=== PATIENT | female | born 1970 | race Caucasian/White ===

== ENCOUNTER 2022-02-12 13:02 | Inpatient (IN) | payer OTHER, SELFPAY ==
[2022-02-12 13:15] VITALS: BP 146/94; PULSE 102; RESP 26; TEMP 36.6; O2SAT 97; BMI 35.4
--- NOTE | 2022-02-12 13:19 | PC.NURSE ---
pt sobbing in triage then became very hyperverbal and hyperventilating, stating she doesnt need us im fine she also has right upper extremity bruising from a fall unknown. was seen at [facility] on thursday and thursday and d/c home
--- NOTE | 2022-02-12 13:35 | ED.PSYCH ---
HPI - Psych General Chief Complaint: Psychiatric Symptoms Stated Complaint: Depressed Drinking Alcohol Time Seen by Provider: 02/12/22 13:35 Source: patient Mode of arrival: ambulatory Limitations: no limitations History of Present Illness MD complaint: suicidal ideation and feels depressed Onset (ago): day(s) (several) Duration: getting worse History of same: Yes Relieving factors: none Exacerbating factors: alcohol Context: significant life stressor (two significant losses in her life) Associated psychiatric symptoms: depression and suicidal ideation Associated symptoms: denies other symptoms Treatments prior to arrival: none Related Data Allergies Allergy/AdvReac Type Severity Reaction Status Date / Time latex [LATEX] Allergy Unknown rash Unverified 05/10/20 17:24 leuprolide [From LUPRON] Allergy Unknown HIVES Unverified 05/10/20 17:24 Sulfa (Sulfonamide Allergy Unknown RASH Unverified 05/10/20 17:24 Antibiotics) [SULFA (SULFONAMIDE ANTIBIOTICS)] Review of Systems Review of Systems: Constitutional : No Fever, No Chills ENT/Mouth : No Ear Pain, No Nasal Congestion, No sore throat Eyes: No Eye Pain, No Swelling, No Redness Cardiovascular : No Chest Pain, No SOB Respiratory : No Cough, No Sputum, No Dyspnea Gastrointestinal : No Nausea, No Vomiting, No Diarrhea, No Hematochezia, No Melena Genitourinary : No Dysuria, No Urinary Frequency, No Hematuria Musculoskeletal : No Myalgias Skin : No Skin Lesions, No rash Neuro : No Weakness, No Numbness, No Paresthesias, No Dizziness, No Headache Psych : positive Anxiety, positive Depression, positive SI no HI Heme/Lymph: No Lymphadenopathy Endocrine : No Polyuria, No Polydipsia All other systems reviewed and are negative [facility] Past Medical History Attestation statement: The following information was validated with the patient. Medical History Alcohol abuse Depression GERD (gastroesophageal reflux disease) HTN (hypertension) Hypothyroidism Migraines Social History Social History (Updated 02/12/22 @ 13:44 by Radha Whitaker DO) Alcohol intake: current Alcohol intake frequency: 3 or more drinks per day Alcohol type: hard liquor Patient Tobacco Use Status: Never used Tobacco Use of substances other than those prescribed or required for medical reasons: No Advance Directives: No Advance Directives Information Provided: No Physical Exam Vital Signs: Vital Signs: Last Vital Signs Temp 98 F 02/12/22 13:15 Pulse 102 H 02/12/22 13:15 Resp 26 H 02/12/22 13:15 BP 146/94 H 02/12/22 13:15 Pulse Ox 97 02/12/22 13:15 O2 Del Method 02/12/22 13:15 BMI result Body Mass Index 35.4 Appearance: Alert. Oriented X3. Anxious tearful mild acute distress. Eyes: Pupils equal, round and reactive to light. ENT: Pharynx normal. Neck: Normal inspection. Neck supple. CVS: tachyardic heart rate and rhythm. Pulses normal. Respiratory: No respiratory distress. Breath sounds normal. Abdomen: Soft and non-tender. Skin: Skin warm and dry. Normal skin color. Normal skin turgor. Extremities: No lower extremity edema. No calf ttp Neuro: Oriented X 3. No motor deficit. No sensory deficit. CN2-12 intact, no tremors noted Course Course Course Narrative: Physician observation started at 248pm. Patient placed in physician observation because the patient needed more time for clinical sobriety and N evaluation. At the time observation was started the patient's vitals were stable, patient is alert and oriented but slightly anxious, Neuro: nonfocal, CV RRR, Lungs clear MDM - Psych MDM Narrative Medical decision making narrative: 51 yo female with hx of depression and ETOH abuse recently has been drinking heavily due to the loss of her father and service dog she is depressed with some vague SI reports being at [facility] on Thursday and cleared by service [facility] - was given phenobarbital x 2 while in ED. At this time labs, PRN ativan ordered. N consult. Dispo per results and findings. Lab Data Result diagrams: 02/12/22 14:18 02/12/22 14:18 Labs: Lab Results 02/12/22 02/12/22 02/12/22 Range/Units 14:18 14:18 14:18 WBC 4.4 L (4.8-10.8) X10*3/uL RBC 3.59 L (4.20-5.50) X10*6/uL Hgb 11.2 L (12.0-16.0) g/dl Hct 33.6 L (37.0-47.0) % MCV 93.6 (80.0-98.0) fL MCH 31.2 (27.0-33.0) pg MCHC 33.3 (31.0-35.0) g/dl RDW 12.6 (11.0-16.0) % Plt Count 141 L (160-400) X10*3/uL MPV 10.6 (9.4-12.3) fL Immature Gran % (Auto) 0.2 (0.0-0.4) % Neut % (Auto) 54.2 (45-73) % Lymph % (Auto) 40.1 H (20-40) % Wood % (Auto) 5.5 (2-11) % Eos % (Auto) 0.0 (0-4) % Baso % (Auto) 0.0 (0-2) % Lymph # (Auto) 1.8 (1.2-4.9) X10*3/uL Wood # (Auto) 0.2 (0.1-1.2) X10*3/uL Eos # (Auto) 0.0 (0.0-0.4) X10*3/uL Baso # (Auto) 0.0 (0.0-0.2) X10*3/uL Abs Immat Gran (auto) 0.01 (0.00-0.03) X10*3/uL Absolute Neuts (auto) 2.4 (2.0-8.3) x10*3/uL Absolute Nucleated RBC 0.000 (0.0-0.012) X10*3/uL Nucleated RBC % (auto) 0.0 (0.0-0.2) /100WBC Sodium 141 (135-145) mmol/L Potassium 4.4 (3.3-5.1) mmol/L Chloride 103 (96-108) mmol/L Carbon Dioxide 27 (22-29) mmol/L Anion Gap 15 (12-20) BUN 10 (9-16) mg/dL Creatinine 0.58 (0.5-1.4) mg/dL Estim Creat Clear Calc 115.5 Estimated GFR > 60 Random Glucose 102 (60-115) mg/dL Calcium 8.5 (8.4-10.2) mg/dL Magnesium 2.2 (1.6-2.6) mg/dL Total Bilirubin 0.2 (0.0-1.0) mg/dL Direct Bilirubin < 0.2 (0.0-0.5) mg/dL AST 29 (5-31) U/L ALT 24 (0-31) U/L Alkaline Phosphatase 114 (39-117) U/L Total Protein 6.2 L (6.5-8.0) g/dL Albumin 3.9 (3.5-5.0) g/dL Ethyl Alcohol mg/dL COVID-19 ([facility]) Negative (Negative) COVID-19 Clin Com See Note 02/12/22 Range/Units 14:18 WBC (4.8-10.8) X10*3/uL RBC (4.20-5.50) X10*6/uL Hgb (12.0-16.0) g/dl Hct (37.0-47.0) % MCV (80.0-98.0) fL MCH (27.0-33.0) pg MCHC (31.0-35.0) g/dl RDW (11.0-16.0) % Plt Count (160-400) X10*3/uL MPV (9.4-12.3) fL Immature Gran % (Auto) (0.0-0.4) % Neut % (Auto) (45-73) % Lymph % (Auto) (20-40) % Wood % (Auto) (2-11) % Eos % (Auto) (0-4) % Baso % (Auto) (0-2) % Lymph # (Auto) (1.2-4.9) X10*3/uL Wood # (Auto) (0.1-1.2) X10*3/uL Eos # (Auto) (0.0-0.4) X10*3/uL Baso # (Auto) (0.0-0.2) X10*3/uL Abs Immat Gran (auto) (0.00-0.03) X10*3/uL Absolute Neuts (auto) (2.0-8.3) x10*3/uL Absolute Nucleated RBC (0.0-0.012) X10*3/uL Nucleated RBC % (auto) (0.0-0.2) /100WBC Sodium (135-145) mmol/L Potassium (3.3-5.1) mmol/L Chloride (96-108) mmol/L Carbon Dioxide (22-29) mmol/L Anion Gap (12-20) BUN (9-16) mg/dL Creatinine (0.5-1.4) mg/dL Estim Creat Clear Calc Estimated GFR Random Glucose (60-115) mg/dL Calcium (8.4-10.2) mg/dL Magnesium (1.6-2.6) mg/dL Total Bilirubin (0.0-1.0) mg/dL Direct Bilirubin (0.0-0.5) mg/dL AST (5-31) U/L ALT (0-31) U/L Alkaline Phosphatase (39-117) U/L Total Protein (6.5-8.0) g/dL Albumin (3.5-5.0) g/dL Ethyl Alcohol 268 mg/dL COVID-19 ([facility]) (Negative) COVID-19 Clin Com Discharge Plan Discharge Clinical Impression: Alcohol abuse Depression Qualifiers: Depression Type: unspecified Qualified Code(s): F32.A - Depression, unspecified Patient Disposition: Still a Patient
[2022-02-12] MEDS: LORazepam 1 MG TABLET 2 MG PO ×2 (14:06→19:39)
--- NOTE | 2022-02-12 14:23 | PC.NURSE ---
PT AMBULATING TO BATHROOM INDEPENDENTLY WITH NO ISSUE. NO OBSERVABLE SXS OF ETOH ED AT THIS TIME, STATES LAST DRINK TODAY. DOES NOT APPEAR INTOXICATED. PT REMAINS TEARFUL, THOUGH BECOMING MORE EASILY CONSOLED. PER [facility] STAFF, PT IS ON LIST FOR [facility]. [facility] TO BE CONTATED AND FAXED.
[2022-02-12 14:24] LABS: MANUAL DIFF FLAG NO
[2022-02-12 14:26] LABS: Hematocrit 33.6 % (37.0-47.0); Hemoglobin 11.2 g/dl (12.0-16.0); Imm Gran Abs Auto 0.01 X10*3/uL (0.00-0.03); Imm Gran Pct Auto 0.2 % (0.0-0.4); Lymphocytes Absolute Auto 1.8 X10*3/uL (1.2-4.9); Lymphocytes Percent Auto 40.1 % (20-40); Mean Corpuscular HGB Conc 33.3 g/dl (31.0-35.0); Mean Corpuscular Hemoglobin 31.2 pg (27.0-33.0); Mean Corpuscular Volume 93.6 fL (80.0-98.0); Mean Platelet Volume 10.6 fL (9.4-12.3); Monocytes Absolute Auto 0.2 X10*3/uL (0.1-1.2); Monocytes Percent Auto 5.5 % (2-11); Neutrophils Absolute Auto 2.4 x10*3/uL (2.0-8.3); Neutrophils Percent Auto 54.2 % (45-73); Platelet Count 141 X10*3/uL (160-400); Red Blood Count 3.59 X10*6/uL (4.20-5.50); Red Cell Distribution Width 12.6 % (11.0-16.0); White Blood Count 4.4 X10*3/uL (4.8-10.8)
--- NOTE | 2022-02-12 14:36 | PC.NURSE ---
[facility]LL[facility] PAPERWORK SUBMITTED, CALL MADE OUT.
--- NOTE | 2022-02-12 14:39 | PC.NURSE ---
[facility] COUNSELOR SAMM BLUM [phone] PT GAVE VERBAL CONSENT TO DISCUSS UPDATES WITH [facility].
[2022-02-12 14:41] LABS: Ethanol 268 mg/dL
[2022-02-12 14:43] LABS: Alanine Aminotransferase 24 U/L (0-31); Albumin Level 3.9 g/dL (3.5-5.0); Alkaline Phosphatase 114 U/L (39-117); Anion Gap 15 (12-20); Aspartate Amino Transferase 29 U/L (5-31); Bilirubin Direct < 0.2 mg/dL (0.0-0.5); Bilirubin Total 0.2 mg/dL (0.0-1.0); Blood Urea Nitrogen 10 mg/dL (9-16); Calcium 8.5 mg/dL (8.4-10.2); Carbon Dioxide 27 mmol/L (22-29); Chloride 103 mmol/L (96-108); Creatinine Clr Calc Pharmacy 115.5; Estimated Glomerular Filt Rate > 60; Glucose Random 102 mg/dL (60-115); Magnesium 2.2 mg/dL (1.6-2.6); Potassium 4.4 mmol/L (3.3-5.1); Sodium 141 mmol/L (135-145); Total Protein 6.2 g/dL (6.5-8.0)
[2022-02-12 14:46] LABS: COVID-19 Test Negative (Negative); IDNOW Serial# 16C4AD1C
[2022-02-12 15:00] LABS: Amphetamine Screen Urine POSITIVE (Not Detect); Barbiturates, Urine POSITIVE (Not Detect); Benzodiazepines Screen Urine Not Detected (Not Detect); Cannabinoid Screen Urine Not Detected (Not Detect); Cocaine Screen Urine Not Detected (Not Detect); Fentanyl, urine Not Detected (Not Detect); Opiate Screen Urine Not Detected (Not Detect); Phencyclidine Screen Urine Not Detected (Not Detect)
--- NOTE | 2022-02-12 17:35 | PC.NURSE ---
[facility] HERE, EVAL TO BE DELAYED D/T ETOH > 250
[2022-02-12 18:44] VITALS: BP 124/67; PULSE 105; RESP 17; TEMP 36.6; O2SAT 96
[2022-02-12] MEDS: traZODone HCL 50 MG TABLET PO (22:20)
[2022-02-12] MEDS: Gabapentin 300 MG CAPSULE PO (22:20)
[2022-02-12] MEDS: Baclofen 20 MG TABLET PO (22:20)
[2022-02-12 22:33] VITALS: BP 147/90; PULSE 100; RESP 20; TEMP 36.1; O2SAT 99
[2022-02-13 02:16] VITALS: BP 155/93; PULSE 86; RESP 16; TEMP 36.4; O2SAT 100
[2022-02-13] MEDS: LORazepam 1 MG TABLET 2 MG PO ×3 (02:25→19:43)
[2022-02-13] MEDS: Levothyroxine Sodium 25 MCG TABLET PO (05:56)
[2022-02-13] MEDS: Omeprazole 20 MG CAPSULE.DR PO (05:56)
--- NOTE | 2022-02-13 06:44 | PC.NURSE ---
Patient slept through the night, no distress observed/reported, PRN Ativan 2 mg PO administered as ordered for comfort, patient compliant with her medication, well engaged with [facility], behavior non concerning, disposition section 12 inpatient bed search, will continue to monitor.
[2022-02-13 07:40] VITALS: BP 129/85; PULSE 75; RESP 12; TEMP 37.1; O2SAT 98
[2022-02-13] MEDS: lamoTRIgine 100 MG TABLET 200 MG PO (07:46)
[2022-02-13] MEDS: Acamprosate Calcium 333 MG TABLET.DR 666 MG PO ×3 (07:46→19:41)
[2022-02-13] MEDS: Multivitamin TABLET 1 TAB PO (07:46)
[2022-02-13] MEDS: Amphetamine Mixed Salts 20 MG TABLET PO ×2 (07:46→17:10)
[2022-02-13] MEDS: Gabapentin 300 MG CAPSULE PO ×2 (07:47→17:11)
[2022-02-13] MEDS: Loratadine 10 MG TABLET PO (07:47)
[2022-02-13] MEDS: Baclofen 20 MG TABLET PO ×3 (07:47→19:43)
[2022-02-13] MEDS: lisinopriL 10 MG TABLET PO (07:48)
[2022-02-13] MEDS: buPROPion HCl XL 300 MG TAB.ER.24H PO (07:48)
[2022-02-13] MEDS: Calcium + Vitamin D 250 MG TABLET 500 MG PO ×2 (07:48→19:42)
--- NOTE | 2022-02-13 09:54 | ECG_ITS ---
Test Reason : medical clearance Blood Pressure : / mmHG Vent. Rate : 085 BPM Atrial Rate : 085 BPM P-R Int : 148 ms QRS Dur : 102 ms QT Int : 372 ms P-R-T Axes : 047 -16 028 degrees QTc Int : 442 ms Normal sinus rhythm Moderate voltage criteria for LVH, may be normal variant ( R in aVL , Alex product ) Septal infarct , age undetermined Abnormal ECG No previous ECGs available Referred By: Megha Haskins Electronically Signed By:NICOLE PATRICIA MD
--- NOTE | 2022-02-13 11:12 | PC.NURSE ---
alert, nad, pleasant and cooperative, ate breakfast, medicated as ordered, speech clear, steady gait, no signs of withdrawl at this time
[2022-02-13 18:00] VITALS: BP 137/103; PULSE 97; RESP 18; TEMP 36.5
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
[2022-02-13] MEDS: busPIRone HCl 5 MG TABLET 15 MG PO (19:48)
[2022-02-13] MEDS: Gabapentin 400 MG CAPSULE PO (19:49)
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
[2022-02-13] MEDS: traZODone HCL 50 MG TABLET PO ×2 (20:49→22:59)
[2022-02-13] MEDS: LORazepam 1 MG TABLET PO (22:59)
[2022-02-14] MEDS: Amphetamine Mixed Salts 20 MG TABLET PO ×2 (06:30→14:29)
[2022-02-14] MEDS: Levothyroxine Sodium 25 MCG TABLET PO (06:30)
[2022-02-14] MEDS: Omeprazole 20 MG CAPSULE.DR PO ×2 (06:30→17:01)
[2022-02-14] MEDS: buPROPion HCl XL 300 MG TAB.ER.24H PO (09:03)
[2022-02-14] MEDS: Calcium + Vitamin D 250 MG TABLET 500 MG PO ×2 (09:03→19:52)
[2022-02-14] MEDS: Multivitamin TABLET 1 TAB PO (09:04)
[2022-02-14] MEDS: Gabapentin 400 MG CAPSULE PO ×3 (09:04→19:54)
[2022-02-14] MEDS: Thiamine HCL 100 MG TABLET 50 MG PO (09:05)
[2022-02-14] MEDS: busPIRone HCl 5 MG TABLET 15 MG PO ×2 (09:05→19:52)
[2022-02-14] MEDS: Loratadine 10 MG TABLET PO (09:06)
[2022-02-14] MEDS: Baclofen 20 MG TABLET PO ×3 (09:06→19:54)
[2022-02-14] MEDS: Folic Acid 1 MG TABLET PO (09:06)
[2022-02-14] MEDS: Pyridoxine HCl (Vitamin B6) 50 MG TABLET 25 MG PO (09:12)
[2022-02-14 09:34] LABS: Estimated Average Glucose 97 mg/dL
[2022-02-14] MEDS: SUMAtriptan succinate 50 MG TABLET PO ×2 (10:04→18:52)
[2022-02-14] MEDS: Ondansetron ODT 4 MG TAB.RAPDIS TRANSLINGU (10:05)
[2022-02-14 10:16] LABS: Cholesterol 208 mg/dL; HDL Cholesterol 111 mg/dL; LDL Cholesterol Calculated 88 mg/dl; Triglycerides 48 mg/dL
[2022-02-14] MEDS: Acamprosate Calcium 333 MG TABLET.DR 666 MG PO ×3 (11:36→19:53)
[2022-02-14 12:58] VITALS: BP 129/91; PULSE 99; RESP 16; TEMP 36.6; O2SAT 95
[2022-02-14 16:00] VITALS: BP 148/85; PULSE 105; TEMP 36
[2022-02-14] MEDS: Acetaminophen 325 MG TABLET 650 MG PO (17:19)
[2022-02-14] MEDS: LORazepam 1 MG TABLET 2 MG PO (17:20)
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
[2022-02-14] MEDS: Lurasidone HCl 80 MG TABLET 160 MG PO (18:36)
[2022-02-14] MEDS: cloNIDine HCL 0.1 MG TABLET PO (18:40)
[2022-02-14 19:40] VITALS: BP 139/68; PULSE 101
[2022-02-14] MEDS: traZODone HCL 50 MG TABLET PO (19:54)
[2022-02-14] MEDS: lamoTRIgine 100 MG TABLET 200 MG PO (19:54)
[2022-02-15 06:00] VITALS: BP 107/58; PULSE 79; RESP 16; TEMP 36.5; O2SAT 98
[2022-02-15] MEDS: Levothyroxine Sodium 25 MCG TABLET PO (06:35)
[2022-02-15] MEDS: Omeprazole 20 MG CAPSULE.DR PO ×2 (06:35→16:57)
[2022-02-15] MEDS: Amphetamine Mixed Salts 20 MG TABLET PO ×2 (06:38→13:14)
[2022-02-15] MEDS: Pyridoxine HCl (Vitamin B6) 50 MG TABLET 25 MG PO (08:18)
[2022-02-15] MEDS: Miconazole 2 % Extra Thick Cr 56.7 Gm Tube 1 APPL TOPICAL ×2 (08:18→21:25)
[2022-02-15] MEDS: Acamprosate Calcium 333 MG TABLET.DR 666 MG PO ×3 (08:19→21:18)
[2022-02-15] MEDS: Multivitamin TABLET 1 TAB PO (08:19)
[2022-02-15] MEDS: Loratadine 10 MG TABLET PO (08:19)
[2022-02-15] MEDS: buPROPion HCl XL 300 MG TAB.ER.24H PO (08:19)
[2022-02-15] MEDS: Calcium + Vitamin D 250 MG TABLET 500 MG PO ×2 (08:20→21:19)
[2022-02-15] MEDS: busPIRone HCl 5 MG TABLET 15 MG PO ×2 (08:20→21:20)
[2022-02-15] MEDS: Gabapentin 400 MG CAPSULE PO ×3 (08:20→21:21)
[2022-02-15] MEDS: Thiamine HCL 100 MG TABLET 50 MG PO (08:20)
[2022-02-15] MEDS: LORazepam 1 MG TABLET PO ×3 (08:20→21:20)
[2022-02-15] MEDS: Folic Acid 1 MG TABLET PO (08:21)
[2022-02-15] MEDS: Baclofen 20 MG TABLET PO ×3 (08:21→21:21)
[2022-02-15] MEDS: Acetaminophen 325 MG TABLET 975 MG PO ×2 (08:32→15:55)
[2022-02-15] MEDS: Loperamide HCl 2 MG CAPSULE PO ×2 (17:31→21:24)
[2022-02-15] MEDS: Lurasidone HCl 80 MG TABLET 160 MG PO (17:55)
[2022-02-15 18:00] VITALS: BP 117/64; PULSE 97; RESP 16; TEMP 36.6; O2SAT 99
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
[2022-02-15] MEDS: lamoTRIgine 100 MG TABLET 200 MG PO (21:21)
[2022-02-15] MEDS: traZODone HCL 50 MG TABLET PO (21:22)
[2022-02-16 06:00] VITALS: BP 116/64; PULSE 82; RESP 16; TEMP 36.5; O2SAT 98
[2022-02-16] MEDS: Omeprazole 20 MG CAPSULE.DR PO ×2 (06:04→17:45)
[2022-02-16] MEDS: Amphetamine Mixed Salts 20 MG TABLET PO ×2 (06:04→12:44)
[2022-02-16] MEDS: Levothyroxine Sodium 25 MCG TABLET PO (06:05)
[2022-02-16] MEDS: buPROPion HCl XL 300 MG TAB.ER.24H PO (08:35)
[2022-02-16] MEDS: Calcium + Vitamin D 250 MG TABLET 500 MG PO ×2 (08:35→20:28)
[2022-02-16] MEDS: Baclofen 20 MG TABLET PO ×3 (08:35→20:28)
[2022-02-16] MEDS: busPIRone HCl 5 MG TABLET 15 MG PO ×2 (08:35→20:28)
[2022-02-16] MEDS: Loratadine 10 MG TABLET PO (08:35)
[2022-02-16] MEDS: Acamprosate Calcium 333 MG TABLET.DR 666 MG PO ×3 (08:35→20:29)
[2022-02-16] MEDS: Gabapentin 400 MG CAPSULE PO ×3 (08:36→20:29)
[2022-02-16] MEDS: Multivitamin TABLET 1 TAB PO (08:36)
[2022-02-16] MEDS: LORazepam 1 MG TABLET PO (08:36)
[2022-02-16] MEDS: Folic Acid 1 MG TABLET PO (08:36)
[2022-02-16] MEDS: Thiamine HCL 100 MG TABLET 50 MG PO (08:36)
[2022-02-16] MEDS: Pyridoxine HCl (Vitamin B6) 50 MG TABLET 25 MG PO (08:36)
[2022-02-16] MEDS: Acetaminophen 325 MG TABLET 975 MG PO (08:40)
[2022-02-16] MEDS: Loperamide HCl 2 MG CAPSULE PO (08:40)
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
[2022-02-16] MEDS: LORazepam 1 MG TABLET 2 MG PO (16:15)
[2022-02-16] MEDS: Lurasidone HCl 80 MG TABLET 160 MG PO (18:44)
[2022-02-16] MEDS: lamoTRIgine 100 MG TABLET 200 MG PO (20:28)
[2022-02-16] MEDS: traZODone HCL 50 MG TABLET PO (20:29)
[2022-02-16 21:16] VITALS: BP 119/59; PULSE 93; TEMP 36.3; O2SAT 98
[2022-02-17] MEDS: hydrOXYzine HCL 25 MG TABLET PO (02:03)
[2022-02-17] MEDS: LORazepam 1 MG TABLET PO ×3 (02:03→18:57)
[2022-02-17 06:00] VITALS: BP 110/62; PULSE 86; RESP 16; TEMP 36.4; O2SAT 98
[2022-02-17] MEDS: Amphetamine Mixed Salts 20 MG TABLET PO ×2 (06:01→12:39)
[2022-02-17] MEDS: Omeprazole 20 MG CAPSULE.DR PO ×2 (06:01→17:47)
[2022-02-17] MEDS: Levothyroxine Sodium 25 MCG TABLET PO (06:01)
[2022-02-17] MEDS: Loratadine 10 MG TABLET PO (08:36)
[2022-02-17] MEDS: Thiamine HCL 100 MG TABLET 50 MG PO (08:36)
[2022-02-17] MEDS: busPIRone HCl 5 MG TABLET 15 MG PO ×3 (08:36→21:14)
[2022-02-17] MEDS: Pyridoxine HCl (Vitamin B6) 50 MG TABLET 25 MG PO (08:36)
[2022-02-17] MEDS: Baclofen 20 MG TABLET PO ×3 (08:37→21:13)
[2022-02-17] MEDS: Folic Acid 1 MG TABLET PO (08:37)
[2022-02-17] MEDS: Gabapentin 400 MG CAPSULE PO ×3 (08:38→21:13)
[2022-02-17] MEDS: buPROPion HCl XL 300 MG TAB.ER.24H PO (08:38)
[2022-02-17] MEDS: Multivitamin TABLET 1 TAB PO (08:38)
[2022-02-17] MEDS: Calcium + Vitamin D 250 MG TABLET 500 MG PO ×2 (08:38→21:13)
[2022-02-17] MEDS: Miconazole 2 % Extra Thick Cr 56.7 Gm Tube 1 APPL TOPICAL (08:56)
[2022-02-17] MEDS: Acamprosate Calcium 333 MG TABLET.DR 666 MG PO ×3 (09:00→21:13)
[2022-02-17] MEDS: Acetaminophen 325 MG TABLET 975 MG PO ×2 (10:43→18:56)
[2022-02-17] MEDS: Loperamide HCl 2 MG CAPSULE PO (12:39)
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
[2022-02-17] MEDS: SUMAtriptan succinate 25 MG TABLET PO (15:42)
[2022-02-17] MEDS: Lurasidone HCl 20 MG TABLET 180 MG PO (17:47)
[2022-02-17 18:00] VITALS: BP 125/85; PULSE 72; RESP 18; TEMP 36.3; O2SAT 100
[2022-02-17] MEDS: lamoTRIgine 100 MG TABLET 200 MG PO (21:13)
[2022-02-17] MEDS: traZODone HCL 50 MG TABLET PO (21:13)
[2022-02-18] MEDS: traZODone HCL 50 MG TABLET PO (00:42)
[2022-02-18] MEDS: Levothyroxine Sodium 25 MCG TABLET PO (06:15)
[2022-02-18] MEDS: Amphetamine Mixed Salts 20 MG TABLET PO ×2 (06:16→12:29)
[2022-02-18] MEDS: Omeprazole 20 MG CAPSULE.DR PO ×2 (06:16→17:23)
[2022-02-18 06:26] VITALS: BP 100/62; PULSE 92; RESP 16; TEMP 36.3; O2SAT 98
[2022-02-18] MEDS: Thiamine HCL 100 MG TABLET 50 MG PO (08:36)
[2022-02-18] MEDS: Calcium + Vitamin D 250 MG TABLET 500 MG PO ×2 (08:37→21:04)
[2022-02-18] MEDS: Multivitamin TABLET 1 TAB PO (08:37)
[2022-02-18] MEDS: busPIRone HCl 5 MG TABLET 15 MG PO ×3 (08:37→21:05)
[2022-02-18] MEDS: Baclofen 20 MG TABLET PO ×3 (08:37→21:04)
[2022-02-18] MEDS: Loratadine 10 MG TABLET PO (08:37)
[2022-02-18] MEDS: Gabapentin 400 MG CAPSULE PO ×3 (08:37→21:04)
[2022-02-18] MEDS: Acamprosate Calcium 333 MG TABLET.DR 666 MG PO ×3 (08:37→21:04)
[2022-02-18] MEDS: Folic Acid 1 MG TABLET PO (08:38)
[2022-02-18] MEDS: Pyridoxine HCl (Vitamin B6) 50 MG TABLET 25 MG PO (08:38)
[2022-02-18] MEDS: Miconazole 2 % Extra Thick Cr 56.7 Gm Tube 1 APPL TOPICAL (08:38)
[2022-02-18] MEDS: buPROPion HCl XL 300 MG TAB.ER.24H PO (09:14)
[2022-02-18] MEDS: Acetaminophen 325 MG TABLET 975 MG PO ×2 (10:45→18:37)
[2022-02-18 16:58] VITALS: BP 120/75; PULSE 68; RESP 16; TEMP 36.2; O2SAT 100
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
[2022-02-18] MEDS: LORazepam 1 MG TABLET PO (17:24)
[2022-02-18] MEDS: hydrOXYzine HCL 25 MG TABLET PO (18:37)
[2022-02-18] MEDS: Lurasidone HCl 20 MG TABLET 180 MG PO (18:39)
[2022-02-18] MEDS: traZODone HCL 100 MG TABLET PO (21:04)
[2022-02-18] MEDS: lamoTRIgine 100 MG TABLET 200 MG PO (21:05)
[2022-02-19] MEDS: Omeprazole 20 MG CAPSULE.DR PO ×2 (06:10→17:16)
[2022-02-19] MEDS: Levothyroxine Sodium 25 MCG TABLET PO (06:10)
[2022-02-19] MEDS: Amphetamine Mixed Salts 20 MG TABLET PO ×2 (06:10→12:44)
[2022-02-19 06:37] VITALS: BP 124/65; PULSE 72; TEMP 36.3; O2SAT 99
[2022-02-19] MEDS: Calcium + Vitamin D 250 MG TABLET 500 MG PO ×2 (08:56→22:00)
[2022-02-19] MEDS: busPIRone HCl 5 MG TABLET 15 MG PO ×3 (08:56→21:55)
[2022-02-19] MEDS: Baclofen 20 MG TABLET PO ×3 (08:56→21:57)
[2022-02-19] MEDS: Acamprosate Calcium 333 MG TABLET.DR 666 MG PO ×3 (08:56→21:55)
[2022-02-19] MEDS: Thiamine HCL 100 MG TABLET 50 MG PO (08:56)
[2022-02-19] MEDS: buPROPion HCl XL 300 MG TAB.ER.24H PO (08:57)
[2022-02-19] MEDS: Loratadine 10 MG TABLET PO (08:57)
[2022-02-19] MEDS: Pyridoxine HCl (Vitamin B6) 50 MG TABLET 25 MG PO (08:57)
[2022-02-19] MEDS: Gabapentin 400 MG CAPSULE PO ×3 (08:57→21:58)
[2022-02-19] MEDS: Multivitamin TABLET 1 TAB PO (08:57)
[2022-02-19] MEDS: Folic Acid 1 MG TABLET PO (08:57)
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
[2022-02-19] MEDS: Acetaminophen 325 MG TABLET 975 MG PO ×2 (09:38→17:21)
[2022-02-19] MEDS: Miconazole 2 % Extra Thick Cr 56.7 Gm Tube 1 APPL TOPICAL (10:59)
[2022-02-19 18:00] VITALS: BP 120/70; PULSE 65; TEMP 36.2; O2SAT 98
[2022-02-19] MEDS: Lurasidone HCl 20 MG TABLET 180 MG PO (18:31)
[2022-02-19 21:45] VITALS: BP 117/70; PULSE 75
[2022-02-19] MEDS: traZODone HCL 100 MG TABLET PO (21:57)
[2022-02-19] MEDS: cloNIDine HCL 0.1 MG TABLET PO (21:58)
[2022-02-19] MEDS: lamoTRIgine 100 MG TABLET 200 MG PO (22:00)
[2022-02-20] MEDS: Amphetamine Mixed Salts 20 MG TABLET PO ×2 (06:24→13:42)
[2022-02-20] MEDS: Omeprazole 20 MG CAPSULE.DR PO ×2 (06:24→17:03)
[2022-02-20] MEDS: Levothyroxine Sodium 25 MCG TABLET PO (06:24)
[2022-02-20 06:41] VITALS: BP 100/60; PULSE 76; RESP 16; TEMP 36.1; O2SAT 100
[2022-02-20] MEDS: Acetaminophen 325 MG TABLET 975 MG PO ×2 (06:48→13:41)
[2022-02-20] MEDS: Loperamide HCl 2 MG CAPSULE PO (06:49)
[2022-02-20] MEDS: Thiamine HCL 100 MG TABLET 50 MG PO (08:45)
[2022-02-20] MEDS: buPROPion HCl XL 300 MG TAB.ER.24H PO (08:46)
[2022-02-20] MEDS: Baclofen 20 MG TABLET PO ×3 (08:46→19:24)
[2022-02-20] MEDS: Pyridoxine HCl (Vitamin B6) 50 MG TABLET 25 MG PO (08:46)
[2022-02-20] MEDS: Acamprosate Calcium 333 MG TABLET.DR 666 MG PO ×3 (08:46→19:25)
[2022-02-20] MEDS: Folic Acid 1 MG TABLET PO (08:46)
[2022-02-20] MEDS: Gabapentin 400 MG CAPSULE PO ×3 (08:46→19:26)
[2022-02-20] MEDS: Calcium + Vitamin D 250 MG TABLET 500 MG PO ×2 (08:46→19:24)
[2022-02-20] MEDS: Loratadine 10 MG TABLET PO (08:46)
[2022-02-20] MEDS: busPIRone HCl 5 MG TABLET 15 MG PO ×3 (08:46→19:24)
[2022-02-20] MEDS: Multivitamin TABLET 1 TAB PO (08:47)
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
[2022-02-20] MEDS: Miconazole 2 % Extra Thick Cr 56.7 Gm Tube 1 APPL TOPICAL (12:38)
[2022-02-20] MEDS: LORazepam 1 MG TABLET PO (13:42)
[2022-02-20] MEDS: traMADoL HCL 50 MG TABLET 25 MG PO ×3 (14:54→19:52)
[2022-02-20 18:00] VITALS: BP 124/79; PULSE 78; RESP 16; TEMP 36.8; O2SAT 99
[2022-02-20] MEDS: cloNIDine HCL 0.1 MG TABLET PO (19:25)
[2022-02-20] MEDS: traZODone HCL 100 MG TABLET PO (19:25)
[2022-02-20] MEDS: lamoTRIgine 100 MG TABLET 200 MG PO (19:25)
[2022-02-20] MEDS: hydrOXYzine HCL 25 MG TABLET PO (19:53)
[2022-02-21] MEDS: cloNIDine HCL 0.1 MG TABLET PO ×2 (03:08→21:15)
[2022-02-21] MEDS: hydrOXYzine HCL 25 MG TABLET PO ×2 (03:08→21:17)
[2022-02-21] MEDS: traMADoL HCL 50 MG TABLET 25 MG PO ×2 (03:27→10:27)
[2022-02-21] MEDS: Acetaminophen 325 MG TABLET 975 MG PO ×2 (03:28→10:28)
[2022-02-21 06:00] VITALS: BP 98/56; PULSE 62; RESP 18; TEMP 36.9; O2SAT 97
[2022-02-21] MEDS: Omeprazole 20 MG CAPSULE.DR PO ×2 (06:17→15:32)
[2022-02-21] MEDS: Levothyroxine Sodium 25 MCG TABLET PO (06:17)
[2022-02-21] MEDS: Amphetamine Mixed Salts 20 MG TABLET PO ×2 (06:42→12:41)
[2022-02-21] MEDS: Calcium + Vitamin D 250 MG TABLET 500 MG PO ×2 (09:04→21:15)
[2022-02-21] MEDS: Multivitamin TABLET 1 TAB PO (09:05)
[2022-02-21] MEDS: buPROPion HCl XL 300 MG TAB.ER.24H PO (09:05)
[2022-02-21] MEDS: Loratadine 10 MG TABLET PO (09:05)
[2022-02-21] MEDS: Gabapentin 400 MG CAPSULE PO ×3 (09:05→21:14)
[2022-02-21] MEDS: Acamprosate Calcium 333 MG TABLET.DR 666 MG PO ×3 (09:05→21:14)
[2022-02-21] MEDS: Baclofen 20 MG TABLET PO ×3 (09:05→21:14)
[2022-02-21] MEDS: Thiamine HCL 100 MG TABLET 50 MG PO (09:06)
[2022-02-21] MEDS: busPIRone HCl 5 MG TABLET 15 MG PO ×3 (09:07→21:14)
[2022-02-21] MEDS: Pyridoxine HCl (Vitamin B6) 50 MG TABLET 25 MG PO (09:07)
[2022-02-21] MEDS: Folic Acid 1 MG TABLET PO (09:07)
[2022-02-21] MEDS: buPROPion HCl XL 150 MG TAB.ER.24H PO (12:42)
[2022-02-21] MEDS: traMADoL HCL 50 MG TABLET PO ×2 (15:32→18:18)
[2022-02-21] MEDS: Lurasidone HCl 80 MG TABLET 160 MG PO (16:32)
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
[2022-02-21 18:00] VITALS: BP 119/79; PULSE 89; RESP 16; TEMP 36.6; O2SAT 99
[2022-02-21] MEDS: Acetaminophen 325 MG TABLET 650 MG PO (18:17)
[2022-02-21] MEDS: traZODone HCL 100 MG TABLET PO (21:14)
[2022-02-21] MEDS: lamoTRIgine 100 MG TABLET 200 MG PO (21:15)
[2022-02-22] MEDS: Levothyroxine Sodium 25 MCG TABLET PO (05:59)
[2022-02-22] MEDS: Amphetamine Mixed Salts 20 MG TABLET PO ×2 (05:59→13:40)
[2022-02-22] MEDS: Omeprazole 20 MG CAPSULE.DR PO ×2 (05:59→17:13)
[2022-02-22 06:00] VITALS: BP 115/65; PULSE 66; TEMP 36.4; O2SAT 98
[2022-02-22] MEDS: Baclofen 20 MG TABLET PO ×3 (08:27→20:54)
[2022-02-22] MEDS: buPROPion HCl XL 150 MG TAB.ER.24H 450 MG PO (08:27)
[2022-02-22] MEDS: Loratadine 10 MG TABLET PO (08:27)
[2022-02-22] MEDS: Gabapentin 400 MG CAPSULE PO ×3 (08:27→20:55)
[2022-02-22] MEDS: Acamprosate Calcium 333 MG TABLET.DR 666 MG PO ×3 (08:28→21:11)
[2022-02-22] MEDS: Folic Acid 1 MG TABLET PO (08:29)
[2022-02-22] MEDS: busPIRone HCl 5 MG TABLET 15 MG PO (08:29)
[2022-02-22] MEDS: Thiamine HCL 100 MG TABLET 50 MG PO (08:29)
[2022-02-22] MEDS: Multivitamin TABLET 1 TAB PO (08:30)
[2022-02-22] MEDS: Pyridoxine HCl (Vitamin B6) 50 MG TABLET 25 MG PO (08:30)
[2022-02-22] MEDS: LORazepam 1 MG TABLET PO ×2 (08:30→11:16)
[2022-02-22] MEDS: Calcium + Vitamin D 250 MG TABLET 500 MG PO ×2 (08:30→20:53)
[2022-02-22] MEDS: Acetaminophen 325 MG TABLET 975 MG PO (10:54)
[2022-02-22] MEDS: Loperamide HCl 2 MG CAPSULE PO (12:56)
[2022-02-22] MEDS: busPIRone HCl 10 MG TABLET 20 MG PO ×2 (14:46→21:11)
[2022-02-22] MEDS: traMADoL HCL 50 MG TABLET PO ×2 (15:20→18:41)
[2022-02-22] MEDS: Lurasidone HCl 80 MG TABLET 160 MG PO (18:18)
[2022-02-22] MEDS: cloNIDine HCL 0.1 MG TABLET PO ×2 (18:53→20:54)
[2022-02-22 20:50] VITALS: BP 119/60; PULSE 71; RESP 16; TEMP 36.4; O2SAT 96
[2022-02-22] MEDS: traZODone HCL 100 MG TABLET PO (20:53)
[2022-02-22] MEDS: hydrOXYzine HCL 25 MG TABLET PO (20:53)
[2022-02-22] MEDS: lamoTRIgine 100 MG TABLET 200 MG PO (20:54)
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
[2022-02-23] MEDS: cloNIDine HCL 0.1 MG TABLET PO ×2 (03:14→21:20)
[2022-02-23] MEDS: hydrOXYzine HCL 25 MG TABLET PO (03:18)
[2022-02-23] MEDS: Amphetamine Mixed Salts 20 MG TABLET PO ×2 (05:58→12:47)
[2022-02-23] MEDS: Omeprazole 20 MG CAPSULE.DR PO ×2 (05:58→17:06)
[2022-02-23] MEDS: Levothyroxine Sodium 25 MCG TABLET PO (05:58)
[2022-02-23 08:10] VITALS: BP 131/74; PULSE 63; RESP 16; TEMP 36.6; O2SAT 100
[2022-02-23] MEDS: Gabapentin 400 MG CAPSULE PO ×3 (08:10→21:19)
[2022-02-23] MEDS: busPIRone HCl 10 MG TABLET 20 MG PO ×3 (08:10→21:20)
[2022-02-23] MEDS: buPROPion HCl XL 150 MG TAB.ER.24H 450 MG PO (08:10)
[2022-02-23] MEDS: Pyridoxine HCl (Vitamin B6) 50 MG TABLET 25 MG PO (08:11)
[2022-02-23] MEDS: Calcium + Vitamin D 250 MG TABLET 500 MG PO ×2 (08:11→21:20)
[2022-02-23] MEDS: Baclofen 20 MG TABLET PO ×3 (08:11→21:20)
[2022-02-23] MEDS: Acamprosate Calcium 333 MG TABLET.DR 666 MG PO ×3 (08:11→21:19)
[2022-02-23] MEDS: Multivitamin TABLET 1 TAB PO (08:12)
[2022-02-23] MEDS: Thiamine HCL 100 MG TABLET 50 MG PO (08:12)
[2022-02-23] MEDS: Folic Acid 1 MG TABLET PO (08:13)
[2022-02-23] MEDS: Loratadine 10 MG TABLET PO (08:13)
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
[2022-02-23] MEDS: LORazepam 0.5 MG TABLET PO (12:40)
[2022-02-23] MEDS: traMADoL HCL 50 MG TABLET PO (17:17)
[2022-02-23] MEDS: Lurasidone HCl 80 MG TABLET 160 MG PO (18:31)
[2022-02-23] MEDS: oxyCODONE HCl Immed Release 5 MG TABLET PO (18:41)
[2022-02-23 21:12] VITALS: BP 131/61; PULSE 65; RESP 16; TEMP 36.5; O2SAT 97
[2022-02-23] MEDS: lamoTRIgine 100 MG TABLET 200 MG PO (21:19)
[2022-02-23] MEDS: traZODone HCL 100 MG TABLET PO (21:20)
[2022-02-24] MEDS: traZODone HCL 100 MG TABLET PO ×2 (00:21→21:24)
[2022-02-24] MEDS: hydrOXYzine HCL 25 MG TABLET PO (00:21)
[2022-02-24] MEDS: Omeprazole 20 MG CAPSULE.DR PO ×2 (06:04→17:38)
[2022-02-24] MEDS: Amphetamine Mixed Salts 20 MG TABLET PO ×2 (06:04→12:15)
[2022-02-24] MEDS: Levothyroxine Sodium 25 MCG TABLET PO (06:04)
[2022-02-24 08:45] VITALS: BP 151/67; PULSE 60; RESP 18; TEMP 36.4; O2SAT 100
[2022-02-24] MEDS: Thiamine HCL 100 MG TABLET 50 MG PO (08:56)
[2022-02-24] MEDS: Pyridoxine HCl (Vitamin B6) 50 MG TABLET 25 MG PO (08:57)
[2022-02-24] MEDS: busPIRone HCl 10 MG TABLET 20 MG PO ×3 (08:58→21:24)
[2022-02-24] MEDS: buPROPion HCl XL 150 MG TAB.ER.24H 450 MG PO (08:58)
[2022-02-24] MEDS: Acamprosate Calcium 333 MG TABLET.DR 666 MG PO ×3 (08:59→21:24)
[2022-02-24] MEDS: Multivitamin TABLET 1 TAB PO (08:59)
[2022-02-24] MEDS: Gabapentin 400 MG CAPSULE PO ×3 (09:00→21:24)
[2022-02-24] MEDS: Folic Acid 1 MG TABLET PO (09:00)
[2022-02-24] MEDS: Calcium + Vitamin D 250 MG TABLET 500 MG PO ×2 (09:01→21:21)
[2022-02-24] MEDS: Baclofen 20 MG TABLET PO ×3 (09:01→21:24)
[2022-02-24] MEDS: Loratadine 10 MG TABLET PO (09:02)
[2022-02-24] MEDS: Acetaminophen 325 MG TABLET 975 MG PO (10:31)
[2022-02-24] MEDS: traMADoL HCL 50 MG TABLET PO (14:53)
[2022-02-24] MEDS: SUMAtriptan succinate 25 MG TABLET PO (17:38)
[2022-02-24] MEDS: oxyCODONE HCl Immed Release 5 MG TABLET PO (17:38)
[2022-02-24] MEDS: Lurasidone HCl 80 MG TABLET 160 MG PO (18:13)
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
[2022-02-24] MEDS: LORazepam 1 MG TABLET PO (19:48)
[2022-02-24 21:05] VITALS: BP 130/67; PULSE 66; RESP 16; TEMP 36.2; O2SAT 97
[2022-02-24] MEDS: lamoTRIgine 100 MG TABLET 200 MG PO (21:24)
[2022-02-24] MEDS: cloNIDine HCL 0.1 MG TABLET PO (21:25)
[2022-02-25] MEDS: hydrOXYzine HCL 25 MG TABLET PO ×2 (03:07→21:39)
[2022-02-25] MEDS: cloNIDine HCL 0.1 MG TABLET PO ×2 (03:07→21:39)
[2022-02-25] MEDS: traZODone HCL 50 MG TABLET PO (03:07)
[2022-02-25] MEDS: Levothyroxine Sodium 25 MCG TABLET PO (06:39)
[2022-02-25] MEDS: Omeprazole 20 MG CAPSULE.DR PO ×2 (06:40→17:05)
[2022-02-25] MEDS: Amphetamine Mixed Salts 20 MG TABLET PO ×2 (06:40→13:13)
[2022-02-25] MEDS: buPROPion HCl XL 150 MG TAB.ER.24H 450 MG PO (08:52)
[2022-02-25] MEDS: busPIRone HCl 10 MG TABLET 20 MG PO ×3 (08:53→21:39)
[2022-02-25] MEDS: Pyridoxine HCl (Vitamin B6) 50 MG TABLET 25 MG PO (08:53)
[2022-02-25] MEDS: Acamprosate Calcium 333 MG TABLET.DR 666 MG PO ×3 (08:54→21:39)
[2022-02-25] MEDS: Gabapentin 400 MG CAPSULE PO ×3 (08:54→21:40)
[2022-02-25] MEDS: Folic Acid 1 MG TABLET PO (08:55)
[2022-02-25] MEDS: Baclofen 20 MG TABLET PO ×3 (08:55→21:39)
[2022-02-25] MEDS: Multivitamin TABLET 1 TAB PO (08:55)
[2022-02-25] MEDS: Calcium + Vitamin D 250 MG TABLET 500 MG PO ×2 (08:56→21:39)
[2022-02-25] MEDS: Thiamine HCL 100 MG TABLET 50 MG PO (08:56)
[2022-02-25] MEDS: Loratadine 10 MG TABLET PO (08:57)
[2022-02-25 09:35] VITALS: BP 148/70; PULSE 63; RESP 18; TEMP 36.6; O2SAT 100
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
[2022-02-25] MEDS: LORazepam 1 MG TABLET PO (16:07)
[2022-02-25] MEDS: Acetaminophen 325 MG TABLET 975 MG PO (16:42)
[2022-02-25] MEDS: Lurasidone HCl 80 MG TABLET 160 MG PO (18:10)
[2022-02-25] MEDS: traZODone HCL 100 MG TABLET PO ×2 (21:39→23:31)
[2022-02-25] MEDS: lamoTRIgine 100 MG TABLET 200 MG PO (21:40)
[2022-02-25 21:47] VITALS: BP 124/67; PULSE 59; RESP 18; TEMP 36.6; O2SAT 96
[2022-02-26] MEDS: Omeprazole 20 MG CAPSULE.DR PO ×2 (06:05→16:38)
[2022-02-26] MEDS: Levothyroxine Sodium 25 MCG TABLET PO (06:05)
[2022-02-26] MEDS: Amphetamine Mixed Salts 20 MG TABLET PO ×2 (06:05→12:42)
[2022-02-26 08:14] VITALS: BP 127/69; PULSE 72; RESP 18; TEMP 36.6; O2SAT 100
[2022-02-26] MEDS: Acamprosate Calcium 333 MG TABLET.DR 666 MG PO ×3 (08:16→21:40)
[2022-02-26] MEDS: traMADoL HCL 50 MG TABLET PO (08:16)
[2022-02-26] MEDS: Calcium + Vitamin D 250 MG TABLET 500 MG PO ×2 (08:18→21:39)
[2022-02-26] MEDS: Folic Acid 1 MG TABLET PO (08:18)
[2022-02-26] MEDS: buPROPion HCl XL 150 MG TAB.ER.24H 450 MG PO (08:18)
[2022-02-26] MEDS: LORazepam 0.5 MG TABLET PO (08:18)
[2022-02-26] MEDS: Thiamine HCL 100 MG TABLET 50 MG PO (08:18)
[2022-02-26] MEDS: Baclofen 20 MG TABLET PO ×3 (08:18→21:39)
[2022-02-26] MEDS: Gabapentin 400 MG CAPSULE PO ×3 (08:19→21:41)
[2022-02-26] MEDS: Pyridoxine HCl (Vitamin B6) 50 MG TABLET 25 MG PO (08:19)
[2022-02-26] MEDS: busPIRone HCl 10 MG TABLET 20 MG PO ×3 (08:20→21:40)
[2022-02-26] MEDS: Multivitamin TABLET 1 TAB PO (08:20)
[2022-02-26] MEDS: Loratadine 10 MG TABLET PO (08:20)
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
[2022-02-26] MEDS: SUMAtriptan succinate 25 MG TABLET PO (16:37)
[2022-02-26] MEDS: oxyCODONE HCl Immed Release 5 MG TABLET PO (16:38)
[2022-02-26] MEDS: Acetaminophen 325 MG TABLET 975 MG PO (16:38)
[2022-02-26] MEDS: Lurasidone HCl 80 MG TABLET 160 MG PO (18:37)
[2022-02-26] MEDS: cloNIDine HCL 0.1 MG TABLET PO (21:39)
[2022-02-26 21:40] VITALS: BP 143/68; PULSE 56; RESP 18; TEMP 36.6; O2SAT 100
[2022-02-26] MEDS: hydrOXYzine HCL 25 MG TABLET PO (21:40)
[2022-02-26] MEDS: lamoTRIgine 100 MG TABLET 200 MG PO (21:40)
[2022-02-26] MEDS: traZODone HCL 100 MG TABLET PO (21:42)
[2022-02-27] MEDS: Amphetamine Mixed Salts 20 MG TABLET PO ×2 (06:18→13:32)
[2022-02-27] MEDS: Omeprazole 20 MG CAPSULE.DR PO (06:18)
[2022-02-27] MEDS: Levothyroxine Sodium 25 MCG TABLET PO (06:18)
[2022-02-27 08:00] VITALS: BP 122/67; PULSE 75; RESP 16; TEMP 36.7; O2SAT 100
[2022-02-27] MEDS: buPROPion HCl XL 150 MG TAB.ER.24H 450 MG PO (08:02)
[2022-02-27] MEDS: Loratadine 10 MG TABLET PO (08:02)
[2022-02-27] MEDS: Baclofen 20 MG TABLET PO ×2 (08:02→13:31)
[2022-02-27] MEDS: Acamprosate Calcium 333 MG TABLET.DR 666 MG PO ×2 (08:02→13:31)
[2022-02-27] MEDS: Calcium + Vitamin D 250 MG TABLET 500 MG PO (08:02)
[2022-02-27] MEDS: Thiamine HCL 100 MG TABLET 50 MG PO (08:03)
[2022-02-27] MEDS: Loperamide HCl 2 MG CAPSULE PO (08:03)
[2022-02-27] MEDS: Folic Acid 1 MG TABLET PO (08:03)
[2022-02-27] MEDS: busPIRone HCl 10 MG TABLET 20 MG PO ×2 (08:04→13:32)
[2022-02-27] MEDS: Multivitamin TABLET 1 TAB PO (08:04)
[2022-02-27] MEDS: Pyridoxine HCl (Vitamin B6) 50 MG TABLET 25 MG PO (08:04)
[2022-02-27] MEDS: Gabapentin 400 MG CAPSULE PO ×2 (08:05→13:32)
[2022-02-27 08:58] VITALS: BMI 37.6
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
[2022-02-27] MEDS: Acetaminophen 325 MG TABLET 975 MG PO (13:38)
--- NOTE | 2022-02-27 13:45 | PC.NURSE ---
Patient is alert and oriented x 4. Patient is pleasant and cooperative. Patient is in agreement with discharge. Reports that I am healthy anxious about discharge. I am ready to go, but just a little nervous . Patient reports she is looking forward to proving up with out patient providers, as well as getting to attend my AA meetings everyday. They are at 7 am and I go everyday no matter what . Patient denies SI/HI/AH/VH. Denies acute physical complaints.
[2022-02-27] MEDS: LORazepam 1 MG TABLET PO (14:33)
== END 2022-02-27 15:13 | disposition home or self-care (01) | DRG 885 ==
LOC: HO.ED 14:35 → HO.PM5 02-13 13:49 → HO.PADLT16 02-22 10:25
PROVIDERS: Admitting Provider Psychiatry & Neurology Psychiatry; Emergency Provider Emergency Medicine; PCP Family Medicine; Visit Provider Psychiatry & Neurology Psychiatry
DX: F33.1 Major depressive disorder, recurrent, moderate (principal); R45.851 Suicidal ideations; F43.10 Post-traumatic stress disorder, unspecified; K21.9 Gastro-esophageal reflux disease without esophagitis; E03.9 Hypothyroidism, unspecified; F10.20 Alcohol dependence, uncomplicated; G43.909 Migraine, unspecified, not intractable, without status migrainosus; Z20.822 Contact with and (suspected) exposure to COVID-19; Z91.040 Latex allergy status; Z88.2 Allergy status to sulfonamides; Z88.6 Allergy status to analgesic agent; Z88.8 Allergy status to other drugs, medicaments and biological substances; Z79.890 Hormone replacement therapy; Z79.899 Other long term (current) drug therapy
CPT/HCPCS: 36415; 80048; 80061; 80076; 80307; 82077; 83036; 83735; 85025; 87635; 93005; 99285

== ENCOUNTER 2022-03-07 08:30 | Outpatient (RCR) | payer OTHER, SELFPAY ==
--- NOTE | 2022-03-06 08:54 | PC.NURSE ---
Patient called this morning and stated she is unable to attend the program at this time. Stated she is getting a 12 week old puppy from another [place] this weekend and feels she will not be able to be fully present in the treatment as a result. Patient stated she would like to attend after things settle in and will call Anna to make an appointment. Patient denied SI. Stated she is safe. Asked who she could call if she started to feel unsafe. She stated she would reach out to her [facility] worker, crisis, or go to the hospital if needed.
== END 2022-03-07 23:59 | disposition home or self-care (01) ==
LOC: HO.PHPA 08:30
PROVIDERS: Visit Provider Psychiatry & Neurology Psychiatry
DX: F33.1 Major depressive disorder, recurrent, moderate (principal); F43.10 Post-traumatic stress disorder, unspecified

== ENCOUNTER 2022-03-10 16:25 | Emergency (ER) | payer OTHER, SELFPAY ==
--- NOTE | 2022-03-10 16:51 | ED_ITS ---
HPI - Psych General Chief Complaint: Psychiatric Symptoms Stated Complaint: SI Time Seen by Provider: 03/10/22 16:42 Source: patient Mode of arrival: ambulatory Limitations: no limitations History of Present Illness HPI Narrative: 51-year-old female history of PTSD, alcohol use disorder, bipolar disorder presenting to the emergency department for complaints of anxiety, depression and suicidal ideation without plan times a week worsening. Patient tells me that recently she has been very upset because she lost her service dog. Patient is very tearful, crying screaming out telling me she is having panic attacks. She denies visual, auditory and tactile hallucinations. Denies drugs, alcohol and tobacco. Tells me that she is suicidal without a specific plan. Denies medical complaints. MD complaint: suicidal ideation, feels depressed and anxiety Onset (ago): week(s) (1) Duration: constant History of same: Yes Relieving factors: none Exacerbating factors: none Associated psychiatric symptoms: none Associated symptoms: denies other symptoms Treatments prior to arrival: none If self harm: admits thoughts of self harm Related Data Home Medications Medication Instructions Recorded Confirmed acamprosate 333 mg tablet,delayed 2 tab PO TID 02/12/22 03/10/22 release baclofen 20 mg tablet 1 tab PO TID 02/12/22 03/10/22 calcium carbonate 600 mg-vitamin 1 tab PO BID 02/12/22 03/10/22 D3 10 mcg (400 unit) tablet lamotrigine 200 mg tablet 1 tab PO BEDTIME 02/12/22 03/10/22 levothyroxine 25 mcg tablet 1 tab PO DAILY 02/12/22 03/10/22 loratadine 10 mg tablet 1 tab PO DAILY 02/12/22 03/10/22 multivitamin 1 tab PO DAILY 02/12/22 03/10/22 pantoprazole 40 mg tablet,delayed 1 tab PO BID 02/12/22 03/10/22 release ascorbic acid (vitamin C) 500 mg 500 mg PO BID 03/10/22 03/10/22 tablet dextroamphetamine-amphetamine 20 1 tab PO BID@0600,1300 03/10/22 03/10/22 mg tablet sumatriptan 20 mg/actuation nasal 20 mg intranasal Q2H PRN Migraine 03/10/22 03/10/22 spray Headache Previous Rx's Medication Instructions Recorded bupropion HCl 150 mg 24 hr tablet, 450 mg PO DAILY 30 days #90 tabs 02/27/22 extended release buspirone 10 mg tablet 20 mg PO TID 30 days #180 tabs 02/27/22 clonidine HCl 0.1 mg tablet 0.1 mg PO BEDTIME 30 days #30 tabs 02/27/22 gabapentin 400 mg capsule 400 mg PO TID 30 days #90 caps 02/27/22 lorazepam 0.5 mg tablet 0.5 mg PO DAILY PRN mild anixety 02/27/22 30 days #30 tabs lurasidone 80 mg tablet (Latuda) 160 mg PO DAILY@1800 30 days #60 02/27/22 tabs trazodone 100 mg tablet 100 mg PO BEDTIME 30 days #30 tabs 02/27/22 trazodone 50 mg tablet 50 mg PO BEDTIME PRN continued 02/27/22 insomnia 30 days #30 tabs trolamine salicylate 10 % topical 1 appl topical QID PRN back pain 02/27/22 cream (Arthricream) 30 days #100 grams Allergies Allergy/AdvReac Type Severity Reaction Status Date / Time latex [LATEX] Allergy Mild Rash Verified 02/21/22 06:47 leuprolide [From LUPRON] Allergy Unknown HIVES Verified 02/21/22 06:47 Sulfa (Sulfonamide Allergy Unknown RASH Verified 02/21/22 06:48 Antibiotics) [SULFA (SULFONAMIDE ANTIBIOTICS)] ibuprofen AdvReac Intermediate Abdominal Verified 02/21/22 16:53 Pain Review of Systems Review of Systems: Constitutional : No Weight loss, No Fever, No Chills, No Fatigue, No Malaise ENT/Mouth : No sore throat, No Rhinorrhea Eyes: No Eye Pain, No Swelling, No Redness Cardiovascular : No Chest Pain, No SOB, No Dyspnea on Exertion, No Orthopnea, No Edema, No Palpitations Respiratory : No Cough, No Sputum, No Wheezing Gastrointestinal : No Nausea, No Vomiting, No Diarrhea, No Constipation, No abdominal Pain, No Hematochezia, No Melena Genitourinary : No Dysuria, No Urinary Frequency, No Hematuria, Musculoskeletal : No joint pain, No Myalgias, No Joint Swelling Skin : No Skin Lesions, No rash Neuro : No Weakness, No Numbness, No Dizziness, No Headache Psych : + Anxiety/Panic, + Depression, + SI, No HI All other systems reviewed and are negative Yes all other systems are reviewed and are negative [facility] Past Medical History Attestation statement: The following information was validated with the patient. Source: old records reviewed and nursing notes reviewed Medical History Alcohol abuse Alcohol abuse Depression Depression GERD (gastroesophageal reflux disease) HTN (hypertension) Hypothyroidism Migraines Social History Social History Household Members: None Housing: Apartment Do you presently have visiting nurse or other home services: No Alcohol intake: current Alcohol intake frequency: 3 or more drinks per day Alcohol type: hard liquor Patient Tobacco Use Status: Never used Tobacco Advance Directives: No Advance Directives Information Provided: No Guardian: No service: No Sexual orientation: Did not discuss Physical Exam Vital Signs: Vital Signs: Last Vital Signs Temp 97.6 F 03/10/22 21:51 Pulse 103 H 03/10/22 21:51 Resp 16 03/10/22 21:51 BP 167/90 H 03/10/22 21:51 Pulse Ox 97 03/10/22 21:51 O2 Del Method 03/10/22 21:51 BMI result Body Mass Index 37.3 VSS Appearance: Alert.? Oriented X3.? No acute distress.?Patient tearful Head: Normocephalic, atraumatic, no step-offs or deformities Eyes: Pupils equal, round and reactive to light.? ENT: Pharynx normal.? Neck: Normal inspection.? Neck supple.? CVS: Normal heart rate and rhythm.? Pulses normal.? Respiratory: No respiratory distress.? Breath sounds normal.? Abdomen: Soft and nontender.? Skin: Skin warm and dry.? Normal skin color.? Normal skin turgor.? Extremities: No lower extremity edema.? No calf ttp. 5/5 strength to bilateral upper and lower extremities Neuro: Oriented X 3.? No motor deficit.? No sensory deficit. CN 2-12 intact Course Reevaluation(s) Reevaluation #1: Patient with slightly elevated anion gap likely secondary to ethanol. Toxicology negative for salicylates, acetaminophen. Ethanol level 280. Consistent with acute alcohol intoxication. COVID negative. Cbc, UA, preg, tox pending at this time. Time: 18:08 Reevaluation #2: CBC with slighly elevated leukocytosis likely reactive. Urine negative. Urine toxicology and UA pending. Time: 20:11 Reevaluation #3: Urine with leukocyte esterases and white blood cells, will treat for UTI with Macrobid as she does have an elevated white blood cell count. No CVA tenderness, low suspicion for pyelo. No abdominal tenderness to palpation. Urine toxicology positive for fentanyl and amphetamines. At this time patient will be placed in physician observation to allow more time to be evaluated by the behavioral health team. At time observation was started patient common cooperative in no acute distress. Will continue to monitor. Time: 00:04 MDM - Psych MDM Narrative Medical decision making narrative: 1640 51 year old female presents via ambulance w/ anxiety, depression, si w/o plan X1 week. reports service dog recently PE benign No evidence of alcohol withdrawal at this time. Plan- medical clearance and evaluation by the behavioral health team. Upon patient's arrival she was placed on a Section for suicidal ideation, bipolar disorder, PTSD, anxiety and depression. Medical Records Attestation: I reviewed the patient's medical records. Lab Data Attestation: I reviewed the patient's lab results. Result diagrams: 03/10/22 17:39 03/10/22 17:39 Labs: Lab Results 03/10/22 03/10/22 03/10/22 Range/Units 17:39 17:39 17:39 WBC 12.4 H (4.8-10.8) X10*3/uL RBC 4.66 D (4.20-5.50) X10*6/uL Hgb 14.4 D (12.0-16.0) g/dl Hct 41.8 D (37.0-47.0) % MCV 89.7 (80.0-98.0) fL MCH 30.9 (27.0-33.0) pg MCHC 34.4 (31.0-35.0) g/dl RDW 13.3 (11.0-16.0) % Plt Count 324 D (160-400) X10*3/uL MPV 10.1 (9.4-12.3) fL Immature Gran % (Auto) 0.3 (0.0-0.4) % Neut % (Auto) 69.9 (45-73) % Lymph % (Auto) 21.5 (20-40) % Clark % (Auto) 8.1 (2-11) % Eos % (Auto) 0.1 (0-4) % Baso % (Auto) 0.1 (0-2) % Lymph # (Auto) 2.7 (1.2-4.9) X10*3/uL Clark # (Auto) 1.0 (0.1-1.2) X10*3/uL Eos # (Auto) 0.0 (0.0-0.4) X10*3/uL Baso # (Auto) 0.0 (0.0-0.2) X10*3/uL Abs Immat Gran (auto) 0.04 H (0.00-0.03) X10*3/uL Absolute Neuts (auto) 8.6 H (2.0-8.3) x10*3/uL Absolute Nucleated RBC 0.000 (0.0-0.012) X10*3/uL Nucleated RBC % (auto) 0.0 (0.0-0.2) /100WBC Sodium 139 (135-145) mmol/L Potassium 3.8 (3.3-5.1) mmol/L Chloride 103 (96-108) mmol/L Carbon Dioxide 18 L (22-29) mmol/L Anion Gap 22 H (12-20) BUN 8 L (9-16) mg/dL Creatinine 0.78 (0.5-1.4) mg/dL Estim Creat Clear Calc 88.3 Estimated GFR > 60 Random Glucose 119 H (60-115) mg/dL Calcium 8.7 (8.4-10.2) mg/dL Magnesium 1.7 (1.6-2.6) mg/dL Total Bilirubin < 0.2 (0.0-1.0) mg/dL AST 29 (5-31) U/L ALT 17 (0-31) U/L Alkaline Phosphatase 126 H (39-117) U/L Total Protein 7.4 (6.5-8.0) g/dL Albumin 4.5 (3.5-5.0) g/dL Urine Color Urine Appearance Urine pH (5.0-8.0) Ur Specific [place] (1.005-1.025) Urine Protein (NEG-TRACE) MG/DL Urine Glucose (UA) (NEG) MG/DL Urine Ketones (NEG) MG/DL Urine Blood (NEG) Urine Nitrite (NEG) Ur Leukocyte Esterase (NEG) Urine RBC (0) /HPF Urine WBC (0-4) /HPF Urine WBC Clumps Ur Squamous Epith Cells /LPF Amorphous Sediment /LPF Urine Bacteria /LPF Hyaline Casts /LPF Urine Mucus /LPF Urine Test (NEGATIVE) Salicylates (15-30) mg/dL Urine Opiates Screen (Not Detect) Urine Fentanyl Screen (Not Detect) Acetaminophen (<30) mcg/mL Ur Barbiturates Screen (Not Detect) Ur Phencyclidine Scrn (Not Detect) Ur Amphetamines Screen (Not Detect) U Benzodiazepines Scrn (Not Detect) Urine Cocaine Screen (Not Detect) U Marijuana (THC) Screen (Not Detect) Ethyl Alcohol 280 mg/dL COVID-19 ([facility]) Negative (Negative) COVID-19 Clin Com See Note 03/10/22 03/10/22 03/10/22 Range/Units 17:39 19:51 19:51 WBC (4.8-10.8) X10*3/uL RBC (4.20-5.50) X10*6/uL Hgb (12.0-16.0) g/dl Hct (37.0-47.0) % MCV (80.0-98.0) fL MCH (27.0-33.0) pg MCHC (31.0-35.0) g/dl RDW (11.0-16.0) % Plt Count (160-400) X10*3/uL MPV (9.4-12.3) fL Immature Gran % (Auto) (0.0-0.4) % Neut % (Auto) (45-73) % Lymph % (Auto) (20-40) % Clark % (Auto) (2-11) % Eos % (Auto) (0-4) % Baso % (Auto) (0-2) % Lymph # (Auto) (1.2-4.9) X10*3/uL Clark # (Auto) (0.1-1.2) X10*3/uL Eos # (Auto) (0.0-0.4) X10*3/uL Baso # (Auto) (0.0-0.2) X10*3/uL Abs Immat Gran (auto) (0.00-0.03) X10*3/uL Absolute Neuts (auto) (2.0-8.3) x10*3/uL Absolute Nucleated RBC (0.0-0.012) X10*3/uL Nucleated RBC % (auto) (0.0-0.2) /100WBC Sodium (135-145) mmol/L Potassium (3.3-5.1) mmol/L Chloride (96-108) mmol/L Carbon Dioxide (22-29) mmol/L Anion Gap (12-20) BUN (9-16) mg/dL Creatinine (0.5-1.4) mg/dL Estim Creat Clear Calc Estimated GFR Random Glucose (60-115) mg/dL Calcium (8.4-10.2) mg/dL Magnesium (1.6-2.6) mg/dL Total Bilirubin (0.0-1.0) mg/dL AST (5-31) U/L ALT (0-31) U/L Alkaline Phosphatase (39-117) U/L Total Protein (6.5-8.0) g/dL Albumin (3.5-5.0) g/dL Urine Color YELLOW Urine Appearance HAZY Urine pH 6.0 (5.0-8.0) Ur Specific [place] 1.025 (1.005-1.025) Urine Protein 2+ H (NEG-TRACE) MG/DL Urine Glucose (UA) NEG (NEG) MG/DL Urine Ketones 15 (NEG) MG/DL Urine Blood TRACE (NEG) Urine Nitrite NEG (NEG) Ur Leukocyte Esterase 2+ H (NEG) Urine RBC 1-4 (0) /HPF Urine WBC 15-29 H (0-4) /HPF Urine WBC Clumps NOTED Ur Squamous Epith Cells 1+ /LPF Amorphous Sediment 2+ /LPF Urine Bacteria 1+ /LPF Hyaline Casts 1-4 /LPF Urine Mucus 1+ /LPF Urine Test (NEGATIVE) Salicylates < 5.0 L (15-30) mg/dL Urine Opiates Screen Not Detected (Not Detect) Urine Fentanyl Screen POSITIVE H (Not Detect) Acetaminophen < 1 (<30) mcg/mL Ur Barbiturates Screen Not Detected (Not Detect) Ur Phencyclidine Scrn Not Detected (Not Detect) Ur Amphetamines Screen POSITIVE H (Not Detect) U Benzodiazepines Scrn Not Detected (Not Detect) Urine Cocaine Screen Not Detected (Not Detect) U Marijuana (THC) Screen Not Detected (Not Detect) Ethyl Alcohol mg/dL COVID-19 ([facility]) (Negative) COVID-19 Clin Com 03/10/22 Range/Units 19:51 WBC (4.8-10.8) X10*3/uL RBC (4.20-5.50) X10*6/uL Hgb (12.0-16.0) g/dl Hct (37.0-47.0) % MCV (80.0-98.0) fL MCH (27.0-33.0) pg MCHC (31.0-35.0) g/dl RDW (11.0-16.0) % Plt Count (160-400) X10*3/uL MPV (9.4-12.3) fL Immature Gran % (Auto) (0.0-0.4) % Neut % (Auto) (45-73) % Lymph % (Auto) (20-40) % Clark % (Auto) (2-11) % Eos % (Auto) (0-4) % Baso % (Auto) (0-2) % Lymph # (Auto) (1.2-4.9) X10*3/uL Clark # (Auto) (0.1-1.2) X10*3/uL Eos # (Auto) (0.0-0.4) X10*3/uL Baso # (Auto) (0.0-0.2) X10*3/uL Abs Immat Gran (auto) (0.00-0.03) X10*3/uL Absolute Neuts (auto) (2.0-8.3) x10*3/uL Absolute Nucleated RBC (0.0-0.012) X10*3/uL Nucleated RBC % (auto) (0.0-0.2) /100WBC Sodium (135-145) mmol/L Potassium (3.3-5.1) mmol/L Chloride (96-108) mmol/L Carbon Dioxide (22-29) mmol/L Anion Gap (12-20) BUN (9-16) mg/dL Creatinine (0.5-1.4) mg/dL Estim Creat Clear Calc Estimated GFR Random Glucose (60-115) mg/dL Calcium (8.4-10.2) mg/dL Magnesium (1.6-2.6) mg/dL Total Bilirubin (0.0-1.0) mg/dL AST (5-31) U/L ALT (0-31) U/L Alkaline Phosphatase (39-117) U/L Total Protein (6.5-8.0) g/dL Albumin (3.5-5.0) g/dL Urine Color Urine Appearance Urine pH (5.0-8.0) Ur Specific [place] (1.005-1.025) Urine Protein (NEG-TRACE) MG/DL Urine Glucose (UA) (NEG) MG/DL Urine Ketones (NEG) MG/DL Urine Blood (NEG) Urine Nitrite (NEG) Ur Leukocyte Esterase (NEG) Urine RBC (0) /HPF Urine WBC (0-4) /HPF Urine WBC Clumps Ur Squamous Epith Cells /LPF Amorphous Sediment /LPF Urine Bacteria /LPF Hyaline Casts /LPF Urine Mucus /LPF Urine Test NEGATIVE (NEGATIVE) Salicylates (15-30) mg/dL Urine Opiates Screen (Not Detect) Urine Fentanyl Screen (Not Detect) Acetaminophen (<30) mcg/mL Ur Barbiturates Screen (Not Detect) Ur Phencyclidine Scrn (Not Detect) Ur Amphetamines Screen (Not Detect) U Benzodiazepines Scrn (Not Detect) Urine Cocaine Screen (Not Detect) U Marijuana (THC) Screen (Not Detect) Ethyl Alcohol mg/dL COVID-19 ([facility]) (Negative) COVID-19 Clin Com Critical Care Time Critical Care Time Critical Care Time: No Discharge Plan Discharge Clinical Impression: Post traumatic stress disorder (PTSD), Suicidal ideations, Depression, UTI (urinary tract infection) Patient Disposition: Still a Patient Transfer Details: Please discharge patient home with antibiotics Prescriptions: No Action multivitamin Tablet 1 tab PO DAILY lamotrigine 200 mg tablet 1 tab PO BEDTIME levothyroxine 25 mcg tablet 1 tab PO DAILY baclofen 20 mg tablet 1 tab PO TID pantoprazole 40 mg tablet,delayed release (DR/EC) 1 tab PO BID loratadine 10 mg tablet 1 tab PO DAILY acamprosate 333 mg tablet,delayed release (DR/EC) 2 tab PO TID calcium carbonate-vitamin D3 600 mg-10 mcg (400 unit) tablet 1 tab PO BID clonidine HCl 0.1 mg Tablet 0.1 mg PO BEDTIME 30 Days Qty: 30 0RF Protocol: Hold for SBP< HOLD for SBP < : 90 Latuda 80 mg Tablet 160 mg PO DAILY@1800 30 Days Qty: 60 0RF trazodone 50 mg Tablet 50 mg PO BEDTIME PRN (Reason: continued insomnia) 30 Days Qty: 30 0RF gabapentin 400 mg Capsule 400 mg PO TID 30 Days Qty: 90 0RF trazodone 100 mg Tablet 100 mg PO BEDTIME 30 Days Qty: 30 0RF trolamine salicylate [Arthricream] 10 % Cream 1 appl topical QID PRN (Reason: back pain) 30 Days Qty: 100 0RF bupropion HCl 150 mg Tablet Extended Release 24 Hr 450 mg PO DAILY 30 Days Qty: 90 0RF lorazepam 0.5 mg Tablet 0.5 mg PO DAILY PRN (Reason: mild anixety) 30 Days Qty: 30 0RF buspirone 10 mg Tablet 20 mg PO TID 30 Days Qty: 180 0RF dextroamphetamine-amphetamine 20 mg tablet 1 tab PO BID@0600,1300 sumatriptan 20 mg/actuation [place],Non-Aerosol 20 mg INTRANASAL Q2H PRN (Reason: Migraine Headache) Rx Instructions: administer into one nostril as a single dose; if 2nd dose needed,administer into other nostril after at least 2 hrs, NTE 2 doses (40 mg) per episode ascorbic acid (vitamin C) 500 mg Tablet 500 mg PO BID
[2022-03-10 16:54] VITALS: BMI 37.3
--- NOTE | 2022-03-10 17:03 | PC.NURSE ---
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
[2022-03-10] MEDS: LORazepam 1 MG TABLET PO ×2 (17:05→22:24)
--- NOTE | 2022-03-10 17:20 | MHC.CARE ---
CARE Team was asked by [facility] medical social consultant to reach out to pt, as she had called [facility] looking for help. CARE Team calls pt, who vaguely identifies that she is looking for help, and states that [employer] is in her home. CARE Team speaks with PD who reports [employer] crisis is on their way to assess the pt. Per [employer], they were unable to assess pt as she was under the influence of alcohol. Pt should be referred to [facility] crisis once medically cleared and clinically sober.
[2022-03-10 17:45] LABS: MANUAL DIFF FLAG NO
[2022-03-10 17:46] LABS: Basophils Percent Auto 0.1 % (0-2); Eosinophils Percent Auto 0.1 % (0-4); Hematocrit 41.8 % (37.0-47.0); Hemoglobin 14.4 g/dl (12.0-16.0); Imm Gran Abs Auto 0.04 X10*3/uL (0.00-0.03); Imm Gran Pct Auto 0.3 % (0.0-0.4); Lymphocytes Absolute Auto 2.7 X10*3/uL (1.2-4.9); Lymphocytes Percent Auto 21.5 % (20-40); Mean Corpuscular HGB Conc 34.4 g/dl (31.0-35.0); Mean Corpuscular Hemoglobin 30.9 pg (27.0-33.0); Mean Corpuscular Volume 89.7 fL (80.0-98.0); Mean Platelet Volume 10.1 fL (9.4-12.3); Monocytes Percent Auto 8.1 % (2-11); Neutrophils Absolute Auto 8.6 x10*3/uL (2.0-8.3); Neutrophils Percent Auto 69.9 % (45-73); Platelet Count 324 X10*3/uL (160-400); Red Blood Count 4.66 X10*6/uL (4.20-5.50); Red Cell Distribution Width 13.3 % (11.0-16.0); White Blood Count 12.4 X10*3/uL (4.8-10.8)
[2022-03-10] MEDS: SUMAtriptan succinate 25 MG TABLET PO (17:51)
[2022-03-10 18:01] LABS: COVID-19 Test Negative (Negative)
[2022-03-10 18:04] LABS: Acetaminophen LAB < 1 mcg/mL (<30); Alanine Aminotransferase 17 U/L (0-31); Albumin Level 4.5 g/dL (3.5-5.0); Alkaline Phosphatase 126 U/L (39-117); Anion Gap 22 (12-20); Aspartate Amino Transferase 29 U/L (5-31); Bilirubin Total < 0.2 mg/dL (0.0-1.0); Blood Urea Nitrogen 8 mg/dL (9-16); Calcium 8.7 mg/dL (8.4-10.2); Carbon Dioxide 18 mmol/L (22-29); Chloride 103 mmol/L (96-108); Creatinine Clr Calc Pharmacy 88.3; Estimated Glomerular Filt Rate > 60; Ethanol 280 mg/dL; Glucose Random 119 mg/dL (60-115); Magnesium 1.7 mg/dL (1.6-2.6); Potassium 3.8 mmol/L (3.3-5.1); Salicylate < 5.0 mg/dL (15-30); Sodium 139 mmol/L (135-145); Total Protein 7.4 g/dL (6.5-8.0)
--- NOTE | 2022-03-10 18:32 | MHC.CARE ---
[facility] will not have a clinician to see pt until 3rd shift. Pt will not be clinically sober for assessment until approx midnight.
[2022-03-10 20:04] LABS: Appearance Urine HAZY; Color Urine YELLOW; Glucose Urine UA NEG (NEG); Leukocyte Esterase Urine 2+ (NEG); Nitrite Urine NEG (NEG); Specific Gravity - Urine 1.025 (1.005-1.025); UACC Culture Trigger YES; Urine Blood TRACE (NEG); Urine Ketones 15 MG/DL (NEG); Urine Protein 2+ MG/DL (NEG-TRACE)
[2022-03-10 20:06] LABS: UPreg QC Valid YES; Urine Pregnancy NEGATIVE (NEGATIVE)
[2022-03-10 20:16] LABS: Amphetamine Screen Urine POSITIVE (Not Detect); Barbiturates, Urine Not Detected (Not Detect); Benzodiazepines Screen Urine Not Detected (Not Detect); Cannabinoid Screen Urine Not Detected (Not Detect); Cocaine Screen Urine Not Detected (Not Detect); Fentanyl, urine POSITIVE (Not Detect); Opiate Screen Urine Not Detected (Not Detect); Phencyclidine Screen Urine Not Detected (Not Detect)
[2022-03-10 20:19] LABS: Mucus Urine 1+ /LPF; Squamous Epithelial Cell Urine 1+ /LPF
[2022-03-10 20:20] LABS: Amorphous Sediment Urine 2+ /LPF; Bacteria Urine 1+ /LPF; WBC Clumps Urine NOTED
--- NOTE | 2022-03-10 20:39 | PHA.MEDREC ---
MED REC COMPLETE, NO ISSUES Pharmacy Consult ? Medication Reconciliation Pharmacy has completed the medication reconciliation.
[2022-03-10 21:51] VITALS: BP 167/90; PULSE 103; RESP 16; TEMP 36.4; O2SAT 97
[2022-03-11] VITALS: BP 156/70; PULSE 78; RESP 16; TEMP 36.1; O2SAT 98
[2022-03-11 01:47] VITALS: PULSE 82; RESP 16
--- NOTE | 2022-03-11 01:59 | MHC.CARE ---
CARE team evaluated pt. Recommendations were discussed with ED provider. Pt will be seen again in the morning to discuss safety planning and treatment options prior to discharge.
[2022-03-11] MEDS: chlordiazePOXIDE HCl 25 MG CAPSULE 50 MG PO (02:12)
[2022-03-11] MEDS: Nitrofurantoin Monohyd/M-Cryst 100 MG CAPSULE PO ×2 (02:13→07:25)
[2022-03-11 03:54] VITALS: BP 176/93; PULSE 108; RESP 20; TEMP 36.8; O2SAT 98
[2022-03-11] MEDS: LORazepam 0.5 MG TABLET PO (04:42)
--- NOTE | 2022-03-11 05:59 | PC.NURSE ---
pt resting on stretcher with continuous monitoring in place. pt reporting withdrawal symptoms b/c she states she is shaky and diaphoretic, provider notified. Librium and ativan administered per mar orders. will continue to monitor closely.
[2022-03-11 06:00] VITALS: BP 178/89; PULSE 89; RESP 16; TEMP 37.1; O2SAT 98
[2022-03-11] MEDS: busPIRone HCl 10 MG TABLET 20 MG PO (07:25)
[2022-03-11] MEDS: Loratadine 10 MG TABLET PO (07:25)
[2022-03-11] MEDS: Omeprazole 20 MG CAPSULE.DR PO (07:25)
[2022-03-11] MEDS: Amphetamine Mixed Salts 20 MG TABLET PO (07:25)
[2022-03-11] MEDS: Multivitamin TABLET 1 TAB PO (07:25)
[2022-03-11] MEDS: buPROPion HCl XL 150 MG TAB.ER.24H 450 MG PO (07:26)
[2022-03-11] MEDS: Baclofen 20 MG TABLET PO (07:26)
[2022-03-11] MEDS: Calcium + Vitamin D 250 MG TABLET PO (07:26)
[2022-03-11] MEDS: Ascorbic Acid 500 MG TABLET PO (07:26)
[2022-03-11] MEDS: Levothyroxine Sodium 25 MCG TABLET PO (07:26)
[2022-03-11] MEDS: Gabapentin 400 MG CAPSULE PO (07:26)
[2022-03-11] MEDS: Acamprosate Calcium 333 MG TABLET.DR 666 MG PO (07:26)
[2022-03-11 07:29] VITALS: BP 175/91; PULSE 101; RESP 18
[2022-03-11 08:54] VITALS: BP 166/80; PULSE 109; RESP 18; TEMP 36.6; O2SAT 99
[2022-03-11] MEDS: LORazepam 1 MG TABLET PO (09:36)
--- NOTE | 2022-03-11 10:09 | MHC.CARE ---
Patient was evaluated by the CARE Team last evening, disposition was follow up this morning for risk assessment and discharge planning. Patient was sitting up in bed, slightly tremulous, alert and oriented, pleasant but stated she was getting increasingly stressed being here in the hospital as it was loud and chaotic through the night and this morning. Patient denied suicidal ideation, plan or intention and reported feeling disappointed with having relapsed on alcohol. She does have a lot of stress and stated that she is pressing on, does not want to end her life. Patient has a therapist and a strong support system through and has been reaching out to others during this time. She was enrolled in [facility] and plans to call and restart as soon as possible. Does not want information about MAT or to speak with a Cyber Forensics Analyst, feels the withdrawal will not be dangerous or unbearable as this was a short relapse, she has contact information for crisis. Patient to discharge home and follow up with her providers, CARE Team will check in with patient by phone within 24-48 hrs. DANUTA arranged.
--- NOTE | 2022-03-13 13:06 | MHC.CARE ---
Follow up call to patient, went to voicemail. Left message for her to call back if she wants to. Encouraged patient to reach out to PHP as discussed. We will call a second time.
--- NOTE | 2022-03-14 16:01 | MHC.CARE ---
CARE Team contacted pt for a follow up call. Pt states that she is currently an active bedserach at [facility] and awaiting bed placement at this time.
== END 2022-03-11 10:19 | disposition home or self-care (01) ==
PROVIDERS: Physician Assistant; Emergency Provider Emergency Medicine; PCP Family Medicine
DX: F33.1 Major depressive disorder, recurrent, moderate (principal); R45.851 Suicidal ideations; N39.0 Urinary tract infection, site not specified; Z20.822 Contact with and (suspected) exposure to COVID-19; Z79.899 Other long term (current) drug therapy
CPT/HCPCS: 36415; 80053; 80143; 80179; 80307; 81001; 81003; 81025; 82077; 83735; 85025; 87086; 87635; 99285

== ENCOUNTER 2022-05-09 15:28 | Emergency (ER) | payer OTHER, SELFPAY ==
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
[2022-05-09 16:57] LABS: MANUAL DIFF FLAG NO
[2022-05-09 17:01] VITALS: BP 155/101; PULSE 104; RESP 16; TEMP 36.6; O2SAT 97; BMI 47.2
[2022-05-09 17:02] LABS: Hemoglobin 12.9 g/dl (12.0-16.0); Imm Gran Abs Auto 0.01 X10*3/uL (0.00-0.03); Imm Gran Pct Auto 0.2 % (0.0-0.4); Lymphocytes Absolute Auto 2.2 X10*3/uL (1.2-4.9); Lymphocytes Percent Auto 47.1 % (20-40); Mean Corpuscular HGB Conc 33.9 g/dl (31.0-35.0); Mean Corpuscular Hemoglobin 30.9 pg (27.0-33.0); Mean Corpuscular Volume 91.1 fL (80.0-98.0); Mean Platelet Volume 10.1 fL (9.4-12.3); Monocytes Absolute Auto 0.3 X10*3/uL (0.1-1.2); Monocytes Percent Auto 5.6 % (2-11); Neutrophils Absolute Auto 2.2 x10*3/uL (2.0-8.3); Neutrophils Percent Auto 47.1 % (45-73); Platelet Count 258 X10*3/uL (160-400); Red Blood Count 4.17 X10*6/uL (4.20-5.50); Red Cell Distribution Width 12.8 % (11.0-16.0); White Blood Count 4.7 X10*3/uL (4.8-10.8)
--- NOTE | 2022-05-09 17:08 | PHA.MEDREC ---
Pharmacy Consult ? Medication Reconciliation Pharmacy has completed the medication reconciliation. Patient asleep when attempted to speech with patient. Reena reported she was told patient is compliant with medications. Patient has recently fill history with [facility]. Med reccompleted by claim history. Denise Parham, PablitoD
[2022-05-09 17:13] LABS: Alanine Aminotransferase 26 U/L (0-31); Albumin Level 4.5 g/dL (3.5-5.0); Alkaline Phosphatase 121 U/L (39-117); Anion Gap 19 (12-20); Aspartate Amino Transferase 33 U/L (5-31); Bilirubin Total 0.3 mg/dL (0.0-1.0); Blood Urea Nitrogen 8 mg/dL (9-16); Calcium 8.9 mg/dL (8.4-10.2); Carbon Dioxide 24 mmol/L (22-29); Chloride 99 mmol/L (96-108); Creatinine Clr Calc Pharmacy 112.1; Estimated Glomerular Filt Rate > 60; Ethanol 398 mg/dL; Glucose Random 99 mg/dL (60-115); Magnesium 1.7 mg/dL (1.6-2.6); Potassium 3.6 mmol/L (3.3-5.1); Sodium 138 mmol/L (135-145); Total Protein 7.5 g/dL (6.5-8.0)
[2022-05-09 17:21] LABS: COVID-19 Test Negative (Negative); IDNOW Serial# 16C4AD1C
--- NOTE | 2022-05-09 17:21 | PC.NURSE ---
mike social sciences department chair [phone] [facility]
[2022-05-09 20:17] VITALS: BP 108/72; PULSE 120; RESP 20; TEMP 36.2; O2SAT 96
[2022-05-09 21:06] LABS: Amphetamine Screen Urine POSITIVE (Not Detect); Barbiturates, Urine Not Detected (Not Detect); Benzodiazepines Screen Urine Not Detected (Not Detect); Cannabinoid Screen Urine Not Detected (Not Detect); Cocaine Screen Urine Not Detected (Not Detect); Fentanyl, urine Not Detected (Not Detect); Opiate Screen Urine Not Detected (Not Detect); Phencyclidine Screen Urine Not Detected (Not Detect)
[2022-05-09] MEDS: busPIRone HCl 10 MG TABLET 20 MG PO (21:14)
[2022-05-09] MEDS: Ascorbic Acid 500 MG TABLET PO (21:14)
[2022-05-09] MEDS: Baclofen 20 MG TABLET PO (21:14)
[2022-05-09] MEDS: Acamprosate Calcium 333 MG TABLET.DR 666 MG PO (21:14)
[2022-05-09] MEDS: Calcium + Vitamin D 250 MG TABLET 500 MG PO (21:14)
[2022-05-09] MEDS: Gabapentin 400 MG CAPSULE PO (21:18)
[2022-05-09] MEDS: traZODone HCL 100 MG TABLET PO (21:59)
[2022-05-09] MEDS: lamoTRIgine 100 MG TABLET 200 MG PO (21:59)
[2022-05-09 23:36] VITALS: BP 140/80; PULSE 116; RESP 18; TEMP 36.5; O2SAT 93
[2022-05-10 02:47] VITALS: BP 152/88; PULSE 118; RESP 18; TEMP 36.6; O2SAT 96
[2022-05-10] MEDS: LORazepam 1 MG TABLET 2 MG PO ×5 (03:24→20:45)
--- NOTE | 2022-05-10 04:22 | PC.NURSE ---
Patient slept intermittently, CIWA at 0310 was 12, Ativan 2 mg PO administered at 0324/pending effect, behavior appropriate, [facility] referral completed/confirmed/pending ETA, medication compliant, will continue to monitor.
[2022-05-10 05:08] VITALS: BP 151/91; PULSE 118; O2SAT 94
[2022-05-10] MEDS: Omeprazole 20 MG CAPSULE.DR PO ×2 (06:20→16:30)
[2022-05-10] MEDS: Levothyroxine Sodium 25 MCG TABLET PO (06:20)
[2022-05-10 08:20] VITALS: BP 172/83; PULSE 104; RESP 16; TEMP 36.6; O2SAT 98
[2022-05-10] MEDS: Calcium + Vitamin D 250 MG TABLET 500 MG PO ×2 (08:25→20:45)
[2022-05-10] MEDS: Baclofen 20 MG TABLET PO ×3 (08:25→20:45)
[2022-05-10] MEDS: buPROPion HCl XL 300 MG TAB.ER.24H PO (08:26)
[2022-05-10] MEDS: amLODIPine Besylate 5 MG TABLET PO (08:26)
[2022-05-10] MEDS: busPIRone HCl 10 MG TABLET 20 MG PO ×3 (08:26→20:45)
[2022-05-10] MEDS: Acamprosate Calcium 333 MG TABLET.DR 666 MG PO ×3 (08:26→20:45)
[2022-05-10] MEDS: Gabapentin 400 MG CAPSULE PO ×3 (08:26→20:45)
[2022-05-10] MEDS: Multivitamin TABLET 1 TAB PO (08:26)
[2022-05-10] MEDS: Loratadine 10 MG TABLET PO (08:26)
[2022-05-10] MEDS: Ascorbic Acid 500 MG TABLET PO ×2 (08:26→20:45)
--- NOTE | 2022-05-10 11:12 | PC.NURSE ---
patient remains at rest at present, continued monitoring for safe behavior and etoh wd sz. patient appears in no distress
[2022-05-10 13:32] VITALS: BP 160/91; PULSE 101; RESP 16; TEMP 36.8; O2SAT 95
[2022-05-10] MEDS: Amphetamine Mixed Salts 20 MG TABLET PO (13:48)
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
--- NOTE | 2022-05-10 16:41 | MHC.RECOVSUP ---
Recovery Support note: Patient is a 52 year old Macedonian speaking female who presented to [facility] ED under the influence of alcohol due to SI statements. Patient was evaluated by CARE Team and referred to this show card writer for recovery support. Patient reports 8 years of sobriety that ended a couple years ago. Patient reports she found AA helpful and that she utilizes virtual meetings. Patient is supported by therapy, psychiatry and recently a horse riding coach or instructor. Patient reports she has a 3 month old puppy that is keeping her busy. Discussed IOP and education was provided regarding this level of care. This show card writer offered patient ATS referrals and patient declined, stating she wants her mental health to be addressed. Patient is requesting respite in [place]. Discussed with CARE Team. This show card writer available as needed.
--- NOTE | 2022-05-10 17:14 | PC.NURSE ---
Mario contacted for 1800 latudia
[2022-05-10] MEDS: Lurasidone HCl 80 MG TABLET 160 MG PO (17:34)
[2022-05-10] MEDS: lamoTRIgine 100 MG TABLET 200 MG PO (20:45)
[2022-05-10] MEDS: traZODone HCL 100 MG TABLET PO (20:45)
[2022-05-11 03:50] VITALS: BP 135/89; PULSE 87; RESP 16; TEMP 36.4; O2SAT 94
[2022-05-11] MEDS: Amphetamine Mixed Salts 20 MG TABLET PO ×2 (05:45→13:14)
[2022-05-11] MEDS: Omeprazole 20 MG CAPSULE.DR PO (05:45)
[2022-05-11] MEDS: Acetaminophen 325 MG TABLET 650 MG PO (05:45)
[2022-05-11] MEDS: Levothyroxine Sodium 25 MCG TABLET PO (05:45)
--- NOTE | 2022-05-11 05:55 | PC.NURSE ---
Patient slept through the night, no distress observed/reported, behavior appropriate and non concerning, medication compliant, asymptomatic of ETOH withdrawal, disposition per care team is respite bed search, VSS, will continue to monitor.
[2022-05-11] MEDS: Acamprosate Calcium 333 MG TABLET.DR 666 MG PO ×2 (08:35→15:23)
[2022-05-11] MEDS: busPIRone HCl 10 MG TABLET 20 MG PO ×2 (08:35→15:22)
[2022-05-11] MEDS: Multivitamin TABLET 1 TAB PO (08:35)
[2022-05-11] MEDS: buPROPion HCl XL 300 MG TAB.ER.24H PO (08:35)
[2022-05-11] MEDS: Baclofen 20 MG TABLET PO ×2 (08:35→15:22)
[2022-05-11] MEDS: Gabapentin 400 MG CAPSULE PO ×2 (08:35→15:22)
[2022-05-11] MEDS: Ascorbic Acid 500 MG TABLET PO (08:35)
[2022-05-11] MEDS: Calcium + Vitamin D 250 MG TABLET 500 MG PO (08:35)
[2022-05-11] MEDS: amLODIPine Besylate 5 MG TABLET PO (08:36)
[2022-05-11] MEDS: Loratadine 10 MG TABLET PO (08:36)
--- NOTE | 2022-05-11 09:04 | MHC.CARE ---
Contacted [facility] to follow up on the faxed assessment and potential for respite admission at approximately 0800.? [facility] in [place] advised me that they would return the call when their clinicians get in. [facility] work room contacted regarding availability [facility] CARE Team advised that [facility] has some follow ups with clients, beds are available, but it is a first come first serve basis.? Pt?s assessment faxed to [phone] for review.
--- NOTE | 2022-05-13 12:40 | MHC.CARE ---
CARE Team receives a call from [facility] regarding this pt. Pt has since been discharged. Contact information was secured from the caller (Anna [phone]). CARE Team contacts pt at her home and provides the contact information should she wish to pursue it further.
== END 2022-05-11 16:00 | disposition home or self-care (01) ==
PROVIDERS: Physician Assistant; Emergency Provider Internal Medicine
DX: F31.9 Bipolar disorder, unspecified (principal); F41.9 Anxiety disorder, unspecified; R45.851 Suicidal ideations; F10.20 Alcohol dependence, uncomplicated; Y90.8 Blood alcohol level of 240 mg/100 ml or more; F43.10 Post-traumatic stress disorder, unspecified; I10 Essential (primary) hypertension; Z20.822 Contact with and (suspected) exposure to COVID-19; Z79.899 Other long term (current) drug therapy
CPT/HCPCS: 80053; 80307; 82077; 83735; 85025; 87635; 99285

== ENCOUNTER 2022-05-28 15:04 | Inpatient (IN) | payer OTHER, SELFPAY ==
--- NOTE | ~2022-05-28 | XR_ITS ---
EXAMINATION: XR CHEST CLINICAL INFORMATION: Hypoxia COMPARISON: None TECHNIQUE: Frontal view of the chest was obtained. FINDINGS: The lungs are hypoinflated. No focal consolidation is seen. No evidence of pneumothorax, pleural effusion, or pulmonary edema. Cardiac size is within normal limits. Calcification is present at the aortic arch. No acute osseous findings are seen. Fusion hardware noted in the lower cervical spine. XR/XR chest 1V IMPRESSION: Low lung volumes without acute findings.
--- NOTE | ~2022-05-28 | CT_ITS ---
EXAMINATION: CT head/brain wo IV con CLINICAL INFORMATION: Reason for Exam ams COMPARISON: None. TECHNIQUE: Contiguous axial imaging was performed from the skull base to vertex without intravenous contrast. Sagittal and coronal reformatted images were obtained. This CT examination was performed using dose optimization techniques as appropriate, variously including the following: * Automated exposure control * Adjustment of mA and/or kV according to patient size (this includes techniques or standardized protocols for targeted exams where dose is matched to indication/reason for exam; i.e. extremities or head) Use of iterative reconstruction technique DLP: 630 mGy-cm FINDINGS: No acute osseous abnormality. Mild left frontal scalp soft tissue swelling. The mastoids are clear. Scattered paranasal sinus mucosal thickening There is no evidence of acute intracranial hemorrhage or territorial infarction. No abnormal mass effect or midline shift is seen. Ibrahim to white matter differentiation is well preserved. No extra-axial fluid collections are identified. No hydrocephalus. No significant volume loss. Patchy periventricular and deep white matter hypoattenuation is consistent with mild small vessel ischemic changes. CT/CT head/brain wo IV con IMPRESSION: No acute intracranial abnormality including hemorrhage, mass effect, hydrocephalus, or acute territorial edematous infarction.
--- NOTE | 2022-05-28 15:16 | ECG_ITS ---
Test Reason : OVERDOSED Blood Pressure : / mmHG Vent. Rate : 126 BPM Atrial Rate : 126 BPM P-R Int : 142 ms QRS Dur : 098 ms QT Int : 322 ms P-R-T Axes : 057 -35 120 degrees QTc Int : 466 ms Sinus tachycardia Left axis deviation Left ventricular hypertrophy with repolarization abnormality ( R in aVL , [place] product ) Cannot rule out Septal infarct (cited on or before 13-FEB-2022) Abnormal ECG When compared with ECG of 13-FEB-2022 10:09, ST now depressed in Lateral leads T wave inversion now evident in Lateral leads Heart rate has increased Referred By: Generic ED Physician Electronically Signed By:NANCY ZULUAGA
[2022-05-28 15:29] VITALS: BP 115/78; PULSE 145; RESP 10; O2SAT 87; BMI 34.2
--- OUTSIDE RECORDS SUMMARY | 2022-05-28 15:57 | XMS_ITS ---
:1970 Author Organization [facility] [address] [facility] Location Address [address] [place] [id number] Care Team Providers Name Role Phone Nick EMPLOYMENT OFFICE CLERK-DoryLinsey Unavailable Unavailable PROBLEMS Type Condition ICD9-CM Code [id number] Code Onset Condition SNO MED Code Dates Status Problem Arm R20.2 Active 43022627 paresthesia, left ALLERGIES Substance Reaction Event Type Date Status Sulfa Antibiotics Unknown Drug Allergy Oct, Active ENCOUNTERS Encounter Location Date Diagnosis [facility] [address] [facility], Oct, Ce rvicalgia M54.2 ; [place] [address] arm pa in M79.602 and Arm paresthesia, lef t R20.2 IMMUNIZATIONS No Known Immunizations SOCIAL HISTORY Never Assessed REASON FOR REFERRAL FUNCTIONAL STATUS PLAN OF CARE Activity Details Follow Up 4 weeks Reason: VITAL SIGNS Heart Rate 69 /min 2021-11-21 Oximetry 97 % 2021-11-21 Blood pressure systolic 128 mm Hg 2021-11-21 Blood pressure diastolic 78 mm Hg 2021-11-21 MEDICATIONS Medication Instructions Dosage Frequency Start End Duration Statu s Date Date Cyclobenzaprine HCl Acti ve Gabapentin 100 MG Orally Three 1 capsule 8h Active times a day Lisinopril Active Levothyroxine Sodium Act [place] Omeprazole Active methylPREDNISolone Activ e lamoTRIgine Active PROCEDURES No Known procedures RESULTS No Results REASON FOR VISIT Consult Insurance Providers [facility] Health Member Patient Patient Patient Patient Patient Subscriber Subscriber Subscriber Group Insurance Plan Plan Plan Plan ID Relationship Address Phone Name Date of ID Name Date of No Type Insurance Insurance Insurance Coverage to Subscriber Address Phone Name Dates [place] [address] [facility] [phone] [place] self Sweetie 1 [id number] th Care [facility] [address] th Care [facility] [address] Medicare [address] self Sweetie [id number] of [id number] [facility] [place] [phone] [place] [address] [place] [id number] [address]
[2022-05-28 16:00] VITALS: BP 132/88; PULSE 125; RESP 22; TEMP 36.8; O2SAT 96
--- NOTE | 2022-05-28 16:17 | ED_ITS ---
HPI - General Adult General Chief complaint: Overdose Stated complaint: SI Time Seen by Provider: 05/28/22 15:22 Source: EMS and RN notes reviewed Mode of arrival: ambulatory Limitations: no limitations History of Present Illness HPI narrative: 52-year-old the history of alcohol abuse brought by outsole caser drinking alcohol and snorting Adderall. Patient presently intoxicated and cannot give much history. 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 Patient been here before similar presentation.. No signs of obvious trauma Related Data Home Medications Medication Instructions Recorded Confirmed acamprosate 333 mg tablet,delayed 2 tab PO TID 02/12/22 05/09/22 release baclofen 20 mg tablet 1 tab PO TID 02/12/22 05/09/22 calcium carbonate 600 mg-vitamin 1 tab PO BID 02/12/22 05/09/22 D3 10 mcg (400 unit) tablet lamotrigine 200 mg tablet 1 tab PO BEDTIME 02/12/22 05/09/22 levothyroxine 25 mcg tablet 1 tab PO DAILY 02/12/22 05/09/22 loratadine 10 mg tablet 1 tab PO DAILY 02/12/22 05/09/22 multivitamin 1 tab PO DAILY 02/12/22 05/09/22 pantoprazole 40 mg tablet,delayed 1 tab PO BID 02/12/22 05/09/22 release ascorbic acid (vitamin C) 500 mg 500 mg PO BID 03/10/22 05/09/22 tablet dextroamphetamine-amphetamine 20 1 tab PO BID@0600,1300 03/10/22 05/09/22 mg tablet sumatriptan 20 mg/actuation nasal 20 mg intranasal Q2H PRN Migraine 03/10/22 05/09/22 spray Headache amlodipine 5 mg tablet 1 tab PO DAILY 05/09/22 05/09/22 bupropion HCl 300 mg 24 hr tablet, 1 tab PO QAM 05/09/22 05/09/22 extended release (Wellbutrin XL) ketoconazole 2 % topical cream 1 applic topical BID PRN Rash 05/09/22 05/09/22 oxycodone 5 mg tablet 1 tab PO BID PRN Pain 05/09/22 05/09/22 Previous Rx's Medication Instructions Recorded buspirone 10 mg tablet 20 mg PO TID 30 days #180 tabs 02/27/22 gabapentin 400 mg capsule 400 mg PO TID 30 days #90 caps 02/27/22 lorazepam 0.5 mg tablet 0.5 mg PO DAILY PRN mild anixety 02/27/22 30 days #30 tabs lurasidone 80 mg tablet (Latuda) 160 mg PO DAILY@1800 30 days #60 02/27/22 tabs trazodone 100 mg tablet 100 mg PO BEDTIME 30 days #30 tabs 02/27/22 trolamine salicylate 10 % topical 1 appl topical QID PRN back pain 02/27/22 cream (Arthricream) 30 days #100 grams Allergies Allergy/AdvReac Type Severity Reaction Status Date / Time latex [LATEX] Allergy Mild Rash Verified 02/21/22 06:47 leuprolide [From LUPRON] Allergy Unknown HIVES Verified 02/21/22 06:47 Sulfa (Sulfonamide Allergy Unknown RASH Verified 02/21/22 06:48 Antibiotics) [SULFA (SULFONAMIDE ANTIBIOTICS)] ibuprofen AdvReac Intermediate Abdominal Verified 02/21/22 16:53 Pain Review of Systems Review of Systems: alcohol intoixacation [facility] Past Medical History Medical History Alcohol abuse Alcohol abuse Depression Depression GERD (gastroesophageal reflux disease) HTN (hypertension) Hypothyroidism Migraines Social History Social History Household Members: None Housing: Apartment Do you presently have visiting nurse or other home services: No Alcohol intake: current Alcohol intake frequency: 3 or more drinks per day Alcohol type: hard liquor Patient Tobacco Use Status: Never used Tobacco Advance Directives: No Advance Directives Information Provided: Yes service: No Sexual orientation: Did not discuss Physical Exam ED Vital Signs: Vital Signs - 24 hr 05/28/22 15:29 05/28/22 16:00 Temperature 98.3 F Pulse Rate 145 H 125 H Respiratory Rate 10 L 22 H Blood Pressure 115/78 132/88 Pulse Oximetry 87 L 96 Oxygen Delivery Method Room Air Nasal Cannula Oxygen Flow Rate 2 BMI result Body Mass Index 34.2 Const General: intoxicated appearing HENMT Head: Yes normal to inspection, Yes No palpable skull fracture present, Yes normocephalic, Yes atraumatic and No abrasion Eyes General: appearance normal, both eyes and all related structures Neck Neck: Yes normal visual inspection, Yes full ROM, Yes no lymphadenopathy, Yes no meningeal signs, Yes trachea midline, Yes supple, No anterior neck swelling and No tender Chest Chest palpation & inspection: normal inspection of the chest and normal palpation of entire chest wall Resp Effort & Inspection: normal respiratory effort and able to speak in complete sentences Cardio Jugular venous distension: no JVD Heart sounds: S1 normal heart sound present and S2 normal heart sound present GI Inspection: Yes normal to inspection and No abdominal wall ecchymosis Palpation (GI): Soft to palpation, not firm, nontender, no guarding and not rig id General: No CVA tenderness and Yes no CVA tenderness Back/Spine/Pelvis Back: no CVA tenderness, No CVA tenderness and No back tenderness Skin General skin exam: no rashes or lesions noted and elasticity normal Neuro Other: intoxicated General: no meningeal signs Extrem General: Yes normal to inspection and Yes full ROM Psych Other: alcohol intoxicated. Appearance: grossly normal, well kempt and not disheveled Course Course Course Narrative: Labs, EKG, and fluids ordered. patietn placed on oxygen Reevaluation(s) Reevaluation #1: Ethanol level 468. Tylenol and Salicylates negative. TOBAR and UA and EKG pendiing Time: 16:14 Reevaluation #2: Patient is now more alert and stating her name and sitting up and engaging with staff but still very intoxticated. Crsis pending. Signed out DELORES Napoles Time: 18:00 Medical Decision Making MDM Narrative Medical decision making narrative: Alcohol intox Lab Data Result diagrams: 05/28/22 16:14 05/28/22 16:14 Labs: Lab Results 05/28/22 05/28/22 05/28/22 Range/Units 16:12 16:14 16:14 WBC 8.1 (4.8-10.8) X10*3/uL RBC 5.44 D (4.20-5.50) X10*6/uL Hgb 16.7 H D (12.0-16.0) g/dl Hct 48.8 H D (37.0-47.0) % MCV 89.7 (80.0-98.0) fL MCH 30.7 (27.0-33.0) pg MCHC 34.2 (31.0-35.0) g/dl RDW 13.1 (11.0-16.0) % Plt Count 433 H D (160-400) X10*3/uL MPV 9.7 (9.4-12.3) fL Immature Gran % (Auto) 0.2 (0.0-0.4) % Neut % (Auto) 54.4 (45-73) % Lymph % (Auto) 40.1 H (20-40) % [place] % (Auto) 5.2 (2-11) % Eos % (Auto) 0.0 (0-4) % Baso % (Auto) 0.1 (0-2) % Lymph # (Auto) 3.2 (1.2-4.9) X10*3/uL [place] # (Auto) 0.4 (0.1-1.2) X10*3/uL Eos # (Auto) 0.0 (0.0-0.4) X10*3/uL Baso # (Auto) 0.0 (0.0-0.2) X10*3/uL Abs Immat Gran (auto) 0.02 (0.00-0.03) X10*3/uL Absolute Neuts (auto) 4.4 (2.0-8.3) x10*3/uL Absolute Nucleated RBC 0.000 (0.0-0.012) X10*3/uL Nucleated RBC % (auto) 0.0 (0.0-0.2) /100WBC Sodium 140 (135-145) mmol/L Potassium 4.3 (3.3-5.1) mmol/L Chloride 101 (96-108) mmol/L Carbon Dioxide 17 L (22-29) mmol/L Anion Gap 26 H (12-20) BUN 14 D (9-16) mg/dL Creatinine 0.74 (0.5-1.4) mg/dL Estim Creat Clear Calc 108.5 Estimated GFR > 60 POC Glucose 127 H (60-115) mg/dL Random Glucose 120 H (60-115) mg/dL Calcium 9.2 (8.4-10.2) mg/dL Total Bilirubin 0.2 (0.0-1.0) mg/dL AST 40 H (5-31) U/L ALT 21 (0-31) U/L Alkaline Phosphatase 123 H (39-117) U/L Total Protein 7.7 (6.5-8.0) g/dL Albumin 4.6 (3.5-5.0) g/dL Salicylates < 5.0 L (15-30) mg/dL Acetaminophen < 1 (<30) mcg/mL Ethyl Alcohol 468 H* mg/dL Discharge Plan Discharge Clinical Impression: Alcohol intoxication Patient Disposition: Still a Patient Prescriptions: No Action multivitamin Tablet 1 tab PO DAILY lamotrigine 200 mg tablet 1 tab PO BEDTIME levothyroxine 25 mcg tablet 1 tab PO DAILY baclofen 20 mg tablet 1 tab PO TID pantoprazole 40 mg tablet,delayed release (DR/EC) 1 tab PO BID loratadine 10 mg tablet 1 tab PO DAILY acamprosate 333 mg tablet,delayed release (DR/EC) 2 tab PO TID calcium carbonate-vitamin D3 600 mg-10 mcg (400 unit) tablet 1 tab PO BID Latuda 80 mg Tablet 160 mg PO DAILY@1800 30 Days Qty: 60 0RF gabapentin 400 mg Capsule 400 mg PO TID 30 Days Qty: 90 0RF trazodone 100 mg Tablet 100 mg PO BEDTIME 30 Days Qty: 30 0RF trolamine salicylate [Arthricream] 10 % Cream 1 appl topical QID PRN (Reason: back pain) 30 Days Qty: 100 0RF lorazepam 0.5 mg Tablet 0.5 mg PO DAILY PRN (Reason: mild anixety) 30 Days Qty: 30 0RF buspirone 10 mg Tablet 20 mg PO TID 30 Days Qty: 180 0RF dextroamphetamine-amphetamine 20 mg tablet 1 tab PO BID@0600,1300 sumatriptan 20 mg/actuation [place],Non-Aerosol 20 mg INTRANASAL Q2H PRN (Reason: Migraine Headache) Rx Instructions: administer into one nostril as a single dose; if 2nd dose needed,administer into other nostril after at least 2 hrs, NTE 2 doses (40 mg) per episode ascorbic acid (vitamin C) 500 mg Tablet 500 mg PO BID amlodipine 5 mg tablet 1 tab PO DAILY ketoconazole 2 % cream 1 applic topical BID PRN (Reason: Rash) oxycodone 5 mg tablet 1 tab PO BID PRN (Reason: Pain) bupropion HCl [Wellbutrin XL] 300 mg tablet extended release 24 hr 1 tab PO QAM
[2022-05-28 16:20] LABS: Glucose, Whole Blood 127 mg/dL (60-115)
[2022-05-28 16:37] LABS: MANUAL DIFF FLAG NO
[2022-05-28 16:42] LABS: Basophils Percent Auto 0.1 % (0-2); Hematocrit 48.8 % (37.0-47.0); Hemoglobin 16.7 g/dl (12.0-16.0); Imm Gran Abs Auto 0.02 X10*3/uL (0.00-0.03); Imm Gran Pct Auto 0.2 % (0.0-0.4); Lymphocytes Absolute Auto 3.2 X10*3/uL (1.2-4.9); Lymphocytes Percent Auto 40.1 % (20-40); Mean Corpuscular HGB Conc 34.2 g/dl (31.0-35.0); Mean Corpuscular Hemoglobin 30.7 pg (27.0-33.0); Mean Corpuscular Volume 89.7 fL (80.0-98.0); Mean Platelet Volume 9.7 fL (9.4-12.3); Monocytes Absolute Auto 0.4 X10*3/uL (0.1-1.2); Monocytes Percent Auto 5.2 % (2-11); Neutrophils Absolute Auto 4.4 x10*3/uL (2.0-8.3); Neutrophils Percent Auto 54.4 % (45-73); Platelet Count 433 X10*3/uL (160-400); Red Blood Count 5.44 X10*6/uL (4.20-5.50); Red Cell Distribution Width 13.1 % (11.0-16.0); White Blood Count 8.1 X10*3/uL (4.8-10.8)
[2022-05-28 17:00] LABS: Acetaminophen LAB < 1 mcg/mL (<30); Alanine Aminotransferase 21 U/L (0-31); Albumin Level 4.6 g/dL (3.5-5.0); Alkaline Phosphatase 123 U/L (39-117); Aspartate Amino Transferase 40 U/L (5-31); Bilirubin Total 0.2 mg/dL (0.0-1.0); Blood Urea Nitrogen 14 mg/dL (9-16); Calcium 9.2 mg/dL (8.4-10.2); Creatinine Clr Calc Pharmacy 108.5; Estimated Glomerular Filt Rate > 60; Ethanol 468 mg/dL; Glucose Random 120 mg/dL (60-115); Salicylate < 5.0 mg/dL (15-30); Total Protein 7.7 g/dL (6.5-8.0)
[2022-05-28 17:17] LABS: Anion Gap 26 (12-20); Carbon Dioxide 17 mmol/L (22-29); Chloride 101 mmol/L (96-108); Potassium 4.3 mmol/L (3.3-5.1); Sodium 140 mmol/L (135-145)
[2022-05-28] MEDS: 0.9 % Sodium Chloride 1,000 ML 999 ML IV ×3 (17:49→19:51)
[2022-05-28 18:44] VITALS: BP 141/83; PULSE 110; RESP 18; TEMP 37; O2SAT 100
[2022-05-28 19:34] VITALS: BP 133/88; PULSE 126; RESP 15; TEMP 36.1; O2SAT 95
[2022-05-28] MEDS: LORazepam 1 MG TABLET 2 MG PO (19:51)
--- NOTE | 2022-05-28 21:32 | ECG_ITS ---
Test Reason : overdosed Blood Pressure : / mmHG Vent. Rate : 105 BPM Atrial Rate : 105 BPM P-R Int : 140 ms QRS Dur : 098 ms QT Int : 340 ms P-R-T Axes : 052 -36 152 degrees QTc Int : 449 ms Sinus tachycardia Left axis deviation Left ventricular hypertrophy with repolarization abnormality ( R in aVL , [employer] product ) Cannot rule out Septal infarct (cited on or before 13-FEB-2022) Abnormal ECG When compared with ECG of 28-MAY-2022 15:15, No significant change was found Referred By: Araseli Barron Electronically Signed By:NANCY ZULUAGA
[2022-05-28 21:53] VITALS: BP 123/79; PULSE 106; RESP 15; TEMP 36.1; O2SAT 96
[2022-05-28 23:10] LABS: Appearance Urine Clear; Color Urine Yellow; Glucose Urine UA Negative (Negative); Leukocyte Esterase Urine Negative (Negative); Nitrite Urine Negative (Negative); PH 5.5 (5.0-9.0); Specific Gravity - Urine 1.015 (1.005-1.025); UMIC TRIGGER UACC YES; Urine Blood Negative (Negative); Urine Ketones 15 mg/dL (Negative); Urine Protein 100 (2+) mg/dL (Neg-Trace)
[2022-05-28 23:13] LABS: UPreg QC Valid YES; Urine Pregnancy NEGATIVE (NEGATIVE)
[2022-05-28 23:15] LABS: Bacteria Urine None Seen (None Seen); RBC Urine 0-2 /HPF (0-2); Squamous Epithelial Cell Urine 0-2 /HPF (0-2); WBC Urine 0-5 /HPF (0-5)
[2022-05-28 23:23] LABS: Amphetamine Screen Urine Not Detected (Not Detect); Barbiturates, Urine Not Detected (Not Detect); Benzodiazepines Screen Urine Not Detected (Not Detect); Cannabinoid Screen Urine Not Detected (Not Detect); Cocaine Screen Urine Not Detected (Not Detect); Fentanyl, urine Not Detected (Not Detect); Opiate Screen Urine Not Detected (Not Detect); Phencyclidine Screen Urine Not Detected (Not Detect)
[2022-05-29] VITALS (10 sets, daily range): BP systolic 124–179; BP diastolic 71–93; PULSE 73–116; RESP 13–20; TEMP 36.3–37.4; O2SAT 93–99
[2022-05-29 00:22] LABS: Troponin-I High Sensitivity 22.4 ng/L (<3.5-17.0)
--- NOTE | 2022-05-29 00:27 | PC.NURSE ---
At this time, pt sitting up in bed, asking to go home. Pt is very anxious about her dog and keeps asking to call someone to figure out where her dog is. Pt has some sensitivity to light and sound as well as some tremors.
--- NOTE | 2022-05-29 01:24 | PC.NURSE ---
Pt is under a Section 12 at this time, she has been changed over to BH clothes and belongings are secured with security. Pt is in bed with a camera to monitor.
--- NOTE | 2022-05-29 01:41 | PC.NURSE ---
Crisis referral submitted.
[2022-05-29 02:59] LABS: Troponin-I High Sensitivity 28.7 ng/L (<3.5-17.0)
[2022-05-29] MEDS: Acetaminophen 325 MG TABLET 650 MG PO (03:19)
--- NOTE | 2022-05-29 03:29 | PC.NURSE ---
BH will see pt after second ETHO levels
--- NOTE | 2022-05-29 03:41 | PC.NURSE ---
Dr Mathews cleared pt medically so she can be moved to the pod. Med rec is completed and Covid swab has been sent.
[2022-05-29 03:45] LABS: Ethanol 148 mg/dL
[2022-05-29] MEDS: LORazepam 1 MG TABLET 2 MG PO ×2 (03:50→06:22)
[2022-05-29 03:56] LABS: COVID-19 Test Negative (Negative); IDNOW Serial# 16C4AD1C
--- NOTE | 2022-05-29 04:05 | PC.NURSE ---
Patient was just transferred from main ED, medically cleared per provider and charge nurse despite rising troponin level, patient ambulated independently, Ativan 2 mg po administered for comfort, [facility] called/confirmed receipt of referral/patient will be evaluated in the morning, med rec completed/pending provider's approval, coherent, behavior non concerning, VSS, will continue to monitor.
--- NOTE | 2022-05-29 06:26 | PC.NURSE ---
Addendum entered by Titi Sevilla RN 05/29/22 06:29: Provider made aware of CIWA score Original Note: CIWA @ 0620 was 14, BP 179/92, HR 116, PRN Ativan 2 mg PO administered at 06/pending effect, will continue to monitor.
--- NOTE | 2022-05-29 08:21 | PHA.MEDREC ---
Pharmacy Consult ? Medication Reconciliation Pharmacy has completed the medication reconciliation. Reviewed med rec done by nursing
--- NOTE | 2022-05-29 09:27 | PC.NURSE ---
ON ASSESSMENT THIS MORNING NOTED A CWIA OF 16, AFTER MEDICATION. PROVIDER AWARE CWIA CURRENTLY 29, PROBABLE MEDICAL ADMISSION FOR WITHDRAWAL.
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
--- NOTE | 2022-05-29 09:45 | MHC.RECOVSUP ---
Recovery Support note: Patient is a 52 year old Slovak speaking female who presented to [facility] ED due to alcohol and substance use. Patient was referred to this writer producer by the CARE Team. Patient is known to this writer producer from previous consultations. Patient is very well supported and is familiar with recovery resources. Patient reports interest in going to detox however states she had a horrible experience at [facility] and that she does not want to go back. Patient also reports she does not like [facility]. Patient is requesting referrals to [facility]. [facility] reports no availability and no planned discharges. Patient willing to complete intake and discharge home. Discussed with ED physician, plan for patient to be medically admitted due to severity of withdrawal symptoms.
--- NOTE | 2022-05-29 11:38 | PM.IMHP ---
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 Presented with AMS, etoh level 468. Reports consuming 1/2 gallon wine daily, last consumed yesterday afternoon. Reports having felt very depressed over the last few months and struggling with a new puppy at home. Initially making claims of SI, not reporting more passive SI. Was evaluated by crisis and was initially treated in the pod. Plan to discharge patient to [facility] after treatment for etoh withdrawal. Electrolytes normal except for mildly deficient bicarb 17. AST 30/ALT 21. UTox negative except for ETOH. EKG showing sinus tachcyardia rate 105 withLVH and repolarization abnormality, unchanged from prior EKG. Mildly elevated troponin 22.4, repeat 28.7. UA with 2+ protein, no significant ketones. AG 26. She is currently tremulous, nauseas, and feeling unwell. CIWA scale score 29. Phenobarb protocol initiated. To be admitted for alcohol withdrawal Review of Systems Review of Systems: General: No fevers, malaise, unintentional weight loss HEENT: No blurred vision, diplopia Cardiovascular: No chest pain, palpitations, or leg edema Respiratory: No shortness of breath, wheezing, cough GI: +nausea. No abdominal pain, vomiting, diarrhea, constipation, melena, hematochezia Neuro: +tremors. No headaches, weakness, paresthesias Psych: +depression, +si Skin: No rashes or lesions [facility] Medical History (Updated 05/29/22 @ 11:49 by DELORES Allen) Alcohol abuse Alcohol abuse Bipolar I disorder with depression Depression Depression GERD (gastroesophageal reflux disease) HTN (hypertension) Hypothyroidism Migraines Family History (Updated 05/29/22 @ 11:50 by DELORES Allen) Mother Narcissism Father Lung cancer COPD (chronic obstructive pulmonary disease) Alcoholism Brother Alcoholism Social History Household Members: None Housing: Apartment Do you presently have visiting nurse or other home services: No Alcohol intake: current Alcohol intake frequency: 3 or more drinks per day Alcohol type: hard liquor Patient Tobacco Use Status: Never used Tobacco Advance Directives: No Advance Directives Information Provided: Yes service: No Sexual orientation: Did not discuss Meds Allergies Allergy/AdvReac Type Severity Reaction Status Date / Time latex [LATEX] Allergy Mild Rash Verified 02/21/22 06:47 leuprolide [From LUPRON] Allergy Unknown HIVES Verified 02/21/22 06:47 Sulfa (Sulfonamide Allergy Unknown RASH Verified 02/21/22 06:48 Antibiotics) [SULFA (SULFONAMIDE ANTIBIOTICS)] ibuprofen AdvReac Intermediate Abdominal Verified 02/21/22 16:53 Pain Active Medications: Current Medications Acamprosate (Acamprosate Calcium 333 Mg Tablet.Dr) 666 mg PO TID BETTY Acetaminophen (Acetaminophen 325 Mg Tablet) 650 mg PO Q6H PRN PRN Reason: Pain, Mild (Pain Scale 1-3) Amlodipine Besylate (Amlodipine Besylate 5 Mg Tablet) 5 mg PO DAILY BETTY; Protocol Ascorbic Acid (Ascorbic Acid 500 Mg Tablet) 500 mg PO BID BETTY Baclofen (Baclofen 20 Mg Tablet) 20 mg PO TID [facility] Docusate Sodium (Docusate Sodium 100 Mg Capsule) 100 mg PO BID PRN PRN Reason: Constipation Enoxaparin Sodium (Enoxaparin Sodium 40 Mg/0.4 Ml Syringe) 40 mg SUBCUT Q24H [facility] Thiamine HCl 100 mg/ Sodium (Chloride) 101 mls @ 202 mls/hr IV DAILY [facility] Folic Acid 1 mg/ Sodium (Chloride) 50.2 mls @ 100.4 mls/hr IV DAILY [facility] Lactated Ringer's (Lr) 1,000 mls @ 100 mls/hr IVCONT .Q10H [facility] Ondansetron HCl (Ondansetron Hcl 4 Mg/2 Ml Vial) 4 mg IVPUSH Q8H PRN PRN Reason: Nausea and Vomiting Pharmacy Consult (Consult Rx Etoh Phenob Po Only) 1 each MISCELLANE ONCE PRN; Protocol PRN Reason: Consult order Pharmacy Consult (Consult Rx Perform Med Rec) 1 each MISCELLANE ONCE PRN PRN Reason: Consult order Phenobarbital 200 mg/ (Phenobarbital 90 mg) 290 mg PO Q3H [facility]; Protocol Stop: 05/29/22 15:01 Phenobarbital (Phenobarbital 15 Mg Tablet) 45 mg PO BID [facility]TY; Protocol Stop: 05/31/22 09:01 Phenobarbital (Phenobarbital 30 Mg Tablet) 30 mg PO BID [facility]; Protocol Stop: 06/02/22 09:01 Phenobarbital (Phenobarbital 15 Mg Tablet) 15 mg PO DAILY [facility]; Protocol Stop: 06/04/22 09:01 Sodium Chloride (0.9 % Sodium Chloride Flush 3 Ml Syringe) 3 ml IVFLUSH QSHIFT [facility] Home Medications Medication Instructions Recorded Confirmed Last Taken Type acamprosate 333 mg tablet,delayed 2 tab PO TID 02/12/22 05/29/22 05/28/22 History release baclofen 20 mg tablet 1 tab PO TID 02/12/22 05/29/22 05/28/22 History calcium carbonate 600 mg-vitamin 1 tab PO BID 02/12/22 05/29/22 05/28/22 History D3 10 mcg (400 unit) tablet lamotrigine 200 mg tablet 1 tab PO BEDTIME 02/12/22 05/29/22 05/28/22 History levothyroxine 25 mcg tablet 1 tab PO DAILY 02/12/22 05/29/22 05/28/22 History loratadine 10 mg tablet 1 tab PO DAILY 02/12/22 05/29/22 05/28/22 History multivitamin 1 tab PO DAILY 02/12/22 05/29/22 05/28/22 History pantoprazole 40 mg tablet,delayed 1 tab PO BID 02/12/22 05/29/22 05/28/22 History release ascorbic acid (vitamin C) 500 mg 500 mg PO BID 03/10/22 05/29/22 05/28/22 History tablet dextroamphetamine-amphetamine 20 1 tab PO BID@0600,1300 03/10/22 05/29/22 05/28/22 History mg tablet sumatriptan 20 mg/actuation nasal 20 mg intranasal Q2H PRN Migraine 03/10/22 05/29/22 05/28/22 History spray Headache amlodipine 5 mg tablet 1 tab PO DAILY 05/09/22 05/29/22 05/28/22 History bupropion HCl 300 mg 24 hr tablet, 1 tab PO QAM 05/09/22 05/29/22 05/28/22 History extended release (Wellbutrin XL) ketoconazole 2 % topical cream 1 applic topical BID PRN Rash 05/09/22 05/29/22 05/28/22 History oxycodone 5 mg tablet 1 tab PO BID PRN Pain 05/09/22 05/29/22 05/28/22 History Physical Exam Vital Signs and Narrative: Vital Signs: Last Vital Signs Temp 97.3 F 05/29/22 08:02 Pulse 114 H 05/29/22 08:02 Resp 16 05/29/22 08:02 BP 161/93 H 05/29/22 08:02 Pulse Ox 95 05/29/22 08:02 O2 Del Method 05/29/22 08:02 O2 Flow Rate 2 05/28/22 19:34 BMI result Body Mass Index 34.2 Constitutional - Awake and Alert, Mild distress. Diaphoretic Eyes - PERRLA, EOMI Cardiovascular - S1S2, regular rhythm, mild tachycardia, No edema Respiratory - Normal lung expansion, Normal respiratory effort, No respiratory distress, CTA bilaterally Gastrointestinal - NT / ND; +BS; No rebound or guarding Extremities - no calf tenderness bilaterally, no swelling Skin - Warm/diaphoretic Neurological - Alert & oriented x3, CN II-XII in tact. Whole body tremulous. Strength and sensation in tact Psychological - depressed mood, passive si Results Labs CBC and Chem 7: 05/28/22 16:14 05/28/22 16:14 Labs: Laboratory Results - last 24 hr 05/28/22 05/28/22 05/28/22 16:12 16:14 16:14 MCV 89.7 MCH 30.7 MCHC 34.2 RDW 13.1 Plt Count 433 H D MPV 9.7 Immature Gran % (Auto) 0.2 Neut % (Auto) 54.4 Lymph % (Auto) 40.1 H [place] % (Auto) 5.2 Eos % (Auto) 0.0 Baso % (Auto) 0.1 Lymph # (Auto) 3.2 [place] # (Auto) 0.4 Eos # (Auto) 0.0 Baso # (Auto) 0.0 Abs Immat Gran (auto) 0.02 Absolute Neuts (auto) 4.4 Absolute Nucleated RBC 0.000 Nucleated RBC % (auto) 0.0 Anion Gap 26 H Estim Creat Clear Calc 108.5 Estimated GFR > 60 POC Glucose 127 H Random Glucose 120 H Calcium 9.2 Total Bilirubin 0.2 AST 40 H ALT 21 Alkaline Phosphatase 123 H Troponin I High Sens Total Protein 7.7 Albumin 4.6 Urine Color Urine Appearance Urine pH Ur Specific [place] Urine Protein Urine Glucose (UA) Urine Ketones Urine Blood Urine Nitrite Ur Leukocyte Esterase Urine RBC Urine WBC Ur Squamous Epith Cells Urine Bacteria Hyaline Casts Urine Test Salicylates < 5.0 L Urine Opiates Screen Urine Fentanyl Screen Acetaminophen < 1 Ur Barbiturates Screen Ur Phencyclidine Scrn Ur Amphetamines Screen U Benzodiazepines Scrn Urine Cocaine Screen U Marijuana (THC) Screen Ethyl Alcohol 468 H* COVID-19 ([facility]) COVID-19 [place] 05/28/22 05/28/22 05/28/22 22:59 22:59 22:59 MCV MCH MCHC RDW Plt Count MPV Immature Gran % (Auto) Neut % (Auto) Lymph % (Auto) [place] % (Auto) Eos % (Auto) Baso % (Auto) Lymph # (Auto) [place] # (Auto) Eos # (Auto) Baso # (Auto) Abs Immat Gran (auto) Absolute Neuts (auto) Absolute Nucleated RBC Nucleated RBC % (auto) Anion Gap Estim Creat Clear Calc Estimated GFR POC Glucose Random Glucose Calcium Total Bilirubin AST ALT Alkaline Phosphatase Troponin I High Sens Total Protein Albumin Urine Color Yellow Urine Appearance Clear Urine pH 5.5 Ur Specific [place] 1.015 Urine Protein 100 (2+) H Urine Glucose (UA) Negative Urine Ketones 15 Urine Blood Negative Urine Nitrite Negative Ur Leukocyte Esterase Negative Urine RBC 0-2 Urine WBC 0-5 Ur Squamous Epith Cells 0-2 Urine Bacteria None Seen Hyaline Casts 3-5 Urine Test NEGATIVE Salicylates Urine Opiates Screen Not Detected Urine Fentanyl Screen Not Detected Acetaminophen Ur Barbiturates Screen Not Detected Ur Phencyclidine Scrn Not Detected Ur Amphetamines Screen Not Detected U Benzodiazepines Scrn Not Detected Urine Cocaine Screen Not Detected U Marijuana (THC) Screen Not Detected Ethyl Alcohol COVID-19 ([facility]) COVID-19 [place] 05/28/22 05/29/22 05/29/22 23:58 02:28 02:28 MCV MCH MCHC RDW Plt Count MPV Immature Gran % (Auto) Neut % (Auto) Lymph % (Auto) [place] % (Auto) Eos % (Auto) Baso % (Auto) Lymph # (Auto) [place] # (Auto) Eos # (Auto) Baso # (Auto) Abs Immat Gran (auto) Absolute Neuts (auto) Absolute Nucleated RBC Nucleated RBC % (auto) Anion Gap Estim Creat Clear Calc Estimated GFR POC Glucose Random Glucose Calcium Total Bilirubin AST ALT Alkaline Phosphatase Troponin I High Sens 22.4 H 28.7 H Total Protein Albumin Urine Color Urine Appearance Urine pH Ur Specific [place] Urine Protein Urine Glucose (UA) Urine Ketones Urine Blood Urine Nitrite Ur Leukocyte Esterase Urine RBC Urine WBC Ur Squamous Epith Cells Urine Bacteria Hyaline Casts Urine Test Salicylates Urine Opiates Screen Urine Fentanyl Screen Acetaminophen Ur Barbiturates Screen Ur Phencyclidine Scrn Ur Amphetamines Screen U Benzodiazepines Scrn Urine Cocaine Screen U Marijuana (THC) Screen Ethyl Alcohol 148 COVID-19 ([facility]) COVID-19 Clin Com 05/29/22 03:39 MCV MCH MCHC RDW Plt Count MPV Immature Gran % (Auto) Neut % (Auto) Lymph % (Auto) [place] % (Auto) Eos % (Auto) Baso % (Auto) Lymph # (Auto) [place] # (Auto) Eos # (Auto) Baso # (Auto) Abs Immat Gran (auto) Absolute Neuts (auto) Absolute Nucleated RBC Nucleated RBC % (auto) Anion Gap Estim Creat Clear Calc Estimated GFR POC Glucose Random Glucose Calcium Total Bilirubin AST ALT Alkaline Phosphatase Troponin I High Sens Total Protein Albumin Urine Color Urine Appearance Urine pH Ur Specific [place] Urine Protein Urine Glucose (UA) Urine Ketones Urine Blood Urine Nitrite Ur Leukocyte Esterase Urine RBC Urine WBC Ur Squamous Epith Cells Urine Bacteria Hyaline Casts Urine Test Salicylates Urine Opiates Screen Urine Fentanyl Screen Acetaminophen Ur Barbiturates Screen Ur Phencyclidine Scrn Ur Amphetamines Screen U Benzodiazepines Scrn Urine Cocaine Screen U Marijuana (THC) Screen Ethyl Alcohol COVID-19 ([facility]) Negative COVID-19 Clin Com See Note Imaging Radiologist's Impressions: Impressions Head CT 05/29/22 01:49 IMPRESSION: No acute intracranial abnormality including hemorrhage, mass effect, hydrocephalus, or acute territorial edematous infarction. Assessment and Plan (1) Alcohol withdrawal: Qualifiers: Complication of substance-induced condition: with unspecified complication Qualified Code(s): F10.939 - Alcohol use, unspecified with withdrawal, unspecified Status: Acute (2) Alcohol use disorder, severe, dependence: Status: Acute (3) Bipolar I disorder with depression: Status: Acute Plan 52 year old female with history of hypothyroidism, hypertension, bipolar disorder, anxiety, migraine headaches, and alcohol dependence admitted for acute alcohol withdrawal and SI. 1-Acute alcohol withdrawal -ETOH level on arrival 468. Repeat 148 -No hx alcohol w/d seizure. -CIWA scal score 29. Continue CIWA -Continue phenobarb per protocol -Seizure precautions -Admit to telemetry -Plan to discharge to [facility] per pod 2-Dehydration -LR @ 100ml/hr -Recheck bmp am. bicarb 17 3-Bipolar disorder currently depressed -Reporting passive SI. No plan -Continue sitter -Continue home meds, but hold latuda d/t interaction with phenobarb 4-Hypothyroidism -Continue levothyroxine 5-GERD -Continue ppi 6-Migraines -sumatriptan prn 7-HTN -Continue amlodipine DVT prophylaxis- lovenox Full code Pt requires inpt stay at least 2 midnights for management of acute alcohol withdrawal on phenobarb as she is at risk for seizures with CIWA score 29. Quality Stroke Does the patient have a stroke diagnosis?: No VTE Prior VTE?: No VTE Risk Level:: Medical - moderate - high VTE Device Contraindication: Treatment Not Indicated VTE Drug Contraindication: N/A - Med Ordered
--- OUTSIDE RECORDS SUMMARY | 2022-05-29 11:41 | XMS_ITS ---
:1970 Author Organization [facility] [address] [facility] Location Address [address] [place] [id number] Care Team Providers Name Role Phone Nick PLANT BREEDER-DoryLinsey Unavailable Unavailable PROBLEMS Type Condition ICD9-CM Code HVH40-ST Code Onset Condition SNO MED Code Dates Status Problem Arm R20.2 Active [id number] paresthesia, left ALLERGIES Substance Reaction Event Type Date Status Sulfa Antibiotics Unknown Drug Allergy Oct, Active ENCOUNTERS Encounter Location Date Diagnosis [facility] [address] [facility], Oct, Ce rvicalgia M54.2 ; [place] [id number] arm pa in M79.602 and Arm paresthesia, [...] Results REASON FOR VISIT Consult Insurance Providers [facility] Health Member Patient Patient Patient Patient Patient Subscriber Subscriber Subscriber Group Insurance Plan Plan Plan Plan ID Relationship Address Phone Name Date of ID Name Date of No Type Insurance Insurance Insurance Coverage to Subscriber Address Phone Name Dates [place] [address] [facility] [phone] [place] self Sweetie 1 [id number] th Care [facility] [address] Care [facility] [address] [place] [address] [place] self Sweetie [id number] [address] [address] Medicare [address] Medicare self Sweetie [id number] of [id number] [facility] [place] [phone]
[2022-05-29] MEDS: Enoxaparin Sodium 40 MG/0.4 ML SYRINGE SUBCUT (12:08)
[2022-05-29] MEDS: Thiamine HCL 100 MG in 0.9 % Sodium Chloride 100 ML 202 MG IV (12:09)
[2022-05-29] MEDS: Ascorbic Acid 500 MG TABLET PO ×2 (12:34→21:37)
[2022-05-29] MEDS: Multivitamin TABLET 1 TAB PO (12:34)
[2022-05-29] MEDS: amLODIPine Besylate 5 MG TABLET PO (12:35)
[2022-05-29] MEDS: Levothyroxine Sodium 25 MCG TABLET PO (12:35)
[2022-05-29] MEDS: Loratadine 10 MG TABLET PO (12:35)
[2022-05-29] MEDS: buPROPion HCl XL 300 MG TAB.ER.24H PO (12:35)
[2022-05-29] MEDS: Amphetamine Mixed Salts 20 MG TABLET PO (12:35)
[2022-05-29] MEDS: Lactated Ringers 1,000 ML 100 ML IVCONT (12:37)
[2022-05-29] MEDS: Folic Acid 1 MG in 0.9 % Sodium Chloride 50 ML 100.4 MG IV (13:35)
[2022-05-29] MEDS: busPIRone HCl 10 MG TABLET 20 MG PO ×2 (16:17→21:36)
[2022-05-29] MEDS: Gabapentin 400 MG CAPSULE PO ×2 (16:17→21:36)
[2022-05-29] MEDS: Baclofen 20 MG TABLET PO ×2 (16:17→21:38)
[2022-05-29] MEDS: Omeprazole 20 MG CAPSULE.DR PO (16:17)
[2022-05-29] MEDS: Acamprosate Calcium 333 MG TABLET.DR 666 MG PO ×2 (17:09→21:35)
[2022-05-29] MEDS: PHENobarbitaL 15 MG TABLET 45 MG PO (21:35)
[2022-05-29] MEDS: Calcium + Vitamin D 250 MG TABLET 500 MG PO (21:36)
[2022-05-29] MEDS: traZODone HCL 100 MG TABLET PO (21:38)
[2022-05-29] MEDS: lamoTRIgine 100 MG TABLET 200 MG PO (21:44)
--- NOTE | 2022-05-29 21:51 | PC.NURSE ---
patient resting on stretcher, just finished taking evening meds, patient reported feeling dizzy. states she felt like this in the past when her BP was low. vitals assessed and WNL. patient now states the dizziness is better states she just feels very tired.
[2022-05-29] MEDS: 0.9 % Sodium Chloride Flush 3 ML SYRINGE IVFLUSH (23:57)
--- NOTE | 2022-05-29 23:58 | PC.NURSE ---
patient continues to be sleeping. awakens to verbal stimuli. reports no pain and states that she is exhausted. patient quickly falls back to sleep.
[2022-05-30] MEDS: Lactated Ringers 1,000 ML 100 ML IVCONT ×3 (03:05→20:56)
[2022-05-30] MEDS: Amphetamine Mixed Salts 20 MG TABLET PO ×2 (05:31→15:30)
[2022-05-30] MEDS: Omeprazole 20 MG CAPSULE.DR PO ×2 (05:31→14:06)
[2022-05-30] MEDS: Levothyroxine Sodium 25 MCG TABLET PO (05:31)
[2022-05-30 07:58] LABS: MANUAL DIFF FLAG NO
[2022-05-30 07:59] LABS: Hematocrit 33.4 % (37.0-47.0); Hemoglobin 11.3 g/dl (12.0-16.0); Imm Gran Abs Auto 0.01 X10*3/uL (0.00-0.03); Imm Gran Pct Auto 0.2 % (0.0-0.4); Lymphocytes Absolute Auto 1.9 X10*3/uL (1.2-4.9); Lymphocytes Percent Auto 37.5 % (20-40); Mean Corpuscular HGB Conc 33.8 g/dl (31.0-35.0); Mean Corpuscular Volume 91.5 fL (80.0-98.0); Mean Platelet Volume 10.2 fL (9.4-12.3); Monocytes Absolute Auto 0.6 X10*3/uL (0.1-1.2); Monocytes Percent Auto 12.7 % (2-11); Neutrophils Absolute Auto 2.5 x10*3/uL (2.0-8.3); Neutrophils Percent Auto 49.6 % (45-73); Platelet Count 225 X10*3/uL (160-400); Red Blood Count 3.65 X10*6/uL (4.20-5.50)
[2022-05-30 08:04] VITALS: BP 153/77; PULSE 89; RESP 14; TEMP 36.4; O2SAT 95
[2022-05-30 08:10] VITALS: BP 139/81; PULSE 90; RESP 13; O2SAT 95
[2022-05-30] MEDS: Gabapentin 400 MG CAPSULE PO ×3 (08:11→20:45)
[2022-05-30] MEDS: busPIRone HCl 10 MG TABLET 20 MG PO ×3 (08:11→20:44)
[2022-05-30] MEDS: Ascorbic Acid 500 MG TABLET PO ×2 (08:11→20:43)
[2022-05-30] MEDS: Acamprosate Calcium 333 MG TABLET.DR 666 MG PO ×3 (08:11→20:43)
[2022-05-30] MEDS: Calcium + Vitamin D 250 MG TABLET 500 MG PO ×2 (08:11→20:43)
[2022-05-30] MEDS: Multivitamin TABLET 1 TAB PO (08:11)
[2022-05-30] MEDS: Loratadine 10 MG TABLET PO (08:12)
[2022-05-30] MEDS: 0.9 % Sodium Chloride Flush 3 ML SYRINGE IVFLUSH ×3 (08:12→20:46)
[2022-05-30] MEDS: PHENobarbitaL 15 MG TABLET 45 MG PO ×2 (08:12→20:45)
[2022-05-30] MEDS: amLODIPine Besylate 5 MG TABLET PO (08:17)
[2022-05-30 08:20] LABS: Anion Gap 15 (12-20); Blood Urea Nitrogen 9 mg/dL (9-16); Calcium 8.9 mg/dL (8.4-10.2); Carbon Dioxide 23 mmol/L (22-29); Chloride 99 mmol/L (96-108); Creatinine Clr Calc Pharmacy 136.2; Estimated Glomerular Filt Rate > 60; Glucose Random 140 mg/dL (60-115); Potassium 3.9 mmol/L (3.3-5.1); Sodium 133 mmol/L (135-145)
[2022-05-30] MEDS: Thiamine HCL 100 MG in 0.9 % Sodium Chloride 100 ML 202 MG IV (09:14)
[2022-05-30] MEDS: Folic Acid 1 MG in 0.9 % Sodium Chloride 50 ML 100 MG IV (09:15)
[2022-05-30] MEDS: buPROPion HCl XL 300 MG TAB.ER.24H PO (09:16)
--- NOTE | 2022-05-30 10:08 | P.PNIM_ITS ---
Subjective Subjective Date of Service: 05/30/22 Interval History: Pt seen in follow up for alcohol withdrawal and depression. Pt reports she is feeling much better than yesterday. Still quite fatigued with mild tremors in the hands only. Has some light sensitivity and mild frontal headache, not migraine. Feels depressed. Initially denies SI and sitter was canceled. However, not endorses SI stating If I go home, I'm going to . Tolerating food and water. No n/v, sweats. Review of Systems General: No fevers, malaise, unintentional weight loss HEENT: +light sensitivity. No blurred vision, diplopia Cardiovascular: No chest pain, palpitations, or leg edema Respiratory: No shortness of breath, wheezing, cough GI: No abdominal pain, nausea, vomiting, diarrhea, constipation, melena, hematochezia Neuro: +tremors. + headaches. No weakness, paresthesias Psych: +depression, +SI. Skin: No rashes or lesions Physical Exam Vital Signs: Vital Signs: Last Vital Signs Temp 97.5 F 05/30/22 08:04 Pulse 90 05/30/22 08:10 Resp 13 05/30/22 08:10 BP 139/81 05/30/22 08:10 Pulse Ox 95 05/30/22 08:10 O2 Del Method 05/30/22 08:10 O2 Flow Rate 2 05/28/22 19:34 BMI result Body Mass Index 34.2 Constitutional - Awake and Alert, No apparent distress Eyes - PERRLA, EOMI Cardiovascular - S1S2, RRR, No edema Respiratory - Normal lung expansion, Normal respiratory effort, No respiratory distress, CTA bilaterally Gastrointestinal - Mild diffuse ttp without guarding or rebound. ND; +BS Extremities - no calf tenderness bilaterally, no swelling Musculoskeletal - Normal inspection, normal ROM Skin - Warm/Dry Neurological - Alert & oriented x3, CN II-XII in tact, mild tremor b/l hands Psychological - Depressed mood, appropriate affect Objective Data Active Medications Acamprosate (Acamprosate Calcium 333 Mg Tablet.) 666 mg PO TID [facility] Last Admin: 05/30/22 08:11 Dose: 666 mg Documented By: JHOAN Acetaminophen (Acetaminophen 325 Mg Tablet) 650 mg PO Q6H PRN PRN Reason: Pain, Mild (Pain Scale 1-3) Amlodipine Besylate (Amlodipine Besylate 5 Mg Tablet) 5 mg PO DAILY [facility]; Protocol Last Admin: 05/30/22 08:17 Dose: 5 mg Documented By: JOHAN Comments: BP-139/81 Amphetamine/Dextroamphetamine (Amphetamine Mixed Salts 20 Mg Tablet) 20 mg PO BID@0600,1300 [facility] Last Admin: 05/30/22 05:31 Dose: 20 mg Documented By: ESTEFANIA Ascorbic Acid (Ascorbic Acid 500 Mg Tablet) 500 mg PO BID [facility] Last Admin: 05/30/22 08:11 Dose: 500 mg Documented By: JOHAN Baclofen (Baclofen 20 Mg Tablet) 20 mg PO TID [facility] Last Admin: 05/29/22 21:38 Dose: 20 mg Documented By: GIORGI Bupropion HCl (Bupropion Hcl Xl 300 Mg Tab.Er.24h) 300 mg PO DAILY [facility] Last Admin: 05/30/22 09:16 Dose: 300 mg Documented By: JOHAN Buspirone HCl (Buspirone Hcl 10 Mg Tablet) 20 mg PO TID [facility] Last Admin: 05/30/22 08:11 Dose: 20 mg Documented By: JOHAN Calcium Carbonate/Cholecalciferol (Calcium + Vitamin D 250 Mg Tablet) 500 mg PO BID [facility] Last Admin: 05/30/22 08:11 Dose: 500 mg Documented By: JOHAN Docusate Sodium (Docusate Sodium 100 Mg Capsule) 100 mg PO BID PRN PRN Reason: Constipation Enoxaparin Sodium (Enoxaparin Sodium 40 Mg/0.4 Ml Syringe) 40 mg SUBCUT Q24H [facility] Last Admin: 05/29/22 12:08 Dose: 40 mg Documented By: JEOVANNY Gabapentin (Gabapentin 400 Mg Capsule) 400 mg PO TID [facility] Last Admin: 05/30/22 08:11 Dose: 400 mg Documented By: JOHAN Thiamine HCl 100 mg/ Sodium (Chloride) 101 mls @ 202 mls/hr IV DAILY [facility] Last Infusion: 05/30/22 10:02 Dose: 0 mls/hr Documented By: JOHAN Folic Acid 1 mg/ Sodium (Chloride) 50.2 mls @ 100.4 mls/hr IV DAILY [facility] Last Infusion: 05/30/22 10:02 Dose: 0 mls/hr Documented By: JOHAN Lactated Ringer's (Lr) 1,000 mls @ 100 mls/hr IVCONT .Q10H [facility] Last Admin: 05/30/22 03:05 Dose: 100 mls/hr Documented By: ESTEFANIA Lamotrigine (Lamotrigine 100 Mg Tablet) 200 mg PO BEDTIME [facility] Last Admin: 05/29/22 21:44 Dose: 200 mg Documented By: GIORGI Levothyroxine Sodium (Levothyroxine Sodium 25 Mcg Tablet) 25 mcg PO DAILY@0600 [facility] Last Admin: 05/30/22 05:31 Dose: 25 mcg Documented By: ESTEFANIA Loratadine (Loratadine 10 Mg Tablet) 10 mg PO DAILY [facility] Last Admin: 05/30/22 08:12 Dose: 10 mg Documented By: JOHAN Lorazepam (Lorazepam 0.5 Mg Tablet) 0.5 mg PO DAILY PRN PRN Reason: mild anixety Multivitamins/Vitamin C (Multivitamin Tablet) 1 tab PO DAILY [facility] Last Admin: 05/30/22 08:11 Dose: 1 tab Documented By: JOHAN Omeprazole (Omeprazole 20 Mg Capsule.Dr) 20 mg PO DAILY@0630,1630 [facility] Last Admin: 05/30/22 05:31 Dose: 20 mg Documented By: ESTEFANIA Ondansetron HCl (Ondansetron Hcl 4 Mg/2 Ml Vial) 4 mg IVPUSH Q8H PRN PRN Reason: Nausea and Vomiting Pharmacy Consult (Consult Rx Etoh Phenob Po Only) 1 each MISCELLANE ONCE PRN; Protocol PRN Reason: Consult order Pharmacy Consult (Consult Rx Perform Med Rec) 1 each MISCELLANE ONCE PRN PRN Reason: Consult order Phenobarbital (Phenobarbital 15 Mg Tablet) 45 mg PO BID [facility]; Protocol Stop: 05/31/22 09:01 Last Admin: 05/30/22 08:12 Dose: 45 mg Documented By: JOHAN Phenobarbital (Phenobarbital 30 Mg Tablet) 30 mg PO BID [facility]; Protocol Stop: 06/02/22 09:01 Phenobarbital (Phenobarbital 15 Mg Tablet) 15 mg PO DAILY [facility]; Protocol Stop: 06/04/22 09:01 Sodium Chloride (0.9 % Sodium Chloride Flush 3 Ml Syringe) 3 ml IVFLUSH QSHIFT [facility] Last Admin: 05/30/22 08:12 Dose: 3 ml Documented By: JOHAN Trazodone HCl (Trazodone Hcl 100 Mg Tablet) 100 mg PO BEDTIME [facility] Last Admin: 05/29/22 21:38 Dose: 100 mg Documented By: GIORGI Labs CBC & Chem 7: 05/30/22 07:48 05/30/22 07:48 Labs: Laboratory Results - last 24 hr 05/30/22 05/30/22 07:48 07:48 MCV 91.5 MCH 31.0 MCHC 33.8 RDW 13.0 Plt Count 225 D MPV 10.2 Immature Gran % (Auto) 0.2 Neut % (Auto) 49.6 Lymph % (Auto) 37.5 [place] % (Auto) 12.7 H Eos % (Auto) 0.0 Baso % (Auto) 0.0 Lymph # (Auto) 1.9 [place] # (Auto) 0.6 Eos # (Auto) 0.0 Baso # (Auto) 0.0 Abs Immat Gran (auto) 0.01 Absolute Neuts (auto) 2.5 Absolute Nucleated RBC 0.000 Nucleated RBC % (auto) 0.0 Anion Gap 15 Estim Creat Clear Calc 136.2 Estimated GFR > 60 Random Glucose 140 H Calcium 8.9 Assessment and Plan (1) Alcohol withdrawal: Status: Acute (2) Suicidal ideation: Status: Acute (3) Bipolar I disorder with depression: Status: Acute Plan 52 year old female with history of hypothyroidism, hypertension, bipolar disorder, anxiety, migraine headaches, and alcohol dependence admitted for acute alcohol withdrawal and SI. 1-Acute alcohol withdrawal -ETOH level on arrival 468. Repeat 148 -No hx alcohol w/d seizure. -CIWA scale score this am 12- still tremulous, light sensitivity, fatigue, anxiety. Addl 120mg phenobarb added -Continue phenobarb per protocol -Seizure precautions -Admit to telemetry -Met with recovery team. Continue campral 2-Dehydration- resolved -Bicarb now normal. Na 133 from overhydration -D/c IVF -Encourage PO intake 3-Bipolar disorder currently depressed -Had denied SI and sitter was canceled. Now endorsing SI stating -Did endorse SI on admission, continue sitter -Has been seen by Care Management and Recovery team. Will need crisis eval once medically cleared probably tomorrow -Continue home meds, but hold latuda d/t interaction with phenobarb 4-Hypothyroidism -Continue levothyroxine 5-GERD -Continue ppi 6-Migraines -sumatriptan prn 7-HTN -Continue amlodipine DVT prophylaxis- lovenox Full code Pt requires ongoing inpt stay due to acute etoh withdrawal on phenobarb protocol with CIWA score now 16 but remains at risk for seizure. Quality Stroke Does the patient have a stroke diagnosis?: No VTE Prior VTE?: No VTE Risk Level:: Medical - moderate - high VTE Device Contraindication: Treatment Not Indicated VTE Drug Contraindication: N/A - Med Ordered
--- NOTE | 2022-05-30 10:10 | MHC.CM.PN ---
met with pt who lives alone pt seen by care team who is coordinating her dc pt want to go to [facility] pt is [facility] x[facility] pcp is cindy madera will need a ride home
--- NOTE | 2022-05-30 10:24 | PC.NURSE ---
At this time patient states she lied about something she told the provider. She states, I told her I wasn't suicidal, but I am , and if I go home, Im going to & I will kill myself . Patient expressed interest in inpatient behavioral health. Message relayed to DELORES Allen at this time.
--- NOTE | 2022-05-30 10:30 | PC.NURSE ---
Sitter at bedside 1:[address], [address] for safety, all personal belongings locked away with security at this time.
[2022-05-30 11:58] VITALS: BP 132/76; PULSE 97; RESP 18; O2SAT 97
[2022-05-30] MEDS: Acetaminophen 325 MG TABLET 650 MG PO (11:58)
[2022-05-30] MEDS: PHENobarbitaL sodium 130 MG/ML VIAL 120 MG IM ×2 (11:59→20:42)
[2022-05-30] MEDS: Enoxaparin Sodium 40 MG/0.4 ML SYRINGE SUBCUT (11:59)
--- NOTE | 2022-05-30 13:23 | MHC.CARE ---
CARE Team is available to meet with/assess pt when medically cleared
[2022-05-30] MEDS: Baclofen 20 MG TABLET PO ×2 (14:06→20:43)
[2022-05-30 15:56] VITALS: BP 119/56; PULSE 92; RESP 18; TEMP 36.1
--- NOTE | 2022-05-30 16:42 | PC.NURSE ---
Called report to MIA Crane at this time.
[2022-05-30 17:26] VITALS: BMI 35.4
[2022-05-30 20:00] VITALS: BP 141/73; PULSE 85; RESP 21; TEMP 36.9; O2SAT 98
[2022-05-30] MEDS: lamoTRIgine 100 MG TABLET 200 MG PO (20:44)
[2022-05-30] MEDS: traZODone HCL 100 MG TABLET PO (20:45)
[2022-05-30 23:08] VITALS: BP 109/61; PULSE 77; RESP 16; TEMP 36.6; O2SAT 94
[2022-05-31 03:43] VITALS: BP 123/68; PULSE 75; RESP 14; TEMP 36.7; O2SAT 93
[2022-05-31] MEDS: Omeprazole 20 MG CAPSULE.DR PO ×2 (05:10→16:37)
[2022-05-31] MEDS: Amphetamine Mixed Salts 20 MG TABLET PO ×2 (05:10→12:14)
[2022-05-31] MEDS: Levothyroxine Sodium 25 MCG TABLET PO (05:10)
[2022-05-31] MEDS: Lactated Ringers 1,000 ML 100 ML IVCONT (06:25)
[2022-05-31 08:00] VITALS: BP 137/74; PULSE 75; RESP 20; TEMP 36.6; O2SAT 99
[2022-05-31] MEDS: PHENobarbitaL 15 MG TABLET 45 MG PO (08:36)
[2022-05-31] MEDS: Baclofen 20 MG TABLET PO ×3 (08:36→22:02)
[2022-05-31] MEDS: Calcium + Vitamin D 250 MG TABLET 500 MG PO ×2 (08:36→22:02)
[2022-05-31] MEDS: amLODIPine Besylate 5 MG TABLET PO (08:36)
[2022-05-31] MEDS: Gabapentin 400 MG CAPSULE PO ×3 (08:36→22:01)
[2022-05-31] MEDS: buPROPion HCl XL 300 MG TAB.ER.24H PO (08:36)
[2022-05-31] MEDS: LORazepam 0.5 MG TABLET PO (08:37)
[2022-05-31] MEDS: Multivitamin TABLET 1 TAB PO (08:37)
[2022-05-31] MEDS: busPIRone HCl 10 MG TABLET 20 MG PO ×3 (08:37→22:01)
[2022-05-31] MEDS: Acamprosate Calcium 333 MG TABLET.DR 666 MG PO ×3 (08:37→22:02)
[2022-05-31] MEDS: Loratadine 10 MG TABLET PO (08:37)
[2022-05-31] MEDS: Ascorbic Acid 500 MG TABLET PO ×2 (08:37→22:01)
[2022-05-31] MEDS: 0.9 % Sodium Chloride Flush 3 ML SYRINGE IVFLUSH ×2 (08:39→22:02)
[2022-05-31 08:43] LABS: MANUAL DIFF FLAG NO
[2022-05-31 08:45] LABS: Hematocrit 34.3 % (37.0-47.0); Hemoglobin 11.3 g/dl (12.0-16.0); Imm Gran Abs Auto 0.01 X10*3/uL (0.00-0.03); Imm Gran Pct Auto 0.3 % (0.0-0.4); Lymphocytes Absolute Auto 1.7 X10*3/uL (1.2-4.9); Lymphocytes Percent Auto 47.3 % (20-40); Mean Corpuscular HGB Conc 32.9 g/dl (31.0-35.0); Mean Corpuscular Hemoglobin 30.7 pg (27.0-33.0); Mean Corpuscular Volume 93.2 fL (80.0-98.0); Mean Platelet Volume 10.4 fL (9.4-12.3); Monocytes Absolute Auto 0.4 X10*3/uL (0.1-1.2); Neutrophils Absolute Auto 1.5 x10*3/uL (2.0-8.3); Neutrophils Percent Auto 42.4 % (45-73); Platelet Count 207 X10*3/uL (160-400); Red Blood Count 3.68 X10*6/uL (4.20-5.50); Red Cell Distribution Width 12.7 % (11.0-16.0); White Blood Count 3.5 X10*3/uL (4.8-10.8)
[2022-05-31] MEDS: Thiamine HCL 100 MG in 0.9 % Sodium Chloride 100 ML 202 MG IV (08:50)
[2022-05-31] MEDS: Folic Acid 1 MG in 0.9 % Sodium Chloride 50 ML 100.4 MG IV (08:58)
[2022-05-31 09:23] LABS: Anion Gap 15 (12-20); Blood Urea Nitrogen 6 mg/dL (9-16); Calcium 8.8 mg/dL (8.4-10.2); Carbon Dioxide 26 mmol/L (22-29); Chloride 101 mmol/L (96-108); Creatinine Clr Calc Pharmacy 116.5; Estimated Glomerular Filt Rate > 60; Glucose Random 102 mg/dL (60-115); Potassium 3.8 mmol/L (3.3-5.1); Sodium 138 mmol/L (135-145)
--- NOTE | 2022-05-31 11:21 | HO.PM.IMPN ---
Subjective Subjective Date of Service: 05/31/22 Interval History: Pt seen in follow up for alcohol withdrawal and depression. Pt reports she is feeling much better than yesterday in regard to withdrawal symptoms. Still report phonophobia, photophobia, tremulous, mild h/a, anxiety. CIWA this am 10. Still endorsing depression/SI. On 1:1 Review of Systems General: No fevers, malaise, unintentional weight loss HEENT: +light sensitivity, +sound sensitivity. No blurred vision, diplopia Cardiovascular: No chest pain, palpitations, or leg edema Respiratory: No shortness of breath, wheezing, cough GI: No abdominal pain, nausea, vomiting, diarrhea, constipation, melena, hematochezia Neuro: +tremors. + headaches. No weakness, paresthesias Psych: +depression, +SI. Skin: No rashes or lesions Physical Exam Vital Signs: Vital Signs: Last Vital Signs Temp 97.8 F 05/31/22 08:00 Pulse 75 05/31/22 08:00 Resp 20 05/31/22 08:00 BP 137/74 05/31/22 08:00 Pulse Ox 99 05/31/22 08:00 O2 Del Method 05/31/22 08:00 O2 Flow Rate 96 05/30/22 15:56 BMI result Body Mass Index 35.4 Constitutional - Awake and Alert, No apparent distress Eyes - PERRLA, EOMI Cardiovascular - S1S2, RRR, No edema Respiratory - Normal lung expansion, Normal respiratory effort, No respiratory distress, CTA bilaterally Gastrointestinal - NT/ND; +BS Extremities - no calf tenderness bilaterally, no swelling Musculoskeletal - Normal inspection, normal ROM Skin - Warm/Dry Neurological - Alert & oriented x3, mild tremor b/l hands Psychological - Depressed mood, appropriate affect Objective Data Active Medications Acamprosate (Acamprosate Calcium 333 Mg Tablet.) 666 mg PO TID [facility] Last Admin: 05/31/22 08:37 Dose: 666 mg Documented By: MICHAEL Acetaminophen (Acetaminophen 325 Mg Tablet) 650 mg PO Q6H PRN PRN Reason: Pain, Mild or headache Amlodipine Besylate (Amlodipine Besylate 5 Mg Tablet) 5 mg PO DAILY [facility]; Protocol Last Admin: 05/31/22 08:36 Dose: 5 mg Documented By: MICHAEL Amphetamine/Dextroamphetamine (Amphetamine Mixed Salts 20 Mg Tablet) 20 mg PO BID@0600,1300 [facility] Last Admin: 05/31/22 05:10 Dose: 20 mg Documented By: JERALD Ascorbic Acid (Ascorbic Acid 500 Mg Tablet) 500 mg PO BID [facility] Last Admin: 05/31/22 08:37 Dose: 500 mg Documented By: MICHAEL Baclofen (Baclofen 20 Mg Tablet) 20 mg PO TID [facility] Last Admin: 05/31/22 08:36 Dose: 20 mg Documented By: MICHAEL Bupropion HCl (Bupropion Hcl Xl 300 Mg Tab.Er.24h) 300 mg PO DAILY [facility] Last Admin: 05/31/22 08:36 Dose: 300 mg Documented By: MICHAEL Buspirone HCl (Buspirone Hcl 10 Mg Tablet) 20 mg PO TID [facility] Last Admin: 05/31/22 08:37 Dose: 20 mg Documented By: MICHAEL Calcium Carbonate/Cholecalciferol (Calcium + Vitamin D 250 Mg Tablet) 500 mg PO BID [facility] Last Admin: 05/31/22 08:36 Dose: 500 mg Documented By: MICHAEL Docusate Sodium (Docusate Sodium 100 Mg Capsule) 100 mg PO BID PRN PRN Reason: Constipation Enoxaparin Sodium (Enoxaparin Sodium 40 Mg/0.4 Ml Syringe) 40 mg SUBCUT Q24H [facility] Last Admin: 05/30/22 11:59 Dose: 40 mg Documented By: YOSHI Gabapentin (Gabapentin 400 Mg Capsule) 400 mg PO TID [facility] Last Admin: 05/31/22 08:36 Dose: 400 mg Documented By: MICHAEL Thiamine HCl 100 mg/ Sodium (Chloride) 101 mls @ 202 mls/hr IV DAILY [facility] Last Infusion: 05/31/22 09:26 Dose: 0 mls/hr Documented By: MICHAEL Folic Acid 1 mg/ Sodium (Chloride) 50.2 mls @ 100.4 mls/hr IV DAILY [facility] Last Infusion: 05/31/22 09:40 Dose: 0 mls/hr Documented By: MICHAEL Lactated Ringer's (Lr) 1,000 mls @ 100 mls/hr IVCONT .Q10H [facility] Last Admin: 05/31/22 06:25 Dose: 100 mls/hr Documented By: JERALD Lamotrigine (Lamotrigine 100 Mg Tablet) 200 mg PO BEDTIME [facility] Last Admin: 05/30/22 20:44 Dose: 200 mg Documented By: JERALD Levothyroxine Sodium (Levothyroxine Sodium 25 Mcg Tablet) 25 mcg PO DAILY@0600 [facility] Last Admin: 05/31/22 05:10 Dose: 25 mcg Documented By: JERALD Loratadine (Loratadine 10 Mg Tablet) 10 mg PO DAILY [facility] Last Admin: 05/31/22 08:37 Dose: 10 mg Documented By: MICHAEL Lorazepam (Lorazepam 0.5 Mg Tablet) 0.5 mg PO DAILY PRN PRN Reason: mild anixety Last Admin: 05/31/22 08:37 Dose: 0.5 mg Documented By: MICHAEL Multivitamins/Vitamin C (Multivitamin Tablet) 1 tab PO DAILY [facility] Last Admin: 05/31/22 08:37 Dose: 1 tab Documented By: MICHAEL Omeprazole (Omeprazole 20 Mg Capsule.Dr) 20 mg PO DAILY@0630,1630 [facility] Last Admin: 05/31/22 05:10 Dose: 20 mg Documented By: JERALD Ondansetron HCl (Ondansetron Hcl 4 Mg/2 Ml Vial) 4 mg IVPUSH Q8H PRN PRN Reason: Nausea and Vomiting Pharmacy Consult (Consult Rx Etoh Phenob Po Only) 1 each MISCELLANE ONCE PRN; Protocol PRN Reason: Consult order Pharmacy Consult (Consult Rx Perform Med Rec) 1 each MISCELLANE ONCE PRN PRN Reason: Consult order Phenobarbital (Phenobarbital 30 Mg Tablet) 30 mg PO BID [facility]; Protocol Stop: 06/02/22 09:01 Phenobarbital (Phenobarbital 15 Mg Tablet) 15 mg PO DAILY [facility]; Protocol Stop: 06/04/22 09:01 Sodium Chloride (0.9 % Sodium Chloride Flush 3 Ml Syringe) 3 ml IVFLUSH QSHIFT [facility] Last Admin: 05/31/22 08:39 Dose: 3 ml Documented By: MICHAEL Sumatriptan Succinate (Sumatriptan Succinate 50 Mg Tablet) 50 mg PO DAILY MRX1 PRN PRN Reason: Migraine Headache Trazodone HCl (Trazodone Hcl 100 Mg Tablet) 100 mg PO BEDTIME [facility] Last Admin: 05/30/22 20:45 Dose: 100 mg Documented By: JERALD Labs CBC & Chem 7: 05/31/22 08:29 05/31/22 08:29 Labs: Laboratory Results - last 24 hr 05/31/22 05/31/22 08:29 08:29 MCV 93.2 MCH 30.7 MCHC 32.9 RDW 12.7 Plt Count 207 MPV 10.4 Immature Gran % (Auto) 0.3 Neut % (Auto) 42.4 L Lymph % (Auto) 47.3 H [place] % (Auto) 10.0 Eos % (Auto) 0.0 Baso % (Auto) 0.0 Lymph # (Auto) 1.7 [place] # (Auto) 0.4 Eos # (Auto) 0.0 Baso # (Auto) 0.0 Abs Immat Gran (auto) 0.01 Absolute Neuts (auto) 1.5 L Absolute Nucleated RBC 0.000 Nucleated RBC % (auto) 0.0 Anion Gap 15 Estim Creat Clear Calc 116.5 Estimated GFR > 60 Random Glucose 102 Calcium 8.8 Assessment and Plan (1) Alcohol withdrawal: Status: Acute (2) Suicidal ideation: Status: Acute (3) Alcohol use disorder, severe, dependence: Status: Acute (4) Bipolar I disorder with depression: Status: Acute Plan 52 year old female with history of hypothyroidism, hypertension, bipolar disorder, anxiety, migraine headaches, and alcohol dependence admitted for acute alcohol withdrawal and SI. 1-Acute alcohol withdrawal- improving, moderate withdrawal symptoms at this time -ETOH level on arrival 468. Repeat 148 -No hx alcohol w/d seizure. -CIWA scale score this am 21- still tremulous, light sensitivity, fatigue, anxiety. Addl 120mg phenobarb added -Continue phenobarb per protocol -Seizure precautions -Continue telemetry. Tells me several years ago developed episode of Afib from etoh but never followed up on this and has had no recurrence. Needs oupt follow up -Met with recovery team. Continue campral 2-Dehydration- resolved -Bicarb now normal. Hyponatremia resolved -D/c IVF -Encourage PO intake 3-Bipolar disorder currently depressed -Had denied SI and sitter was canceled. Now endorsing SI stating I will if I go home . Continue sitter -Has been seen by Care Management and Recovery team. Will need crisis eval once medically cleared probably tomorrow -Continue home meds, but hold latuda d/t interaction with phenobarb 4-Hypothyroidism -Continue levothyroxine 5-GERD -Continue ppi 6-Migraines -sumatriptan prn 7-HTN -Continue amlodipine 8- Hx Afib per patient -No arrhythmia on tele or ekg -Never followed up on this. Needs to follow up with pcp/cards for monitor DVT prophylaxis- lovenox Full code Pt requires ongoing inpt stay due to acute etoh withdrawal on phenobarb protocol with CIWA score now 16 but remains at risk for seizure. Quality Stroke Does the patient have a stroke diagnosis?: No VTE Prior VTE?: No VTE Risk Level:: Medical - moderate - high VTE Device Contraindication: Treatment Not Indicated VTE Drug Contraindication: N/A - Med Ordered
[2022-05-31 11:59] VITALS: BP 128/72; PULSE 80; RESP 18; TEMP 36.6; O2SAT 95
[2022-05-31] MEDS: Enoxaparin Sodium 40 MG/0.4 ML SYRINGE SUBCUT (12:14)
[2022-05-31] MEDS: PHENobarbitaL sodium 130 MG/ML VIAL 120 MG IM (12:14)
[2022-05-31 15:22] VITALS: BP 131/75; PULSE 87; RESP 18; TEMP 36.6; O2SAT 96
[2022-05-31 20:00] VITALS: BP 134/78; PULSE 69; RESP 18; TEMP 36.7; O2SAT 97
[2022-05-31] MEDS: SUMAtriptan succinate 50 MG TABLET PO (22:00)
[2022-05-31] MEDS: traZODone HCL 100 MG TABLET PO (22:00)
[2022-05-31] MEDS: PHENobarbitaL 30 MG TABLET PO (22:01)
[2022-05-31] MEDS: lamoTRIgine 100 MG TABLET 200 MG PO (22:01)
[2022-05-31 23:11] VITALS: BP 141/73; PULSE 76; RESP 16; TEMP 36.6; O2SAT 97
[2022-06-01 02:41] LABS: CDiff Gene PCR POSITIVE (Negative)
[2022-06-01 03:16] LABS: CDIFF Internal ctrl Dots and bkg OK (V); CDiff Toxin Negative (Negative)
--- NOTE | 2022-06-01 03:19 | PM.EVENT ---
Event Note Date of Service: 06/09/22 Event Note: Patient experiencing diarrhea since this afternoon. C diff was obtained showed negative toxin. Patient wants imodium will give 1 dose.
[2022-06-01] MEDS: Loperamide HCl 2 MG CAPSULE 4 MG PO (04:17)
[2022-06-01] MEDS: Amphetamine Mixed Salts 20 MG TABLET PO ×2 (05:22→12:16)
[2022-06-01] MEDS: Levothyroxine Sodium 25 MCG TABLET PO (05:22)
[2022-06-01] MEDS: Omeprazole 20 MG CAPSULE.DR PO ×2 (05:22→15:38)
[2022-06-01 07:17] VITALS: BP 144/67; PULSE 97; RESP 20; TEMP 36.2; O2SAT 100
[2022-06-01] MEDS: 0.9 % Sodium Chloride Flush 3 ML SYRINGE IVFLUSH ×3 (07:35→19:55)
[2022-06-01] MEDS: Thiamine HCL 100 MG in 0.9 % Sodium Chloride 100 ML 202 MG IV (07:41)
[2022-06-01] MEDS: Multivitamin TABLET 1 TAB PO (07:43)
[2022-06-01] MEDS: buPROPion HCl XL 300 MG TAB.ER.24H PO (07:43)
[2022-06-01] MEDS: Ascorbic Acid 500 MG TABLET PO ×2 (07:43→19:55)
[2022-06-01] MEDS: Acamprosate Calcium 333 MG TABLET.DR 666 MG PO ×3 (07:43→19:54)
[2022-06-01] MEDS: Baclofen 20 MG TABLET PO ×3 (07:43→19:58)
[2022-06-01] MEDS: Calcium + Vitamin D 250 MG TABLET 500 MG PO ×2 (07:44→19:54)
[2022-06-01] MEDS: amLODIPine Besylate 5 MG TABLET PO (07:44)
[2022-06-01] MEDS: busPIRone HCl 10 MG TABLET 20 MG PO ×3 (07:44→19:58)
[2022-06-01] MEDS: Loratadine 10 MG TABLET PO (07:44)
[2022-06-01] MEDS: PHENobarbitaL 30 MG TABLET PO ×2 (07:44→19:58)
[2022-06-01] MEDS: Gabapentin 400 MG CAPSULE PO ×3 (07:44→20:00)
[2022-06-01] MEDS: vancomycin HCL 125 MG CAPSULE PO ×3 (08:32→19:58)
[2022-06-01] MEDS: Folic Acid 1 MG in 0.9 % Sodium Chloride 50 ML 100.4 MG IV (10:29)
[2022-06-01] MEDS: SUMAtriptan succinate 50 MG TABLET PO (10:34)
[2022-06-01] MEDS: Acetaminophen 325 MG TABLET 650 MG PO ×2 (10:35→19:57)
--- NOTE | 2022-06-01 11:04 | HO.PM.IMPN ---
Subjective Subjective Date of Service: 06/01/22 Review of Systems Follow-up alcohol withdrawal, depression Feeling very depressed today still suicidal Reports some mild tremors and unsteadiness with ambulation Denies chest pain, shortness breath, nausea, vomiting, diarrhea Physical Exam Vital Signs: Vital Signs: Last Vital Signs Temp 97.1 F 06/01/22 07:17 Pulse 97 06/01/22 07:17 Resp 20 06/01/22 07:17 BP 144/67 H 06/01/22 07:17 Pulse Ox 100 06/01/22 07:17 O2 Del Method 06/01/22 07:17 O2 Flow Rate 96 05/30/22 15:56 BMI result Body Mass Index 35.4 Appearing in no acute distress lung sounds are clear to auscultation heart regular rate rhythm, clear S1, S2 positive bowel sounds, abdomen is soft, nontender neuro patient is alert x3, no focal deficits Objective Data Active Medications Acamprosate (Acamprosate Calcium 333 Mg Tablet.) 666 mg PO TID [facility] Last Admin: 06/01/22 07:43 Dose: 666 mg Documented By: HECTOR Acetaminophen (Acetaminophen 325 Mg Tablet) 650 mg PO Q6H PRN PRN Reason: Pain, Mild or headache Last Admin: 06/01/22 10:35 Dose: 650 mg Documented By: HECTOR Amlodipine Besylate (Amlodipine Besylate 5 Mg Tablet) 5 mg PO DAILY [facility]; Protocol Last Admin: 06/01/22 07:44 Dose: 5 mg Documented By: HECTOR Amphetamine/Dextroamphetamine (Amphetamine Mixed Salts 20 Mg Tablet) 20 mg PO BID@0600,1300 [facility] Last Admin: 06/01/22 05:22 Dose: 20 mg Documented By: JERALD Ascorbic Acid (Ascorbic Acid 500 Mg Tablet) 500 mg PO BID [facility] Last Admin: 06/01/22 07:43 Dose: 500 mg Documented By: HECTOR Baclofen (Baclofen 20 Mg Tablet) 20 mg PO TID [facility] Last Admin: 06/01/22 07:43 Dose: 20 mg Documented By: HECTOR Bupropion HCl (Bupropion Hcl Xl 300 Mg Tab.Er.24h) 300 mg PO DAILY [facility] Last Admin: 06/01/22 07:43 Dose: 300 mg Documented By: HECTOR Buspirone HCl (Buspirone Hcl 10 Mg Tablet) 20 mg PO TID [facility] Last Admin: 06/01/22 07:44 Dose: 20 mg Documented By: HECTOR Calcium Carbonate/Cholecalciferol (Calcium + Vitamin D 250 Mg Tablet) 500 mg PO BID [facility] Last Admin: 06/01/22 07:44 Dose: 500 mg Documented By: HECTOR Docusate Sodium (Docusate Sodium 100 Mg Capsule) 100 mg PO BID PRN PRN Reason: Constipation Enoxaparin Sodium (Enoxaparin Sodium 40 Mg/0.4 Ml Syringe) 40 mg SUBCUT Q24H [facility] Last Admin: 05/31/22 12:14 Dose: 40 mg Documented By: HECTOR Gabapentin (Gabapentin 400 Mg Capsule) 400 mg PO TID [facility] Last Admin: 06/01/22 07:44 Dose: 400 mg Documented By: HECTOR Thiamine HCl 100 mg/ Sodium (Chloride) 101 mls @ 202 mls/hr IV DAILY [facility] Last Infusion: 06/01/22 08:36 Dose: 202 mls/hr Documented By: HECTOR Folic Acid 1 mg/ Sodium (Chloride) 50.2 mls @ 100.4 mls/hr IV DAILY [facility] Last Admin: 06/01/22 10:29 Dose: 100.4 mls/hr Documented By: HECTOR Lamotrigine (Lamotrigine 100 Mg Tablet) 200 mg PO BEDTIME [facility] Last Admin: 05/31/22 22:01 Dose: 200 mg Documented By: JERALD Levothyroxine Sodium (Levothyroxine Sodium 25 Mcg Tablet) 25 mcg PO DAILY@0600 [facility] Last Admin: 06/01/22 05:22 Dose: 25 mcg Documented By: JERALD Loratadine (Loratadine 10 Mg Tablet) 10 mg PO DAILY [facility] Last Admin: 06/01/22 07:44 Dose: 10 mg Documented By: HECTOR Lorazepam (Lorazepam 0.5 Mg Tablet) 0.5 mg PO DAILY PRN PRN Reason: mild anixety Last Admin: 05/31/22 08:37 Dose: 0.5 mg Documented By: MICHAEL Multivitamins/Vitamin C (Multivitamin Tablet) 1 tab PO DAILY [facility] Last Admin: 06/01/22 07:43 Dose: 1 tab Documented By: HECTOR Omeprazole (Omeprazole 20 Mg Capsule.) 20 mg PO DAILY@0630,1630 [facility] Last Admin: 06/01/22 05:22 Dose: 20 mg Documented By: JERALD Ondansetron HCl (Ondansetron Hcl 4 Mg/2 Ml Vial) 4 mg IVPUSH Q8H PRN PRN Reason: Nausea and Vomiting Pharmacy Consult (Consult Rx Etoh Phenob Po Only) 1 each MISCELLANE ONCE PRN; Protocol PRN Reason: Consult order Pharmacy Consult (Consult Rx Perform Med Rec) 1 each MISCELLANE ONCE PRN PRN Reason: Consult order Phenobarbital (Phenobarbital 30 Mg Tablet) 30 mg PO BID [facility]; Protocol Stop: 06/02/22 09:01 Last Admin: 06/01/22 07:44 Dose: 30 mg Documented By: HECTOR Phenobarbital (Phenobarbital 15 Mg Tablet) 15 mg PO DAILY [facility]; Protocol Stop: 06/04/22 09:01 Sodium Chloride (0.9 % Sodium Chloride Flush 3 Ml Syringe) 3 ml IVFLUSH QSHIFT [facility] Last Admin: 06/01/22 07:35 Dose: 3 ml Documented By: HECTOR Sumatriptan Succinate (Sumatriptan Succinate 50 Mg Tablet) 50 mg PO DAILY MRX1 PRN PRN Reason: Migraine Headache Last Admin: 06/01/22 10:34 Dose: 50 mg Documented By: HECTOR Trazodone HCl (Trazodone Hcl 100 Mg Tablet) 100 mg PO BEDTIME [facility] Last Admin: 05/31/22 22:00 Dose: 100 mg Documented By: JERALD Vancomycin HCl (Vancomycin Hcl 125 Mg Capsule) 125 mg PO Q6H [facility] Last Admin: 06/01/22 08:32 Dose: 125 mg Documented By: HECTOR Labs CBC & Chem 7: 05/31/22 08:29 05/31/22 08:29 Labs: Laboratory Results - last 24 hr 06/01/22 01:43 C. difficile Tox B Gene POSITIVE A* C. difficile Toxin A&B Negative C. difficile Interpret SEE NOTE Assessment and Plan (1) Alcohol withdrawal: Status: Acute (2) Suicidal ideation: Status: Acute (3) Alcohol use disorder, severe, dependence: Status: Acute (4) Bipolar I disorder with depression: Status: Acute Plan 52 year old female with history of hypothyroidism, hypertension, bipolar disorder, anxiety, migraine headaches, and alcohol dependence admitted for acute alcohol withdrawal and SI. Diarrhea C diff gene positive, toxin negative Had several episodes of diarrhea overnight Started on vancomycin oral, if no further diarrhea noted will stop Acute alcohol withdrawal. Improving No history of alcohol withdrawal seizures Treated with phenobarbital as per protocol Seizure precautions Monitor on telemetry to monitor for any arrhythmias Seen and evaluated by recovery team Dehydration. Resolved Treated with IV fluids Bipolar disorder History of suicidal ideation, reports that she is still feeling suicidal and if she went home she would likely harm herself Continue 1 on 1 sitter This psychiatric evaluation once medically cleared Hypothyroidism Continue levothyroxine GERD Continue PPI History of migraine headaches Continue sumatriptan as needed History of atrial fibrillation Normal sinus rhythm Not on rate lowering or anticoagulant medications [id number] Obesity. BMI 35.4 Discussed importance of weight management as this may be contributing to worsening of other comorbidities DVT prophylaxis- lovenox Attending Dr. Chong Full code Pt requires ongoing inpt stay due to acute etoh withdrawal on phenobarb protocol with CIWA score now 16 but remains at risk for seizure. Quality Stroke Does the patient have a stroke diagnosis?: No VTE Prior VTE?: No VTE Risk Level:: Medical - moderate - high VTE Device Contraindication: Treatment Not Indicated VTE Drug Contraindication: N/A - Med Ordered
[2022-06-01 11:55] VITALS: BP 176/84; PULSE 105; RESP 20; TEMP 37.6; O2SAT 96
[2022-06-01] MEDS: Enoxaparin Sodium 40 MG/0.4 ML SYRINGE SUBCUT (12:17)
[2022-06-01] MEDS: LORazepam 0.5 MG TABLET PO (15:50)
[2022-06-01] MEDS: lamoTRIgine 100 MG TABLET 200 MG PO (19:59)
[2022-06-01 20:08] VITALS: BP 159/92; PULSE 75; RESP 20; O2SAT 98
[2022-06-01] MEDS: traZODone HCL 100 MG TABLET PO (21:46)
[2022-06-01 23:20] VITALS: BP 120/74; PULSE 66; RESP 17; TEMP 36.7; O2SAT 95
[2022-06-02 03:15] VITALS: BP 125/62; PULSE 73; RESP 17; TEMP 36.6; O2SAT 99
[2022-06-02] MEDS: vancomycin HCL 125 MG CAPSULE PO ×4 (03:47→22:14)
[2022-06-02] MEDS: Amphetamine Mixed Salts 20 MG TABLET PO ×2 (05:20→14:25)
[2022-06-02] MEDS: Levothyroxine Sodium 25 MCG TABLET PO (05:20)
[2022-06-02] MEDS: Omeprazole 20 MG CAPSULE.DR PO ×2 (05:20→16:36)
[2022-06-02 07:41] VITALS: BP 142/75; PULSE 74; RESP 17; TEMP 36.8; O2SAT 94
[2022-06-02] MEDS: 0.9 % Sodium Chloride Flush 3 ML SYRINGE IVFLUSH ×3 (08:11→22:15)
[2022-06-02] MEDS: Acamprosate Calcium 333 MG TABLET.DR 666 MG PO ×3 (08:12→22:14)
[2022-06-02] MEDS: Calcium + Vitamin D 250 MG TABLET 500 MG PO ×2 (08:12→22:14)
[2022-06-02] MEDS: Multivitamin TABLET 1 TAB PO (08:12)
[2022-06-02] MEDS: busPIRone HCl 10 MG TABLET 20 MG PO ×3 (08:12→22:15)
[2022-06-02] MEDS: buPROPion HCl XL 300 MG TAB.ER.24H PO (08:12)
[2022-06-02] MEDS: Gabapentin 400 MG CAPSULE PO ×3 (08:13→22:15)
[2022-06-02] MEDS: amLODIPine Besylate 5 MG TABLET PO (08:13)
[2022-06-02] MEDS: Baclofen 20 MG TABLET PO ×3 (08:13→22:14)
[2022-06-02] MEDS: PHENobarbitaL 30 MG TABLET PO (08:13)
[2022-06-02] MEDS: Ascorbic Acid 500 MG TABLET PO ×2 (08:13→22:15)
[2022-06-02] MEDS: Loratadine 10 MG TABLET PO (08:13)
[2022-06-02 08:27] LABS: MANUAL DIFF FLAG NO
[2022-06-02 08:31] LABS: Hematocrit 34.5 % (37.0-47.0); Hemoglobin 11.5 g/dl (12.0-16.0); Imm Gran Abs Auto 0.01 X10*3/uL (0.00-0.03); Imm Gran Pct Auto 0.2 % (0.0-0.4); Lymphocytes Absolute Auto 2.3 X10*3/uL (1.2-4.9); Mean Corpuscular HGB Conc 33.3 g/dl (31.0-35.0); Mean Corpuscular Hemoglobin 31.3 pg (27.0-33.0); Mean Corpuscular Volume 93.8 fL (80.0-98.0); Mean Platelet Volume 10.3 fL (9.4-12.3); Monocytes Absolute Auto 0.5 X10*3/uL (0.1-1.2); Monocytes Percent Auto 8.2 % (2-11); Neutrophils Absolute Auto 2.9 x10*3/uL (2.0-8.3); Neutrophils Percent Auto 51.6 % (45-73); Platelet Count 215 X10*3/uL (160-400); Red Blood Count 3.68 X10*6/uL (4.20-5.50); Red Cell Distribution Width 12.3 % (11.0-16.0); White Blood Count 5.6 X10*3/uL (4.8-10.8)
[2022-06-02 08:54] LABS: Anion Gap 14 (12-20); Blood Urea Nitrogen 9 mg/dL (9-16); Calcium 8.8 mg/dL (8.4-10.2); Carbon Dioxide 25 mmol/L (22-29); Chloride 101 mmol/L (96-108); Creatinine Clr Calc Pharmacy 105.7; Estimated Glomerular Filt Rate > 60; Glucose Random 100 mg/dL (60-115); Potassium 4.2 mmol/L (3.3-5.1); Sodium 136 mmol/L (135-145)
[2022-06-02] MEDS: Enoxaparin Sodium 40 MG/0.4 ML SYRINGE SUBCUT (10:58)
[2022-06-02] MEDS: Folic Acid 1 MG in 0.9 % Sodium Chloride 50 ML 100.4 MG IV (10:58)
[2022-06-02] MEDS: Thiamine HCL 100 MG in 0.9 % Sodium Chloride 100 ML 202 MG IV (11:00)
--- NOTE | 2022-06-02 11:17 | MHC.CARE ---
CARE Team completed crisis assessment, Pt meets criteria for inpatient admission. Pt will remain on a section 12.
--- NOTE | 2022-06-02 11:55 | HO.PM.IMPN ---
Subjective Subjective Date of Service: 06/02/22 Review of Systems Follow-up alcohol withdrawal, depression Feeling very depressed today still suicidal Reports some mild tremors and unsteadiness with ambulation Denies chest pain, shortness breath, nausea, vomiting, diarrhea Physical Exam Vital Signs: Vital Signs: Last Vital Signs Temp 98.2 F 06/02/22 07:41 Pulse 74 06/02/22 07:41 Resp 17 06/02/22 07:41 BP 142/75 H 06/02/22 07:41 Pulse Ox 94 06/02/22 07:41 O2 Del Method 06/02/22 07:41 O2 Flow Rate 96 05/30/22 15:56 BMI result Body Mass Index 35.4 Appearing in no acute distress lung sounds are clear to auscultation heart regular rate rhythm, clear S1, S2 positive bowel sounds, abdomen is soft, nontender neuro patient is alert x3, no focal deficits Objective Data Active Medications Acamprosate (Acamprosate Calcium 333 Mg Tablet.) 666 mg PO TID [facility] Last Admin: 06/02/22 08:12 Dose: 666 mg Documented By: STEPHEN Acetaminophen (Acetaminophen 325 Mg Tablet) 650 mg PO Q6H PRN PRN Reason: Pain, Mild or headache Last Admin: 06/01/22 19:57 Dose: 650 mg Documented By: JERALD Amlodipine Besylate (Amlodipine Besylate 5 Mg Tablet) 5 mg PO DAILY [facility]; Protocol Last Admin: 06/02/22 08:13 Dose: 5 mg Documented By: STEPHEN Amphetamine/Dextroamphetamine (Amphetamine Mixed Salts 20 Mg Tablet) 20 mg PO BID@0600,1300 [facility] Last Admin: 06/02/22 05:20 Dose: 20 mg Documented By: JERALD Ascorbic Acid (Ascorbic Acid 500 Mg Tablet) 500 mg PO BID [facility] Last Admin: 06/02/22 08:13 Dose: 500 mg Documented By: STEPHEN Baclofen (Baclofen 20 Mg Tablet) 20 mg PO TID [facility] Last Admin: 06/02/22 08:13 Dose: 20 mg Documented By: STEPHEN Bupropion HCl (Bupropion Hcl Xl 300 Mg Tab.Er.24h) 300 mg PO DAILY [facility] Last Admin: 06/02/22 08:12 Dose: 300 mg Documented By: STEPHEN Buspirone HCl (Buspirone Hcl 10 Mg Tablet) 20 mg PO TID [facility] Last Admin: 06/02/22 08:12 Dose: 20 mg Documented By: STEPHEN Calcium Carbonate/Cholecalciferol (Calcium + Vitamin D 250 Mg Tablet) 500 mg PO BID [facility] Last Admin: 06/02/22 08:12 Dose: 500 mg Documented By: STEPHEN Docusate Sodium (Docusate Sodium 100 Mg Capsule) 100 mg PO BID PRN PRN Reason: Constipation Enoxaparin Sodium (Enoxaparin Sodium 40 Mg/0.4 Ml Syringe) 40 mg SUBCUT Q24H [facility] Last Admin: 06/02/22 10:58 Dose: 40 mg Documented By: STEPHEN Gabapentin (Gabapentin 400 Mg Capsule) 400 mg PO TID [facility] Last Admin: 06/02/22 08:13 Dose: 400 mg Documented By: STEPHEN Thiamine HCl 100 mg/ Sodium (Chloride) 101 mls @ 202 mls/hr IV DAILY [facility] Last Admin: 06/02/22 11:00 Dose: 202 mls/hr Documented By: STEPHEN Folic Acid 1 mg/ Sodium (Chloride) 50.2 mls @ 100.4 mls/hr IV DAILY [facility] Last Admin: 06/02/22 10:58 Dose: 100.4 mls/hr Documented By: STEPHEN Lamotrigine (Lamotrigine 100 Mg Tablet) 200 mg PO BEDTIME [facility] Last Admin: 06/01/22 19:59 Dose: 200 mg Documented By: JERALD Levothyroxine Sodium (Levothyroxine Sodium 25 Mcg Tablet) 25 mcg PO DAILY@0600 [facility] Last Admin: 06/02/22 05:20 Dose: 25 mcg Documented By: JERALD Loratadine (Loratadine 10 Mg Tablet) 10 mg PO DAILY [facility] Last Admin: 06/02/22 08:13 Dose: 10 mg Documented By: STEPHEN Lorazepam (Lorazepam 0.5 Mg Tablet) 0.5 mg PO DAILY PRN PRN Reason: mild anixety Last Admin: 06/01/22 15:50 Dose: 0.5 mg Documented By: HECTOR Multivitamins/Vitamin C (Multivitamin Tablet) 1 tab PO DAILY [facility] Last Admin: 06/02/22 08:12 Dose: 1 tab Documented By: STEPHEN Omeprazole (Omeprazole 20 Mg Capsule.Dr) 20 mg PO DAILY@0630,1630 [facility] Last Admin: 06/02/22 05:20 Dose: 20 mg Documented By: JERALD Ondansetron HCl (Ondansetron Hcl 4 Mg/2 Ml Vial) 4 mg IVPUSH Q8H PRN PRN Reason: Nausea and Vomiting Pharmacy Consult (Consult Rx Etoh Phenob Po Only) 1 each MISCELLANE ONCE PRN; Protocol PRN Reason: Consult order Pharmacy Consult (Consult Rx Perform Med Rec) 1 each MISCELLANE ONCE PRN PRN Reason: Consult order Phenobarbital (Phenobarbital 15 Mg Tablet) 15 mg PO DAILY [facility]; Protocol Stop: 06/04/22 09:01 Sodium Chloride (0.9 % Sodium Chloride Flush 3 Ml Syringe) 3 ml IVFLUSH QSHIFT [facility] Last Admin: 06/02/22 08:11 Dose: 3 ml Documented By: STEPHEN Sumatriptan Succinate (Sumatriptan Succinate 50 Mg Tablet) 50 mg PO DAILY MRX1 PRN PRN Reason: Migraine Headache Last Admin: 06/01/22 10:34 Dose: 50 mg Documented By: HECTOR Trazodone HCl (Trazodone Hcl 100 Mg Tablet) 100 mg PO BEDTIME [facility] Last Admin: 06/01/22 21:46 Dose: 100 mg Documented By: JERALD Vancomycin HCl (Vancomycin Hcl 125 Mg Capsule) 125 mg PO Q6H [facility] Last Admin: 06/02/22 08:13 Dose: 125 mg Documented By: STEPHEN Labs CBC & Chem 7: 06/02/22 08:23 06/02/22 08:23 Labs: Laboratory Results - last 24 hr 06/02/22 06/02/22 08:23 08:23 MCV 93.8 MCH 31.3 MCHC 33.3 RDW 12.3 Plt Count 215 MPV 10.3 Immature Gran % (Auto) 0.2 Neut % (Auto) 51.6 Lymph % (Auto) 40.0 Elliott % (Auto) 8.2 Eos % (Auto) 0.0 Baso % (Auto) 0.0 Lymph # (Auto) 2.3 Elliott # (Auto) 0.5 Eos # (Auto) 0.0 Baso # (Auto) 0.0 Abs Immat Gran (auto) 0.01 Absolute Neuts (auto) 2.9 Absolute Nucleated RBC 0.000 Nucleated RBC % (auto) 0.0 Anion Gap 14 Estim Creat Clear Calc 105.7 Estimated GFR > 60 Random Glucose 100 Calcium 8.8 Assessment and Plan (1) Alcohol withdrawal: Status: Acute (2) Suicidal ideation: Status: Acute (3) Alcohol use disorder, severe, dependence: Status: Acute (4) Bipolar I disorder with depression: Status: Acute Plan 52 year old female with history of hypothyroidism, hypertension, bipolar disorder, anxiety, migraine headaches, and alcohol dependence admitted for acute alcohol withdrawal and SI. Diarrhea C diff gene positive, toxin negative Had several episodes of diarrhea overnight Started on vancomycin oral total 10 days Acute alcohol withdrawal. Improving No history of alcohol withdrawal seizures Treated with phenobarbital as per protocol Seizure precautions Monitor on telemetry to monitor for any arrhythmias Seen and evaluated by recovery team Dehydration. Resolved Treated with IV fluids Bipolar disorder History of suicidal ideation, reports that she is still feeling suicidal and if she went home she would likely harm herself Continue 1 on 1 sitter care team re-evaluation today, Plan to return to psych tomorrow Hypothyroidism Continue levothyroxine GERD Continue PPI History of migraine headaches Continue sumatriptan as needed History of atrial fibrillation Normal sinus rhythm Not on rate lowering or anticoagulant medications [id number] 2 Obesity. BMI 35.4 Discussed importance of weight management as this may be contributing to worsening of other comorbidities DVT prophylaxis- lovenox Attending Dr. Chong Full code Pt requires ongoing inpt stay due to acute etoh withdrawal on phenobarb protocol with CIWA score now 16 but remains at risk for seizure. Quality Stroke Does the patient have a stroke diagnosis?: No VTE Prior VTE?: No VTE Risk Level:: Medical - moderate - high VTE Device Contraindication: Treatment Not Indicated VTE Drug Contraindication: N/A - Med Ordered
[2022-06-02 12:00] VITALS: BP 133/81; PULSE 73; RESP 18; TEMP 36.7; O2SAT 96
[2022-06-02 15:16] VITALS: BP 132/60; PULSE 82; RESP 17; TEMP 36.7; O2SAT 100
[2022-06-02] MEDS: LORazepam 0.5 MG TABLET PO (18:15)
[2022-06-02 19:04] VITALS: BP 141/74; PULSE 71; RESP 18; TEMP 36.4; O2SAT 98
[2022-06-02] MEDS: LORazepam 1 MG TABLET PO (20:44)
[2022-06-02] MEDS: lamoTRIgine 100 MG TABLET 200 MG PO (22:14)
[2022-06-02] MEDS: traZODone HCL 100 MG TABLET PO (22:15)
[2022-06-02 23:29] VITALS: BP 120/72; PULSE 66; RESP 14; TEMP 36.1; O2SAT 97
[2022-06-03 03:27] VITALS: BP 136/80; PULSE 65; RESP 14; TEMP 36.1; O2SAT 96
[2022-06-03] MEDS: vancomycin HCL 125 MG CAPSULE PO ×4 (03:41→20:20)
[2022-06-03] MEDS: Levothyroxine Sodium 25 MCG TABLET PO (05:59)
[2022-06-03] MEDS: Omeprazole 20 MG CAPSULE.DR PO ×2 (05:59→15:29)
[2022-06-03] MEDS: Amphetamine Mixed Salts 20 MG TABLET PO ×2 (05:59→14:13)
[2022-06-03 08:00] VITALS: BP 127/68; PULSE 81; RESP 20; TEMP 36.5; O2SAT 96
[2022-06-03] MEDS: amLODIPine Besylate 5 MG TABLET PO (08:45)
[2022-06-03] MEDS: buPROPion HCl XL 300 MG TAB.ER.24H PO (08:46)
[2022-06-03] MEDS: Acamprosate Calcium 333 MG TABLET.DR 666 MG PO ×3 (08:46→20:20)
[2022-06-03] MEDS: Calcium + Vitamin D 250 MG TABLET 500 MG PO ×2 (08:46→20:20)
[2022-06-03] MEDS: Ascorbic Acid 500 MG TABLET PO ×2 (08:46→20:20)
[2022-06-03] MEDS: Gabapentin 400 MG CAPSULE PO ×3 (08:46→20:20)
[2022-06-03] MEDS: Loratadine 10 MG TABLET PO (08:46)
[2022-06-03] MEDS: busPIRone HCl 10 MG TABLET 20 MG PO ×3 (08:46→20:21)
[2022-06-03] MEDS: Baclofen 20 MG TABLET PO ×3 (08:47→20:21)
[2022-06-03] MEDS: PHENobarbitaL 15 MG TABLET PO (08:47)
[2022-06-03] MEDS: Multivitamin TABLET 1 TAB PO (08:47)
[2022-06-03] MEDS: Thiamine HCL 100 MG in 0.9 % Sodium Chloride 100 ML 202 MG IV (08:56)
[2022-06-03] MEDS: 0.9 % Sodium Chloride Flush 3 ML SYRINGE IVFLUSH ×2 (09:02→15:32)
[2022-06-03] MEDS: Folic Acid 1 MG in 0.9 % Sodium Chloride 50 ML 100.4 MG IV (10:35)
[2022-06-03 10:59] VITALS: BP 101/59; PULSE 78; RESP 20; TEMP 36.5; O2SAT 96
--- NOTE | 2022-06-03 11:31 | PM.DS ---
DS: Providers Provider Date of Service: 06/03/22 Date of admission: 05/29/22 11:27 Primary care physician: Unknown Physician Consults: 05/28/22 18:01 Consult to Crisis Stat Reason for consultation: Alcohol intox and snort adderal. manager air wants evaluation Has provider been notified: Yes 05/29/22 11:47 Consult for Sitter Routine Reason for consultation: SI 05/30/22 10:25 Consult for Sitter Routine Reason for consultation: SI 06/02/22 10:23 Consult to Care Team Routine Comment: Reason for consultation: medically clear Attending physician on discharge: Tez Thomas Discharging clinician: Keisha Rhoades DS: Diagnosis Discharge Diagnosis (1) Alcohol withdrawal: Status: Acute (2) Suicidal ideation: Status: Acute (3) Alcohol use disorder, severe, dependence: Status: Acute (4) Bipolar I disorder with depression: Status: Acute DS: Summary Hospital Course Hospital Course: History and physical as per admitting provider 52 year old female with history of hypothyroidism, hypertension, bipolar disorder, anxiety, migraine headaches, and alcohol dependence presented to the ED by her clinical case manager for alcohol intoxication and snorting 20mg of her own adderall. Presented with AMS, etoh level 468. Reports consuming 1/2 gallon wine daily, last consumed yesterday afternoon. Reports having felt very depressed over the last few months and struggling with a new puppy at home. Initially making claims of SI, not reporting more passive SI. Was evaluated by crisis and was initially treated in the pod. Plan to discharge patient to [facility] after treatment for etoh withdrawal. Electrolytes normal except for mildly deficient bicarb 17. AST 30/ALT 21. UTox negative except for ETOH. EKG showing sinus tachcyardia rate 105 withLVH and repolarization abnormality, unchanged from prior EKG. Mildly elevated troponin 22.4, repeat 28.7. UA with 2+ protein, no significant ketones. AG 26. She is currently tremulous, nauseas, and feeling unwell. CIWA scale score 29. Phenobarb protocol initiated. To be admitted for alcohol withdrawal . Diarrhea C diff gene positive, toxin negative Had several episodes of diarrhea overnight Started on vancomycin oral total 10 days, started 06/01/22 Acute alcohol withdrawal. Resolved No history of alcohol withdrawal seizures Treated with phenobarbital as per protocol Seizure precautions, no seizures dueing admission Seen and evaluated by recovery team Dehydration.? Resolved Treated with IV fluids Bipolar disorder History of suicidal ideation, reports that she is still feeling suicidal and if she went home she would likely harm herself Continue 1 on 1 sitter care team re-evaluation today, Plan to return to psych tomorrow Hypothyroidism Continue levothyroxine GERD Continue PPI History of migraine headaches Continue sumatriptan as needed History of atrial fibrillation Normal sinus rhythm Not on rate lowering or anticoagulant medications [id number] 2 Obesity.? BMI 35.4 Discussed importance of weight management as this may be contributing to worsening of other comorbidities Time Spent with Patient Time attestation: Total time spent providing and/or coordinating discharge services: Discharge coordination time: Greater than 30 minutes Quality: Safe Use of Opioids Does Pt have an Active Cancer Diagnosis on the Problem List?: No Quality: Stroke Does the patient have a stroke diagnosis?: No Physical Exam Vital Signs: Vital Signs: Last Vital Signs Temp 97.7 F 06/03/22 10:59 Pulse 78 06/03/22 10:59 Resp 20 06/03/22 10:59 BP 101/59 L 06/03/22 10:59 Pulse Ox 96 06/03/22 10:59 O2 Del Method 06/03/22 10:59 O2 Flow Rate 2 06/02/22 15:16 BMI result Body Mass Index 35.4 Appearing in no acute distress head is normocephalic atraumatic eyes pupils are PERRLA sclera is anicteric mouth throat mucous membranes are intact and moist neck is supple no lymphadenopathy, no JVD noted lung sounds are clear to auscultation heart regular rate rhythm, clear S1, S2 positive bowel sounds, abdomen is soft, nontender neuro patient is alert x3, no focal deficits Discharge Plan Discharge Anticipated Discharge Date/Time: 06/03/22 11:07 Disposition: Xfer Psychiatric Hosp Referrals: m5 [Other] - 1 Week Discharge Medications: New vancomycin 125 mg Capsule 125 mg PO Q6H Qty: 31 0RF Continued multivitamin Tablet 1 tab PO DAILY lamotrigine 200 mg tablet 1 tab PO BEDTIME levothyroxine 25 mcg tablet 1 tab PO DAILY baclofen 20 mg tablet 1 tab PO TID pantoprazole 40 mg tablet,delayed release (DR/EC) 1 tab PO BID loratadine 10 mg tablet 1 tab PO DAILY acamprosate 333 mg tablet,delayed release (DR/EC) 2 tab PO TID calcium carbonate-vitamin D3 600 mg-10 mcg (400 unit) tablet 1 tab PO BID Latuda 80 mg Tablet 160 mg PO DAILY@1800 30 Days Qty: 60 0RF gabapentin 400 mg Capsule 400 mg PO TID 30 Days Qty: 90 0RF trazodone 100 mg Tablet 100 mg PO BEDTIME 30 Days Qty: 30 0RF trolamine salicylate [Arthricream] 10 % Cream 1 appl topical QID PRN (Reason: back pain) 30 Days Qty: 100 0RF lorazepam 0.5 mg Tablet 0.5 mg PO DAILY PRN (Reason: mild anixety) 30 Days Qty: 30 0RF buspirone 10 mg Tablet 20 mg PO TID 30 Days Qty: 180 0RF dextroamphetamine-amphetamine 20 mg tablet 1 tab PO BID@0600,1300 sumatriptan 20 mg/actuation [place],Non-Aerosol 20 mg INTRANASAL Q2H PRN (Reason: Migraine Headache) Rx Instructions: administer into one nostril as a single dose; if 2nd dose needed,administer into other nostril after at least 2 hrs, NTE 2 doses (40 mg) per episode ascorbic acid (vitamin C) 500 mg Tablet 500 mg PO BID amlodipine 5 mg tablet 1 tab PO DAILY ketoconazole 2 % cream 1 applic topical BID PRN (Reason: Rash) oxycodone 5 mg tablet 1 tab PO BID PRN (Reason: Pain) bupropion HCl [Wellbutrin XL] 300 mg tablet extended release 24 hr 1 tab PO QAM Discharge Orders: Discharge Order (Routine); Ordered 06/03/22 Ordered By: Keisha Rhoades Forms: Patient Portal Discharge page Care Plan Goals: Complete treatment for depression Health Concerns: Diarrhea C diff Bipolar disorder depression Dehydration Plan of Treatment: Continue current regimen Assessment: See discharge summary
--- NOTE | 2022-06-03 11:33 | MHC.CM.PN ---
pt to m5
[2022-06-03] MEDS: Enoxaparin Sodium 40 MG/0.4 ML SYRINGE SUBCUT (14:13)
[2022-06-03 15:58] VITALS: BP 147/85; PULSE 74; RESP 20; TEMP 36.6; O2SAT 98
[2022-06-03 20:00] VITALS: BP 122/59; PULSE 68; RESP 16; TEMP 36.8; O2SAT 97
[2022-06-03] MEDS: lamoTRIgine 100 MG TABLET 200 MG PO (20:20)
[2022-06-03] MEDS: LORazepam 1 MG TABLET PO (20:20)
[2022-06-03] MEDS: traZODone HCL 100 MG TABLET PO (22:05)
[2022-06-03 23:28] VITALS: BP 105/57; PULSE 76; RESP 15; TEMP 36.7; O2SAT 96
[2022-06-04 02:53] VITALS: BP 115/60; PULSE 69; RESP 14; TEMP 36.4; O2SAT 94
[2022-06-04] MEDS: vancomycin HCL 125 MG CAPSULE PO ×2 (02:56→08:41)
[2022-06-04] MEDS: 0.9 % Sodium Chloride Flush 3 ML SYRINGE IVFLUSH ×2 (02:57→08:40)
[2022-06-04] MEDS: Amphetamine Mixed Salts 20 MG TABLET PO (06:00)
[2022-06-04] MEDS: Omeprazole 20 MG CAPSULE.DR PO (06:00)
[2022-06-04] MEDS: Levothyroxine Sodium 25 MCG TABLET PO (06:00)
[2022-06-04 08:00] VITALS: BP 118/65; PULSE 74; RESP 20; TEMP 36.3; O2SAT 98
[2022-06-04] MEDS: Calcium + Vitamin D 250 MG TABLET 500 MG PO (08:41)
[2022-06-04] MEDS: Baclofen 20 MG TABLET PO (08:41)
[2022-06-04] MEDS: buPROPion HCl XL 300 MG TAB.ER.24H PO (08:41)
[2022-06-04] MEDS: Multivitamin TABLET 1 TAB PO (08:42)
[2022-06-04] MEDS: Gabapentin 400 MG CAPSULE PO (08:42)
[2022-06-04] MEDS: Ascorbic Acid 500 MG TABLET PO (08:42)
[2022-06-04] MEDS: Acamprosate Calcium 333 MG TABLET.DR 666 MG PO (08:42)
[2022-06-04] MEDS: Loratadine 10 MG TABLET PO (08:42)
[2022-06-04] MEDS: PHENobarbitaL 15 MG TABLET PO (08:43)
[2022-06-04] MEDS: busPIRone HCl 10 MG TABLET 20 MG PO (08:43)
[2022-06-04] MEDS: Thiamine HCL 100 MG in 0.9 % Sodium Chloride 100 ML 202 MG IV (08:50)
[2022-06-04] MEDS: Acetaminophen 325 MG TABLET 650 MG PO (10:59)
[2022-06-04] MEDS: Enoxaparin Sodium 40 MG/0.4 ML SYRINGE SUBCUT (10:59)
[2022-06-04 11:38] VITALS: BP 114/57; PULSE 79; RESP 20; TEMP 36.1; O2SAT 94
== END 2022-06-04 12:16 | DRG 641 ==
LOC: HO.ED 05-29 09:55 → HO.EDOVER 05-29 11:40 → HO.IMC 05-30 15:31
PROVIDERS: Internal Medicine; Nurse Practitioner Acute Care; Physician Assistant; Student in an Organized Health Care Education/Training Program; Admitting Provider Psychiatry & Neurology Psychiatry; Emergency Provider Emergency Medicine Emergency Medical Services; PCP Family Medicine; Visit Provider Internal Medicine
DX: E86.0 Dehydration (principal); F10.239 Alcohol dependence with withdrawal, unspecified; R45.851 Suicidal ideations; F31.31 Bipolar disorder, current episode depressed, mild; A04.72 Enterocolitis due to Clostridium difficile, not specified as recurrent; K21.9 Gastro-esophageal reflux disease without esophagitis; E03.9 Hypothyroidism, unspecified; G43.909 Migraine, unspecified, not intractable, without status migrainosus; F10.229 Alcohol dependence with intoxication, unspecified; I10 Essential (primary) hypertension; E66.9 Obesity, unspecified; Z68.35 Body mass index [BMI] 35.0-35.9, adult; Y90.8 Blood alcohol level of 240 mg/100 ml or more; Z20.822 Contact with and (suspected) exposure to COVID-19; Z91.040 Latex allergy status; Z88.2 Allergy status to sulfonamides; Z88.6 Allergy status to analgesic agent; Z88.8 Allergy status to other drugs, medicaments and biological substances; Z79.890 Hormone replacement therapy; Z79.899 Other long term (current) drug therapy
CPT/HCPCS: 36415; 70450; 71045; 80048; 80053; 80143; 80179; 80307; 81001; 81025; 82077; 82947; 84484; 85025; 87324; 87493; 87635; 93005; 96360; 96361; 99285; J1650; J2560; J3411

== ENCOUNTER 2022-06-04 12:49 | Inpatient (IN) | payer OTHER, SELFPAY ==
--- OUTSIDE RECORDS SUMMARY | 2022-06-04 13:00 | XMS_ITS ---
:1970 Author Organization [facility] [address] [facility] Location Address [address] [place] [id number] Care Team Providers Name Role Phone Nick FORESTRY TECHNICAL OFFICER-DoryLinsey Unavailable Unavailable PROBLEMS Type Condition ICD9-CM Code [id number] Code Onset Condition SNO MED Code Dates Status Problem Arm R20.2 Active 89629262 paresthesia, left ALLERGIES Substance Reaction Event Type Date Status Sulfa Antibiotics Unknown Drug Allergy Oct, Active ENCOUNTERS Encounter Location Date Diagnosis [facility] [address] [facility], Oct, Ce rvicalgia M54.2 ; [place] [address] arm pa in M79.602 and Arm paresthesia, [...] Results REASON FOR VISIT Consult Insurance Providers [facility] Health Member Patient Patient Patient Patient Patient Subscriber Subscriber Subscriber Group Insurance Plan Plan Plan Plan ID Relationship Address Phone Name Date of ID Name Date of No Type Insurance Insurance Insurance Coverage to Subscriber Address Phone Name Dates [place] [address] [facility] [phone] Commonweal self Sweetie 1 [id number] th Care [facility] [address] th Care [facility] [address] [address] self Sweetie [id number] of [id number] [facility] [place] [phone] [place] [address] [place] self Sweetie [id number] [address] [address]
[2022-06-04] MEDS: Amphetamine Mixed Salts 20 MG TABLET PO (13:46)
[2022-06-04] MEDS: busPIRone HCl 10 MG TABLET 20 MG PO ×2 (14:42→22:45)
[2022-06-04] MEDS: Acamprosate Calcium 333 MG TABLET.DR 666 MG PO ×2 (14:42→22:45)
[2022-06-04] MEDS: Gabapentin 400 MG CAPSULE PO ×2 (14:42→22:45)
[2022-06-04 15:12] VITALS: BP 176/98; PULSE 94; TEMP 36.9; O2SAT 97
[2022-06-04] MEDS: Baclofen 20 MG TABLET PO ×2 (16:27→22:45)
[2022-06-04] MEDS: LORazepam 0.5 MG TABLET PO (16:28)
[2022-06-04] MEDS: vancomycin HCL 125 MG CAPSULE PO ×2 (16:28→22:45)
[2022-06-04] MEDS: LORazepam 1 MG TABLET PO (18:26)
[2022-06-04] MEDS: Omeprazole 20 MG CAPSULE.DR PO (18:33)
--- NOTE | 2022-06-04 18:54 | PC.ADMIT ---
pt is 52 year old female who represent to [facility] with suicide attempt and alcohol withdrawal. pt was [place] [facility] [place] reasons including dehydration and C diff. pt reports feeling depressed and starting drinking 6 months ago due to her father's . during pts PMH includes chronic back pain, stomach ulcers, gastric bypass surgery and inpatient psych admissions. during admission, pt was tearful, but answered all questions. pt had an outburst because she was kept on contact precautions until infection control could evaluate her for C diff. start treatment and promote safety.
[2022-06-04] MEDS: traZODone HCL 100 MG TABLET PO (22:45)
[2022-06-04] MEDS: Ascorbic Acid 500 MG TABLET PO (22:46)
[2022-06-04] MEDS: Calcium + Vitamin D 250 MG TABLET 500 MG PO (22:46)
[2022-06-04] MEDS: lamoTRIgine 100 MG TABLET 200 MG PO (22:46)
--- NOTE | 2022-06-04 23:43 | PC.NURSE ---
pt wants to got to [facility]. pt is getting a call at 11am to set up bed for afternoon.
[2022-06-05] MEDS: Calcium + Vitamin D 250 MG TABLET 500 MG PO (08:21)
[2022-06-05] MEDS: Acamprosate Calcium 333 MG TABLET.DR 666 MG PO ×2 (08:21→14:09)
[2022-06-05] MEDS: busPIRone HCl 10 MG TABLET 20 MG PO ×2 (08:21→14:09)
[2022-06-05] MEDS: Amphetamine Mixed Salts 20 MG TABLET PO ×2 (08:22→14:09)
[2022-06-05] MEDS: LORazepam 1 MG TABLET PO ×2 (08:22→13:01)
[2022-06-05] MEDS: Baclofen 20 MG TABLET PO ×2 (08:22→14:10)
[2022-06-05] MEDS: Ascorbic Acid 500 MG TABLET PO (08:22)
[2022-06-05] MEDS: Gabapentin 400 MG CAPSULE PO ×2 (08:23→14:10)
[2022-06-05] MEDS: vancomycin HCL 125 MG CAPSULE PO ×2 (08:23→14:09)
[2022-06-05] MEDS: buPROPion HCl XL 300 MG TAB.ER.24H PO (08:23)
[2022-06-05] MEDS: Loratadine 10 MG TABLET PO (08:23)
[2022-06-05] MEDS: Multivitamin TABLET 1 TAB PO (08:27)
[2022-06-05] MEDS: Omeprazole 20 MG CAPSULE.DR PO (08:27)
[2022-06-05] MEDS: Levothyroxine Sodium 25 MCG TABLET PO (08:28)
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
--- NOTE | 2022-06-14 14:32 | P.DS_ITS ---
DS: Providers Provider Date of Service: 06/05/22 Date of admission: 06/04/22 12:49 Date of discharge: 06/05/22 Primary care physician: Unknown Physician Admitting clinician: Ann Mazariegos Attending physician on admission: Jonatan Sim Attending physician on discharge: Jonatan Sim Discharging clinician: Ann Mazariegos DS: Diagnosis Discharge Diagnosis (1) Bipolar I disorder with depression: Status: Inactive (2) Alcohol use disorder, severe, dependence: Status: Inactive (3) Post traumatic stress disorder (PTSD): Status: Acute DS: Medications Discharge Medications Home Medications: Home Medications Medication Instructions Recorded Confirmed acamprosate 333 mg tablet,delayed 2 tab PO TID 02/12/22 06/07/22 release baclofen 20 mg tablet 1 tab PO TID 02/12/22 06/07/22 calcium carbonate 600 mg-vitamin 1 tab PO BID 02/12/22 06/07/22 D3 10 mcg (400 unit) tablet lamotrigine 200 mg tablet 1 tab PO BEDTIME 02/12/22 06/07/22 levothyroxine 25 mcg tablet 1 tab PO DAILY 02/12/22 06/07/22 loratadine 10 mg tablet 1 tab PO DAILY 02/12/22 06/07/22 multivitamin 1 tab PO DAILY 02/12/22 06/07/22 pantoprazole 40 mg tablet,delayed 1 tab PO BID 02/12/22 06/07/22 release ascorbic acid (vitamin C) 500 mg 500 mg PO BID 03/10/22 06/07/22 tablet dextroamphetamine-amphetamine 20 1 tab PO BID@0600,1300 03/10/22 06/07/22 mg tablet amlodipine 5 mg tablet 1 tab PO DAILY 05/09/22 06/07/22 bupropion HCl 300 mg 24 hr tablet, 1 tab PO QAM 05/09/22 06/07/22 extended release (Wellbutrin XL) ketoconazole 2 % topical cream 1 applic topical BID PRN Rash 05/09/22 06/07/22 oxycodone 5 mg tablet 1 tab PO BID PRN Pain 05/09/22 06/07/22 Previous Rx's Medication Instructions Recorded buspirone 10 mg tablet 20 mg PO TID 30 days #180 tabs 02/27/22 gabapentin 400 mg capsule 400 mg PO TID 30 days #90 caps 02/27/22 lorazepam 0.5 mg tablet 0.5 mg PO DAILY PRN mild anixety 02/27/22 30 days #30 tabs lurasidone 80 mg tablet (Latuda) 160 mg PO DAILY@1800 30 days #60 02/27/22 tabs trazodone 100 mg tablet 100 mg PO BEDTIME 30 days #30 tabs 02/27/22 thiamine HCl (vitamin B1) 100 mg 100 mg PO DAILY #30 tabs 06/05/22 tablet vancomycin 125 mg capsule 125 mg PO Q6H #26 caps 06/05/22 Mental Status Exam Mental Status Exam Patient Appearance: Fatigued Patient Orientation: Person, Place, Time and Situation Level of Consciousness: Alert Patient Behavior: Appropriate, Talkative, Cooperative and Good Eye Contact Mood Description: Depressed Affect Description: Flat Patient Cognition Impaired: No Ability to Follow Directions: Good Speech Pattern: Spontaneous Speech Memory Description: Intact Hallucinations: None Delusions: Not Present Perceptual Disturbances: Depersonalization and Derealization Thought Process: Goal Oriented Thought Content: positive for Circumstantial Depressive Symptoms: Increased Anxiety, Insomnia, Difficulty Sleeping, Changes in Appetite, Loss of Int. in Activity, Feelings of Worthlessness, Hopelessness, Isolating-Friends/Family, Feelings of Guilt, Unhappiness, Increased Fatigue, Loss of Energy and Difficulty Concentrating Abnormal Motor Activity Signs and Symptoms: Restlessness Judgement: Good DS: Summary Hospital Course Hospital Course: Admission to adult psychiatry for exacerbation of symptoms of PTSD, Bipolar Disorder, and Alcohol Use Disorder, which pt reported was out of control- recently with ER visits with very high BAL levels. Pt was medically admitted for detox. She was found to be positive for C-Difficile and when she was transferred to psychiatry the isolation precautions per policy exacerbated her PTSD sx and she asked to leave as she would not be allowed to fully participate in the milieu. Vancomycin and Thiamine were continued. No other medication changes were made. She was invited to call and or return if needed, which she will consider when her precautionary time in isolation ends as she was wanting to participate in milieu treatment and felt this was needed given her current situation. Time spent discussing smoking cessation with patient: 3 to 10 minutes Status at Discharge Functional status at discharge: independent ambulation Overall status at discharge: patient is progressing back to baseline Time Spent with Patient Time attestation: Total time spent providing and/or coordinating discharge services: 35 Time spent: Greater than 30 minutes Discharge Plan Discharge Anticipated Discharge Date/Time: 06/05/22 15:39 Patient Disposition: Home, Self-Care Discharge Diagnosis: Bipolar Disorder Alcohol Use Disorder PTSD Referrals: Physician,Unknown J [Primary Care Provider] - 1 Week Discharge Medications: New vancomycin 125 mg Capsule 125 mg PO Q6H Qty: 26 0RF thiamine HCl (vitamin B1) 100 mg tablet 100 mg PO DAILY Qty: 30 0RF Continued multivitamin Tablet 1 tab PO DAILY lamotrigine 200 mg tablet 1 tab PO BEDTIME levothyroxine 25 mcg tablet 1 tab PO DAILY baclofen 20 mg tablet 1 tab PO TID pantoprazole 40 mg tablet,delayed release (DR/EC) 1 tab PO BID loratadine 10 mg tablet 1 tab PO DAILY acamprosate 333 mg tablet,delayed release (DR/EC) 2 tab PO TID calcium carbonate-vitamin D3 600 mg-10 mcg (400 unit) tablet 1 tab PO BID Latuda 80 mg Tablet 160 mg PO DAILY@1800 30 Days Qty: 60 0RF gabapentin 400 mg Capsule 400 mg PO TID 30 Days Qty: 90 0RF trazodone 100 mg Tablet 100 mg PO BEDTIME 30 Days Qty: 30 0RF lorazepam 0.5 mg Tablet 0.5 mg PO DAILY PRN (Reason: mild anixety) 30 Days Qty: 30 0RF buspirone 10 mg Tablet 20 mg PO TID 30 Days Qty: 180 0RF dextroamphetamine-amphetamine 20 mg tablet 1 tab PO BID@0600,1300 ascorbic acid (vitamin C) 500 mg Tablet 500 mg PO BID amlodipine 5 mg tablet 1 tab PO DAILY ketoconazole 2 % cream 1 applic topical BID PRN (Reason: Rash) oxycodone 5 mg tablet 1 tab PO BID PRN (Reason: Pain) bupropion HCl [Wellbutrin XL] 300 mg tablet extended release 24 hr 1 tab PO QAM Discontinued vancomycin 125 mg Capsule 125 mg PO Q6H Qty: 31 0RF Discharge Orders: Discharge Order (Routine); Ordered 06/04/22 Ordered By: Yung Neal Diet: Advance to usual diet Activity on Discharge: As tolerated Stand Alone Forms: Patient Portal Discharge page, Community Support Care Plan Goals: Mood and behavioral stabilization Take medications as directed Abstain from alcohol Health Concerns: Stable mood and behaviors Plan of Treatment: Follow up with out patient providers Take medications as directed Reach out to providers, crisis team as needed. Assessment: Alert, oriented. Denies SI, HI. No evidence of psychosis, jada Expresses appropriate anger and frustration with medical processes Discharge Date/Time: 06/05/22 14:29
== END 2022-06-05 14:29 | disposition home or self-care (01) | DRG 885 ==
PROVIDERS: Admitting Provider Psychiatry & Neurology Psychiatry; Visit Provider Clinical Nurse Specialist Psychiatric/Mental Health, Adult
DX: F31.9 Bipolar disorder, unspecified (principal); R45.851 Suicidal ideations; K21.9 Gastro-esophageal reflux disease without esophagitis; I10 Essential (primary) hypertension; E03.9 Hypothyroidism, unspecified; F43.10 Post-traumatic stress disorder, unspecified; Y90.8 Blood alcohol level of 240 mg/100 ml or more; F10.20 Alcohol dependence, uncomplicated; Z87.891 Personal history of nicotine dependence; Z79.890 Hormone replacement therapy; Z79.899 Other long term (current) drug therapy
CPT/HCPCS: 90792

== ENCOUNTER 2022-06-07 18:44 | Inpatient (IN) | payer OTHER, SELFPAY ==
--- NOTE | 2022-06-07 18:50 | ECG_ITS ---
Test Reason : RECENT ETOH USE Blood Pressure : / mmHG Vent. Rate : 079 BPM Atrial Rate : 079 BPM P-R Int : 150 ms QRS Dur : 098 ms QT Int : 394 ms P-R-T Axes : 050 -27 016 degrees QTc Int : 451 ms Normal sinus rhythm Moderate voltage criteria for LVH, may be normal variant ( R in aVL , Alex product ) Septal infarct (cited on or before 13-FEB-2022) Abnormal ECG When compared with ECG of 28-MAY-2022 21:46, T wave inversion no longer evident in Lateral leads Referred By: Generic ED Physician Electronically Signed By:YAAKOV CULLEN MD
[2022-06-07 18:52] VITALS: BP 152/86; PULSE 86; RESP 18; TEMP 36.2; O2SAT 97; BMI 53.0
--- NOTE | 2022-06-07 18:59 | PC.NURSE ---
supervisor propellant charge loading notified of pt, Per charge-okay to call back for BHPod Placement.
[2022-06-07 19:08] LABS: MANUAL DIFF FLAG NO
[2022-06-07 19:11] LABS: Basophils Percent Auto 0.2 % (0-2); Hematocrit 36.9 % (37.0-47.0); Hemoglobin 12.5 g/dl (12.0-16.0); Imm Gran Abs Auto 0.01 X10*3/uL (0.00-0.03); Imm Gran Pct Auto 0.2 % (0.0-0.4); Lymphocytes Absolute Auto 2.5 X10*3/uL (1.2-4.9); Lymphocytes Percent Auto 50.8 % (20-40); Mean Corpuscular HGB Conc 33.9 g/dl (31.0-35.0); Mean Corpuscular Hemoglobin 31.3 pg (27.0-33.0); Mean Corpuscular Volume 92.3 fL (80.0-98.0); Mean Platelet Volume 10.2 fL (9.4-12.3); Monocytes Absolute Auto 0.2 X10*3/uL (0.1-1.2); Monocytes Percent Auto 4.9 % (2-11); Neutrophils Absolute Auto 2.1 x10*3/uL (2.0-8.3); Neutrophils Percent Auto 43.9 % (45-73); Platelet Count 300 X10*3/uL (160-400); Red Cell Distribution Width 12.5 % (11.0-16.0); White Blood Count 4.9 X10*3/uL (4.8-10.8)
[2022-06-07 19:23] LABS: Ethanol 320 mg/dL
--- NOTE | 2022-06-07 19:24 | PC.NURSE ---
[facility] referral completed/Sent/Receipt confirmed
--- OUTSIDE RECORDS SUMMARY | 2022-06-07 19:27 | XMS_ITS ---
:1970 Author Organization [facility] [address] [facility] Location Address [address] [place] [id number] Care Team Providers Name Role Phone Nick [employer]ODUCTION LINE SOLDERER-DoryLinsey Unavailable Unavailable PROBLEMS Type Condition ICD9-CM Code UCT14-OV Code Onset Condition SNO MED Code Dates Status Problem Arm R20.2 Active [id number] paresthesia, left ALLERGIES Substance Reaction Event Type Date Status Sulfa Antibiotics Unknown Drug Allergy Oct, Active ENCOUNTERS Encounter Location Date Diagnosis [facility] [address] [facility], Oct, Ce rvicalgia M54.2 ; [place] [id number] arm pa in M79.602 and Arm paresthesia, [...] Results REASON FOR VISIT Consult Insurance Providers [facility] Member Patient Patient Patient Patient Patient Subscriber Subscriber Subscriber Group Insurance Plan Plan Plan Plan ID Relationship Address Phone Name Date of ID Name Date of No Type Insurance Insurance Insurance Coverage to Subscriber Address Phone Name Dates [employer] [address] [facility] [phone] [employer] self Sweetie 1 [id number] th Care [facility] 73 th Care [facility] [id number] Medicare [address] Medicare self Sweetie [id number] [facility] [place] [phone] [place] [address] [place] self Sweet[place] [id number] [phone] [address] [address]
[2022-06-07 19:28] LABS: COVID-19 Test Negative (Negative)
--- NOTE | 2022-06-07 19:28 | ED.PSYCH ---
HPI - Psych General Chief Complaint: Psychiatric Symptoms <DELORES Black - Last Filed: 06/07/22 21:10> Stated Complaint: crisis eval..states wants to kill herself <DELORES Black - Last Filed: 06/07/22 21:10> Time Seen by Provider: 06/07/22 19:04 <DELORES Black - Last Filed: 06/07/22 21:10> Source: patient <DELORES Black Last Filed: 06/07/22 21:10> Mode of arrival: ambulatory <DELORES Black Last Filed: 06/07/22 21:10> Limitations: no limitations <DELORES Black Last Filed: 06/07/22 21:10> History of Present Illness HPI Narrative: 52-year-old female with history of bipolar 1, PTSD, alcohol use disorder presents to the emergency department with suicidal ideations x few days worsening. Patient states she does have a plan however would not share it. Patient states that there was no precipitating event that caused her to have these ideations. Patient states she sees both a therapist and a psychiatrist in which she last saw 1 month ago. Patient denies auditory, visual, tactile hallucinations. Patient denies tobacco, alcohol, or other drug use. Patient denies HI. Patient denies any medical complaints. Patient expresses that she would like to remain in hospital. <DELORES Black Last Filed: 06/07/22 21:10> Related Data Home Medications: Home Medications Medication Instructions Recorded Confirmed acamprosate 333 mg tablet,delayed 2 tab PO TID 02/12/22 06/07/22 release baclofen 20 mg tablet 1 tab PO TID 02/12/22 06/07/22 calcium carbonate 600 mg-vitamin 1 tab PO BID 02/12/22 06/07/22 D3 10 mcg (400 unit) tablet lamotrigine 200 mg tablet 1 tab PO BEDTIME 02/12/22 06/07/22 levothyroxine 25 mcg tablet 1 tab PO DAILY 02/12/22 06/07/22 loratadine 10 mg tablet 1 tab PO DAILY 02/12/22 06/07/22 multivitamin 1 tab PO DAILY 02/12/22 06/07/22 pantoprazole 40 mg tablet,delayed 1 tab PO BID 02/12/22 06/07/22 release ascorbic acid (vitamin C) 500 mg 500 mg PO BID 03/10/22 06/07/22 tablet dextroamphetamine-amphetamine 20 1 tab PO BID@0600,1300 03/10/22 06/07/22 mg tablet amlodipine 5 mg tablet 1 tab PO DAILY 05/09/22 06/07/22 bupropion HCl 300 mg 24 hr tablet, 1 tab PO QAM 05/09/22 06/07/22 extended release (Wellbutrin XL) ketoconazole 2 % topical cream 1 applic topical BID PRN Rash 05/09/22 06/07/22 oxycodone 5 mg tablet 1 tab PO BID PRN Pain 05/09/22 06/07/22 Previous Rx's Medication Instructions Recorded buspirone 10 mg tablet 20 mg PO TID 30 days #180 tabs 02/27/22 gabapentin 400 mg capsule 400 mg PO TID 30 days #90 caps 02/27/22 lorazepam 0.5 mg tablet 0.5 mg PO DAILY PRN mild anixety 02/27/22 30 days #30 tabs lurasidone 80 mg tablet (Latuda) 160 mg PO DAILY@1800 30 days #60 02/27/22 tabs trazodone 100 mg tablet 100 mg PO BEDTIME 30 days #30 tabs 02/27/22 thiamine HCl (vitamin B1) 100 mg 100 mg PO DAILY #30 tabs 06/05/22 tablet vancomycin 125 mg capsule 125 mg PO Q6H #26 caps 06/05/22 <DELORES Black - Last Filed: 06/07/22 21:10> Allergies/Adverse Reactions: Allergies Allergy/AdvReac Type Severity Reaction Status Date / Time latex [LATEX] Allergy Mild Rash Verified 02/21/22 06:47 leuprolide [From LUPRON] Allergy Unknown HIVES Verified 02/21/22 06:47 Sulfa (Sulfonamide Allergy Unknown RASH Verified 02/21/22 06:48 Antibiotics) [SULFA (SULFONAMIDE ANTIBIOTICS)] ibuprofen AdvReac Intermediate Abdominal Verified 02/21/22 16:53 Pain <DELORES Black - Last Filed: 06/07/22 21:10> Review of Systems Review of Systems: Constitutional : No Fever, No Chills ENT/Mouth : No Ear Pain, No Nasal Congestion, No sore throat Eyes: No Eye Pain, No Swelling, No Redness Cardiovascular : No Chest Pain, No SOB Respiratory : No Cough, No Sputum, No Dyspnea Gastrointestinal : No Nausea, No Vomiting, No Diarrhea, No Hematochezia, No Melena Genitourinary : No Dysuria, No Urinary Frequency, No Hematuria Musculoskeletal : No Myalgias Skin : No Skin Lesions, No rash Neuro : No Weakness, No Numbness, No Paresthesias, No Dizziness, No Headache Psych : positive Anxiety, positive Depression, positive SI, No HI All other systems reviewed and are negative <DELORES Black - Last Filed: 06/07/22 21:10> Yes all other systems are reviewed and are negative <DELORES Black - Last Filed: 06/07/22 21:10> [facility] Past Medical History Attestation statement: The following information was validated with the patient. <DELORES Black - Last Filed: 06/07/22 21:10> Source: old records reviewed and nursing notes reviewed <DELORES Black - Last Filed: 06/07/22 21:10> Medical History: Medical History Alcohol abuse Alcohol abuse Bipolar I disorder with depression Depression Depression GERD (gastroesophageal reflux disease) HTN (hypertension) Hypothyroidism Migraines <DELORES Black - Last Filed: 06/07/22 21:10> Family History Family History: Family History (Updated 05/29/22 @ 11:50 by DELORES Allen) Mother Narcissism Father Lung cancer COPD (chronic obstructive pulmonary disease) Alcoholism Brother Alcoholism <DELORES Black - Last Filed: 06/07/22 21:10> Social History Social History: Social History Household Members: None Housing: Apartment Do you presently have visiting nurse or other home services: No Alcohol intake: current Alcohol intake frequency: 3 or more drinks per day Alcohol type: hard liquor Patient Tobacco Use Status: Former Tobacco user Advance Directives: No Patient : No service: No Sexual orientation: Straight/Heterosexual <DELORES Black - Last Filed: 06/07/22 21:10> Physical Exam Vital Signs: Vital Signs: Last Vital Signs Temp 97.1 F 06/08/22 07:05 Pulse 84 06/08/22 07:05 Resp 17 06/08/22 07:05 BP 148/83 H 06/08/22 07:05 Pulse Ox 97 06/08/22 07:05 O2 Del Method 06/08/22 07:05 BMI result Body Mass Index 53.0 vss <DELORES Black - Last Filed: 06/07/22 21:10> Vital Signs: Last Vital Signs Temp 97.1 F 06/08/22 07:05 Pulse 84 06/08/22 07:05 Resp 17 06/08/22 07:05 BP 148/83 H 06/08/22 07:05 Pulse Ox 97 06/08/22 07:05 O2 Del Method 06/08/22 07:05 BMI result Body Mass Index 53.0 <Zaki Jones MD - Last Filed: 06/08/22 10:53> Appearance: Alert.? Oriented X3.? No acute distress.? Head: Normocephalic, atraumatic, no step-offs or deformities Eyes: Pupils equal, round and reactive to light.? Neck: Normal inspection.? Neck supple.? CVS: Normal heart rate and rhythm.? Pulses normal.? Respiratory: No respiratory distress.? Breath sounds normal.? Abdomen: Soft and nontender.? Skin: Skin warm and dry.? Normal skin color.? Normal skin turgor.? Extremities: No lower extremity edema.? No calf ttp. 5/5 strength to bilateral upper and lower extremities Back: No midline tenderness, no C-spine tenderness, full range of motion, no CVA tenderness bilaterally Neuro: Oriented X 3.? No motor deficit.? No sensory deficit. CN 2-12 intact <DELORES Black - Last Filed: 06/07/22 21:10> Course Reevaluation(s) Reevaluation #1: CBC appears to be within normal limits. Chemistry with slightly elevated sodium however asymptomatic, no acute electrolyte abnormalities requiring intervention. COVID negative. Ethanol elevated. Urine and urine toxicology pending. At this time patient will be placed into physician observation to allow more time to be evaluated by the behavioral health team. At time observation was started patient common cooperative no acute distress will continue to monitor. <DELORES Black - Last Filed: 06/07/22 21:10> Time: 21:10 <DELORES Black - Last Filed: 06/07/22 21:10> Reevaluation #2: Stable vital signs, no event reported by the nurse, labs were reviewed and was not revealing, awaiting for N evaluation, continue with physician observation status. <Zaki Jones MD - Last Filed: 06/08/22 10:53> Time: 06:58 <Zaki Jones MD - Last Filed: 06/08/22 10:53> Reevaluation #3: Patient has been evaluated by [facility], inpatient psych bed is underway. <Zaki Jones MD - Last Filed: 06/08/22 10:53> Time: 10:53 <Zaki Jones MD - Last Filed: 06/08/22 10:53> MDM - Psych MDM Narrative Medical decision making narrative: 52-year-old female presents to the emergency department for suicidal ideation x few days worsening. Physical exam benign. Plan is medical clearance and to be evaluated by behavioral health team. <DELORES Black - Last Filed: 06/07/22 21:10> Medical Records Attestation: I reviewed the patient's medical records. <DELORES Black - Last Filed: 06/07/22 21:10> Lab Data Attestation: I reviewed the patient's lab results. <DELORES Black - Last Filed: 06/07/22 21:10> Result diagrams: : 06/07/22 19:03 06/07/22 19:03 <DELORES Black - Last Filed: 06/07/22 21:10> Labs: Lab Results 06/07/22 06/07/22 06/07/22 Range/Units 19:03 19:03 19:03 WBC 4.9 (4.8-10.8) X10*3/uL RBC 4.00 L (4.20-5.50) X10*6/uL Hgb 12.5 (12.0-16.0) g/dl Hct 36.9 L (37.0-47.0) % MCV 92.3 (80.0-98.0) fL MCH 31.3 (27.0-33.0) pg MCHC 33.9 (31.0-35.0) g/dl RDW 12.5 (11.0-16.0) % Plt Count 300 D (160-400) X10*3/uL MPV 10.2 (9.4-12.3) fL Immature Gran % (Auto) 0.2 (0.0-0.4) % Neut % (Auto) 43.9 L (45-73) % Lymph % (Auto) 50.8 H (20-40) % [place] % (Auto) 4.9 (2-11) % Eos % (Auto) 0.0 (0-4) % Baso % (Auto) 0.2 (0-2) % Lymph # (Auto) 2.5 (1.2-4.9) X10*3/uL [place] # (Auto) 0.2 (0.1-1.2) X10*3/uL Eos # (Auto) 0.0 (0.0-0.4) X10*3/uL Baso # (Auto) 0.0 (0.0-0.2) X10*3/uL Abs Immat Gran (auto) 0.01 (0.00-0.03) X10*3/uL Absolute Neuts (auto) 2.1 (2.0-8.3) x10*3/uL Absolute Nucleated RBC 0.000 (0.0-0.012) X10*3/uL Nucleated RBC % (auto) 0.0 (0.0-0.2) /100WBC Sodium 146 H (135-145) mmol/L Potassium 4.0 (3.3-5.1) mmol/L Chloride 109 H (96-108) mmol/L Carbon Dioxide 25 (22-29) mmol/L Anion Gap 16 (12-20) BUN 9 (9-16) mg/dL Creatinine 0.66 (0.5-1.4) mg/dL Estim Creat Clear Calc 127.2 Estimated GFR > 60 Random Glucose 81 (60-115) mg/dL Calcium 8.8 (8.4-10.2) mg/dL Total Bilirubin < 0.2 (0.0-1.0) mg/dL Direct Bilirubin < 0.2 (0.0-0.5) mg/dL AST 23 D (5-31) U/L ALT 21 (0-31) U/L Alkaline Phosphatase 98 D (39-117) U/L Total Protein 7.0 (6.5-8.0) g/dL Albumin 4.4 (3.5-5.0) g/dL Lipase 27 (8-78) U/L Urine Color Urine Appearance Urine pH (5.0-9.0) Ur Specific [place] (1.005-1.025) Urine Protein (Neg-Trace) mg/dL Urine Glucose (UA) (Negative) mg/dL Urine Ketones (Negative) mg/dL Urine Blood (Negative) Urine Nitrite (Negative) Ur Leukocyte Esterase (Negative) Urine RBC (0-2) /HPF Urine WBC (0-5) /HPF Ur Squamous Epith Cells (0-2) /HPF Urine Bacteria (None Seen) Hyaline Casts (0-2) /LPF Urine Opiates Screen (Not Detect) Urine Fentanyl Screen (Not Detect) Ur Barbiturates Screen (Not Detect) Ur Phencyclidine Scrn (Not Detect) Ur Amphetamines Screen (Not Detect) U Benzodiazepines Scrn (Not Detect) Urine Cocaine Screen (Not Detect) U Marijuana (THC) Screen (Not Detect) Ethyl Alcohol mg/dL COVID-19 (CHAD) Negative (Negative) COVID-19 Clin Com See Note 06/07/22 06/07/22 06/07/22 Range/Units 19:03 23:39 23:39 WBC (4.8-10.8) X10*3/uL RBC (4.20-5.50) X10*6/uL Hgb (12.0-16.0) g/dl Hct (37.0-47.0) % MCV (80.0-98.0) fL MCH (27.0-33.0) pg MCHC (31.0-35.0) g/dl RDW (11.0-16.0) % Plt Count (160-400) X10*3/uL MPV (9.4-12.3) fL Immature Gran % (Auto) (0.0-0.4) % Neut % (Auto) (45-73) % Lymph % (Auto) (20-40) % [place] % (Auto) (2-11) % Eos % (Auto) (0-4) % Baso % (Auto) (0-2) % Lymph # (Auto) (1.2-4.9) X10*3/uL [place] # (Auto) (0.1-1.2) X10*3/uL Eos # (Auto) (0.0-0.4) X10*3/uL Baso # (Auto) (0.0-0.2) X10*3/uL Abs Immat Gran (auto) (0.00-0.03) X10*3/uL Absolute Neuts (auto) (2.0-8.3) x10*3/uL Absolute Nucleated RBC (0.0-0.012) X10*3/uL Nucleated RBC % (auto) (0.0-0.2) /100WBC Sodium (135-145) mmol/L Potassium (3.3-5.1) mmol/L Chloride (96-108) mmol/L Carbon Dioxide (22-29) mmol/L Anion Gap (12-20) BUN (9-16) mg/dL Creatinine (0.5-1.4) mg/dL Estim Creat Clear Calc Estimated GFR Random Glucose (60-115) mg/dL Calcium (8.4-10.2) mg/dL Total Bilirubin (0.0-1.0) mg/dL Direct Bilirubin (0.0-0.5) mg/dL AST (5-31) U/L ALT (0-31) U/L Alkaline Phosphatase (39-117) U/L Total Protein (6.5-8.0) g/dL Albumin (3.5-5.0) g/dL Lipase (8-78) U/L Urine Color Yellow Urine Appearance Clear Urine pH 5.5 (5.0-9.0) Ur Specific [place] 1.015 (1.005-1.025) Urine Protein Negative (Neg-Trace) mg/dL Urine Glucose (UA) Negative (Negative) mg/dL Urine Ketones Negative (Negative) mg/dL Urine Blood Negative (Negative) Urine Nitrite Negative (Negative) Ur Leukocyte Esterase Trace H (Negative) Urine RBC 0-2 (0-2) /HPF Urine WBC 0-5 (0-5) /HPF Ur Squamous Epith Cells 0-2 (0-2) /HPF Urine Bacteria None Seen (None Seen) Hyaline Casts 0-2 (0-2) /LPF Urine Opiates Screen Not Detected (Not Detect) Urine Fentanyl Screen Not Detected (Not Detect) Ur Barbiturates Screen POSITIVE H (Not Detect) Ur Phencyclidine Scrn Not Detected (Not Detect) Ur Amphetamines Screen POSITIVE H (Not Detect) U Benzodiazepines Scrn Not Detected (Not Detect) Urine Cocaine Screen Not Detected (Not Detect) U Marijuana (THC) Screen Not Detected (Not Detect) Ethyl Alcohol 320 H* mg/dL COVID-19 (CHAD) (Negative) COVID-19 Clin Com <DELORES Black - Last Filed: 06/07/22 21:10> Lab Results 06/07/22 06/07/22 06/07/22 Range/Units 19:03 19:03 19:03 WBC 4.9 (4.8-10.8) X10*3/uL RBC 4.00 L (4.20-5.50) X10*6/uL Hgb 12.5 (12.0-16.0) g/dl Hct 36.9 L (37.0-47.0) % MCV 92.3 (80.0-98.0) fL MCH 31.3 (27.0-33.0) pg MCHC 33.9 (31.0-35.0) g/dl RDW 12.5 (11.0-16.0) % Plt Count 300 D (160-400) X10*3/uL MPV 10.2 (9.4-12.3) fL Immature Gran % (Auto) 0.2 (0.0-0.4) % Neut % (Auto) 43.9 L (45-73) % Lymph % (Auto) 50.8 H (20-40) % [place] % (Auto) 4.9 (2-11) % Eos % (Auto) 0.0 (0-4) % Baso % (Auto) 0.2 (0-2) % Lymph # (Auto) 2.5 (1.2-4.9) X10*3/uL [place] # (Auto) 0.2 (0.1-1.2) X10*3/uL Eos # (Auto) 0.0 (0.0-0.4) X10*3/uL Baso # (Auto) 0.0 (0.0-0.2) X10*3/uL Abs Immat Gran (auto) 0.01 (0.00-0.03) X10*3/uL Absolute Neuts (auto) 2.1 (2.0-8.3) x10*3/uL Absolute Nucleated RBC 0.000 (0.0-0.012) X10*3/uL Nucleated RBC % (auto) 0.0 (0.0-0.2) /100WBC Sodium 146 H (135-145) mmol/L Potassium 4.0 (3.3-5.1) mmol/L Chloride 109 H (96-108) mmol/L Carbon Dioxide 25 (22-29) mmol/L Anion Gap 16 (12-20) BUN 9 (9-16) mg/dL Creatinine 0.66 (0.5-1.4) mg/dL Estim Creat Clear Calc 127.2 Estimated GFR > 60 Random Glucose 81 (60-115) mg/dL Calcium 8.8 (8.4-10.2) mg/dL Total Bilirubin < 0.2 (0.0-1.0) mg/dL Direct Bilirubin < 0.2 (0.0-0.5) mg/dL AST 23 D (5-31) U/L ALT 21 (0-31) U/L Alkaline Phosphatase 98 D (39-117) U/L Total Protein 7.0 (6.5-8.0) g/dL Albumin 4.4 (3.5-5.0) g/dL Lipase 27 (8-78) U/L Urine Color Urine Appearance Urine pH (5.0-9.0) Ur Specific [place] (1.005-1.025) Urine Protein (Neg-Trace) mg/dL Urine Glucose (UA) (Negative) mg/dL Urine Ketones (Negative) mg/dL Urine Blood (Negative) Urine Nitrite (Negative) Ur Leukocyte Esterase (Negative) Urine RBC (0-2) /HPF Urine WBC (0-5) /HPF Ur Squamous Epith Cells (0-2) /HPF Urine Bacteria (None Seen) Hyaline Casts (0-2) /LPF Urine Opiates Screen (Not Detect) Urine Fentanyl Screen (Not Detect) Ur Barbiturates Screen (Not Detect) Ur Phencyclidine Scrn (Not Detect) Ur Amphetamines Screen (Not Detect) U Benzodiazepines Scrn (Not Detect) Urine Cocaine Screen (Not Detect) U Marijuana (THC) Screen (Not Detect) Ethyl Alcohol mg/dL COVID-19 ([facility]) Negative (Negative) COVID-19 Clin Com See Note 06/07/22 06/07/22 06/07/22 Range/Units 19:03 23:39 23:39 WBC (4.8-10.8) X10*3/uL RBC (4.20-5.50) X10*6/uL Hgb (12.0-16.0) g/dl Hct (37.0-47.0) % MCV (80.0-98.0) fL MCH (27.0-33.0) pg MCHC (31.0-35.0) g/dl RDW (11.0-16.0) % Plt Count (160-400) X10*3/uL MPV (9.4-12.3) fL Immature Gran % (Auto) (0.0-0.4) % Neut % (Auto) (45-73) % Lymph % (Auto) (20-40) % [place] % (Auto) (2-11) % Eos % (Auto) (0-4) % Baso % (Auto) (0-2) % Lymph # (Auto) (1.2-4.9) X10*3/uL [place] # (Auto) (0.1-1.2) X10*3/uL Eos # (Auto) (0.0-0.4) X10*3/uL Baso # (Auto) (0.0-0.2) X10*3/uL Abs Immat Gran (auto) (0.00-0.03) X10*3/uL Absolute Neuts (auto) (2.0-8.3) x10*3/uL Absolute Nucleated RBC (0.0-0.012) X10*3/uL Nucleated RBC % (auto) (0.0-0.2) /100WBC Sodium (135-145) mmol/L Potassium (3.3-5.1) mmol/L Chloride (96-108) mmol/L Carbon Dioxide (22-29) mmol/L Anion Gap (12-20) BUN (9-16) mg/dL Creatinine (0.5-1.4) mg/dL Estim Creat Clear Calc Estimated GFR Random Glucose (60-115) mg/dL Calcium (8.4-10.2) mg/dL Total Bilirubin (0.0-1.0) mg/dL Direct Bilirubin (0.0-0.5) mg/dL AST (5-31) U/L ALT (0-31) U/L Alkaline Phosphatase (39-117) U/L Total Protein (6.5-8.0) g/dL Albumin (3.5-5.0) g/dL Lipase (8-78) U/L Urine Color Yellow Urine Appearance Clear Urine pH 5.5 (5.0-9.0) Ur Specific [place] 1.015 (1.005-1.025) Urine Protein Negative (Neg-Trace) mg/dL Urine Glucose (UA) Negative (Negative) mg/dL Urine Ketones Negative (Negative) mg/dL Urine Blood Negative (Negative) Urine Nitrite Negative (Negative) Ur Leukocyte Esterase Trace H (Negative) Urine RBC 0-2 (0-2) /HPF Urine WBC 0-5 (0-5) /HPF Ur Squamous Epith Cells 0-2 (0-2) /HPF Urine Bacteria None Seen (None Seen) Hyaline Casts 0-2 (0-2) /LPF Urine Opiates Screen Not Detected (Not Detect) Urine Fentanyl Screen Not Detected (Not Detect) Ur Barbiturates Screen POSITIVE H (Not Detect) Ur Phencyclidine Scrn Not Detected (Not Detect) Ur Amphetamines Screen POSITIVE H (Not Detect) U Benzodiazepines Scrn Not Detected (Not Detect) Urine Cocaine Screen Not Detected (Not Detect) U Marijuana (THC) Screen Not Detected (Not Detect) Ethyl Alcohol 320 H* mg/dL COVID-19 ([facility]) (Negative) COVID-19 Clin Com <Zaki Jones MD - Last Filed: 06/08/22 10:53> Critical Care Time Critical Care Time Critical Care Time: No <DELORES Black Last Filed: 06/07/22 21:10> Discharge Plan Discharge Clinical Impression: Alcohol intoxication, Suicidal ideation, Depression <DELORES Black Last Filed: 06/07/22 21:10> Patient Disposition: Still a Patient <DELORES Black Last Filed: 06/07/22 21:10> Prescriptions: No Action multivitamin Tablet 1 tab PO DAILY lamotrigine 200 mg tablet 1 tab PO BEDTIME levothyroxine 25 mcg tablet 1 tab PO DAILY baclofen 20 mg tablet 1 tab PO TID pantoprazole 40 mg tablet,delayed release (DR/EC) 1 tab PO BID loratadine 10 mg tablet 1 tab PO DAILY acamprosate 333 mg tablet,delayed release (DR/EC) 2 tab PO TID calcium carbonate-vitamin D3 600 mg-10 mcg (400 unit) tablet 1 tab PO BID Latuda 80 mg Tablet 160 mg PO DAILY@1800 30 Days Qty: 60 0RF gabapentin 400 mg Capsule 400 mg PO TID 30 Days Qty: 90 0RF trazodone 100 mg Tablet 100 mg PO BEDTIME 30 Days Qty: 30 0RF lorazepam 0.5 mg Tablet 0.5 mg PO DAILY PRN (Reason: mild anixety) 30 Days Qty: 30 0RF buspirone 10 mg Tablet 20 mg PO TID 30 Days Qty: 180 0RF dextroamphetamine-amphetamine 20 mg tablet 1 tab PO BID@0600,1300 ascorbic acid (vitamin C) 500 mg Tablet 500 mg PO BID amlodipine 5 mg tablet 1 tab PO DAILY ketoconazole 2 % cream 1 applic topical BID PRN (Reason: Rash) oxycodone 5 mg tablet 1 tab PO BID PRN (Reason: Pain) bupropion HCl [Wellbutrin XL] 300 mg tablet extended release 24 hr 1 tab PO QAM vancomycin 125 mg Capsule 125 mg PO Q6H Qty: 26 0RF thiamine HCl (vitamin B1) 100 mg tablet 100 mg PO DAILY Qty: 30 0RF <DELORES Black Last Filed: 06/07/22 21:10>
[2022-06-07 19:31] LABS: Alanine Aminotransferase 21 U/L (0-31); Albumin Level 4.4 g/dL (3.5-5.0); Alkaline Phosphatase 98 U/L (39-117); Anion Gap 16 (12-20); Aspartate Amino Transferase 23 U/L (5-31); Bilirubin Direct < 0.2 mg/dL (0.0-0.5); Bilirubin Total < 0.2 mg/dL (0.0-1.0); Blood Urea Nitrogen 9 mg/dL (9-16); Calcium 8.8 mg/dL (8.4-10.2); Carbon Dioxide 25 mmol/L (22-29); Chloride 109 mmol/L (96-108); Creatinine Clr Calc Pharmacy 127.2; Estimated Glomerular Filt Rate > 60; Glucose Random 81 mg/dL (60-115); Lipase 27 U/L (8-78); Sodium 146 mmol/L (135-145)
[2022-06-07] MEDS: vancomycin HCL 125 MG CAPSULE PO (23:04)
[2022-06-07 23:09] VITALS: BP 126/71; PULSE 72; RESP 16; TEMP 36.3; O2SAT 96
[2022-06-07 23:46] LABS: Appearance Urine Clear; Color Urine Yellow; Glucose Urine UA Negative (Negative); Leukocyte Esterase Urine Trace (Negative); Nitrite Urine Negative (Negative); PH 5.5 (5.0-9.0); Specific Gravity - Urine 1.015 (1.005-1.025); UMIC TRIGGER UACC YES; Urine Blood Negative (Negative); Urine Ketones Negative (Negative); Urine Protein Negative (Neg-Trace)
[2022-06-07 23:55] LABS: Bacteria Urine None Seen (None Seen); Hyaline Casts Urine 0-2 /LPF (0-2); RBC Urine 0-2 /HPF (0-2); Squamous Epithelial Cell Urine 0-2 /HPF (0-2); WBC Urine 0-5 /HPF (0-5)
[2022-06-08] LABS: Amphetamine Screen Urine POSITIVE (Not Detect); Barbiturates, Urine POSITIVE (Not Detect); Benzodiazepines Screen Urine Not Detected (Not Detect); Cannabinoid Screen Urine Not Detected (Not Detect); Cocaine Screen Urine Not Detected (Not Detect); Fentanyl, urine Not Detected (Not Detect); Opiate Screen Urine Not Detected (Not Detect); Phencyclidine Screen Urine Not Detected (Not Detect)
[2022-06-08] MEDS: vancomycin HCL 125 MG CAPSULE PO ×3 (05:27→19:18)
[2022-06-08] MEDS: Levothyroxine Sodium 25 MCG TABLET PO (05:27)
[2022-06-08] MEDS: LORazepam 1 MG TABLET 2 MG PO (05:31)
--- NOTE | 2022-06-08 05:37 | PC.NURSE ---
Patient slept through the night, no major distress observed/reported, medication compliant, Ativan 2 mg po administered at 0530 comfort because patient is high risk of alcohol withdrawal, patient currently asymptomatic of withdrawal, patient being treated for C Diff with Vancomycin 125 mg Q 6 hrs, [facility] referral completed/confirmed/pending ETA, behavior non concerning, VSS, will continue to monitor.
[2022-06-08 07:05] VITALS: BP 148/83; PULSE 84; RESP 17; TEMP 36.2; O2SAT 97
[2022-06-08] MEDS: Gabapentin 400 MG CAPSULE PO ×3 (08:34→20:48)
[2022-06-08] MEDS: Multivitamin TABLET 1 TAB PO (08:34)
[2022-06-08] MEDS: Omeprazole 20 MG CAPSULE.DR PO ×2 (08:34→20:48)
[2022-06-08] MEDS: Thiamine HCL 100 MG TABLET PO (08:35)
[2022-06-08] MEDS: amLODIPine Besylate 5 MG TABLET PO (08:35)
[2022-06-08] MEDS: buPROPion HCl XL 300 MG TAB.ER.24H PO (08:35)
[2022-06-08] MEDS: Loratadine 10 MG TABLET PO (08:35)
[2022-06-08] MEDS: Acamprosate Calcium 333 MG TABLET.DR 666 MG PO ×3 (08:35→20:48)
[2022-06-08] MEDS: busPIRone HCl 10 MG TABLET 20 MG PO ×3 (08:46→21:05)
[2022-06-08] MEDS: Calcium + Vitamin D 250 MG TABLET 500 MG PO ×2 (08:46→21:08)
[2022-06-08] MEDS: Baclofen 20 MG TABLET PO ×3 (08:46→21:05)
[2022-06-08] MEDS: Ascorbic Acid 500 MG TABLET PO ×2 (08:46→21:07)
[2022-06-08] MEDS: Amphetamine Mixed Salts 20 MG TABLET PO (12:02)
--- NOTE | 2022-06-08 12:31 | PC.NURSE ---
Patient took meds without difficulty awaiting bed placement. No c/o pain or discomfort at this time.
[2022-06-08 17:02] VITALS: BP 158/77; PULSE 77; RESP 16; TEMP 36.2; O2SAT 99
[2022-06-08] MEDS: Acetaminophen 325 MG TABLET 975 MG PO (19:18)
[2022-06-08] MEDS: LORazepam 0.5 MG TABLET PO (19:18)
[2022-06-08] MEDS: Lurasidone HCl 80 MG TABLET 160 MG PO (19:32)
[2022-06-08] MEDS: lamoTRIgine 100 MG TABLET 200 MG PO (20:48)
[2022-06-08] MEDS: traZODone HCL 100 MG TABLET PO (20:48)
[2022-06-09 01:54] VITALS: BP 132/63; PULSE 69; RESP 16; TEMP 36.4; O2SAT 96
--- NOTE | 2022-06-09 05:12 | PC.NURSE ---
Patient sleep well and comfortably, she was up few time to used the bathroom.Will continue to monitor.
[2022-06-09] MEDS: Amphetamine Mixed Salts 20 MG TABLET PO ×2 (05:55→13:43)
[2022-06-09] MEDS: Levothyroxine Sodium 25 MCG TABLET PO (05:55)
[2022-06-09] MEDS: vancomycin HCL 125 MG CAPSULE PO ×3 (05:55→16:35)
--- NOTE | 2022-06-09 06:00 | PC.NURSE ---
Patient was awake for her medication, denies any pain or discomfort.Will continue to monitor.
[2022-06-09] MEDS: amLODIPine Besylate 5 MG TABLET PO (08:45)
[2022-06-09] MEDS: Thiamine HCL 100 MG TABLET PO (08:45)
[2022-06-09] MEDS: busPIRone HCl 10 MG TABLET 20 MG PO ×3 (08:45→21:45)
[2022-06-09] MEDS: Multivitamin TABLET 1 TAB PO (08:45)
[2022-06-09] MEDS: Omeprazole 20 MG CAPSULE.DR PO ×2 (08:46→20:45)
[2022-06-09] MEDS: buPROPion HCl XL 300 MG TAB.ER.24H PO (08:46)
[2022-06-09] MEDS: Acamprosate Calcium 333 MG TABLET.DR 666 MG PO ×3 (08:46→20:50)
[2022-06-09] MEDS: Gabapentin 400 MG CAPSULE PO ×3 (08:47→20:49)
[2022-06-09] MEDS: Baclofen 20 MG TABLET PO ×3 (08:47→20:49)
[2022-06-09] MEDS: Loratadine 10 MG TABLET PO (08:47)
[2022-06-09] MEDS: Calcium + Vitamin D 250 MG TABLET 500 MG PO ×2 (08:47→20:49)
[2022-06-09] MEDS: Ascorbic Acid 500 MG TABLET PO ×2 (08:47→20:49)
[2022-06-09 10:58] LABS: CDiff Gene PCR POSITIVE (Negative)
--- NOTE | 2022-06-09 11:30 | PC.NURSE ---
anxious but pleasant, medicated as ordered, ate breakfast, states she has not had diarrhea or foul smelling stool at all, sample sent
[2022-06-09 11:35] LABS: CDiff Toxin Negative (Negative)
[2022-06-09 11:36] LABS: CDIFF Internal ctrl Dots and bkg OK (V)
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
--- NOTE | 2022-06-09 17:29 | PC.NURSE ---
watching tv, nad, pleasant and cooperative, pt has some concerns that she would need to isolate in her room if on m5 due to the c diff being +, she talked w the care team and with the licensed psychologist manager about these concerns and the RN PAIN MANAGEMENT was going to check w an ID dr about this
[2022-06-09] MEDS: Lurasidone HCl 80 MG TABLET 160 MG PO (19:45)
[2022-06-09] MEDS: traZODone HCL 100 MG TABLET PO (20:49)
[2022-06-09] MEDS: lamoTRIgine 100 MG TABLET 200 MG PO (20:49)
[2022-06-09] MEDS: LORazepam 1 MG TABLET 2 MG PO (21:01)
--- NOTE | 2022-06-09 23:08 | PC.NURSE ---
Patient still concert about taking her vanco for C-diff, Dr. Barron was made aware of it. Patient pm medication was given ae order, she requested Ativan because she was feeling very anxious, Ativan po given. Will continue to monitor.
[2022-06-10 03:10] VITALS: BP 99/63; PULSE 75; RESP 16; TEMP 36.8; O2SAT 97
[2022-06-10] MEDS: Amphetamine Mixed Salts 20 MG TABLET PO ×2 (05:50→13:23)
[2022-06-10] MEDS: Levothyroxine Sodium 25 MCG TABLET PO (05:50)
--- NOTE | 2022-06-10 06:08 | PC.NURSE ---
Patient was awake, watching TV, pleasant, took am meds without any problems. Will continue to monitor.
--- NOTE | 2022-06-10 07:21 | PC.NURSE ---
pt sleeping at time of shift change, self repositioning in bed.
[2022-06-10 08:31] VITALS: BP 136/77; PULSE 86; RESP 16; O2SAT 99
[2022-06-10] MEDS: Gabapentin 400 MG CAPSULE PO ×3 (08:32→20:28)
[2022-06-10] MEDS: Acamprosate Calcium 333 MG TABLET.DR 666 MG PO ×3 (08:32→20:24)
[2022-06-10] MEDS: amLODIPine Besylate 5 MG TABLET PO (08:32)
[2022-06-10] MEDS: LORazepam 0.5 MG TABLET PO (08:33)
[2022-06-10] MEDS: Loratadine 10 MG TABLET PO (08:33)
[2022-06-10] MEDS: Omeprazole 20 MG CAPSULE.DR PO ×2 (08:33→20:24)
[2022-06-10] MEDS: Multivitamin TABLET 1 TAB PO (08:33)
[2022-06-10] MEDS: Thiamine HCL 100 MG TABLET PO (08:33)
[2022-06-10] MEDS: buPROPion HCl XL 300 MG TAB.ER.24H PO (08:33)
[2022-06-10] MEDS: busPIRone HCl 10 MG TABLET 20 MG PO ×3 (08:57→20:28)
[2022-06-10] MEDS: Ascorbic Acid 500 MG TABLET PO ×2 (08:57→20:24)
[2022-06-10] MEDS: Calcium + Vitamin D 250 MG TABLET 500 MG PO ×2 (08:57→20:24)
[2022-06-10] MEDS: Baclofen 20 MG TABLET PO ×3 (08:58→20:24)
[2022-06-10 15:59] VITALS: BP 155/82; PULSE 84; RESP 16; TEMP 36.8; O2SAT 96; BMI 36.6
[2022-06-10] MEDS: LORazepam 1 MG TABLET PO ×2 (16:43→22:37)
[2022-06-10] MEDS: Lurasidone HCl 80 MG TABLET 160 MG PO (16:44)
[2022-06-10 18:00] VITALS: BP 132/82; PULSE 79; RESP 16; TEMP 36.8; O2SAT 99
[2022-06-10] MEDS: traZODone HCL 100 MG TABLET PO (20:24)
[2022-06-10] MEDS: lamoTRIgine 100 MG TABLET 200 MG PO (20:24)
--- NOTE | 2022-06-10 21:57 | PC.ADMIT ---
Pt is a 52years old female admitted on CV for ETOH abuse and SI with a plan to OD on prescribed medications. Pt is alert and oriented X4, Tox negative, Covid negative. VSS. Pt is known to this unit for her previous visit a couple of days ago. Medical history includes; C-Diff and A-Fib. Pt reports increased depression and resorted to drinking alcohol since her last visit. Sweetie was dropped off by her H after care worker Valentian, who found pt in her apartment unconscious for drinking two gallons of Vodka. Pt endorses SI, denies HI. Pt reports increased depression and anxiety. However, pt reports being safe on the unit. Speech is not pressured, regular with normal rhythm tone and viki. Pt endorses hopelessness, depression and adds that she lacks desire to live. Admission orders obtained.
[2022-06-11] MEDS: Levothyroxine Sodium 25 MCG TABLET PO (05:55)
[2022-06-11] MEDS: Amphetamine Mixed Salts 20 MG TABLET PO ×2 (05:55→13:11)
[2022-06-11 08:33] VITALS: BP 135/97; PULSE 79; RESP 17; TEMP 36.6; O2SAT 100
[2022-06-11] MEDS: Calcium + Vitamin D 250 MG TABLET 500 MG PO ×2 (08:39→22:01)
[2022-06-11] MEDS: Acamprosate Calcium 333 MG TABLET.DR 666 MG PO ×3 (08:39→22:03)
[2022-06-11] MEDS: Gabapentin 400 MG CAPSULE PO ×3 (08:40→22:04)
[2022-06-11] MEDS: Ascorbic Acid 500 MG TABLET PO ×2 (08:40→22:03)
[2022-06-11] MEDS: busPIRone HCl 10 MG TABLET 20 MG PO ×3 (08:40→22:04)
[2022-06-11] MEDS: Baclofen 20 MG TABLET PO ×3 (08:40→22:04)
[2022-06-11] MEDS: Multivitamin TABLET 1 TAB PO ×2 (08:41→22:05)
[2022-06-11] MEDS: amLODIPine Besylate 5 MG TABLET PO (08:41)
[2022-06-11] MEDS: Loratadine 10 MG TABLET PO (08:42)
[2022-06-11] MEDS: buPROPion HCl XL 300 MG TAB.ER.24H PO (08:42)
[2022-06-11] MEDS: Thiamine HCL 100 MG TABLET PO (08:43)
[2022-06-11] MEDS: Omeprazole 20 MG CAPSULE.DR PO ×2 (08:43→22:02)
[2022-06-11 10:14] LABS: Cholesterol 178 mg/dL; Estimated Average Glucose 97 mg/dL; HDL Cholesterol 78 mg/dL; Hemoglobin A1C 90.7056 umol/L; LDL Cholesterol Calculated 89 mg/dl; Magnesium 1.9 mg/dL (1.6-2.6); Triglycerides 55 mg/dL
[2022-06-11 10:37] LABS: Free T4 (Free Thyroxine) 1.29 ng/dL (0.71-1.85); Thyroid Stimulating Hormone 1.15 uIU/mL (0.32-4.0)
[2022-06-11 10:56] LABS: Folate > 20.0 ng/mL (> or = 4.0); Vitamin B12 462 pg/mL (200-900)
[2022-06-11] MEDS: LORazepam 0.5 MG TABLET PO ×2 (14:04→18:31)
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
[2022-06-11] MEDS: Acetaminophen 325 MG TABLET 650 MG PO (17:23)
[2022-06-11] MEDS: OLANZapine 2.5 MG TABLET PO (17:23)
[2022-06-11] MEDS: Lurasidone HCl 80 MG TABLET 160 MG PO (18:31)
[2022-06-11 18:40] VITALS: BP 145/75; PULSE 69; TEMP 36.5
[2022-06-11] MEDS: lamoTRIgine 100 MG TABLET 200 MG PO (22:02)
[2022-06-11] MEDS: traZODone HCL 100 MG TABLET PO (22:02)
[2022-06-12 06:00] VITALS: BP 144/72; PULSE 79; RESP 16; TEMP 36.8; O2SAT 98
[2022-06-12] MEDS: Levothyroxine Sodium 25 MCG TABLET PO (06:15)
[2022-06-12] MEDS: Amphetamine Mixed Salts 20 MG TABLET PO ×2 (06:15→12:20)
[2022-06-12] MEDS: Calcium + Vitamin D 250 MG TABLET 500 MG PO ×2 (08:36→20:54)
[2022-06-12] MEDS: Acamprosate Calcium 333 MG TABLET.DR 666 MG PO ×3 (08:36→20:54)
[2022-06-12] MEDS: Ascorbic Acid 500 MG TABLET PO ×2 (08:36→20:54)
[2022-06-12] MEDS: Gabapentin 400 MG CAPSULE PO ×3 (08:36→20:55)
[2022-06-12] MEDS: Thiamine HCL 100 MG TABLET PO (08:37)
[2022-06-12] MEDS: buPROPion HCl XL 300 MG TAB.ER.24H PO (08:37)
[2022-06-12] MEDS: busPIRone HCl 10 MG TABLET 20 MG PO ×3 (08:37→20:55)
[2022-06-12] MEDS: Omeprazole 20 MG CAPSULE.DR PO ×2 (08:37→20:54)
[2022-06-12] MEDS: amLODIPine Besylate 5 MG TABLET PO (08:37)
[2022-06-12] MEDS: Folic Acid 1 MG TABLET PO (08:37)
[2022-06-12] MEDS: Loratadine 10 MG TABLET PO (08:37)
[2022-06-12] MEDS: Multivitamin TABLET 1 TAB PO ×2 (08:38→20:54)
[2022-06-12] MEDS: Baclofen 20 MG TABLET PO ×3 (08:38→20:54)
[2022-06-12] MEDS: LORazepam 0.5 MG TABLET PO ×3 (08:44→18:46)
[2022-06-12] MEDS: OLANZapine 2.5 MG TABLET PO (11:20)
[2022-06-12] MEDS: Lurasidone HCl 80 MG TABLET 160 MG PO (18:46)
[2022-06-12 19:56] VITALS: BP 141/69; PULSE 78; TEMP 36.4
[2022-06-12] MEDS: lamoTRIgine 100 MG TABLET 200 MG PO (20:54)
[2022-06-12] MEDS: traZODone HCL 100 MG TABLET PO (20:54)
[2022-06-12 23:00] LABS: COVID-19 Test Negative (Negative); IDNOW Serial# 16C4AD1C
[2022-06-13] MEDS: Amphetamine Mixed Salts 20 MG TABLET PO ×2 (05:54→12:43)
[2022-06-13] MEDS: Levothyroxine Sodium 25 MCG TABLET PO (05:54)
[2022-06-13 06:00] VITALS: BP 139/74; PULSE 69; RESP 18; TEMP 36.6; O2SAT 98
[2022-06-13] MEDS: Calcium + Vitamin D 250 MG TABLET 500 MG PO ×2 (09:03→20:32)
[2022-06-13] MEDS: Acamprosate Calcium 333 MG TABLET.DR 666 MG PO ×3 (09:05→20:31)
[2022-06-13] MEDS: amLODIPine Besylate 5 MG TABLET PO (09:06)
[2022-06-13] MEDS: Folic Acid 1 MG TABLET PO (09:07)
[2022-06-13] MEDS: Multivitamin TABLET 1 TAB PO ×2 (09:07→20:32)
[2022-06-13] MEDS: Loratadine 10 MG TABLET PO (09:07)
[2022-06-13] MEDS: buPROPion HCl XL 300 MG TAB.ER.24H PO (09:07)
[2022-06-13] MEDS: Omeprazole 20 MG CAPSULE.DR PO ×2 (09:07→20:32)
[2022-06-13] MEDS: Gabapentin 400 MG CAPSULE PO ×4 (09:08→20:32)
[2022-06-13] MEDS: Baclofen 20 MG TABLET PO ×3 (09:08→20:32)
[2022-06-13] MEDS: busPIRone HCl 10 MG TABLET 20 MG PO ×3 (09:08→20:32)
[2022-06-13] MEDS: Thiamine HCL 100 MG TABLET PO (09:08)
[2022-06-13] MEDS: Ascorbic Acid 500 MG TABLET PO ×2 (09:08→20:32)
[2022-06-13] MEDS: LORazepam 0.5 MG TABLET PO ×4 (09:45→18:24)
[2022-06-13] MEDS: Acetaminophen 325 MG TABLET 650 MG PO (14:11)
[2022-06-13] MEDS: SUMAtriptan succinate 50 MG TABLET PO (14:27)
--- NOTE | 2022-06-13 15:04 | HO.PSYCHPN ---
Subjective Subjective Date of Service: 06/12/22 Reason For Visit: Bipolar disorder, PTSD, alcohol use disorder Subjective Notes: Conditional Voluntary Healthcare Proxy: No Guardianship: No Medical Problems Affecting Mental Status: No Interim History: Olanzapine 2.5 mg not helpful. Will increase to 3.75 mg Timing change of buspirone, campral, baclofen, gabapentin to 1400 per pt request Participating and visable in milieu. Male pt who is currently in distress is triggering to her as he is laughing, yelling, pounding. She is implementing grounding interventions to manage sx. Medication Compliance: Yes Side effects from medications: No Attending Groups: Yes Review of Systems Acute medical concerns: No Medical Review of Systems: unchanged Mental Status Exam Mental Status Exam Patient Appearance: Fatigued Patient Orientation: Person, Place, Time and Situation Level of Consciousness: Alert Patient Behavior: Appropriate, Talkative, Cooperative and Good Eye Contact Mood Description: Depressed Affect Description: Flat Patient Cognition Impaired: No Ability to Follow Directions: Good Speech Pattern: Spontaneous Speech Memory Description: Intact Hallucinations: None Delusions: Not Present Perceptual Disturbances: Depersonalization and Derealization Thought Process: Goal Oriented Thought Content: positive for Circumstantial Depressive Symptoms: Increased Anxiety, Insomnia, Difficulty Sleeping, Changes in Appetite, Loss of Int. in Activity, Feelings of Worthlessness, Hopelessness, Isolating-Friends/Family, Feelings of Guilt, Unhappiness, Increased Fatigue, Thoughts of /Suicide, Loss of Energy and Difficulty Concentrating Judgement: Fair Diagnostics Vital Signs (24Hr): Vital Signs - 24 hr 06/12/22 19:56 06/13/22 06:00 Temperature 97.5 F 97.9 F Pulse Rate 78 69 Respiratory Rate 18 Blood Pressure 141/69 H 139/74 Pulse Oximetry 98 Oxygen Delivery Method Room Air BMI result Body Mass Index 36.6 Labs Results: 06/07/22 19:03 06/07/22 19:03 Labs: Laboratory Results - last 48 hr 06/12/22 22:25 COVID-19 ([facility]) Negative COVID-19 Clin Com See Note Medications Medications Current Medications Acamprosate (Acamprosate Calcium 333 Mg Tablet.) 666 mg PO BID [facility] Last Admin: 06/13/22 09:05 Dose: 666 mg Acamprosate (Acamprosate Calcium 333 Mg Tablet.) 666 mg PO 1400 [facility] Acetaminophen (Acetaminophen 325 Mg Tablet) 650 mg PO Q6H PRN PRN Reason: Headache/Pain Mild Scale (1-3) Last Admin: 06/13/22 14:11 Dose: 650 mg Al Hydroxide/Mg Hydroxide (Magnesium Hydrox/Alum Hydrox 30 Ml Oral.Susp) 30 ml PO Q6H PRN PRN Reason: Heartburn/Nausea Amlodipine Besylate (Amlodipine Besylate 5 Mg Tablet) 5 mg PO DAILY [facility]; Protocol Last Admin: 06/13/22 09:06 Dose: 5 mg Amphetamine/Dextroamphetamine (Amphetamine Mixed Salts 20 Mg Tablet) 20 mg PO BID@0600,1300 [facility] Last Admin: 06/13/22 12:43 Dose: 20 mg Ascorbic Acid (Ascorbic Acid 500 Mg Tablet) 500 mg PO BID [facility] Last Admin: 06/13/22 09:08 Dose: 500 mg Baclofen (Baclofen 20 Mg Tablet) 20 mg PO BID [facility] Last Admin: 06/13/22 09:08 Dose: 20 mg Baclofen (Baclofen 20 Mg Tablet) 20 mg PO 1400 [facility] Bupropion HCl (Bupropion Hcl Xl 300 Mg Tab.Er.24h) 300 mg PO DAILY [facility] Last Admin: 06/13/22 09:07 Dose: 300 mg Buspirone HCl (Buspirone Hcl 10 Mg Tablet) 20 mg PO BID [facility] Last Admin: 06/13/22 09:08 Dose: 20 mg Buspirone HCl (Buspirone Hcl 10 Mg Tablet) 20 mg PO 1400 [facility] Calcium Carbonate/Cholecalciferol (Calcium + Vitamin D 250 Mg Tablet) 500 mg PO BID [facility] Last Admin: 06/13/22 09:03 Dose: 500 mg Clotrimazole (Clotrimazole 1 % Cream 15 Gm Tube) 1 appl TOPICAL BID PRN PRN Reason: Rash Folic Acid (Folic Acid 1 Mg Tablet) 1 mg PO DAILY [facility] Last Admin: 06/13/22 09:07 Dose: 1 mg Gabapentin (Gabapentin 400 Mg Capsule) 400 mg PO 1400 [facility] Last Admin: 06/13/22 09:08 Dose: 400 mg Gabapentin (Gabapentin 400 Mg Capsule) 400 mg PO BID [facility] Last Admin: 06/13/22 11:26 Dose: 400 mg Hydroxyzine HCl (Hydroxyzine Hcl 25 Mg Tablet) 25 mg PO Q6H PRN PRN Reason: Anxiety Lamotrigine (Lamotrigine 25 Mg Tablet) 250 mg PO BEDTIME [facility] Levothyroxine Sodium (Levothyroxine Sodium 25 Mcg Tablet) 25 mcg PO DAILY@0630 [facility] Last Admin: 06/13/22 05:54 Dose: 25 mcg Loratadine (Loratadine 10 Mg Tablet) 10 mg PO DAILY [facility] Last Admin: 06/13/22 09:07 Dose: 10 mg Lorazepam (Lorazepam 1 Mg Tablet) 2 mg PO Q4H PRN PRN Reason: ciwa 13-17 Last Admin: 06/09/22 21:01 Dose: 2 mg Lorazepam (Lorazepam 1 Mg Tablet) 1 mg PO Q4H PRN PRN Reason: ciwa 7-12 Last Admin: 06/10/22 22:37 Dose: 1 mg Lorazepam (Lorazepam 0.5 Mg Tablet) 0.5 mg PO 0900,1400,1830 [facility] Lurasidone HCl (Lurasidone Hcl 80 Mg Tablet) 160 mg PO DAILY@1800 [facility] Last Admin: 06/12/22 18:46 Dose: 160 mg Magnesium Hydroxide (Milk Of Magnesia 30 Ml Oral.Susp) 30 ml PO DAILY PRN PRN Reason: Constipation Multivitamins/Vitamin C (Multivitamin Tablet) 1 tab PO BID [facility] Last Admin: 06/13/22 09:07 Dose: 1 tab Olanzapine (Olanzapine 2.5 Mg Tablet) 3.75 mg PO BID PRN PRN Reason: anxiety Omeprazole (Omeprazole 20 Mg Capsule.Dr) 20 mg PO BID [facility] Last Admin: 06/13/22 09:07 Dose: 20 mg Sumatriptan Succinate (Sumatriptan Succinate 50 Mg Tablet) 50 mg PO DAILY MRX1 PRN PRN Reason: Migraine Headache Thiamine HCl (Thiamine Hcl 100 Mg Tablet) 100 mg PO DAILY [facility] Last Admin: 06/13/22 09:08 Dose: 100 mg Trazodone HCl (Trazodone Hcl 100 Mg Tablet) 100 mg PO BEDTIME [facility] Last Admin: 06/12/22 20:54 Dose: 100 mg Allergies Allergies Allergy/AdvReac Type Severity Reaction Status Date / Time latex [LATEX] Allergy Mild Rash Verified 02/21/22 06:47 leuprolide [From LUPRON] Allergy Unknown HIVES Verified 02/21/22 06:47 Sulfa (Sulfonamide Allergy Unknown RASH Verified 02/21/22 06:48 Antibiotics) [SULFA (SULFONAMIDE ANTIBIOTICS)] ibuprofen AdvReac Intermediate Abdominal Verified 02/21/22 16:53 Pain Assessment & Plan Assessment & Plan (1) Post traumatic stress disorder (PTSD): Status: Acute Code(s): F43.10 - Post-traumatic stress disorder, unspecified (2) Alcohol use disorder: Status: Acute (3) Depression: Status: Acute Code(s): F32.A - Depression, unspecified Plan 52 yo female, hx of PTSD, Depression, Alcohol Use Disorder, recent section 35. Pt returns for admission after a recent discharge where she was restricted in milieu participation due to positive C-Difficile testing. She returns for treatment of PTSD and depression and asks for assistance in admission to a longer term program for addiction, specifically, [facility], recommended by her [facility] acute care registered nurse Valentina. Pt reports an 8 year hx of sobriety that she wants to re-establish and move forward with Medication review completed with Sweetie, discussed with team. -Reviewed buspar tapering-will replace and begin -Olanzapine 2. 5mg bid prn anxiety -Lorazepam 0.5 mg tid -MVI 1 tab daily -Folic acid 1 mg daily -Referrals to TSS programs with pt 06/12/22 -Increase Olanzapine to 3.75 mg bid prn -Med timing of buspirone, campral, baclofen and gabapentin changed to 1400. I spent minutes with the patient and/or on the patient floor today, greater than?50% of which was spent counseling/coordinating care. Patient educated on: medication risk/benefits Informed Consent: understands Reason for contiued inpatient stay Substantial Risk for: rapid decompensation
--- NOTE | 2022-06-13 15:04 | HO.PSYCHPN ---
Subjective Subjective Date of Service: 06/13/22 Reason For Visit: Bipolar disorder, PTSD, alcohol use disorder Subjective Notes: Conditional Voluntary Healthcare Proxy: No Guardianship: No Medical Problems Affecting Mental Status: No Interim History: Sweetie reports scheduled ativan not showing up on Pyxis, discussed with pharmacy who will re-enter. Sleep somewhat improved. Increase on Olanzapine improved effect. Discussion of titration of Lamictal. Pt requesting prn Imitrex Medication Compliance: Yes Side effects from medications: No Attending Groups: Yes Review of Systems Acute medical concerns: No Medical Review of Systems: unchanged Mental Status Exam Mental Status Exam Patient Appearance: Fatigued Patient Orientation: Person, Place, Time and Situation Level of Consciousness: Alert Patient Behavior: Appropriate, Talkative, Cooperative and Good Eye Contact Mood Description: Depressed Affect Description: Flat Patient Cognition Impaired: No Ability to Follow Directions: Good Speech Pattern: Spontaneous Speech Memory Description: Intact Hallucinations: None Delusions: Not Present Perceptual Disturbances: Depersonalization and Derealization Thought Process: Goal Oriented Thought Content: positive for Circumstantial Depressive Symptoms: Increased Anxiety, Insomnia, Difficulty Sleeping, Changes in Appetite, Loss of Int. in Activity, Feelings of Worthlessness, Hopelessness, Isolating-Friends/Family, Feelings of Guilt, Unhappiness, Increased Fatigue, Thoughts of /Suicide, Loss of Energy and Difficulty Concentrating Judgement: Fair Diagnostics Vital Signs (24Hr): Vital Signs - 24 hr 06/12/22 19:56 06/13/22 06:00 Temperature 97.5 F 97.9 F Pulse Rate 78 69 Respiratory Rate 18 Blood Pressure 141/69 H 139/74 Pulse Oximetry 98 Oxygen Delivery Method Room Air BMI result Body Mass Index 36.6 Labs Results: 06/07/22 19:03 06/07/22 19:03 Labs: Laboratory Results - last 48 hr 06/12/22 22:25 COVID-19 ([facility]) Negative COVID-19 Clin Com See Note Medications Medications Current Medications Acamprosate (Acamprosate Calcium 333 Mg Tablet.) 666 mg PO BID [facility] Last Admin: 06/13/22 09:05 Dose: 666 mg Acamprosate (Acamprosate Calcium 333 Mg Tablet.) 666 mg PO 1400 [facility] Acetaminophen (Acetaminophen 325 Mg Tablet) 650 mg PO Q6H PRN PRN Reason: Headache/Pain Mild Scale (1-3) Last Admin: 06/13/22 14:11 Dose: 650 mg Al Hydroxide/Mg Hydroxide (Magnesium Hydrox/Alum Hydrox 30 Ml Oral.Susp) 30 ml PO Q6H PRN PRN Reason: Heartburn/Nausea Amlodipine Besylate (Amlodipine Besylate 5 Mg Tablet) 5 mg PO DAILY [facility]; Protocol Last Admin: 06/13/22 09:06 Dose: 5 mg Amphetamine/Dextroamphetamine (Amphetamine Mixed Salts 20 Mg Tablet) 20 mg PO BID@0600,1300 [facility] Last Admin: 06/13/22 12:43 Dose: 20 mg Ascorbic Acid (Ascorbic Acid 500 Mg Tablet) 500 mg PO BID [facility] Last Admin: 06/13/22 09:08 Dose: 500 mg Baclofen (Baclofen 20 Mg Tablet) 20 mg PO BID [facility] Last Admin: 06/13/22 09:08 Dose: 20 mg Baclofen (Baclofen 20 Mg Tablet) 20 mg PO 1400 [facility] Bupropion HCl (Bupropion Hcl Xl 300 Mg Tab.Er.24h) 300 mg PO DAILY [facility] Last Admin: 06/13/22 09:07 Dose: 300 mg Buspirone HCl (Buspirone Hcl 10 Mg Tablet) 20 mg PO BID [facility] Last Admin: 06/13/22 09:08 Dose: 20 mg Buspirone HCl (Buspirone Hcl 10 Mg Tablet) 20 mg PO 1400 [facility] Calcium Carbonate/Cholecalciferol (Calcium + Vitamin D 250 Mg Tablet) 500 mg PO BID [facility] Last Admin: 06/13/22 09:03 Dose: 500 mg Clotrimazole (Clotrimazole 1 % Cream 15 Gm Tube) 1 appl TOPICAL BID PRN PRN Reason: Rash Folic Acid (Folic Acid 1 Mg Tablet) 1 mg PO DAILY [facility] Last Admin: 06/13/22 09:07 Dose: 1 mg Gabapentin (Gabapentin 400 Mg Capsule) 400 mg PO 1400 [facility] Last Admin: 06/13/22 09:08 Dose: 400 mg Gabapentin (Gabapentin 400 Mg Capsule) 400 mg PO BID [facility] Last Admin: 06/13/22 11:26 Dose: 400 mg Hydroxyzine HCl (Hydroxyzine Hcl 25 Mg Tablet) 25 mg PO Q6H PRN PRN Reason: Anxiety Lamotrigine (Lamotrigine 25 Mg Tablet) 250 mg PO BEDTIME [facility] Levothyroxine Sodium (Levothyroxine Sodium 25 Mcg Tablet) 25 mcg PO DAILY@0630 [facility] Last Admin: 06/13/22 05:54 Dose: 25 mcg Loratadine (Loratadine 10 Mg Tablet) 10 mg PO DAILY [facility] Last Admin: 06/13/22 09:07 Dose: 10 mg Lorazepam (Lorazepam 1 Mg Tablet) 2 mg PO Q4H PRN PRN Reason: ciwa 13-17 Last Admin: 06/09/22 21:01 Dose: 2 mg Lorazepam (Lorazepam 1 Mg Tablet) 1 mg PO Q4H PRN PRN Reason: ciwa 7-12 Last Admin: 06/10/22 22:37 Dose: 1 mg Lorazepam (Lorazepam 0.5 Mg Tablet) 0.5 mg PO 0900,1400,1830 [facility] Lurasidone HCl (Lurasidone Hcl 80 Mg Tablet) 160 mg PO DAILY@1800 [facility] Last Admin: 06/12/22 18:46 Dose: 160 mg Magnesium Hydroxide (Milk Of Magnesia 30 Ml Oral.Susp) 30 ml PO DAILY PRN PRN Reason: Constipation Multivitamins/Vitamin C (Multivitamin Tablet) 1 tab PO BID [facility] Last Admin: 06/13/22 09:07 Dose: 1 tab Olanzapine (Olanzapine 2.5 Mg Tablet) 3.75 mg PO BID PRN PRN Reason: anxiety Omeprazole (Omeprazole 20 Mg Capsule.Dr) 20 mg PO BID [facility] Last Admin: 06/13/22 09:07 Dose: 20 mg Sumatriptan Succinate (Sumatriptan Succinate 50 Mg Tablet) 50 mg PO DAILY MRX1 PRN PRN Reason: Migraine Headache Thiamine HCl (Thiamine Hcl 100 Mg Tablet) 100 mg PO DAILY [facility] Last Admin: 06/13/22 09:08 Dose: 100 mg Trazodone HCl (Trazodone Hcl 100 Mg Tablet) 100 mg PO BEDTIME [facility] Last Admin: 06/12/22 20:54 Dose: 100 mg Allergies Allergies Allergy/AdvReac Type Severity Reaction Status Date / Time latex [LATEX] Allergy Mild Rash Verified 02/21/22 06:47 leuprolide [From LUPRON] Allergy Unknown HIVES Verified 02/21/22 06:47 Sulfa (Sulfonamide Allergy Unknown RASH Verified 02/21/22 06:48 Antibiotics) [SULFA (SULFONAMIDE ANTIBIOTICS)] ibuprofen AdvReac Intermediate Abdominal Verified 02/21/22 16:53 Pain Assessment & Plan Assessment & Plan (1) Post traumatic stress disorder (PTSD): Status: Acute Code(s): F43.10 - Post-traumatic stress disorder, unspecified (2) Alcohol use disorder: Status: Acute (3) Depression: Status: Acute Code(s): F32.A - Depression, unspecified Plan 52 yo female, hx of PTSD, Depression, Alcohol Use Disorder, recent section 35. Pt returns for admission after a recent discharge where she was restricted in milieu participation due to positive C-Difficile testing. She returns for treatment of PTSD and depression and asks for assistance in admission to a longer term program for addiction, specifically, [facility], recommended by her [facility] personal caregiver Valentina. Pt reports an 8 year hx of sobriety that she wants to re-establish and move forward with Medication review completed with Sweetie, discussed with team. -Reviewed buspar tapering-will replace and begin -Olanzapine 2. 5mg bid prn anxiety -Lorazepam 0.5 mg tid -MVI 1 tab daily -Folic acid 1 mg daily -Referrals to TSS programs with pt 06/13/22- Increase Lamictal by 50 mg Imitrex prn I spent minutes with the patient and/or on the patient floor today, greater than?50% of which was spent counseling/coordinating care. Patient educated on: medication risk/benefits and therapeutic strategies Informed Consent: understands Reason for contiued inpatient stay Substantial Risk for: harm to self and rapid decompensation
[2022-06-13] MEDS: OLANZapine 2.5 MG TABLET 3.75 MG PO (16:14)
[2022-06-13] MEDS: Lurasidone HCl 80 MG TABLET 160 MG PO (18:24)
[2022-06-13 18:55] VITALS: BP 118/56; PULSE 83; TEMP 36.4
[2022-06-13] MEDS: lamoTRIgine 100 MG TABLET 250 MG PO (20:30)
[2022-06-13] MEDS: traZODone HCL 100 MG TABLET PO (20:33)
[2022-06-14] MEDS: Levothyroxine Sodium 25 MCG TABLET PO (05:52)
[2022-06-14] MEDS: Amphetamine Mixed Salts 20 MG TABLET PO ×2 (05:52→12:35)
[2022-06-14 06:00] VITALS: BP 124/82; PULSE 84; RESP 20; TEMP 36.6; O2SAT 98
[2022-06-14] MEDS: Multivitamin TABLET 1 TAB PO ×2 (08:30→21:08)
[2022-06-14] MEDS: buPROPion HCl XL 300 MG TAB.ER.24H PO (08:30)
[2022-06-14] MEDS: LORazepam 0.5 MG TABLET PO ×3 (08:30→18:16)
[2022-06-14] MEDS: Thiamine HCL 100 MG TABLET PO (08:30)
[2022-06-14] MEDS: Calcium + Vitamin D 250 MG TABLET 500 MG PO ×2 (08:31→21:08)
[2022-06-14] MEDS: busPIRone HCl 10 MG TABLET 20 MG PO ×3 (08:31→21:08)
[2022-06-14] MEDS: Ascorbic Acid 500 MG TABLET PO ×2 (08:31→21:08)
[2022-06-14] MEDS: amLODIPine Besylate 5 MG TABLET PO (08:31)
[2022-06-14] MEDS: Acamprosate Calcium 333 MG TABLET.DR 666 MG PO ×3 (08:31→21:08)
[2022-06-14] MEDS: Loratadine 10 MG TABLET PO (08:32)
[2022-06-14] MEDS: Baclofen 20 MG TABLET PO ×3 (08:32→21:08)
[2022-06-14] MEDS: Omeprazole 20 MG CAPSULE.DR PO ×2 (08:32→21:08)
[2022-06-14] MEDS: Folic Acid 1 MG TABLET PO (08:32)
[2022-06-14] MEDS: Gabapentin 400 MG CAPSULE PO ×3 (08:32→21:08)
[2022-06-14] MEDS: OLANZapine 2.5 MG TABLET 3.75 MG PO ×2 (16:38→21:09)
[2022-06-14] MEDS: Lurasidone HCl 80 MG TABLET 160 MG PO (18:15)
[2022-06-14 19:06] VITALS: BP 141/76; PULSE 80; RESP 18; TEMP 36.6; O2SAT 99
[2022-06-14] MEDS: lamoTRIgine 100 MG TABLET 250 MG PO (21:08)
[2022-06-14] MEDS: traZODone HCL 100 MG TABLET PO (21:08)
--- NOTE | 2022-06-14 22:25 | P.PNPSI_ITS ---
Subjective Subjective Date of Service: 06/14/22 Reason For Visit: Bipolar disorder, PTSD, alcohol use disorder Subjective Notes: Maria Warning and Conditional Voluntary Healthcare Proxy: No Guardianship: No Medical Problems Affecting Mental Status: No Interim History: Met with pt's team. Spoke with pt. Per pt, as the day progresses my depression goes into the toilet and my anxiety goes up, feels she does better in the morning. Pt says she still feels depressed but not devastated. Discussed recent stressors/ precipitating factors, says her depression is deeper and has hit a brand new low in the last couple months. Discloses she was chronically relapsing on alcohol. Feels so isolated. Interested in [facility]. Still getting used to the PRN zyprexa, it makes me sleepy but feels it took some of the knots inside down a lot and she no longer feels like she is going to sob at the drop of a hat. Ativan is helping. Plans to d/c buspar. Medication Compliance: Yes Side effects from medications: No Attending Groups: Yes Review of Systems Acute medical concerns: No Medical Review of Systems: unchanged Mental Status Exam Mental Status Exam Narrative: Patient Appearance: Fatigued Patient Orientation: Person, Place, Time and Situation Level of Consciousness: Alert Patient Behavior: Appropriate, Talkative, Cooperative and Good Eye Contact Mood Description: Depressed Affect Description: Flat Patient Cognition Impaired: No Ability to Follow Directions: Good Speech Pattern: Spontaneous Speech Memory Description: Intact Hallucinations: None Delusions: Not Present Perceptual Disturbances: Depersonalization and Derealization Thought Process: Goal Oriented Thought Content: positive for Circumstantial Depressive Symptoms: Increased Anxiety, Insomnia, Difficulty Sleeping, Changes in Appetite, Loss of Int. in Activity, Feelings of Worthlessness, Hopelessness, Isolating-Friends/Family, Feelings of Guilt, Unhappiness, Increased Fatigue, Thoughts of /Suicide, Loss of Energy and Difficulty Concentrating Judgement: Fair Diagnostics Vital Signs (24Hr): Vital Signs - 24 hr 06/14/22 06:00 06/14/22 19:06 Temperature 97.8 F 97.9 F Pulse Rate 84 80 Respiratory Rate 20 18 Blood Pressure 124/82 141/76 H Pulse Oximetry 98 99 Oxygen Delivery Method Room Air Room Air BMI result Body Mass Index 36.6 Labs Results: 06/07/22 19:03 06/07/22 19:03 Labs: Laboratory Results - last 48 hr 06/12/22 22:25 COVID-19 ([facility]) Negative COVID-19 Clin Com See Note Medications Medications Current Medications Acamprosate (Acamprosate Calcium 333 Mg Tablet.) 666 mg PO BID [facility] Last Admin: 06/14/22 21:08 Dose: 666 mg Acamprosate (Acamprosate Calcium 333 Mg Tablet.) 666 mg PO 1400 [facility] Last Admin: 06/14/22 14:37 Dose: 666 mg Acetaminophen (Acetaminophen 325 Mg Tablet) 650 mg PO Q6H PRN PRN Reason: Headache/Pain Mild Scale (1-3) Last Admin: 06/13/22 14:11 Dose: 650 mg Al Hydroxide/Mg Hydroxide (Magnesium Hydrox/Alum Hydrox 30 Ml Oral.Susp) 30 ml PO Q6H PRN PRN Reason: Heartburn/Nausea Amlodipine Besylate (Amlodipine Besylate 5 Mg Tablet) 5 mg PO DAILY [facility]; Protocol Last Admin: 06/14/22 08:31 Dose: 5 mg Amphetamine/Dextroamphetamine (Amphetamine Mixed Salts 20 Mg Tablet) 20 mg PO BID@0600,1300 [facility] Last Admin: 06/14/22 12:35 Dose: 20 mg Ascorbic Acid (Ascorbic Acid 500 Mg Tablet) 500 mg PO BID [facility] Last Admin: 06/14/22 21:08 Dose: 500 mg Baclofen (Baclofen 20 Mg Tablet) 20 mg PO BID [facility] Last Admin: 06/14/22 21:08 Dose: 20 mg Baclofen (Baclofen 20 Mg Tablet) 20 mg PO 1400 [facility] Last Admin: 06/14/22 14:37 Dose: 20 mg Bupropion HCl (Bupropion Hcl Xl 300 Mg Tab.Er.24h) 300 mg PO DAILY [facility] Last Admin: 06/14/22 08:30 Dose: 300 mg Buspirone HCl (Buspirone Hcl 10 Mg Tablet) 20 mg PO BID [facility] Last Admin: 06/14/22 21:08 Dose: 20 mg Buspirone HCl (Buspirone Hcl 10 Mg Tablet) 20 mg PO 1400 [facility] Last Admin: 06/14/22 14:37 Dose: 20 mg Calcium Carbonate/Cholecalciferol (Calcium + Vitamin D 250 Mg Tablet) 500 mg PO BID [facility] Last Admin: 06/14/22 21:08 Dose: 500 mg Clotrimazole (Clotrimazole 1 % Cream 15 Gm Tube) 1 appl TOPICAL BID PRN PRN Reason: Rash Folic Acid (Folic Acid 1 Mg Tablet) 1 mg PO DAILY [facility] Last Admin: 06/14/22 08:32 Dose: 1 mg Gabapentin (Gabapentin 400 Mg Capsule) 400 mg PO 1400 [facility] Last Admin: 06/14/22 14:37 Dose: 400 mg Gabapentin (Gabapentin 400 Mg Capsule) 400 mg PO BID [facility] Last Admin: 06/14/22 21:08 Dose: 400 mg Hydroxyzine HCl (Hydroxyzine Hcl 25 Mg Tablet) 25 mg PO Q6H PRN PRN Reason: Anxiety Lamotrigine (Lamotrigine 100 Mg Tablet) 250 mg PO BEDTIME [facility] Last Admin: 06/14/22 21:08 Dose: 250 mg Levothyroxine Sodium (Levothyroxine Sodium 25 Mcg Tablet) 25 mcg PO DAILY@0630 [facility] Last Admin: 06/14/22 05:52 Dose: 25 mcg Loratadine (Loratadine 10 Mg Tablet) 10 mg PO DAILY [facility] Last Admin: 06/14/22 08:32 Dose: 10 mg Lorazepam (Lorazepam 0.5 Mg Tablet) 0.5 mg PO 0900,1400,1830 [facility] Last Admin: 06/14/22 18:16 Dose: 0.5 mg Lorazepam (Lorazepam 0.5 Mg Tablet) 0.5 mg PO DAILY PRN PRN Reason: agitation, anxiety Last Admin: 06/13/22 18:24 Dose: 0.5 mg Lurasidone HCl (Lurasidone Hcl 80 Mg Tablet) 160 mg PO DAILY@1800 [facility] Last Admin: 06/14/22 18:15 Dose: 160 mg Magnesium Hydroxide (Milk Of Magnesia 30 Ml Oral.Susp) 30 ml PO DAILY PRN PRN Reason: Constipation Multivitamins/Vitamin C (Multivitamin Tablet) 1 tab PO BID [facility] Last Admin: 06/14/22 21:08 Dose: 1 tab Olanzapine (Olanzapine 2.5 Mg Tablet) 3.75 mg PO BID PRN PRN Reason: anxiety Last Admin: 06/14/22 21:09 Dose: 3.75 mg Omeprazole (Omeprazole 20 Mg Capsule.Dr) 20 mg PO BID [facility] Last Admin: 06/14/22 21:08 Dose: 20 mg Sumatriptan Succinate (Sumatriptan Succinate 50 Mg Tablet) 50 mg PO DAILY MRX1 PRN PRN Reason: Migraine Headache Thiamine HCl (Thiamine Hcl 100 Mg Tablet) 100 mg PO DAILY [facility] Last Admin: 06/14/22 08:30 Dose: 100 mg Trazodone HCl (Trazodone Hcl 100 Mg Tablet) 100 mg PO BEDTIME [facility] Last Admin: 06/14/22 21:08 Dose: 100 mg Allergies Allergies Allergy/AdvReac Type Severity Reaction Status Date / Time latex [LATEX] Allergy Mild Rash Verified 02/21/22 06:47 leuprolide [From LUPRON] Allergy Unknown HIVES Verified 02/21/22 06:47 Sulfa (Sulfonamide Allergy Unknown RASH Verified 02/21/22 06:48 Antibiotics) [SULFA (SULFONAMIDE ANTIBIOTICS)] ibuprofen AdvReac Intermediate Abdominal Verified 02/21/22 16:53 Pain Assessment & Plan Assessment & Plan (1) Post traumatic stress disorder (PTSD): Status: Acute Code(s): F43.10 - Post-traumatic stress disorder, unspecified (2) Alcohol use disorder: Status: Acute (3) Depression: Status: Acute Code(s): F32.A - Depression, unspecified Plan 52 yo female, hx of PTSD, Depression, Alcohol Use Disorder, recent section 35. Pt returns for admission after a recent discharge where she was restricted in milieu participation due to positive C-Difficile testing. She returns for treatment of PTSD and depression and asks for assistance in admission to a longer term program for addiction, specifically, [facility], recommended by her [facility] hospice spiritual care coordinator Valentina. Pt reports an 8 year hx of sobriety that she wants to re- establish and move forward with Medication review completed with Sweetie, discussed with team. -Reviewed buspar tapering-will replace and begin -Olanzapine 2. 5mg bid prn anxiety -Lorazepam 0.5 mg tid -MVI 1 tab daily -Folic acid 1 mg daily -Referrals to TSS programs with pt 06/13/22- Increase Lamictal by 50 mg Imitrex prn 06/14/22- no med changes, continue trial on PRN zyprexa I spent minutes with the patient and/or on the patient floor today, greater than?50% of which was spent counseling/coordinating care. Patient educated on: diagnosis, medication risk/benefits and therapeutic strategies Reason for contiued inpatient stay Substantial Risk for: harm to self, rapid decompensation and med/psych decompensation
[2022-06-15 06:00] VITALS: BP 128/82; PULSE 67; RESP 18; TEMP 36.4; O2SAT 100
[2022-06-15] MEDS: Levothyroxine Sodium 25 MCG TABLET PO (06:01)
[2022-06-15] MEDS: Amphetamine Mixed Salts 20 MG TABLET PO ×2 (06:01→12:57)
[2022-06-15] MEDS: Acamprosate Calcium 333 MG TABLET.DR 666 MG PO ×2 (08:34→20:16)
[2022-06-15] MEDS: buPROPion HCl XL 300 MG TAB.ER.24H PO (08:35)
[2022-06-15] MEDS: Calcium + Vitamin D 250 MG TABLET 500 MG PO ×2 (08:35→20:15)
[2022-06-15] MEDS: Omeprazole 20 MG CAPSULE.DR PO ×2 (08:35→20:17)
[2022-06-15] MEDS: Folic Acid 1 MG TABLET PO (08:35)
[2022-06-15] MEDS: Loratadine 10 MG TABLET PO (08:35)
[2022-06-15] MEDS: Baclofen 20 MG TABLET PO ×3 (08:35→20:17)
[2022-06-15] MEDS: Multivitamin TABLET 1 TAB PO ×2 (08:35→20:17)
[2022-06-15] MEDS: busPIRone HCl 10 MG TABLET 20 MG PO (08:35)
[2022-06-15] MEDS: amLODIPine Besylate 5 MG TABLET PO (08:35)
[2022-06-15] MEDS: Ascorbic Acid 500 MG TABLET PO ×2 (08:36→20:17)
[2022-06-15] MEDS: Thiamine HCL 100 MG TABLET PO (08:36)
[2022-06-15] MEDS: Gabapentin 400 MG CAPSULE PO ×3 (08:36→20:15)
[2022-06-15] MEDS: LORazepam 0.5 MG TABLET PO ×4 (08:42→18:17)
--- NOTE | 2022-06-15 13:07 | P.PNPSI_ITS ---
Subjective Subjective Date of Service: 06/15/22 Reason For Visit: Bipolar disorder, PTSD, alcohol use disorder Interim History: Met withpt, discussed with team. Says she feels triggered and activated by people here. Has contemplated only taking a few of her meds as a self harm measure, nothing makes me feel better right now, Always bounce back fine from medication anyway, fuck the taper. Wants someone to see I have [emotional] pain. Medication Compliance: Intermittent Mental Status Exam Mental Status Exam Narrative: Patient Appearance: Fatigued Patient Orientation: Person, Place, Time and Situation Level of Consciousness: Alert Patient Behavior: Appropriate, Talkative, Cooperative and Good Eye Contact Mood Description: Depressed Affect Description: Flat Patient Cognition Impaired: No Ability to Follow Directions: Good Speech Pattern: Spontaneous Speech Memory Description: Intact Hallucinations: None Delusions: Not Present Perceptual Disturbances: Depersonalization and Derealization Thought Process: Goal Oriented Thought Content: positive for Circumstantial Depressive Symptoms: Increased Anxiety, Insomnia, Difficulty Sleeping, Changes in Appetite, Loss of Int. in Activity, Feelings of Worthlessness, Hopelessness, Isolating-Friends/Family, Feelings of Guilt, Unhappiness, Increased Fatigue, Thoughts of /Suicide, Loss of Energy and Difficulty Concentrating Judgement: Fair Diagnostics Vital Signs (24Hr): Vital Signs - 24 hr 06/14/22 19:06 06/15/22 06:00 Temperature 97.9 F 97.5 F Pulse Rate 80 67 Respiratory Rate 18 18 Blood Pressure 141/76 H 128/82 Pulse Oximetry 99 100 Oxygen Delivery Method Room Air Room Air BMI result Body Mass Index 36.6 Labs Results: 06/07/22 19:03 06/07/22 19:03 Medications Medications Current Medications Acamprosate (Acamprosate Calcium 333 Mg Tablet.) 666 mg PO BID [facility] Last Admin: 06/15/22 08:34 Dose: 666 mg Acamprosate (Acamprosate Calcium 333 Mg Tablet.) 666 mg PO 1400 [facility] Last Admin: 06/14/22 14:37 Dose: 666 mg Acetaminophen (Acetaminophen 325 Mg Tablet) 650 mg PO Q6H PRN PRN Reason: Headache/Pain Mild Scale (1-3) Last Admin: 06/13/22 14:11 Dose: 650 mg Al Hydroxide/Mg Hydroxide (Magnesium Hydrox/Alum Hydrox 30 Ml Oral.Susp) 30 ml PO Q6H PRN PRN Reason: Heartburn/Nausea Amlodipine Besylate (Amlodipine Besylate 5 Mg Tablet) 5 mg PO DAILY [facility]; Protocol Last Admin: 06/15/22 08:35 Dose: 5 mg Amphetamine/Dextroamphetamine (Amphetamine Mixed Salts 20 Mg Tablet) 20 mg PO BID@0600,1300 [facility] Last Admin: 06/15/22 12:57 Dose: 20 mg Ascorbic Acid (Ascorbic Acid 500 Mg Tablet) 500 mg PO BID [facility] Last Admin: 06/15/22 08:36 Dose: 500 mg Baclofen (Baclofen 20 Mg Tablet) 20 mg PO BID [facility] Last Admin: 06/15/22 08:35 Dose: 20 mg Baclofen (Baclofen 20 Mg Tablet) 20 mg PO 1400 [facility] Last Admin: 06/14/22 14:37 Dose: 20 mg Bupropion HCl (Bupropion Hcl Xl 300 Mg Tab.Er.24h) 300 mg PO DAILY [facility] Last Admin: 06/15/22 08:35 Dose: 300 mg Buspirone HCl (Buspirone Hcl 10 Mg Tablet) 20 mg PO BID [facility] Last Admin: 06/15/22 08:35 Dose: 20 mg Buspirone HCl (Buspirone Hcl 10 Mg Tablet) 20 mg PO 1400 [facility] Last Admin: 06/14/22 14:37 Dose: 20 mg Calcium Carbonate/Cholecalciferol (Calcium + Vitamin D 250 Mg Tablet) 500 mg PO BID [facility] Last Admin: 06/15/22 08:35 Dose: 500 mg Clotrimazole (Clotrimazole 1 % Cream 15 Gm Tube) 1 appl TOPICAL BID PRN PRN Reason: Rash Folic Acid (Folic Acid 1 Mg Tablet) 1 mg PO DAILY [facility] Last Admin: 06/15/22 08:35 Dose: 1 mg Gabapentin (Gabapentin 400 Mg Capsule) 400 mg PO 1400 [facility] Last Admin: 06/14/22 14:37 Dose: 400 mg Gabapentin (Gabapentin 400 Mg Capsule) 400 mg PO BID [facility] Last Admin: 06/15/22 08:36 Dose: 400 mg Hydroxyzine HCl (Hydroxyzine Hcl 25 Mg Tablet) 25 mg PO Q6H PRN PRN Reason: Anxiety Lamotrigine (Lamotrigine 100 Mg Tablet) 250 mg PO BEDTIME [facility] Last Admin: 06/14/22 21:08 Dose: 250 mg Levothyroxine Sodium (Levothyroxine Sodium 25 Mcg Tablet) 25 mcg PO DAILY@0630 [facility] Last Admin: 06/15/22 06:01 Dose: 25 mcg Loratadine (Loratadine 10 Mg Tablet) 10 mg PO DAILY [facility] Last Admin: 06/15/22 08:35 Dose: 10 mg Lorazepam (Lorazepam 0.5 Mg Tablet) 0.5 mg PO 0900,1400,1830 [facility] Last Admin: 06/15/22 08:42 Dose: 0.5 mg Lorazepam (Lorazepam 0.5 Mg Tablet) 0.5 mg PO DAILY PRN PRN Reason: agitation, anxiety Last Admin: 06/15/22 11:39 Dose: 0.5 mg Lurasidone HCl (Lurasidone Hcl 80 Mg Tablet) 160 mg PO DAILY@1800 [facility] Last Admin: 06/14/22 18:15 Dose: 160 mg Magnesium Hydroxide (Milk Of Magnesia 30 Ml Oral.Susp) 30 ml PO DAILY PRN PRN Reason: Constipation Multivitamins/Vitamin C (Multivitamin Tablet) 1 tab PO BID [facility] Last Admin: 06/15/22 08:35 Dose: 1 tab Olanzapine (Olanzapine 2.5 Mg Tablet) 3.75 mg PO BID PRN PRN Reason: anxiety Last Admin: 06/14/22 21:09 Dose: 3.75 mg Omeprazole (Omeprazole 20 Mg Capsule.Dr) 20 mg PO BID [facility] Last Admin: 06/15/22 08:35 Dose: 20 mg Sumatriptan Succinate (Sumatriptan Succinate 50 Mg Tablet) 50 mg PO DAILY MRX1 PRN PRN Reason: Migraine Headache Thiamine HCl (Thiamine Hcl 100 Mg Tablet) 100 mg PO DAILY [facility] Last Admin: 06/15/22 08:36 Dose: 100 mg Trazodone HCl (Trazodone Hcl 100 Mg Tablet) 100 mg PO BEDTIME [facility] Last Admin: 06/14/22 21:08 Dose: 100 mg Allergies Allergies Allergy/AdvReac Type Severity Reaction Status Date / Time latex [LATEX] Allergy Mild Rash Verified 02/21/22 06:47 leuprolide [From LUPRON] Allergy Unknown HIVES Verified 02/21/22 06:47 Sulfa (Sulfonamide Allergy Unknown RASH Verified 02/21/22 06:48 Antibiotics) [SULFA (SULFONAMIDE ANTIBIOTICS)] ibuprofen AdvReac Intermediate Abdominal Verified 02/21/22 16:53 Pain Assessment & Plan Assessment & Plan (1) Post traumatic stress disorder (PTSD): Status: Acute Code(s): F43.10 - Post-traumatic stress disorder, unspecified (2) Alcohol use disorder: Status: Acute (3) Depression: Status: Acute Code(s): F32.A - Depression, unspecified Plan 52 yo female, hx of PTSD, Depression, Alcohol Use Disorder, recent section 35. Pt returns for admission after a recent discharge where she was restricted in milieu participation due to positive C-Difficile testing. She returns for treatment of PTSD and depression and asks for assistance in admission to a longer term program for addiction, specifically, [facility], recommended by her [facility] spiritual care coordinator Valentina. Pt reports an 8 year hx of sobriety that she wants to re-establish and move forward with Medication review completed with Sweetie, discussed with team. -Reviewed buspar tapering-will replace and begin -Olanzapine 2. 5mg bid prn anxiety -Lorazepam 0.5 mg tid -MVI 1 tab daily -Folic acid 1 mg daily -Referrals to TSS programs with pt 06/13/22- Increase Lamictal by 50 mg Imitrex prn 06/14/22- no med changes, continue trial on PRN zyprexa 06/15/22- no med changes I spent minutes with the patient and/or on the patient floor today, greater than?50% of which was spent counseling/coordinating care. Patient educated on: diagnosis, medication risk/benefits and therapeutic strategies Reason for contiued inpatient stay Substantial Risk for: harm to self and med/psych decompensation
[2022-06-15 17:28] VITALS: BP 183/86; PULSE 82; TEMP 36.8; O2SAT 100
[2022-06-15] MEDS: OLANZapine 2.5 MG TABLET 3.75 MG PO (17:31)
[2022-06-15] MEDS: Lurasidone HCl 80 MG TABLET 160 MG PO (18:16)
[2022-06-15] MEDS: lamoTRIgine 100 MG TABLET 250 MG PO (20:16)
[2022-06-15] MEDS: traZODone HCL 100 MG TABLET PO (20:17)
[2022-06-16] MEDS: hydrOXYzine HCL 25 MG TABLET PO (02:48)
[2022-06-16] MEDS: Levothyroxine Sodium 25 MCG TABLET PO (05:39)
[2022-06-16] MEDS: Amphetamine Mixed Salts 20 MG TABLET PO ×2 (05:39→14:58)
[2022-06-16 08:50] VITALS: BP 128/79; PULSE 75; RESP 16; TEMP 36.7; O2SAT 99
[2022-06-16] MEDS: Thiamine HCL 100 MG TABLET PO (09:08)
[2022-06-16] MEDS: buPROPion HCl XL 300 MG TAB.ER.24H PO (09:08)
[2022-06-16] MEDS: Omeprazole 20 MG CAPSULE.DR PO ×2 (09:08→21:20)
[2022-06-16] MEDS: Folic Acid 1 MG TABLET PO (09:08)
[2022-06-16] MEDS: Gabapentin 400 MG CAPSULE PO ×3 (09:09→21:21)
[2022-06-16] MEDS: Loratadine 10 MG TABLET PO (09:09)
[2022-06-16] MEDS: Ascorbic Acid 500 MG TABLET PO ×2 (09:09→21:20)
[2022-06-16] MEDS: Multivitamin TABLET 1 TAB PO ×2 (09:09→21:20)
[2022-06-16] MEDS: amLODIPine Besylate 5 MG TABLET PO (09:09)
[2022-06-16] MEDS: Calcium + Vitamin D 250 MG TABLET 500 MG PO ×2 (09:09→21:21)
[2022-06-16] MEDS: Clotrimazole 1 % Cream 15 GM TUBE 1 APPL TOPICAL (09:10)
[2022-06-16] MEDS: Acamprosate Calcium 333 MG TABLET.DR 666 MG PO ×3 (09:10→21:20)
[2022-06-16] MEDS: Baclofen 20 MG TABLET PO ×3 (09:10→21:20)
--- NOTE | 2022-06-16 10:44 | P.PNPSI_ITS ---
Subjective Subjective Date of Service: 06/16/22 Reason For Visit: Bipolar disorder, PTSD, alcohol use disorder Interim History: Patient upset, crying, lamenting why so many bad things happen to her in her life. She shared about in the past she had a therapist that really helped her to understand that she herself was not poison but rather that as a little girl, she thought that way about herself as a coping skill. The patient says right now she thinks she is poison and that it is inevitable that things will go badly. However with more discussion patient was willing to reconsider her perspective and try again to remember the progress she has made in the past, overcoming self-deprecating thoughts. Discussed how alcohol abuse makes any problem worse and the struggle for sobrie ty will have a lot to do with her stability Discussed Adderall and concerned that patient abscond did with tablet and tried to snorted; she agrees that she hit it but denies that she snorted it at all. She said she was just embarrassed that it was presented to her and front of others. Mental Status Exam Mental Status Exam Patient Appearance: Appropriate Patient Orientation: Person, Place, Time and Situation Level of Consciousness: Alert Patient Behavior: Talkative, Cooperative, Good Eye Contact and Impulsive Mood Description: Constricted and Depressed Affect Description: Flat Patient Cognition Impaired: No Ability to Follow Directions: Fair (or less then) Speech Pattern: Clear and Spontaneous Speech Memory Description: Intact Hallucinations: None Delusions: Not Present Perceptual Disturbances: Depersonalization and Derealization Thought Process: Goal Oriented (also circumstantial) Thought Content: positive for Perseveration (past upsetting events), positive for Suicidal Ideation (denies) and positive for Homicidal Ideation (denies) Depressive Symptoms: Increased Anxiety, Insomnia, Difficulty Sleeping, Changes in Appetite, Loss of Int. in Activity, Feelings of Worthlessness, Hopelessness, Isolating-Friends/Family, Feelings of Guilt, Unhappiness, Increased Fatigue, Loss of Energy and Difficulty Concentrating Abnormal Motor Activity Signs and Symptoms: Restlessness Judgement and Insight: impaired Diagnostics Vital Signs (24Hr): Vital Signs - 24 hr 06/15/22 17:28 06/16/22 08:50 Temperature 98.3 F 98.1 F Pulse Rate 82 75 Respiratory Rate 16 Blood Pressure 183/86 H 128/79 Pulse Oximetry 100 99 Oxygen Delivery Method Room Air Room Air BMI result Body Mass Index 36.6 Labs Results: 06/07/22 19:03 06/07/22 19:03 Medications Medications Current Medications Acamprosate (Acamprosate Calcium 333 Mg Tablet.) 666 mg PO BID [facility] Last Admin: 06/16/22 09:10 Dose: 666 mg Acamprosate (Acamprosate Calcium 333 Mg Tablet.) 666 mg PO 1400 [facility] Last Admin: 06/15/22 14:35 Dose: Not Given Acetaminophen (Acetaminophen 325 Mg Tablet) 650 mg PO Q6H PRN PRN Reason: Headache/Pain Mild Scale (1-3) Last Admin: 06/13/22 14:11 Dose: 650 mg Al Hydroxide/Mg Hydroxide (Magnesium Hydrox/Alum Hydrox 30 Ml Oral.Susp) 30 ml PO Q6H PRN PRN Reason: Heartburn/Nausea Amlodipine Besylate (Amlodipine Besylate 5 Mg Tablet) 5 mg PO DAILY [facility]; Protocol Last Admin: 06/16/22 09:09 Dose: 5 mg Amphetamine/Dextroamphetamine (Amphetamine Mixed Salts 20 Mg Tablet) 20 mg PO BID@0600,1300 [facility] Last Admin: 06/16/22 05:39 Dose: 20 mg Ascorbic Acid (Ascorbic Acid 500 Mg Tablet) 500 mg PO BID [facility] Last Admin: 06/16/22 09:09 Dose: 500 mg Baclofen (Baclofen 20 Mg Tablet) 20 mg PO BID [facility] Last Admin: 06/16/22 09:10 Dose: 20 mg Baclofen (Baclofen 20 Mg Tablet) 20 mg PO 1400 [facility] Last Admin: 06/15/22 15:01 Dose: 20 mg Bupropion HCl (Bupropion Hcl Xl 300 Mg Tab.Er.24h) 300 mg PO DAILY [facility] Last Admin: 06/16/22 09:08 Dose: 300 mg Buspirone HCl (Buspirone Hcl 10 Mg Tablet) 20 mg PO BID [facility] Last Admin: 06/15/22 22:53 Dose: Not Given Buspirone HCl (Buspirone Hcl 10 Mg Tablet) 20 mg PO 1400 [facility] Last Admin: 06/15/22 14:35 Dose: Not Given Calcium Carbonate/Cholecalciferol (Calcium + Vitamin D 250 Mg Tablet) 500 mg PO BID [facility] Last Admin: 06/16/22 09:09 Dose: 500 mg Clotrimazole (Clotrimazole 1 % Cream 15 Gm Tube) 1 appl TOPICAL BID PRN PRN Reason: Rash Last Admin: 06/16/22 09:10 Dose: 1 appl Folic Acid (Folic Acid 1 Mg Tablet) 1 mg PO DAILY [facility] Last Admin: 06/16/22 09:08 Dose: 1 mg Gabapentin (Gabapentin 400 Mg Capsule) 400 mg PO 1400 [facility] Last Admin: 06/15/22 15:03 Dose: 400 mg Gabapentin (Gabapentin 400 Mg Capsule) 400 mg PO BID [facility] Last Admin: 06/16/22 09:09 Dose: 400 mg Hydroxyzine HCl (Hydroxyzine Hcl 25 Mg Tablet) 25 mg PO Q6H PRN PRN Reason: Anxiety Last Admin: 06/16/22 02:48 Dose: 25 mg Lamotrigine (Lamotrigine 100 Mg Tablet) 250 mg PO BEDTIME [facility] Last Admin: 06/15/22 20:16 Dose: 250 mg Levothyroxine Sodium (Levothyroxine Sodium 25 Mcg Tablet) 25 mcg PO DAILY@0630 [facility] Last Admin: 06/16/22 05:39 Dose: 25 mcg Loratadine (Loratadine 10 Mg Tablet) 10 mg PO DAILY [facility] Last Admin: 06/16/22 09:09 Dose: 10 mg Lorazepam (Lorazepam 0.5 Mg Tablet) 0.5 mg PO 0900,1400,1830 [facility] Last Admin: 06/15/22 18:17 Dose: 0.5 mg Lorazepam (Lorazepam 0.5 Mg Tablet) 0.5 mg PO DAILY PRN PRN Reason: agitation, anxiety Last Admin: 06/15/22 11:39 Dose: 0.5 mg Lurasidone HCl (Lurasidone Hcl 80 Mg Tablet) 160 mg PO DAILY@1800 [facility] Last Admin: 06/15/22 18:16 Dose: 160 mg Magnesium Hydroxide (Milk Of Magnesia 30 Ml Oral.Susp) 30 ml PO DAILY PRN PRN Reason: Constipation Multivitamins/Vitamin C (Multivitamin Tablet) 1 tab PO BID [facility] Last Admin: 06/16/22 09:09 Dose: 1 tab Olanzapine (Olanzapine 2.5 Mg Tablet) 3.75 mg PO BID PRN PRN Reason: anxiety Last Admin: 06/15/22 17:31 Dose: 3.75 mg Omeprazole (Omeprazole 20 Mg Capsule.Dr) 20 mg PO BID [facility] Last Admin: 06/16/22 09:08 Dose: 20 mg Sumatriptan Succinate (Sumatriptan Succinate 50 Mg Tablet) 50 mg PO DAILY MRX1 PRN PRN Reason: Migraine Headache Thiamine HCl (Thiamine Hcl 100 Mg Tablet) 100 mg PO DAILY [facility] Last Admin: 06/16/22 09:08 Dose: 100 mg Trazodone HCl (Trazodone Hcl 100 Mg Tablet) 100 mg PO BEDTIME [facility] Last Admin: 06/15/22 20:17 Dose: 100 mg Allergies Allergies Allergy/AdvReac Type Severity Reaction Status Date / Time latex [LATEX] Allergy Mild Rash Verified 02/21/22 06:47 leuprolide [From LUPRON] Allergy Unknown HIVES Verified 02/21/22 06:47 Sulfa (Sulfonamide Allergy Unknown RASH Verified 02/21/22 06:48 Antibiotics) [SULFA (SULFONAMIDE ANTIBIOTICS)] ibuprofen AdvReac Intermediate Abdominal Verified 02/21/22 16:53 Pain Assessment & Plan Assessment & Plan (1) Post traumatic stress disorder (PTSD): Status: Acute Code(s): F43.10 - Post-traumatic stress disorder, unspecified (2) Alcohol use disorder: Status: Acute (3) Depression: Status: Acute Code(s): F32.A - Depression, unspecified Plan 52 yo female, hx of PTSD, Depression, Alcohol Use Disorder, recent section 35. Pt returns for admission after a recent discharge where she was restricted in milieu participation due to positive C-Difficile testing. She returns for treatment of PTSD and depression and asks for assistance in admission to a longer term program for addiction, specifically, [facility], recommended by her [facility] specialist wound care Valentina. Pt reports an 8 year hx of sobriety that she wants to re- establish and move forward with Medication review completed with Sweetie, discussed with team. -Reviewed buspar tapering-will replace and begin -Olanzapine 2. 5mg bid prn anxiety -Lorazepam 0.5 mg tid -MVI 1 tab daily -Folic acid 1 mg daily -Referrals to TSS programs with pt 06/13/22- Increase Lamictal by 50 mg Imitrex prn 06/14/22- no med changes, continue trial on PRN zyprexa 06/15/22- no med changes 06/16/22 continue current treatment plan I spent minutes with the patient and/or on the patient floor today, greater than?50% of which was spent counseling/coordinating care. Patient educated on: diagnosis and therapeutic strategies Informed Consent: understands Reason for contiued inpatient stay Substantial Risk for: rapid decompensation
[2022-06-16] MEDS: LORazepam 0.5 MG TABLET PO ×3 (11:02→18:42)
[2022-06-16] MEDS: Lurasidone HCl 80 MG TABLET 160 MG PO (18:42)
[2022-06-16] MEDS: OLANZapine 2.5 MG TABLET PO (19:16)
[2022-06-16] MEDS: lamoTRIgine 100 MG TABLET 250 MG PO (21:18)
[2022-06-16] MEDS: traZODone HCL 100 MG TABLET PO (21:20)
[2022-06-17] MEDS: Levothyroxine Sodium 25 MCG TABLET PO (05:32)
[2022-06-17] MEDS: LORazepam 0.5 MG TABLET PO ×4 (06:05→19:02)
[2022-06-17 08:13] VITALS: BP 127/75; PULSE 68; RESP 16; TEMP 36.9; O2SAT 98
[2022-06-17] MEDS: Amphetamine Mixed Salts 20 MG TABLET PO ×2 (08:59→13:24)
[2022-06-17] MEDS: Folic Acid 1 MG TABLET PO (09:00)
[2022-06-17] MEDS: buPROPion HCl XL 300 MG TAB.ER.24H PO (09:00)
[2022-06-17] MEDS: Acamprosate Calcium 333 MG TABLET.DR 666 MG PO ×3 (09:00→21:18)
[2022-06-17] MEDS: Calcium + Vitamin D 250 MG TABLET 500 MG PO ×2 (09:00→21:13)
[2022-06-17] MEDS: Omeprazole 20 MG CAPSULE.DR PO ×2 (09:01→21:14)
[2022-06-17] MEDS: Gabapentin 400 MG CAPSULE PO ×3 (09:01→21:15)
[2022-06-17] MEDS: amLODIPine Besylate 5 MG TABLET PO (09:01)
[2022-06-17] MEDS: Loratadine 10 MG TABLET PO (09:01)
[2022-06-17] MEDS: Baclofen 20 MG TABLET PO ×3 (09:01→21:13)
[2022-06-17] MEDS: Multivitamin TABLET 1 TAB PO ×2 (09:02→21:18)
[2022-06-17] MEDS: Thiamine HCL 100 MG TABLET PO (09:02)
[2022-06-17] MEDS: Ascorbic Acid 500 MG TABLET PO ×2 (09:02→21:15)
--- NOTE | 2022-06-17 16:23 | HO.PSYCHPN ---
Subjective Subjective Date of Service: 06/17/22 Reason For Visit: Bipolar disorder, PTSD, alcohol use disorder Interim History: Last night patient got dysregulated yelled at staff but later apologized Today patient a little more calm. Discussed struggles with alcoholism. Patient said she is open to trying disulfiram. [employer] reviewed risks/side effects of this medication including but not limited to diet restrictions and risks of drinking while on this medication. Patient said she thinks she probably needs this for a while and would like to consider it further. She will discuss with her primary provider tomorrow Mental Status Exam Mental Status Exam Patient Appearance: Appropriate Patient Orientation: Person, Place, Time and Situation Level of Consciousness: Alert Patient Behavior: Talkative, Cooperative, Good Eye Contact and Impulsive Mood Description: Constricted and Depressed Affect Description: Flat Patient Cognition Impaired: No Ability to Follow Directions: Fair (or less then) Speech Pattern: Clear and Spontaneous Speech Memory Description: Intact Hallucinations: None Delusions: Not Present Perceptual Disturbances: Depersonalization and Derealization Thought Process: Goal Oriented (also circumstantial) Thought Content: positive for Perseveration (past upsetting events), positive for Suicidal Ideation (denies) and positive for Homicidal Ideation (denies) Depressive Symptoms: Increased Anxiety, Insomnia, Difficulty Sleeping, Changes in Appetite, Loss of Int. in Activity, Feelings of Worthlessness, Hopelessness, Isolating-Friends/Family, Feelings of Guilt, Unhappiness, Increased Fatigue, Loss of Energy and Difficulty Concentrating Abnormal Motor Activity Signs and Symptoms: Restlessness Judgement and Insight: impaired Diagnostics Vital Signs (24Hr): Vital Signs - 24 hr 06/17/22 08:13 Temperature 98.5 F Pulse Rate 68 Respiratory Rate 16 Blood Pressure 127/75 Pulse Oximetry 98 Oxygen Delivery Method Room Air BMI result Body Mass Index 36.6 Labs Results: 06/07/22 19:03 06/07/22 19:03 Medications Medications Current Medications Acamprosate (Acamprosate Calcium 333 Mg Tablet.) 666 mg PO BID [facility] Last Admin: 06/17/22 09:00 Dose: 666 mg Acamprosate (Acamprosate Calcium 333 Mg Tablet.) 666 mg PO 1400 [facility] Last Admin: 06/17/22 13:24 Dose: 666 mg Acetaminophen (Acetaminophen 325 Mg Tablet) 650 mg PO Q6H PRN PRN Reason: Headache/Pain Mild Scale (1-3) Last Admin: 06/13/22 14:11 Dose: 650 mg Al Hydroxide/Mg Hydroxide (Magnesium Hydrox/Alum Hydrox 30 Ml Oral.Susp) 30 ml PO Q6H PRN PRN Reason: Heartburn/Nausea Amlodipine Besylate (Amlodipine Besylate 5 Mg Tablet) 5 mg PO DAILY [facility]; Protocol Last Admin: 06/17/22 09:01 Dose: 5 mg Amphetamine/Dextroamphetamine (Amphetamine Mixed Salts 20 Mg Tablet) 20 mg PO BID@0600,1300 [facility] Last Admin: 06/17/22 13:24 Dose: 20 mg Ascorbic Acid (Ascorbic Acid 500 Mg Tablet) 500 mg PO BID [facility] Last Admin: 06/17/22 09:02 Dose: 500 mg Baclofen (Baclofen 20 Mg Tablet) 20 mg PO BID [facility] Last Admin: 06/17/22 09:01 Dose: 20 mg Baclofen (Baclofen 20 Mg Tablet) 20 mg PO 1400 [facility] Last Admin: 06/17/22 14:30 Dose: 20 mg Bupropion HCl (Bupropion Hcl Xl 300 Mg Tab.Er.24h) 300 mg PO DAILY [facility] Last Admin: 06/17/22 09:00 Dose: 300 mg Calcium Carbonate/Cholecalciferol (Calcium + Vitamin D 250 Mg Tablet) 500 mg PO BID [facility] Last Admin: 06/17/22 09:00 Dose: 500 mg Clotrimazole (Clotrimazole 1 % Cream 15 Gm Tube) 1 appl TOPICAL BID PRN PRN Reason: Rash Last Admin: 06/16/22 09:10 Dose: 1 appl Folic Acid (Folic Acid 1 Mg Tablet) 1 mg PO DAILY [facility] Last Admin: 06/17/22 09:00 Dose: 1 mg Gabapentin (Gabapentin 400 Mg Capsule) 400 mg PO 1400 [facility] Last Admin: 06/17/22 13:31 Dose: 400 mg Gabapentin (Gabapentin 400 Mg Capsule) 400 mg PO BID [facility] Last Admin: 06/17/22 09:01 Dose: 400 mg Hydroxyzine HCl (Hydroxyzine Hcl 25 Mg Tablet) 25 mg PO Q6H PRN PRN Reason: Anxiety Last Admin: 06/16/22 02:48 Dose: 25 mg Lamotrigine (Lamotrigine 100 Mg Tablet) 250 mg PO BEDTIME [facility] Last Admin: 06/16/22 21:18 Dose: 250 mg Levothyroxine Sodium (Levothyroxine Sodium 25 Mcg Tablet) 25 mcg PO DAILY@0630 [facility] Last Admin: 06/17/22 05:32 Dose: 25 mcg Loratadine (Loratadine 10 Mg Tablet) 10 mg PO DAILY [facility] Last Admin: 06/17/22 09:01 Dose: 10 mg Lorazepam (Lorazepam 0.5 Mg Tablet) 0.5 mg PO 0900,1400,1830 [facility] Last Admin: 06/17/22 14:30 Dose: 0.5 mg Lorazepam (Lorazepam 0.5 Mg Tablet) 0.5 mg PO DAILY PRN PRN Reason: agitation, anxiety Last Admin: 06/17/22 06:05 Dose: 0.5 mg Lurasidone HCl (Lurasidone Hcl 80 Mg Tablet) 160 mg PO DAILY@1800 [facility] Last Admin: 06/16/22 18:42 Dose: 160 mg Magnesium Hydroxide (Milk Of Magnesia 30 Ml Oral.Susp) 30 ml PO DAILY PRN PRN Reason: Constipation Multivitamins/Vitamin C (Multivitamin Tablet) 1 tab PO BID [facility] Last Admin: 06/17/22 09:02 Dose: 1 tab Olanzapine (Olanzapine 2.5 Mg Tablet) 2.5 mg PO TID PRN PRN Reason: anxiety Last Admin: 06/16/22 19:16 Dose: 2.5 mg Omeprazole (Omeprazole 20 Mg Capsule.Dr) 20 mg PO BID [facility] Last Admin: 06/17/22 09:01 Dose: 20 mg Sumatriptan Succinate (Sumatriptan Succinate 50 Mg Tablet) 50 mg PO DAILY MRX1 PRN PRN Reason: Migraine Headache Thiamine HCl (Thiamine Hcl 100 Mg Tablet) 100 mg PO DAILY [facility] Last Admin: 06/17/22 09:02 Dose: 100 mg Trazodone HCl (Trazodone Hcl 100 Mg Tablet) 100 mg PO BEDTIME [facility] Last Admin: 06/16/22 21:20 Dose: 100 mg Allergies Allergies Allergy/AdvReac Type Severity Reaction Status Date / Time latex [LATEX] Allergy Mild Rash Verified 02/21/22 06:47 leuprolide [From LUPRON] Allergy Unknown HIVES Verified 02/21/22 06:47 Sulfa (Sulfonamide Allergy Unknown RASH Verified 02/21/22 06:48 Antibiotics) [SULFA (SULFONAMIDE ANTIBIOTICS)] ibuprofen AdvReac Intermediate Abdominal Verified 02/21/22 16:53 Pain Assessment & Plan Assessment & Plan (1) Post traumatic stress disorder (PTSD): Status: Acute Code(s): F43.10 - Post-traumatic stress disorder, unspecified (2) Alcohol use disorder: Status: Acute (3) Depression: Status: Acute Code(s): F32.A - Depression, unspecified Plan 52 yo female, hx of PTSD, Depression, Alcohol Use Disorder, recent section 35. Pt returns for admission after a recent discharge where she was restricted in milieu participation due to positive C-Difficile testing. She returns for treatment of PTSD and depression and asks for assistance in admission to a longer term program for addiction, specifically, [facility], recommended by her [facility] critical care physician assistant Valentina. Pt reports an 8 year hx of sobriety that she wants to re-establish and move forward with Medication review completed with Sweetie, discussed with team. -Reviewed buspar tapering-will replace and begin -Olanzapine 2. 5mg bid prn anxiety -Lorazepam 0.5 mg tid -MVI 1 tab daily -Folic acid 1 mg daily -Referrals to TSS programs with pt 06/13/22- Increase Lamictal by 50 mg Imitrex prn 06/14/22- no med changes, continue trial on PRN zyprexa 06/15/22- no med changes 06/16/22 continue current treatment plan 06/17/2022 continue current treatment plan Patient considering trial of disulfiram I spent minutes with the patient and/or on the patient floor today, greater than?50% of which was spent counseling/coordinating care. Patient educated on: diagnosis, medication risk/benefits and therapeutic strategies Informed Consent: understands Reason for contiued inpatient stay Substantial Risk for: rapid decompensation
[2022-06-17 18:00] VITALS: BP 121/78; PULSE 73; TEMP 35.7
[2022-06-17] MEDS: Lurasidone HCl 80 MG TABLET 160 MG PO (19:01)
[2022-06-17] MEDS: Acetaminophen 325 MG TABLET 650 MG PO (19:27)
[2022-06-17] MEDS: OLANZapine 2.5 MG TABLET PO (21:12)
[2022-06-17] MEDS: traZODone HCL 100 MG TABLET PO (21:14)
[2022-06-17] MEDS: lamoTRIgine 100 MG TABLET 250 MG PO (21:16)
[2022-06-18] MEDS: Amphetamine Mixed Salts 20 MG TABLET PO ×2 (05:49→12:56)
[2022-06-18] MEDS: Levothyroxine Sodium 25 MCG TABLET PO (05:49)
[2022-06-18] MEDS: Acamprosate Calcium 333 MG TABLET.DR 666 MG PO ×3 (08:00→20:42)
[2022-06-18] MEDS: Multivitamin TABLET 1 TAB PO ×2 (08:00→20:44)
[2022-06-18] MEDS: Thiamine HCL 100 MG TABLET PO (08:00)
[2022-06-18] MEDS: buPROPion HCl XL 300 MG TAB.ER.24H PO (08:01)
[2022-06-18] MEDS: Calcium + Vitamin D 250 MG TABLET 500 MG PO ×2 (08:01→20:42)
[2022-06-18] MEDS: Omeprazole 20 MG CAPSULE.DR PO ×2 (08:01→20:44)
[2022-06-18] MEDS: Loratadine 10 MG TABLET PO (08:01)
[2022-06-18] MEDS: Ascorbic Acid 500 MG TABLET PO ×2 (08:01→20:42)
[2022-06-18] MEDS: amLODIPine Besylate 5 MG TABLET PO (08:01)
[2022-06-18] MEDS: Folic Acid 1 MG TABLET PO (08:02)
[2022-06-18] MEDS: Baclofen 20 MG TABLET PO ×3 (08:02→20:42)
[2022-06-18] MEDS: LORazepam 0.5 MG TABLET PO ×3 (08:02→19:05)
[2022-06-18] MEDS: Gabapentin 400 MG CAPSULE PO ×3 (08:09→20:43)
[2022-06-18 08:19] VITALS: BP 124/72; PULSE 74; RESP 18; TEMP 36.6; O2SAT 99
--- NOTE | 2022-06-18 14:57 | MHC.CLN ---
NUTRITION CONSULT NEEDS MORE THAN ABBREVIATED MENU . MET WITH PATIENT IN HER ROOM. SOBBING AT TIME OF VISIT BUT MORE CALM WHILE SPEAKING TO THIS WEB DESIGNER DEVELOPER. HX GASTRIC BYPASS 10 YEARS AGO. STATED THAT LOST 100#, BUT HAS GAINED BACK WEIGHT. PREFERS DIET WITH HIGH PROTEIN, MORE VEGETABLES, FEWER CARBS. DURING PRIOR ADMISSION, LIKED TO ORDER FOODS SUCH SWEET POTATOES, GREEN BEANS, FISH, VEGETABLE OMELET, BREAKFAST MEAT, CHILI. WOULD LIKE CHOICES OTHER THAN THINGS WITH BREAD . EX. PREFERS NOT TO EAT PIZZA, BURGERS, [place] AND CHEESE. THIS WEB DESIGNER DEVELOPER DISCUSSED PATIENT'S FOOD PREFERENCES WITH PATIENT ELEVATOR MECHANIC FOR DINING SERVICES. SHE WILL DISCUSS WITH [facility] AND ALLOW FOR ADDITIONAL FOOD CHOICES.
--- NOTE | 2022-06-18 17:01 | HO.PSYCHPN ---
Subjective Subjective Date of Service: 06/18/22 Reason For Visit: Bipolar disorder, PTSD, alcohol use disorder Subjective Notes: Conditional Voluntary Healthcare Proxy: No Guardianship: No Medical Problems Affecting Mental Status: No Interim History: Discussed low self-esteem and increasing depressive sx due to recent sobriety and self-anger for breaking 8 years of sobriety. Describes lability, anger, SI, no interest in living with self destructive actions which she describes as over-reactive, irrational and self-destructive. Full review of regime with additions. Medication Compliance: Yes Side effects from medications: No Attending Groups: Yes Review of Systems Acute medical concerns: No Medical Review of Systems: unchanged Mental Status Exam Mental Status Exam Patient Appearance: Appropriate Patient Orientation: Person, Place, Time and Situation Level of Consciousness: Alert Patient Behavior: Talkative and Good Eye Contact Mood Description: Depressed and Angry Affect Description: Flat and Sad Patient Cognition Impaired: No Ability to Follow Directions: Good Speech Pattern: Spontaneous Speech Memory Description: Intact Hallucinations: None Delusions: Not Present Perceptual Disturbances: Depersonalization and Derealization Thought Process: Intact Thought Content: positive for Intact and positive for Suicidal Ideation Depressive Symptoms: Increased Anxiety, Insomnia, Diff. Making Decisions, Increased Irritability, Difficulty Sleeping, Crying Spells, Loss of Int. in Activity, Feelings of Worthlessness, Hopelessness, Isolating-Friends/Family, Feelings of Guilt, Unhappiness, Increased Fatigue, Thoughts of /Suicide, Low Self Esteem, Loss of Energy and Difficulty Concentrating Judgement: Fair Diagnostics Vital Signs (24Hr): Vital Signs - 24 hr 06/17/22 18:00 06/18/22 08:19 Temperature 96.3 F L 97.8 F Pulse Rate 73 74 Respiratory Rate 18 Blood Pressure 121/78 124/72 Pulse Oximetry 99 Oxygen Delivery Method Room Air BMI result Body Mass Index 36.6 Labs Results: 06/07/22 19:03 06/07/22 19:03 Medications Medications Current Medications Acamprosate (Acamprosate Calcium 333 Mg Tablet.) 666 mg PO BID [facility] Last Admin: 06/18/22 08:00 Dose: 666 mg Acamprosate (Acamprosate Calcium 333 Mg Tablet.) 666 mg PO 1400 [facility] Last Admin: 06/18/22 13:57 Dose: 666 mg Acetaminophen (Acetaminophen 325 Mg Tablet) 650 mg PO Q6H PRN PRN Reason: Headache/Pain Mild Scale (1-3) Last Admin: 06/17/22 19:27 Dose: 650 mg Al Hydroxide/Mg Hydroxide (Magnesium Hydrox/Alum Hydrox 30 Ml Oral.Susp) 30 ml PO Q6H PRN PRN Reason: Heartburn/Nausea Amlodipine Besylate (Amlodipine Besylate 5 Mg Tablet) 5 mg PO DAILY [facility]; Protocol Last Admin: 06/18/22 08:01 Dose: 5 mg Amphetamine/Dextroamphetamine (Amphetamine Mixed Salts 20 Mg Tablet) 20 mg PO BID@0600,1300 [facility] Last Admin: 06/18/22 12:56 Dose: 20 mg Ascorbic Acid (Ascorbic Acid 500 Mg Tablet) 500 mg PO BID [facility] Last Admin: 06/18/22 08:01 Dose: 500 mg Baclofen (Baclofen 20 Mg Tablet) 20 mg PO BID [facility] Last Admin: 06/18/22 08:02 Dose: 20 mg Baclofen (Baclofen 20 Mg Tablet) 20 mg PO 1400 [facility] Last Admin: 06/18/22 13:58 Dose: 20 mg Bupropion HCl (Bupropion Hcl Xl 300 Mg Tab.Er.24h) 300 mg PO DAILY [facility] Last Admin: 06/18/22 08:01 Dose: 300 mg Calcium Carbonate/Cholecalciferol (Calcium + Vitamin D 250 Mg Tablet) 500 mg PO BID [facility] Last Admin: 06/18/22 08:01 Dose: 500 mg Clotrimazole (Clotrimazole 1 % Cream 15 Gm Tube) 1 appl TOPICAL BID PRN PRN Reason: Rash Last Admin: 06/16/22 09:10 Dose: 1 appl Divalproex Sodium (Divalproex Sodium Sprinkles 125 Mg ) 125 mg PO TID [facility] Folic Acid (Folic Acid 1 Mg Tablet) 1 mg PO DAILY [facility] Last Admin: 06/18/22 08:02 Dose: 1 mg Gabapentin (Gabapentin 400 Mg Capsule) 400 mg PO 1400 [facility] Last Admin: 06/18/22 13:58 Dose: 400 mg Gabapentin (Gabapentin 400 Mg Capsule) 400 mg PO BID [facility] Last Admin: 06/18/22 08:09 Dose: 400 mg Hydroxyzine HCl (Hydroxyzine Hcl 25 Mg Tablet) 25 mg PO Q6H PRN PRN Reason: Anxiety Last Admin: 06/16/22 02:48 Dose: 25 mg Lamotrigine (Lamotrigine 100 Mg Tablet) 250 mg PO BEDTIME [facility] Last Admin: 06/17/22 21:16 Dose: 250 mg Levothyroxine Sodium (Levothyroxine Sodium 25 Mcg Tablet) 25 mcg PO DAILY@0630 [facility] Last Admin: 06/18/22 05:49 Dose: 25 mcg Loratadine (Loratadine 10 Mg Tablet) 10 mg PO DAILY [facility] Last Admin: 06/18/22 08:01 Dose: 10 mg Lorazepam (Lorazepam 0.5 Mg Tablet) 0.5 mg PO DAILY PRN PRN Reason: agitation, anxiety Last Admin: 06/17/22 06:05 Dose: 0.5 mg Lurasidone HCl (Lurasidone Hcl 80 Mg Tablet) 160 mg PO DAILY@1800 [facility] Last Admin: 06/17/22 19:01 Dose: 160 mg Magnesium Hydroxide (Milk Of Magnesia 30 Ml Oral.Susp) 30 ml PO DAILY PRN PRN Reason: Constipation Multivitamins/Vitamin C (Multivitamin Tablet) 1 tab PO BID [facility] Last Admin: 06/18/22 08:00 Dose: 1 tab Olanzapine (Olanzapine 2.5 Mg Tablet) 2.5 mg PO TID PRN PRN Reason: anxiety Last Admin: 06/17/22 21:12 Dose: 2.5 mg Omeprazole (Omeprazole 20 Mg Capsule.Dr) 20 mg PO BID [facility] Last Admin: 06/18/22 08:01 Dose: 20 mg Perphenazine (Perphenazine 2 Mg Tablet) 2 mg PO BID PRN PRN Reason: anxiety, dissociations, agitation Sumatriptan Succinate (Sumatriptan Succinate 50 Mg Tablet) 50 mg PO DAILY MRX1 PRN PRN Reason: Migraine Headache Thiamine HCl (Thiamine Hcl 100 Mg Tablet) 100 mg PO DAILY [facility] Last Admin: 06/18/22 08:00 Dose: 100 mg Trazodone HCl (Trazodone Hcl 100 Mg Tablet) 100 mg PO BEDTIME [facility] Last Admin: 06/17/22 21:14 Dose: 100 mg Allergies Allergies Allergy/AdvReac Type Severity Reaction Status Date / Time latex [LATEX] Allergy Mild Rash Verified 02/21/22 06:47 leuprolide [From LUPRON] Allergy Unknown HIVES Verified 02/21/22 06:47 Sulfa (Sulfonamide Allergy Unknown RASH Verified 02/21/22 06:48 Antibiotics) [SULFA (SULFONAMIDE ANTIBIOTICS)] ibuprofen AdvReac Intermediate Abdominal Verified 02/21/22 16:53 Pain Assessment & Plan Assessment & Plan (1) Post traumatic stress disorder (PTSD): Status: Acute Code(s): F43.10 - Post-traumatic stress disorder, unspecified (2) Alcohol use disorder: Status: Acute (3) Depression: Status: Acute Code(s): F32.A - Depression, unspecified Plan 52 yo female, hx of PTSD, Depression, Alcohol Use Disorder, recent section 35. Pt returns for admission after a recent discharge where she was restricted in milieu participation due to positive C-Difficile testing. She returns for treatment of PTSD and depression and asks for assistance in admission to a longer term program for addiction, specifically, [facility], recommended by her [facility] rn acute care Valentina. Pt reports an 8 year hx of sobriety that she wants to re-establish and move forward with Medication review completed with Sweetie, discussed with team. -Reviewed buspar tapering-will replace and begin -Olanzapine 2. 5mg bid prn anxiety -Lorazepam 0.5 mg tid -MVI 1 tab daily -Folic acid 1 mg daily -Referrals to TSS programs with pt 06/13/22- Increase Lamictal by 50 mg Imitrex prn 06/14/22- no med changes, continue trial on PRN zyprexa 06/15/22- no med changes 06/16/22 continue current treatment plan 06/17/2022 continue current treatment plan Patient considering trial of disulfiram 06/18/22- Depakote 125 mg tid to address mood lability, anger I spent minutes with the patient and/or on the patient floor today, greater than?50% of which was spent counseling/coordinating care. Patient educated on: medication risk/benefits and therapeutic strategies Informed Consent: understands and further education needed Reason for contiued inpatient stay Substantial Risk for: harm to self and rapid decompensation
[2022-06-18 18:00] VITALS: BP 126/78; PULSE 78; RESP 18; TEMP 36.6; O2SAT 98
[2022-06-18] MEDS: Lurasidone HCl 80 MG TABLET 160 MG PO (18:48)
[2022-06-18] MEDS: Perphenazine 2 MG TABLET PO (20:28)
[2022-06-18] MEDS: Divalproex Sodium Sprinkles 125 MG CAP.DR.SPR PO (20:42)
[2022-06-18] MEDS: lamoTRIgine 100 MG TABLET 250 MG PO (20:43)
[2022-06-18] MEDS: traZODone HCL 100 MG TABLET PO (20:44)
[2022-06-18] MEDS: OLANZapine 2.5 MG TABLET PO (22:02)
[2022-06-19] MEDS: LORazepam 0.5 MG TABLET PO ×4 (00:14→18:05)
[2022-06-19] MEDS: hydrOXYzine HCL 25 MG TABLET PO (00:14)
[2022-06-19] MEDS: Amphetamine Mixed Salts 20 MG TABLET PO ×2 (06:17→12:50)
[2022-06-19] MEDS: Levothyroxine Sodium 25 MCG TABLET PO (06:17)
[2022-06-19 07:00] VITALS: BMI 38.3
[2022-06-19 08:30] VITALS: BP 102/58; PULSE 87; TEMP 37; O2SAT 100
[2022-06-19] MEDS: Divalproex Sodium Sprinkles 125 MG CAP.DR.SPR PO ×3 (08:36→21:08)
[2022-06-19] MEDS: Multivitamin TABLET 1 TAB PO ×2 (08:36→21:08)
[2022-06-19] MEDS: Acamprosate Calcium 333 MG TABLET.DR 666 MG PO ×3 (08:36→21:08)
[2022-06-19] MEDS: Omeprazole 20 MG CAPSULE.DR PO ×2 (08:36→22:59)
[2022-06-19] MEDS: buPROPion HCl XL 300 MG TAB.ER.24H PO (08:36)
[2022-06-19] MEDS: Loratadine 10 MG TABLET PO (08:36)
[2022-06-19] MEDS: amLODIPine Besylate 5 MG TABLET PO (08:36)
[2022-06-19] MEDS: Calcium + Vitamin D 250 MG TABLET 500 MG PO ×2 (08:37→21:08)
[2022-06-19] MEDS: Folic Acid 1 MG TABLET PO (08:37)
[2022-06-19] MEDS: Baclofen 20 MG TABLET PO ×3 (08:38→21:08)
[2022-06-19] MEDS: Thiamine HCL 100 MG TABLET PO (08:38)
[2022-06-19] MEDS: Ascorbic Acid 500 MG TABLET PO ×2 (08:38→21:08)
[2022-06-19] MEDS: Gabapentin 400 MG CAPSULE PO ×3 (08:38→21:07)
[2022-06-19] MEDS: QUEtiapine Fumarate 25 MG TABLET 12.5 MG PO (16:01)
--- NOTE | 2022-06-19 16:23 | HO.PSYCHPN ---
Subjective Subjective Date of Service: 06/19/22 Reason For Visit: Bipolar disorder, PTSD, alcohol use disorder Subjective Notes: Conditional Voluntary Healthcare Proxy: No Guardianship: No Medical Problems Affecting Mental Status: No Interim History: Continues to express distress over sx and her response to sx. Expressed anger with new dietary policy where her choices are not as healthy as before. Tolerating Depakote Discussed prn's- changes made to address current sx. Medication Compliance: Yes Side effects from medications: No Attending Groups: No Review of Systems Acute medical concerns: No Medical Review of Systems: unchanged Mental Status Exam Mental Status Exam Patient Appearance: Appropriate Patient Orientation: Person, Place, Time and Situation Level of Consciousness: Alert Patient Behavior: Talkative and Good Eye Contact Mood Description: Depressed and Angry Affect Description: Flat and Sad Patient Cognition Impaired: No Ability to Follow Directions: Good Speech Pattern: Spontaneous Speech Memory Description: Intact Hallucinations: None Delusions: Not Present Perceptual Disturbances: Depersonalization and Derealization Thought Process: Intact Thought Content: positive for Intact and positive for Suicidal Ideation Depressive Symptoms: Increased Anxiety, Insomnia, Diff. Making Decisions, Increased Irritability, Difficulty Sleeping, Crying Spells, Loss of Int. in Activity, Feelings of Worthlessness, Hopelessness, Isolating-Friends/Family, Feelings of Guilt, Unhappiness, Increased Fatigue, Thoughts of /Suicide, Low Self Esteem, Loss of Energy and Difficulty Concentrating Judgement: Fair Diagnostics Vital Signs (24Hr): Vital Signs - 24 hr 06/18/22 18:00 06/19/22 08:30 Temperature 98 F 98.6 F Pulse Rate 78 87 Respiratory Rate 18 Blood Pressure 126/78 102/58 L Pulse Oximetry 98 100 Oxygen Delivery Method Room Air Room Air BMI result Body Mass Index 38.3 Labs Results: 06/07/22 19:03 06/07/22 19:03 Medications Medications Current Medications Acamprosate (Acamprosate Calcium 333 Mg Tablet.) 666 mg PO BID [facility] Last Admin: 06/19/22 08:36 Dose: 666 mg Acamprosate (Acamprosate Calcium 333 Mg Tablet.) 666 mg PO 1400 [facility] Last Admin: 06/19/22 13:56 Dose: 666 mg Acetaminophen (Acetaminophen 325 Mg Tablet) 650 mg PO Q6H PRN PRN Reason: Headache/Pain Mild Scale (1-3) Last Admin: 06/17/22 19:27 Dose: 650 mg Al Hydroxide/Mg Hydroxide (Magnesium Hydrox/Alum Hydrox 30 Ml Oral.Susp) 30 ml PO Q6H PRN PRN Reason: Heartburn/Nausea Amlodipine Besylate (Amlodipine Besylate 5 Mg Tablet) 5 mg PO DAILY [facility]; Protocol Last Admin: 06/19/22 08:36 Dose: 5 mg Amphetamine/Dextroamphetamine (Amphetamine Mixed Salts 20 Mg Tablet) 20 mg PO BID@0600,1300 [facility] Last Admin: 06/19/22 12:50 Dose: 20 mg Ascorbic Acid (Ascorbic Acid 500 Mg Tablet) 500 mg PO BID [facility] Last Admin: 06/19/22 08:38 Dose: 500 mg Baclofen (Baclofen 20 Mg Tablet) 20 mg PO BID [facility] Last Admin: 06/19/22 08:38 Dose: 20 mg Baclofen (Baclofen 20 Mg Tablet) 20 mg PO 1400 [facility] Last Admin: 06/19/22 13:56 Dose: 20 mg Bupropion HCl (Bupropion Hcl Xl 300 Mg Tab.Er.24h) 300 mg PO DAILY [facility] Last Admin: 06/19/22 08:36 Dose: 300 mg Calcium Carbonate/Cholecalciferol (Calcium + Vitamin D 250 Mg Tablet) 500 mg PO BID [facility] Last Admin: 06/19/22 08:37 Dose: 500 mg Clotrimazole (Clotrimazole 1 % Cream 15 Gm Tube) 1 appl TOPICAL BID PRN PRN Reason: Rash Last Admin: 06/16/22 09:10 Dose: 1 appl Divalproex Sodium (Divalproex Sodium Sprinkles 125 Mg ) 125 mg PO TID [facility] Last Admin: 06/19/22 13:56 Dose: 125 mg Folic Acid (Folic Acid 1 Mg Tablet) 1 mg PO DAILY [facility] Last Admin: 06/19/22 08:37 Dose: 1 mg Gabapentin (Gabapentin 400 Mg Capsule) 400 mg PO 1400 [facility] Last Admin: 06/19/22 13:56 Dose: 400 mg Gabapentin (Gabapentin 400 Mg Capsule) 400 mg PO BID [facility] Last Admin: 06/19/22 08:38 Dose: 400 mg Hydroxyzine HCl (Hydroxyzine Hcl 25 Mg Tablet) 25 mg PO Q6H PRN PRN Reason: Anxiety Last Admin: 06/19/22 00:14 Dose: 25 mg Lamotrigine (Lamotrigine 100 Mg Tablet) 250 mg PO BEDTIME [facility] Last Admin: 06/18/22 20:43 Dose: 250 mg Levothyroxine Sodium (Levothyroxine Sodium 25 Mcg Tablet) 25 mcg PO DAILY@0630 [facility] Last Admin: 06/19/22 06:17 Dose: 25 mcg Loratadine (Loratadine 10 Mg Tablet) 10 mg PO DAILY [facility] Last Admin: 06/19/22 08:36 Dose: 10 mg Lorazepam (Lorazepam 0.5 Mg Tablet) 0.5 mg PO TID@0900,1400,1830 [facility] Last Admin: 06/19/22 14:10 Dose: 0.5 mg Lorazepam (Lorazepam 0.5 Mg Tablet) 0.5 mg PO BID PRN PRN Reason: anxiety, agitation Lurasidone HCl (Lurasidone Hcl 80 Mg Tablet) 160 mg PO DAILY@1800 [facility] Last Admin: 06/18/22 18:48 Dose: 160 mg Magnesium Hydroxide (Milk Of Magnesia 30 Ml Oral.Susp) 30 ml PO DAILY PRN PRN Reason: Constipation Multivitamins/Vitamin C (Multivitamin Tablet) 1 tab PO BID [facility] Last Admin: 06/19/22 08:36 Dose: 1 tab Omeprazole (Omeprazole 20 Mg Capsule.Dr) 20 mg PO BID [facility] Last Admin: 06/19/22 08:36 Dose: 20 mg Perphenazine (Perphenazine 2 Mg Tablet) 2 mg PO BID PRN PRN Reason: anxiety, dissociations, agitation Last Admin: 06/18/22 20:28 Dose: 2 mg Quetiapine Fumarate (Quetiapine Fumarate 25 Mg Tablet) 12.5 mg PO QID PRN PRN Reason: anxiety Last Admin: 06/19/22 16:01 Dose: 12.5 mg Sumatriptan Succinate (Sumatriptan Succinate 50 Mg Tablet) 50 mg PO DAILY MRX1 PRN PRN Reason: Migraine Headache Thiamine HCl (Thiamine Hcl 100 Mg Tablet) 100 mg PO DAILY [facility] Last Admin: 06/19/22 08:38 Dose: 100 mg Trazodone HCl (Trazodone Hcl 50 Mg Tablet) 150 mg PO BEDTIME [facility] Trazodone HCl (Trazodone Hcl 50 Mg Tablet) 50 mg PO BEDTIME PRN PRN Reason: insomnia Allergies Allergies Allergy/AdvReac Type Severity Reaction Status Date / Time latex [LATEX] Allergy Mild Rash Verified 02/21/22 06:47 leuprolide [From LUPRON] Allergy Unknown HIVES Verified 02/21/22 06:47 Sulfa (Sulfonamide Allergy Unknown RASH Verified 02/21/22 06:48 Antibiotics) [SULFA (SULFONAMIDE ANTIBIOTICS)] ibuprofen AdvReac Intermediate Abdominal Verified 02/21/22 16:53 Pain Assessment & Plan Assessment & Plan (1) Post traumatic stress disorder (PTSD): Status: Acute Code(s): F43.10 - Post-traumatic stress disorder, unspecified (2) Alcohol use disorder: Status: Acute (3) Depression: Status: Acute Code(s): F32.A - Depression, unspecified Plan 52 yo female, hx of PTSD, Depression, Alcohol Use Disorder, recent section 35. Pt returns for admission after a recent discharge where she was restricted in milieu participation due to positive C-Difficile testing. She returns for treatment of PTSD and depression and asks for assistance in admission to a longer term program for addiction, specifically, [facility], recommended by her [facility] youth career specialist Valentina. Pt reports an 8 year hx of sobriety that she wants to re-establish and move forward with Medication review completed with Sweetie, discussed with team. -Reviewed buspar tapering-will replace and begin -Olanzapine 2. 5mg bid prn anxiety -Lorazepam 0.5 mg tid -MVI 1 tab daily -Folic acid 1 mg daily -Referrals to TSS programs with pt 06/13/22- Increase Lamictal by 50 mg Imitrex prn 06/14/22- no med changes, continue trial on PRN zyprexa 06/15/22- no med changes 06/16/22 continue current treatment plan 06/17/2022 continue current treatment plan Patient considering trial of disulfiram 06/19/22- DC Olanzapine-3.75 mg too sedating, 2.5 mg ineffective Perphenazine 2 mg bid prn to help with clarity, grounding Seroquel 12.5 mg qid prn to help with mood mgt, anger, anxiety Increase Ativan prn to 0.5 mg bid Add Trazodone 50 mg hs prn to 150 mg scheduled dose as pt reporting ZENAIDA, AYANA I spent minutes with the patient and/or on the patient floor today, greater than?50% of which was spent counseling/coordinating care. Patient educated on: medication risk/benefits and therapeutic strategies Informed Consent: understands and further education needed Reason for contiued inpatient stay Substantial Risk for: harm to self, inability to function and rapid decompensation
[2022-06-19 18:00] VITALS: BP 154/87; PULSE 76; TEMP 36.3; O2SAT 96
[2022-06-19] MEDS: Lurasidone HCl 80 MG TABLET 160 MG PO (18:05)
[2022-06-19] MEDS: lamoTRIgine 100 MG TABLET 250 MG PO (21:04)
[2022-06-19] MEDS: traZODone HCL 50 MG TABLET 150 MG PO (21:07)
[2022-06-20] MEDS: traZODone HCL 50 MG TABLET PO (02:00)
[2022-06-20] MEDS: Amphetamine Mixed Salts 20 MG TABLET PO ×2 (05:44→13:34)
[2022-06-20] MEDS: Levothyroxine Sodium 25 MCG TABLET PO (05:45)
[2022-06-20 08:30] VITALS: BP 135/80; PULSE 71; TEMP 36.4
[2022-06-20] MEDS: Divalproex Sodium Sprinkles 125 MG CAP.DR.SPR PO ×3 (09:01→19:27)
[2022-06-20] MEDS: Gabapentin 400 MG CAPSULE PO ×3 (09:01→19:27)
[2022-06-20] MEDS: Multivitamin TABLET 1 TAB PO ×2 (09:01→19:26)
[2022-06-20] MEDS: Calcium + Vitamin D 250 MG TABLET 500 MG PO ×2 (09:02→19:25)
[2022-06-20] MEDS: Folic Acid 1 MG TABLET PO (09:02)
[2022-06-20] MEDS: Loratadine 10 MG TABLET PO (09:02)
[2022-06-20] MEDS: Ascorbic Acid 500 MG TABLET PO ×2 (09:02→19:26)
[2022-06-20] MEDS: Acamprosate Calcium 333 MG TABLET.DR 666 MG PO ×3 (09:02→19:27)
[2022-06-20] MEDS: Baclofen 20 MG TABLET PO ×3 (09:02→19:27)
[2022-06-20] MEDS: buPROPion HCl XL 300 MG TAB.ER.24H PO (09:02)
[2022-06-20] MEDS: amLODIPine Besylate 5 MG TABLET PO (09:02)
[2022-06-20] MEDS: Omeprazole 20 MG CAPSULE.DR PO ×2 (09:03→19:17)
[2022-06-20] MEDS: LORazepam 0.5 MG TABLET PO ×4 (09:03→20:39)
[2022-06-20] MEDS: Thiamine HCL 100 MG TABLET PO (09:03)
[2022-06-20] MEDS: Clotrimazole 1 % Cream 15 GM TUBE 1 APPL TOPICAL (09:06)
[2022-06-20] MEDS: Perphenazine 2 MG TABLET PO (10:55)
--- NOTE | 2022-06-20 14:53 | P.PNPSI_ITS ---
Subjective Subjective Date of Service: 06/20/22 Reason For Visit: Bipolar disorder, PTSD, alcohol use disorder Subjective Notes: Conditional Voluntary Healthcare Proxy: No Guardianship: No Medical Problems Affecting Mental Status: No Interim History: Alba works for [employer] Review of medication changes, efficacy on sx. Feeling mild improvement. Discussed the difficulty is accepting help from others and the issues related to shame and self-esteem Met with Valentina from [facility] outreach today who is a strong support for pt. Medication Compliance: Yes Side effects from medications: No Attending Groups: Intermittent Review of Systems Acute medical concerns: No Medical Review of Systems: unchanged Mental Status Exam Mental Status Exam Patient Appearance: Appropriate Patient Orientation: Person, Place, Time and Situation Level of Consciousness: Alert Patient Behavior: Appropriate, Talkative, Cooperative and Good Eye Contact Mood Description: Depressed Affect Description: Flat Patient Cognition Impaired: No Ability to Follow Directions: Good Speech Pattern: Spontaneous Speech Memory Description: Intact Hallucinations: None Delusions: Not Present Perceptual Disturbances: Depersonalization and Derealization Thought Process: Goal Oriented Thought Content: positive for Circumstantial and positive for Suicidal Ideation Depressive Symptoms: Increased Anxiety, Insomnia, Difficulty Sleeping, Changes in Appetite, Loss of Int. in Activity, Feelings of Worthlessness, Hopelessness, Isolating-Friends/Family, Feelings of Guilt, Unhappiness, Increased Fatigue, Low Self Esteem, Loss of Energy and Difficulty Concentrating Abnormal Motor Activity Signs and Symptoms: Restlessness Judgement: Good Diagnostics Vital Signs (24Hr): Vital Signs - 24 hr 06/19/22 18:00 06/20/22 08:30 Temperature 97.3 F 97.6 F Pulse Rate 76 71 Blood Pressure 154/87 H 135/80 Pulse Oximetry 96 Oxygen Delivery Method Room Air BMI result Body Mass Index 38.3 Labs Results: 06/07/22 19:03 06/07/22 19:03 Medications Medications Current Medications Acamprosate (Acamprosate Calcium 333 Mg Tablet.) 666 mg PO BID [facility] Last Admin: 06/20/22 09:02 Dose: 666 mg Acamprosate (Acamprosate Calcium 333 Mg Tablet.) 666 mg PO 1400 [facility] Last Admin: 06/19/22 13:56 Dose: 666 mg Acetaminophen (Acetaminophen 325 Mg Tablet) 650 mg PO Q6H PRN PRN Reason: Headache/Pain Mild Scale (1-3) Last Admin: 06/17/22 19:27 Dose: 650 mg Al Hydroxide/Mg Hydroxide (Magnesium Hydrox/Alum Hydrox 30 Ml Oral.Susp) 30 ml PO Q6H PRN PRN Reason: Heartburn/Nausea Amlodipine Besylate (Amlodipine Besylate 5 Mg Tablet) 5 mg PO DAILY [facility]; Protocol Last Admin: 06/20/22 09:02 Dose: 5 mg Amphetamine/Dextroamphetamine (Amphetamine Mixed Salts 20 Mg Tablet) 20 mg PO BID@0600,1300 [facility] Last Admin: 06/20/22 13:34 Dose: 20 mg Ascorbic Acid (Ascorbic Acid 500 Mg Tablet) 500 mg PO BID [facility] Last Admin: 06/20/22 09:02 Dose: 500 mg Baclofen (Baclofen 20 Mg Tablet) 20 mg PO BID [facility] Last Admin: 06/20/22 09:02 Dose: 20 mg Baclofen (Baclofen 20 Mg Tablet) 20 mg PO 1400 [facility] Last Admin: 06/20/22 13:34 Dose: 20 mg Bupropion HCl (Bupropion Hcl Xl 300 Mg Tab.Er.24h) 300 mg PO DAILY [facility] Last Admin: 06/20/22 09:02 Dose: 300 mg Calcium Carbonate/Cholecalciferol (Calcium + Vitamin D 250 Mg Tablet) 500 mg PO BID [facility] Last Admin: 06/20/22 09:02 Dose: 500 mg Clotrimazole (Clotrimazole 1 % Cream 15 Gm Tube) 1 appl TOPICAL BID PRN PRN Reason: Rash Last Admin: 06/20/22 09:06 Dose: 1 appl Divalproex Sodium (Divalproex Sodium Sprinkles 125 Mg ) 125 mg PO TID [facility] Last Admin: 06/20/22 09:01 Dose: 125 mg Folic Acid (Folic Acid 1 Mg Tablet) 1 mg PO DAILY [facility] Last Admin: 06/20/22 09:02 Dose: 1 mg Gabapentin (Gabapentin 400 Mg Capsule) 400 mg PO 1400 [facility] Last Admin: 06/20/22 13:34 Dose: 400 mg Gabapentin (Gabapentin 400 Mg Capsule) 400 mg PO BID [facility] Last Admin: 06/20/22 09:01 Dose: 400 mg Hydroxyzine HCl (Hydroxyzine Hcl 25 Mg Tablet) 25 mg PO Q6H PRN PRN Reason: Anxiety Last Admin: 06/19/22 00:14 Dose: 25 mg Lamotrigine (Lamotrigine 100 Mg Tablet) 250 mg PO BEDTIME [facility] Last Admin: 06/19/22 21:04 Dose: 250 mg Levothyroxine Sodium (Levothyroxine Sodium 25 Mcg Tablet) 25 mcg PO DAILY@0630 [facility] Last Admin: 06/20/22 05:45 Dose: 25 mcg Loratadine (Loratadine 10 Mg Tablet) 10 mg PO DAILY [facility] Last Admin: 06/20/22 09:02 Dose: 10 mg Lorazepam (Lorazepam 0.5 Mg Tablet) 0.5 mg PO TID@0900,1400,1830 [facility] Last Admin: 06/20/22 09:03 Dose: 0.5 mg Lorazepam (Lorazepam 0.5 Mg Tablet) 0.5 mg PO BID PRN PRN Reason: anxiety, agitation Lurasidone HCl (Lurasidone Hcl 80 Mg Tablet) 160 mg PO DAILY@1800 [facility] Last Admin: 06/19/22 18:05 Dose: 160 mg Magnesium Hydroxide (Milk Of Magnesia 30 Ml Oral.Susp) 30 ml PO DAILY PRN PRN Reason: Constipation Multivitamins/Vitamin C (Multivitamin Tablet) 1 tab PO BID [facility] Last Admin: 06/20/22 09:01 Dose: 1 tab Omeprazole (Omeprazole 20 Mg Capsule.Dr) 20 mg PO BID [facility] Last Admin: 06/20/22 09:03 Dose: 20 mg Perphenazine (Perphenazine 2 Mg Tablet) 2 mg PO QID PRN PRN Reason: anxiety, dissociations, agitation Quetiapine Fumarate (Quetiapine Fumarate 25 Mg Tablet) 12.5 mg PO QID PRN PRN Reason: anxiety Last Admin: 06/19/22 16:01 Dose: 12.5 mg Sumatriptan Succinate (Sumatriptan Succinate 50 Mg Tablet) 50 mg PO DAILY MRX1 PRN PRN Reason: Migraine Headache Thiamine HCl (Thiamine Hcl 100 Mg Tablet) 100 mg PO DAILY [facility] Last Admin: 06/20/22 09:03 Dose: 100 mg Trazodone HCl (Trazodone Hcl 50 Mg Tablet) 150 mg PO BEDTIME [facility] Last Admin: 06/19/22 21:07 Dose: 150 mg Trazodone HCl (Trazodone Hcl 50 Mg Tablet) 50 mg PO BEDTIME PRN PRN Reason: insomnia Last Admin: 06/20/22 02:00 Dose: 50 mg Allergies Allergies Allergy/AdvReac Type Severity Reaction Status Date / Time latex [LATEX] Allergy Mild Rash Verified 02/21/22 06:47 leuprolide [From LUPRON] Allergy Unknown HIVES Verified 02/21/22 06:47 Sulfa (Sulfonamide Allergy Unknown RASH Verified 02/21/22 06:48 Antibiotics) [SULFA (SULFONAMIDE ANTIBIOTICS)] ibuprofen AdvReac Intermediate Abdominal Verified 02/21/22 16:53 Pain Assessment & Plan Assessment & Plan (1) Post traumatic stress disorder (PTSD): Status: Acute Code(s): F43.10 - Post-traumatic stress disorder, unspecified (2) Alcohol use disorder: Status: Acute (3) Depression: Status: Acute Code(s): F32.A - Depression, unspecified Plan 52 yo female, hx of PTSD, Depression, Alcohol Use Disorder, recent section 35. Pt returns for admission after a recent discharge where she was restricted in milieu participation due to positive C-Difficile testing. She returns for treatment of PTSD and depression and asks for assistance in admission to a longer term program for addiction, specifically, [facility], recommended by her [facility] acute care physician Valentina. Pt reports an 8 year hx of sobriety that she wants to re- establish and move forward with Medication review completed with Sweetie, discussed with team. -Reviewed buspar tapering-will replace and begin -Olanzapine 2. 5mg bid prn anxiety -Lorazepam 0.5 mg tid -MVI 1 tab daily -Folic acid 1 mg daily -Referrals to TSS programs with pt 06/13/22- Increase Lamictal by 50 mg Imitrex prn 06/14/22- no med changes, continue trial on PRN zyprexa 06/15/22- no med changes 06/16/22 continue current treatment plan 06/17/2022 continue current treatment plan Patient considering trial of disulfiram 06/20/22- Increase Perphenazine prn to 2 mg qid. I spent minutes with the patient and/or on the patient floor today, greater than?50% of which was spent counseling/coordinating care. Patient educated on: medication risk/benefits and therapeutic strategies Informed Consent: understands and further education needed Reason for contiued inpatient stay Substantial Risk for: harm to self and rapid decompensation
[2022-06-20] MEDS: Lurasidone HCl 80 MG TABLET 160 MG PO (16:41)
[2022-06-20 17:17] VITALS: BP 118/78; PULSE 68; RESP 16; TEMP 36.6; O2SAT 98
[2022-06-20] MEDS: lamoTRIgine 100 MG TABLET 250 MG PO (19:22)
[2022-06-20] MEDS: traZODone HCL 50 MG TABLET 150 MG PO (19:26)
[2022-06-21] MEDS: traZODone HCL 50 MG TABLET PO (01:29)
[2022-06-21] MEDS: QUEtiapine Fumarate 25 MG TABLET 12.5 MG PO (01:29)
[2022-06-21] MEDS: Levothyroxine Sodium 25 MCG TABLET PO (05:50)
[2022-06-21] MEDS: Amphetamine Mixed Salts 20 MG TABLET PO ×2 (05:50→12:41)
[2022-06-21 06:00] VITALS: BP 124/66; PULSE 68; RESP 16
[2022-06-21] MEDS: Divalproex Sodium Sprinkles 125 MG CAP.DR.SPR PO ×3 (08:46→20:27)
[2022-06-21] MEDS: Multivitamin TABLET 1 TAB PO ×2 (08:46→20:27)
[2022-06-21] MEDS: Calcium + Vitamin D 250 MG TABLET 500 MG PO ×2 (08:46→20:27)
[2022-06-21] MEDS: Gabapentin 400 MG CAPSULE PO ×3 (08:46→20:27)
[2022-06-21] MEDS: Omeprazole 20 MG CAPSULE.DR PO ×2 (08:46→20:27)
[2022-06-21] MEDS: amLODIPine Besylate 5 MG TABLET PO (08:46)
[2022-06-21] MEDS: Ascorbic Acid 500 MG TABLET PO ×2 (08:46→20:27)
[2022-06-21] MEDS: Baclofen 20 MG TABLET PO ×3 (08:46→20:27)
[2022-06-21] MEDS: Folic Acid 1 MG TABLET PO (08:46)
[2022-06-21] MEDS: Thiamine HCL 100 MG TABLET PO (08:46)
[2022-06-21] MEDS: Acamprosate Calcium 333 MG TABLET.DR 666 MG PO ×3 (08:46→20:26)
[2022-06-21] MEDS: Loratadine 10 MG TABLET PO (08:46)
[2022-06-21] MEDS: buPROPion HCl XL 300 MG TAB.ER.24H PO (08:46)
[2022-06-21] MEDS: LORazepam 0.5 MG TABLET PO ×2 (08:48→19:24)
[2022-06-21] MEDS: Acetaminophen 325 MG TABLET 650 MG PO (09:46)
--- NOTE | 2022-06-21 10:29 | P.PNPSI_ITS ---
Subjective Subjective Date of Service: 06/21/22 Reason For Visit: Bipolar disorder, PTSD, alcohol use disorder Interim History: Patient seen and discussed. Patient reports feeling not terrible Reviews history of last year being very traumatic. Loss of service dog, of father who was her primary support and financial problems. This led to repeated relapses on alcohol and treatment programs. Patient says she is tolerating the changes in her medications and finds the trilafon helpful. Denies SI. Wants to be DC'ed to a rehab facility from here. Review of Systems Review of Systems Constitutional : No Fever, No Chills ENT/Mouth : No Ear Pain, No Nasal Congestion, No sore throat Eyes: No Eye Pain, No Swelling, No Redness Cardiovascular : No Chest Pain, No SOB Respiratory : No Cough, No Sputum, No Dyspnea Gastrointestinal : No Nausea, No Vomiting, No Diarrhea, No Hematochezia, No Melena Genitourinary : No Dysuria, No Urinary Frequency, No Hematuria Musculoskeletal : No Myalgias Skin : No Skin Lesions, No rash Neuro : No Weakness, No Numbness, No Paresthesias, No Dizziness, No Headache Psych : positive Anxiety, positive Depression, positive SI, No HI All other systems reviewed and are negative Yes all other systems are reviewed and are negative Constitutional: Reports difficulty sleeping Eyes: Reports no additional eye complaints Reports system reviewed and no additional complaints, except as documented and Reports dental pain (from jaw clenching) Cardiovascular: Reports other (HTN) Respiratory: Reports no additional respiratory complaints Gastrointestinal: Reports no additional gastrointestinal complaints Musculoskeletal: Reports no additional musculoskeletal complaints Skin/Breast: Reports system reviewed and no additional complaints, except as docu Psychiatric: Reports abnormal sleep pattern, Reports anxiety, Reports depression, Reports difficulty concentrating, Reports hopelessness, Reports anhedonia and Reports suicidal ideation (drinking herself to medical compli cations/) Endocrine: Reports no additional endocrine complaints Hematologic/Lymphatic: Reports no additional hematologic/lymphatic complaints Allergic/Immunologic: Reports no additional allergic/immunologic complaints Mental Status Exam Mental Status Exam Narrative: Patient Appearance: Fatigued Patient Orientation: Person, Place, Time and Situation Level of Consciousness: Alert Patient Behavior: Appropriate, Talkative, Cooperative and Good Eye Contact Mood Description: Depressed Affect Description: Flat Patient Cognition Impaired: No Ability to Follow Directions: Good Speech Pattern: Spontaneous Speech Memory Description: Intact Hallucinations: None Delusions: Not Present Perceptual Disturbances: Depersonalization and Derealization Thought Process: Goal Oriented Thought Content: positive for Circumstantial Depressive Symptoms: Increased Anxiety, Insomnia, Difficulty Sleeping, Changes in Appetite, Loss of Int. in Activity, Feelings of Worthlessness, Hopelessness, Isolating-Friends/Family, Feelings of Guilt, Unhappiness, Increased Fatigue, Thoughts of /Suicide, Loss of Energy and Difficulty Concentrating Judgement: Fair Patient Appearance: Appropriate Patient Orientation: Person, Place, Time and Situation Level of Consciousness: Alert Patient Behavior: Appropriate, Talkative, Cooperative and Good Eye Contact Mood Description: Depressed Affect Description: Flat Patient Cognition Impaired: No Ability to Follow Directions: Good Speech Pattern: Spontaneous Speech Memory Description: Intact Diagnostics Vital Signs (24Hr): Vital Signs - 24 hr 06/20/22 17:17 06/21/22 06:00 Temperature 97.8 F Pulse Rate 68 68 Respiratory Rate 16 16 Blood Pressure 118/78 124/66 Pulse Oximetry 98 Oxygen Delivery Method Room Air Room Air BMI result Body Mass Index 38.3 Labs Results: 06/07/22 19:03 06/07/22 19:03 Medications Medications Current Medications Acamprosate (Acamprosate Calcium 333 Mg Tablet.) 666 mg PO BID [facility] Last Admin: 06/21/22 08:46 Dose: 666 mg Acamprosate (Acamprosate Calcium 333 Mg Tablet.) 666 mg PO 1400 [facility] Last Admin: 06/20/22 14:56 Dose: 666 mg Acetaminophen (Acetaminophen 325 Mg Tablet) 650 mg PO Q6H PRN PRN Reason: Headache/Pain Mild Scale (1-3) Last Admin: 06/21/22 09:46 Dose: 650 mg Al Hydroxide/Mg Hydroxide (Magnesium Hydrox/Alum Hydrox 30 Ml Oral.Susp) 30 ml PO Q6H PRN PRN Reason: Heartburn/Nausea Amlodipine Besylate (Amlodipine Besylate 5 Mg Tablet) 5 mg PO DAILY [facility]; Protocol Last Admin: 06/21/22 08:46 Dose: 5 mg Amphetamine/Dextroamphetamine (Amphetamine Mixed Salts 20 Mg Tablet) 20 mg PO BID@0600,1300 [facility] Last Admin: 06/21/22 05:50 Dose: 20 mg Ascorbic Acid (Ascorbic Acid 500 Mg Tablet) 500 mg PO BID [facility] Last Admin: 06/21/22 08:46 Dose: 500 mg Baclofen (Baclofen 20 Mg Tablet) 20 mg PO BID [facility] Last Admin: 06/21/22 08:46 Dose: 20 mg Baclofen (Baclofen 20 Mg Tablet) 20 mg PO 1400 [facility] Last Admin: 06/20/22 13:34 Dose: 20 mg Bupropion HCl (Bupropion Hcl Xl 300 Mg Tab.Er.24h) 300 mg PO DAILY [facility] Last Admin: 06/21/22 08:46 Dose: 300 mg Calcium Carbonate/Cholecalciferol (Calcium + Vitamin D 250 Mg Tablet) 500 mg PO BID [facility] Last Admin: 06/21/22 08:46 Dose: 500 mg Clotrimazole (Clotrimazole 1 % Cream 15 Gm Tube) 1 appl TOPICAL BID PRN PRN Reason: Rash Last Admin: 06/20/22 09:06 Dose: 1 appl Divalproex Sodium (Divalproex Sodium Sprinkles 125 Mg Antwan.) 125 mg PO TID [facility] Last Admin: 06/21/22 08:46 Dose: 125 mg Folic Acid (Folic Acid 1 Mg Tablet) 1 mg PO DAILY [facility] Last Admin: 06/21/22 08:46 Dose: 1 mg Gabapentin (Gabapentin 400 Mg Capsule) 400 mg PO 1400 [facility] Last Admin: 06/20/22 13:34 Dose: 400 mg Gabapentin (Gabapentin 400 Mg Capsule) 400 mg PO BID [facility] Last Admin: 06/21/22 08:46 Dose: 400 mg Hydroxyzine HCl (Hydroxyzine Hcl 25 Mg Tablet) 25 mg PO Q6H PRN PRN Reason: Anxiety Last Admin: 06/19/22 00:14 Dose: 25 mg Lamotrigine (Lamotrigine 100 Mg Tablet) 250 mg PO BEDTIME [facility] Last Admin: 06/20/22 19:22 Dose: 250 mg Levothyroxine Sodium (Levothyroxine Sodium 25 Mcg Tablet) 25 mcg PO DAILY@0630 [facility] Last Admin: 06/21/22 05:50 Dose: 25 mcg Loratadine (Loratadine 10 Mg Tablet) 10 mg PO DAILY [facility] Last Admin: 06/21/22 08:46 Dose: 10 mg Lorazepam (Lorazepam 0.5 Mg Tablet) 0.5 mg PO TID@0900,1400,1830 [facility] Last Admin: 06/21/22 08:48 Dose: 0.5 mg Lorazepam (Lorazepam 0.5 Mg Tablet) 0.5 mg PO BID PRN PRN Reason: anxiety, agitation Last Admin: 06/20/22 20:39 Dose: 0.5 mg Lurasidone HCl (Lurasidone Hcl 80 Mg Tablet) 160 mg PO DAILY@1800 [facility] Last Admin: 06/20/22 16:41 Dose: 160 mg Magnesium Hydroxide (Milk Of Magnesia 30 Ml Oral.Susp) 30 ml PO DAILY PRN PRN Reason: Constipation Multivitamins/Vitamin C (Multivitamin Tablet) 1 tab PO BID [facility] Last Admin: 06/21/22 08:46 Dose: 1 tab Omeprazole (Omeprazole 20 Mg Capsule.Dr) 20 mg PO BID [facility] Last Admin: 06/21/22 08:46 Dose: 20 mg Perphenazine (Perphenazine 2 Mg Tablet) 2 mg PO QID PRN PRN Reason: anxiety, dissociations, agitation Quetiapine Fumarate (Quetiapine Fumarate 25 Mg Tablet) 12.5 mg PO QID PRN PRN Reason: anxiety Last Admin: 06/21/22 01:29 Dose: 12.5 mg Sumatriptan Succinate (Sumatriptan Succinate 50 Mg Tablet) 50 mg PO DAILY MRX1 PRN PRN Reason: Migraine Headache Thiamine HCl (Thiamine Hcl 100 Mg Tablet) 100 mg PO DAILY [facility] Last Admin: 06/21/22 08:46 Dose: 100 mg Trazodone HCl (Trazodone Hcl 50 Mg Tablet) 150 mg PO BEDTIME [facility] Last Admin: 06/20/22 19:26 Dose: 150 mg Trazodone HCl (Trazodone Hcl 50 Mg Tablet) 50 mg PO BEDTIME PRN PRN Reason: insomnia Last Admin: 06/21/22 01:29 Dose: 50 mg Allergies Allergies Allergy/AdvReac Type Severity Reaction Status Date / Time latex [LATEX] Allergy Mild Rash Verified 02/21/22 06:47 leuprolide [From LUPRON] Allergy Unknown HIVES Verified 02/21/22 06:47 Sulfa (Sulfonamide Allergy Unknown RASH Verified 02/21/22 06:48 Antibiotics) [SULFA (SULFONAMIDE ANTIBIOTICS)] ibuprofen AdvReac Intermediate Abdominal Verified 02/21/22 16:53 Pain Assessment & Plan Assessment & Plan (1) Post traumatic stress disorder (PTSD): Status: Acute Code(s): F43.10 - Post-traumatic stress disorder, unspecified (2) Alcohol use disorder: Status: Acute (3) Depression: Status: Acute Code(s): F32.A - Depression, unspecified Plan 52 yo female, hx of PTSD, Depression, Alcohol Use Disorder, recent section 35. Pt returns for admission after a recent discharge where she was restricted in milieu participation due to positive C-Difficile testing. She returns for treatment of PTSD and depression and asks for assistance in admission to a longer term program for addiction, specifically, [facility], recommended by her [facility] transitional care liaison Valentina. Pt reports an 8 year hx of sobriety that she wants to re- establish and move forward with Medication review completed with Sweetie, discussed with team. -Reviewed buspar tapering-will replace and begin -Olanzapine 2. 5mg bid prn anxiety -Lorazepam 0.5 mg tid -MVI 1 tab daily -Folic acid 1 mg daily -Referrals to TSS programs with pt 06/13/22- Increase Lamictal by 50 mg Imitrex prn 06/14/22- no med changes, continue trial on PRN zyprexa 06/15/22- no med changes 06/16/22 continue current treatment plan 06/17/2022 continue current treatment plan Patient considering trial of disulfiram 06/20/22- Increase Perphenazine prn to 2 mg qid. 06/21: continue same. I spent minutes with the patient and/or on the patient floor today, greater than?50% of which was spent counseling/coordinating care. Reason for contiued inpatient stay Substantial Risk for: inability to function and rapid decompensation
[2022-06-21 18:00] VITALS: BP 139/77; PULSE 77; RESP 18; O2SAT 98
[2022-06-21] MEDS: Lurasidone HCl 80 MG TABLET 160 MG PO (18:26)
[2022-06-21] MEDS: lamoTRIgine 100 MG TABLET 250 MG PO (20:26)
[2022-06-21] MEDS: traZODone HCL 50 MG TABLET 150 MG PO (20:27)
[2022-06-22] MEDS: LORazepam 0.5 MG TABLET PO ×3 (02:35→18:52)
[2022-06-22] MEDS: hydrOXYzine HCL 25 MG TABLET PO (02:35)
[2022-06-22] MEDS: Levothyroxine Sodium 25 MCG TABLET PO (05:57)
[2022-06-22] MEDS: Amphetamine Mixed Salts 20 MG TABLET PO ×2 (05:57→12:40)
[2022-06-22 08:20] VITALS: BP 121/71; PULSE 68; RESP 18; TEMP 36.4; O2SAT 98
[2022-06-22] MEDS: buPROPion HCl XL 300 MG TAB.ER.24H PO (08:50)
[2022-06-22] MEDS: Ascorbic Acid 500 MG TABLET PO ×2 (08:51→21:08)
[2022-06-22] MEDS: Divalproex Sodium Sprinkles 125 MG CAP.DR.SPR PO ×3 (08:51→21:09)
[2022-06-22] MEDS: Gabapentin 400 MG CAPSULE PO ×3 (08:51→21:08)
[2022-06-22] MEDS: Thiamine HCL 100 MG TABLET PO (08:51)
[2022-06-22] MEDS: Calcium + Vitamin D 250 MG TABLET 500 MG PO ×2 (08:51→21:08)
[2022-06-22] MEDS: Baclofen 20 MG TABLET PO ×3 (08:51→21:09)
[2022-06-22] MEDS: Folic Acid 1 MG TABLET PO (08:51)
[2022-06-22] MEDS: Loratadine 10 MG TABLET PO (08:51)
[2022-06-22] MEDS: amLODIPine Besylate 5 MG TABLET PO (08:52)
[2022-06-22] MEDS: Multivitamin TABLET 1 TAB PO ×2 (08:52→21:06)
[2022-06-22] MEDS: Omeprazole 20 MG CAPSULE.DR PO ×2 (08:52→21:06)
[2022-06-22] MEDS: Acamprosate Calcium 333 MG TABLET.DR 666 MG PO ×3 (08:52→21:09)
--- NOTE | 2022-06-22 14:10 | HO.PSYCHPN ---
Subjective Subjective Date of Service: 06/22/22 Reason For Visit: Bipolar disorder, PTSD, alcohol use disorder Interim History: Patient seen and discussed. I am holding it together Seen in her room. Says she is thinking about all the trauma and losses she had the last year. She reports medications are helpful and denies side effects. Denies SI. Wants to be DC'ed to a rehab facility from here. Review of Systems Review of Systems Constitutional : No Fever, No Chills ENT/Mouth : No Ear Pain, No Nasal Congestion, No sore throat Eyes: No Eye Pain, No Swelling, No Redness Cardiovascular : No Chest Pain, No SOB Respiratory : No Cough, No Sputum, No Dyspnea Gastrointestinal : No Nausea, No Vomiting, No Diarrhea, No Hematochezia, No Melena Genitourinary : No Dysuria, No Urinary Frequency, No Hematuria Musculoskeletal : No Myalgias Skin : No Skin Lesions, No rash Neuro : No Weakness, No Numbness, No Paresthesias, No Dizziness, No Headache Psych : positive Anxiety, positive Depression, positive SI, No HI All other systems reviewed and are negative Yes all other systems are reviewed and are negative Constitutional: Reports difficulty sleeping Eyes: Reports no additional eye complaints Reports system reviewed and no additional complaints, except as documented and Reports dental pain (from jaw clenching) Cardiovascular: Reports other (HTN) Respiratory: Reports no additional respiratory complaints Gastrointestinal: Reports no additional gastrointestinal complaints Musculoskeletal: Reports no additional musculoskeletal complaints Skin/Breast: Reports system reviewed and no additional complaints, except as docu Psychiatric: Reports abnormal sleep pattern, Reports anxiety, Reports depression, Reports difficulty concentrating, Reports hopelessness, Reports anhedonia and Reports suicidal ideation (drinking herself to medical complications/) Endocrine: Reports no additional endocrine complaints Hematologic/Lymphatic: Reports no additional hematologic/lymphatic complaints Allergic/Immunologic: Reports no additional allergic/immunologic complaints Mental Status Exam Mental Status Exam Narrative: Patient Appearance: Fatigued Patient Orientation: Person, Place, Time and Situation Level of Consciousness: Alert Patient Behavior: Appropriate, Talkative, Cooperative and Good Eye Contact Mood Description: Depressed Affect Description: Flat Patient Cognition Impaired: No Ability to Follow Directions: Good Speech Pattern: Spontaneous Speech Memory Description: Intact Hallucinations: None Delusions: Not Present Perceptual Disturbances: Depersonalization and Derealization Thought Process: Goal Oriented Thought Content: positive for Circumstantial Depressive Symptoms: Increased Anxiety, Insomnia, Difficulty Sleeping, Changes in Appetite, Loss of Int. in Activity, Feelings of Worthlessness, Hopelessness, Isolating-Friends/Family, Feelings of Guilt, Unhappiness, Increased Fatigue, Thoughts of /Suicide, Loss of Energy and Difficulty Concentrating Judgement: Fair Patient Appearance: Appropriate Patient Orientation: Person, Place, Time and Situation Level of Consciousness: Alert Patient Behavior: Appropriate, Talkative, Cooperative and Good Eye Contact Mood Description: Depressed Affect Description: Flat Patient Cognition Impaired: No Ability to Follow Directions: Good Speech Pattern: Spontaneous Speech Memory Description: Intact Diagnostics Vital Signs (24Hr): Vital Signs - 24 hr 06/22/22 08:20 06/22/22 18:10 Temperature 97.6 F 98.2 F Pulse Rate 68 75 Respiratory Rate 18 Blood Pressure 121/71 175/86 H Pulse Oximetry 98 Oxygen Delivery Method Room Air BMI result Body Mass Index 38.3 Labs Results: 06/07/22 19:03 06/07/22 19:03 Medications Medications Current Medications Acamprosate (Acamprosate Calcium 333 Mg Tablet.) 666 mg PO BID [facility] Last Admin: 06/22/22 08:52 Dose: 666 mg Acamprosate (Acamprosate Calcium 333 Mg Tablet.) 666 mg PO 1400 [facility] Last Admin: 06/22/22 14:15 Dose: 666 mg Acetaminophen (Acetaminophen 325 Mg Tablet) 650 mg PO Q6H PRN PRN Reason: Headache/Pain Mild Scale (1-3) Last Admin: 06/21/22 09:46 Dose: 650 mg Al Hydroxide/Mg Hydroxide (Magnesium Hydrox/Alum Hydrox 30 Ml Oral.Susp) 30 ml PO Q6H PRN PRN Reason: Heartburn/Nausea Amlodipine Besylate (Amlodipine Besylate 5 Mg Tablet) 5 mg PO DAILY [facility]; Protocol Last Admin: 06/22/22 08:52 Dose: 5 mg Amphetamine/Dextroamphetamine (Amphetamine Mixed Salts 20 Mg Tablet) 20 mg PO BID@0600,1300 [facility] Last Admin: 06/22/22 12:40 Dose: 20 mg Ascorbic Acid (Ascorbic Acid 500 Mg Tablet) 500 mg PO BID [facility] Last Admin: 06/22/22 08:51 Dose: 500 mg Baclofen (Baclofen 20 Mg Tablet) 20 mg PO BID [facility] Last Admin: 06/22/22 08:51 Dose: 20 mg Baclofen (Baclofen 20 Mg Tablet) 20 mg PO 1400 [facility] Last Admin: 06/22/22 14:15 Dose: 20 mg Bupropion HCl (Bupropion Hcl Xl 300 Mg Tab.Er.24h) 300 mg PO DAILY [facility] Last Admin: 06/22/22 08:50 Dose: 300 mg Calcium Carbonate/Cholecalciferol (Calcium + Vitamin D 250 Mg Tablet) 500 mg PO BID [facility] Last Admin: 06/22/22 08:51 Dose: 500 mg Clotrimazole (Clotrimazole 1 % Cream 15 Gm Tube) 1 appl TOPICAL BID PRN PRN Reason: Rash Last Admin: 06/20/22 09:06 Dose: 1 appl Divalproex Sodium (Divalproex Sodium Sprinkles 125 Mg Cap.) 125 mg PO TID [facility] Last Admin: 06/22/22 14:15 Dose: 125 mg Folic Acid (Folic Acid 1 Mg Tablet) 1 mg PO DAILY [facility] Last Admin: 06/22/22 08:51 Dose: 1 mg Gabapentin (Gabapentin 400 Mg Capsule) 400 mg PO 1400 [facility] Last Admin: 06/22/22 14:15 Dose: 400 mg Gabapentin (Gabapentin 400 Mg Capsule) 400 mg PO BID [facility] Last Admin: 06/22/22 08:51 Dose: 400 mg Hydroxyzine HCl (Hydroxyzine Hcl 25 Mg Tablet) 25 mg PO Q6H PRN PRN Reason: Anxiety Last Admin: 06/22/22 02:35 Dose: 25 mg Lamotrigine (Lamotrigine 100 Mg Tablet) 250 mg PO BEDTIME [facility] Last Admin: 06/21/22 20:26 Dose: 250 mg Levothyroxine Sodium (Levothyroxine Sodium 25 Mcg Tablet) 25 mcg PO DAILY@0630 [facility] Last Admin: 06/22/22 05:57 Dose: 25 mcg Loratadine (Loratadine 10 Mg Tablet) 10 mg PO DAILY [facility] Last Admin: 06/22/22 08:51 Dose: 10 mg Lorazepam (Lorazepam 0.5 Mg Tablet) 0.5 mg PO TID@0900,1400,1830 [facility] Last Admin: 06/22/22 18:52 Dose: 0.5 mg Lorazepam (Lorazepam 0.5 Mg Tablet) 0.5 mg PO BID PRN PRN Reason: anxiety, agitation Last Admin: 06/22/22 02:35 Dose: 0.5 mg Lurasidone HCl (Lurasidone Hcl 80 Mg Tablet) 160 mg PO DAILY@1800 [facility] Last Admin: 06/22/22 18:52 Dose: 160 mg Magnesium Hydroxide (Milk Of Magnesia 30 Ml Oral.Susp) 30 ml PO DAILY PRN PRN Reason: Constipation Multivitamins/Vitamin C (Multivitamin Tablet) 1 tab PO BID [facility] Last Admin: 06/22/22 08:52 Dose: 1 tab Omeprazole (Omeprazole 20 Mg Capsule.Dr) 20 mg PO BID [facility] Last Admin: 06/22/22 08:52 Dose: 20 mg Perphenazine (Perphenazine 2 Mg Tablet) 2 mg PO QID PRN PRN Reason: anxiety, dissociations, agitation Quetiapine Fumarate (Quetiapine Fumarate 25 Mg Tablet) 12.5 mg PO QID PRN PRN Reason: anxiety Last Admin: 06/21/22 01:29 Dose: 12.5 mg Sumatriptan Succinate (Sumatriptan Succinate 50 Mg Tablet) 50 mg PO DAILY MRX1 PRN PRN Reason: Migraine Headache Thiamine HCl (Thiamine Hcl 100 Mg Tablet) 100 mg PO DAILY [facility] Last Admin: 06/22/22 08:51 Dose: 100 mg Trazodone HCl (Trazodone Hcl 50 Mg Tablet) 150 mg PO BEDTIME [facility] Last Admin: 06/21/22 20:27 Dose: 150 mg Trazodone HCl (Trazodone Hcl 50 Mg Tablet) 50 mg PO BEDTIME PRN PRN Reason: insomnia Last Admin: 06/21/22 01:29 Dose: 50 mg Allergies Allergies Allergy/AdvReac Type Severity Reaction Status Date / Time latex [LATEX] Allergy Mild Rash Verified 02/21/22 06:47 leuprolide [From LUPRON] Allergy Unknown HIVES Verified 02/21/22 06:47 Sulfa (Sulfonamide Allergy Unknown RASH Verified 02/21/22 06:48 Antibiotics) [SULFA (SULFONAMIDE ANTIBIOTICS)] ibuprofen AdvReac Intermediate Abdominal Verified 02/21/22 16:53 Pain Assessment & Plan Assessment & Plan (1) Post traumatic stress disorder (PTSD): Status: Acute Code(s): F43.10 - Post-traumatic stress disorder, unspecified (2) Alcohol use disorder: Status: Acute (3) Depression: Status: Acute Code(s): F32.A - Depression, unspecified Plan 52 yo female, hx of PTSD, Depression, Alcohol Use Disorder, recent section 35. Pt returns for admission after a recent discharge where she was restricted in milieu participation due to positive C-Difficile testing. She returns for treatment of PTSD and depression and asks for assistance in admission to a longer term program for addiction, specifically, [facility], recommended by her [facility] floor care technician Valentina. Pt reports an 8 year hx of sobriety that she wants to re-establish and move forward with Medication review completed with Sweetie, discussed with team. -Reviewed buspar tapering-will replace and begin -Olanzapine 2. 5mg bid prn anxiety -Lorazepam 0.5 mg tid -MVI 1 tab daily -Folic acid 1 mg daily -Referrals to TSS programs with pt 06/13/22- Increase Lamictal by 50 mg Imitrex prn 06/14/22- no med changes, continue trial on PRN zyprexa 06/15/22- no med changes 06/16/22 continue current treatment plan 06/17/2022 continue current treatment plan Patient considering trial of disulfiram 06/20/22- Increase Perphenazine prn to 2 mg qid. 06/21: continue same. 06/22: continue same. I spent minutes with the patient and/or on the patient floor today, greater than?50% of which was spent counseling/coordinating care. Reason for contiued inpatient stay Substantial Risk for: harm to self and rapid decompensation
[2022-06-22 18:10] VITALS: BP 175/86; PULSE 75; TEMP 36.8
[2022-06-22] MEDS: Lurasidone HCl 80 MG TABLET 160 MG PO (18:52)
[2022-06-22] MEDS: traZODone HCL 50 MG TABLET 150 MG PO (21:06)
[2022-06-22] MEDS: lamoTRIgine 100 MG TABLET 250 MG PO (21:07)
[2022-06-22] MEDS: traZODone HCL 50 MG TABLET PO (23:52)
[2022-06-23] MEDS: Levothyroxine Sodium 25 MCG TABLET PO (05:39)
[2022-06-23] MEDS: Amphetamine Mixed Salts 20 MG TABLET PO ×2 (05:39→13:06)
[2022-06-23 06:00] VITALS: BP 138/81; PULSE 79; RESP 18; TEMP 36.8; O2SAT 98
[2022-06-23] MEDS: Omeprazole 20 MG CAPSULE.DR PO ×2 (08:40→20:26)
[2022-06-23] MEDS: Acamprosate Calcium 333 MG TABLET.DR 666 MG PO ×3 (08:40→20:26)
[2022-06-23] MEDS: Calcium + Vitamin D 250 MG TABLET 500 MG PO ×2 (08:40→20:26)
[2022-06-23] MEDS: Loratadine 10 MG TABLET PO (08:40)
[2022-06-23] MEDS: buPROPion HCl XL 300 MG TAB.ER.24H PO (08:40)
[2022-06-23] MEDS: Ascorbic Acid 500 MG TABLET PO ×2 (08:40→20:26)
[2022-06-23] MEDS: Gabapentin 400 MG CAPSULE PO ×3 (08:40→20:26)
[2022-06-23] MEDS: Multivitamin TABLET 1 TAB PO ×2 (08:41→20:26)
[2022-06-23] MEDS: Baclofen 20 MG TABLET PO ×3 (08:41→20:26)
[2022-06-23] MEDS: LORazepam 0.5 MG TABLET PO ×4 (08:41→18:17)
[2022-06-23] MEDS: Divalproex Sodium Sprinkles 125 MG CAP.DR.SPR PO ×3 (08:41→20:28)
[2022-06-23] MEDS: Folic Acid 1 MG TABLET PO (08:41)
[2022-06-23] MEDS: Thiamine HCL 100 MG TABLET PO (08:41)
[2022-06-23] MEDS: amLODIPine Besylate 5 MG TABLET PO (08:51)
[2022-06-23] MEDS: Perphenazine 2 MG TABLET PO (11:52)
--- NOTE | 2022-06-23 15:08 | P.PNPSI_ITS ---
Subjective Subjective Date of Service: 06/23/22 Reason For Visit: Bipolar disorder, PTSD, alcohol use disorder Subjective Notes: Conditional Voluntary Healthcare Proxy: No Guardianship: No Medical Problems Affecting Mental Status: No Interim History: Discussion of worry and hopelessness that she has not been accepted into a program at this time. 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 Reports she believes Depakote, low dose, is helping her mood-continues to trial Perphenazine/Quetiapine but is unsure at this time. Medication Compliance: Yes Side effects from medications: No Attending Groups: Intermittent Review of Systems Acute medical concerns: No Medical Review of Systems: unchanged Mental Status Exam Mental Status Exam Patient Appearance: Appropriate Patient Orientation: Person, Place, Time and Situation Level of Consciousness: Alert Patient Behavior: Talkative and Good Eye Contact Mood Description: Depressed and Angry Affect Description: Flat Patient Cognition Impaired: No Ability to Follow Directions: Good Speech Pattern: Spontaneous Speech Memory Description: Intact Hallucinations: None Delusions: Not Present Perceptual Disturbances: Depersonalization and Derealization Thought Process: Goal Oriented Thought Content: positive for Goal Oriented Depressive Symptoms: Increased Irritability, Feelings of Worthlessness, Hopelessness, Isolating-Friends/Family and Low Self Esteem Judgement: Good Diagnostics Vital Signs (24Hr): Vital Signs - 24 hr 06/22/22 18:10 06/23/22 06:00 Temperature 98.2 F 98.3 F Pulse Rate 75 79 Respiratory Rate 18 Blood Pressure 175/86 H 138/81 Pulse Oximetry 98 Oxygen Delivery Method Room Air BMI result Body Mass Index 38.3 Labs Results: 06/07/22 19:03 06/07/22 19:03 Medications Medications Current Medications Acamprosate (Acamprosate Calcium 333 Mg Tablet.) 666 mg PO BID [facility] Last Admin: 06/23/22 08:40 Dose: 666 mg Acamprosate (Acamprosate Calcium 333 Mg Tablet.) 666 mg PO 1400 [facility] Last Admin: 06/23/22 14:24 Dose: 666 mg Acetaminophen (Acetaminophen 325 Mg Tablet) 650 mg PO Q6H PRN PRN Reason: Headache/Pain Mild Scale (1-3) Last Admin: 06/21/22 09:46 Dose: 650 mg Al Hydroxide/Mg Hydroxide (Magnesium Hydrox/Alum Hydrox 30 Ml Oral.Susp) 30 ml PO Q6H PRN PRN Reason: Heartburn/Nausea Amlodipine Besylate (Amlodipine Besylate 5 Mg Tablet) 5 mg PO DAILY [facility]; Protocol Last Admin: 06/23/22 08:51 Dose: 5 mg Amphetamine/Dextroamphetamine (Amphetamine Mixed Salts 20 Mg Tablet) 20 mg PO BID@0600,1300 [facility] Last Admin: 06/23/22 13:06 Dose: 20 mg Ascorbic Acid (Ascorbic Acid 500 Mg Tablet) 500 mg PO BID [facility] Last Admin: 06/23/22 08:40 Dose: 500 mg Baclofen (Baclofen 20 Mg Tablet) 20 mg PO BID [facility] Last Admin: 06/23/22 08:41 Dose: 20 mg Baclofen (Baclofen 20 Mg Tablet) 20 mg PO 1400 [facility] Last Admin: 06/23/22 14:24 Dose: 20 mg Bupropion HCl (Bupropion Hcl Xl 300 Mg Tab.Er.24h) 300 mg PO DAILY [facility] Last Admin: 06/23/22 08:40 Dose: 300 mg Calcium Carbonate/Cholecalciferol (Calcium + Vitamin D 250 Mg Tablet) 500 mg PO BID [facility] Last Admin: 06/23/22 08:40 Dose: 500 mg Clotrimazole (Clotrimazole 1 % Cream 15 Gm Tube) 1 appl TOPICAL BID PRN PRN Reason: Rash Last Admin: 06/20/22 09:06 Dose: 1 appl Divalproex Sodium (Divalproex Sodium Sprinkles 125 Mg ) 125 mg PO TID [facility] Last Admin: 06/23/22 14:24 Dose: 125 mg Folic Acid (Folic Acid 1 Mg Tablet) 1 mg PO DAILY [facility] Last Admin: 06/23/22 08:41 Dose: 1 mg Gabapentin (Gabapentin 400 Mg Capsule) 400 mg PO 1400 [facility] Last Admin: 06/23/22 14:24 Dose: 400 mg Gabapentin (Gabapentin 400 Mg Capsule) 400 mg PO BID [facility] Last Admin: 06/23/22 08:40 Dose: 400 mg Hydroxyzine HCl (Hydroxyzine Hcl 25 Mg Tablet) 25 mg PO Q6H PRN PRN Reason: Anxiety Last Admin: 06/22/22 02:35 Dose: 25 mg Lamotrigine (Lamotrigine 100 Mg Tablet) 250 mg PO BEDTIME [facility] Last Admin: 06/22/22 21:07 Dose: 250 mg Levothyroxine Sodium (Levothyroxine Sodium 25 Mcg Tablet) 25 mcg PO DAILY@0630 [facility] Last Admin: 06/23/22 05:39 Dose: 25 mcg Loratadine (Loratadine 10 Mg Tablet) 10 mg PO DAILY [facility] Last Admin: 06/23/22 08:40 Dose: 10 mg Lorazepam (Lorazepam 0.5 Mg Tablet) 0.5 mg PO TID@0900,1400,1830 [facility] Last Admin: 06/23/22 14:24 Dose: 0.5 mg Lorazepam (Lorazepam 0.5 Mg Tablet) 0.5 mg PO BID PRN PRN Reason: anxiety, agitation Last Admin: 06/22/22 02:35 Dose: 0.5 mg Lurasidone HCl (Lurasidone Hcl 80 Mg Tablet) 160 mg PO DAILY@1800 [facility] Last Admin: 06/22/22 18:52 Dose: 160 mg Magnesium Hydroxide (Milk Of Magnesia 30 Ml Oral.Susp) 30 ml PO DAILY PRN PRN Reason: Constipation Multivitamins/Vitamin C (Multivitamin Tablet) 1 tab PO BID [facility] Last Admin: 06/23/22 08:41 Dose: 1 tab Omeprazole (Omeprazole 20 Mg Capsule.Dr) 20 mg PO BID [facility] Last Admin: 06/23/22 08:40 Dose: 20 mg Perphenazine (Perphenazine 2 Mg Tablet) 2 mg PO QID PRN PRN Reason: anxiety, dissociations, agitation Last Admin: 06/23/22 11:52 Dose: 2 mg Quetiapine Fumarate (Quetiapine Fumarate 25 Mg Tablet) 12.5 mg PO QID PRN PRN Reason: anxiety Last Admin: 06/21/22 01:29 Dose: 12.5 mg Sumatriptan Succinate (Sumatriptan Succinate 50 Mg Tablet) 50 mg PO DAILY MRX1 PRN PRN Reason: Migraine Headache Thiamine HCl (Thiamine Hcl 100 Mg Tablet) 100 mg PO DAILY [facility] Last Admin: 06/23/22 08:41 Dose: 100 mg Trazodone HCl (Trazodone Hcl 50 Mg Tablet) 150 mg PO BEDTIME [facility] Last Admin: 06/22/22 21:06 Dose: 150 mg Trazodone HCl (Trazodone Hcl 50 Mg Tablet) 50 mg PO BEDTIME PRN PRN Reason: insomnia Last Admin: 06/22/22 23:52 Dose: 50 mg Allergies Allergies Allergy/AdvReac Type Severity Reaction Status Date / Time latex [LATEX] Allergy Mild Rash Verified 02/21/22 06:47 leuprolide [From LUPRON] Allergy Unknown HIVES Verified 02/21/22 06:47 Sulfa (Sulfonamide Allergy Unknown RASH Verified 02/21/22 06:48 Antibiotics) [SULFA (SULFONAMIDE ANTIBIOTICS)] ibuprofen AdvReac Intermediate Abdominal Verified 02/21/22 16:53 Pain Assessment & Plan Assessment & Plan (1) Post traumatic stress disorder (PTSD): Status: Acute Code(s): F43.10 - Post-traumatic stress disorder, unspecified (2) Alcohol use disorder: Status: Acute (3) Depression: Status: Acute Code(s): F32.A - Depression, unspecified Plan 52 yo female, hx of PTSD, Depression, Alcohol Use Disorder, recent section 35. Pt returns for admission after a recent discharge where she was restricted in milieu participation due to positive C-Difficile testing. She returns for treatment of PTSD and depression and asks for assistance in admission to a longer term program for addiction, specifically, [facility], recommended by her [facility] manager home healthcare Valentina. Pt reports an 8 year hx of sobriety that she wants to re- establish and move forward with Medication review completed with Sweetie, discussed with team. -Reviewed buspar tapering-will replace and begin -Olanzapine 2. 5mg bid prn anxiety -Lorazepam 0.5 mg tid -MVI 1 tab daily -Folic acid 1 mg daily -Referrals to TSS programs with pt 06/13/22- Increase Lamictal by 50 mg Imitrex prn 06/14/22- no med changes, continue trial on PRN zyprexa 06/15/22- no med changes 06/16/22 continue current treatment plan 06/17/2022 continue current treatment plan Patient considering trial of disulfiram 06/20/22- Increase Perphenazine prn to 2 mg qid. 06/21: continue same. 06/22: continue same. 06/23/22: Finding some sx relief with low dose Depakote. Continue current regime. I spent minutes with the patient and/or on the patient floor today, greater than?50% of which was spent counseling/coordinating care. Patient educated on: medication risk/benefits, substance abuse and therapeutic strategies Informed Consent: understands Reason for contiued inpatient stay Substantial Risk for: harm to self and rapid decompensation
[2022-06-23] MEDS: SUMAtriptan succinate 50 MG TABLET PO (16:24)
[2022-06-23] MEDS: Acetaminophen 325 MG TABLET 650 MG PO (16:25)
[2022-06-23 18:00] VITALS: RESP 16
[2022-06-23] MEDS: Lurasidone HCl 80 MG TABLET 160 MG PO (18:17)
[2022-06-23] MEDS: traZODone HCL 50 MG TABLET 150 MG PO (20:26)
[2022-06-23] MEDS: lamoTRIgine 100 MG TABLET 250 MG PO (20:27)
[2022-06-24] MEDS: traZODone HCL 50 MG TABLET PO (01:09)
[2022-06-24 06:00] VITALS: BP 131/78; PULSE 75; RESP 18; TEMP 36.4; O2SAT 95
[2022-06-24] MEDS: Amphetamine Mixed Salts 20 MG TABLET PO ×2 (06:07→13:15)
[2022-06-24] MEDS: Levothyroxine Sodium 25 MCG TABLET PO (06:08)
[2022-06-24] MEDS: Folic Acid 1 MG TABLET PO (08:23)
[2022-06-24] MEDS: buPROPion HCl XL 300 MG TAB.ER.24H PO (08:23)
[2022-06-24] MEDS: Divalproex Sodium Sprinkles 125 MG CAP.DR.SPR PO ×3 (08:23→21:05)
[2022-06-24] MEDS: amLODIPine Besylate 5 MG TABLET PO (08:24)
[2022-06-24] MEDS: Calcium + Vitamin D 250 MG TABLET 500 MG PO ×2 (08:24→21:07)
[2022-06-24] MEDS: Acamprosate Calcium 333 MG TABLET.DR 666 MG PO ×3 (08:24→21:05)
[2022-06-24] MEDS: Multivitamin TABLET 1 TAB PO ×2 (08:24→21:05)
[2022-06-24] MEDS: Baclofen 20 MG TABLET PO ×3 (08:24→21:06)
[2022-06-24] MEDS: Loratadine 10 MG TABLET PO (08:24)
[2022-06-24] MEDS: Omeprazole 20 MG CAPSULE.DR PO ×2 (08:24→21:05)
[2022-06-24] MEDS: Gabapentin 400 MG CAPSULE PO ×3 (08:24→21:06)
[2022-06-24] MEDS: Ascorbic Acid 500 MG TABLET PO ×2 (08:24→21:06)
[2022-06-24] MEDS: Thiamine HCL 100 MG TABLET PO (08:24)
[2022-06-24] MEDS: LORazepam 0.5 MG TABLET PO ×2 (14:43→18:13)
[2022-06-24] MEDS: QUEtiapine Fumarate 25 MG TABLET 12.5 MG PO (16:44)
--- NOTE | 2022-06-24 17:11 | HO.PSYCHPN ---
Subjective Subjective Date of Service: 06/24/22 Reason For Visit: Bipolar disorder, PTSD, alcohol use disorder Subjective Notes: Conditional Voluntary Healthcare Proxy: No Guardianship: No Medical Problems Affecting Mental Status: No Interim History: Calmer today. Discussed alternative ideas if I am not accepted into a program Well engaged in planning. No med concerns today Agrees to labs in a.m. for follow up. Medication Compliance: Yes Side effects from medications: No Attending Groups: Intermittent Review of Systems Acute medical concerns: No Medical Review of Systems: unchanged Mental Status Exam Mental Status Exam Patient Appearance: Fatigued Patient Orientation: Person, Place, Time and Situation Level of Consciousness: Alert Patient Behavior: Appropriate, Talkative, Cooperative and Good Eye Contact Mood Description: Depressed Affect Description: Flat Patient Cognition Impaired: No Ability to Follow Directions: Good Speech Pattern: Spontaneous Speech Memory Description: Intact Hallucinations: None Delusions: Not Present Perceptual Disturbances: Depersonalization and Derealization Thought Process: Goal Oriented Thought Content: positive for Circumstantial Depressive Symptoms: Increased Anxiety, Insomnia, Difficulty Sleeping, Changes in Appetite, Loss of Int. in Activity, Feelings of Worthlessness, Hopelessness, Isolating-Friends/Family, Feelings of Guilt, Unhappiness, Increased Fatigue, Loss of Energy and Difficulty Concentrating Abnormal Motor Activity Signs and Symptoms: Restlessness Judgement: Good Diagnostics Vital Signs (24Hr): Vital Signs - 24 hr 06/23/22 18:00 06/24/22 06:00 Temperature 97.5 F Pulse Rate 75 Respiratory Rate 16 18 Blood Pressure 131/78 Pulse Oximetry 95 BMI result Body Mass Index 38.3 Labs Results: 06/07/22 19:03 06/07/22 19:03 Medications Medications Current Medications Acamprosate (Acamprosate Calcium 333 Mg Tablet.) 666 mg PO BID [facility] Last Admin: 06/24/22 08:24 Dose: 666 mg Acamprosate (Acamprosate Calcium 333 Mg Tablet.) 666 mg PO 1400 [facility] Last Admin: 06/24/22 14:44 Dose: 666 mg Acetaminophen (Acetaminophen 325 Mg Tablet) 650 mg PO Q6H PRN PRN Reason: Headache/Pain Mild Scale (1-3) Last Admin: 06/23/22 16:25 Dose: 650 mg Al Hydroxide/Mg Hydroxide (Magnesium Hydrox/Alum Hydrox 30 Ml Oral.Susp) 30 ml PO Q6H PRN PRN Reason: Heartburn/Nausea Amlodipine Besylate (Amlodipine Besylate 5 Mg Tablet) 5 mg PO DAILY [facility]; Protocol Last Admin: 06/24/22 08:24 Dose: 5 mg Amphetamine/Dextroamphetamine (Amphetamine Mixed Salts 20 Mg Tablet) 20 mg PO BID@0600,1300 [facility] Last Admin: 06/24/22 13:15 Dose: 20 mg Ascorbic Acid (Ascorbic Acid 500 Mg Tablet) 500 mg PO BID [facility] Last Admin: 06/24/22 08:24 Dose: 500 mg Baclofen (Baclofen 20 Mg Tablet) 20 mg PO BID [facility] Last Admin: 06/24/22 08:24 Dose: 20 mg Baclofen (Baclofen 20 Mg Tablet) 20 mg PO 1400 [facility] Last Admin: 06/24/22 14:43 Dose: 20 mg Bupropion HCl (Bupropion Hcl Xl 300 Mg Tab.Er.24h) 300 mg PO DAILY [facility] Last Admin: 06/24/22 08:23 Dose: 300 mg Calcium Carbonate/Cholecalciferol (Calcium + Vitamin D 250 Mg Tablet) 500 mg PO BID [facility] Last Admin: 06/24/22 08:24 Dose: 500 mg Clotrimazole (Clotrimazole 1 % Cream 15 Gm Tube) 1 appl TOPICAL BID PRN PRN Reason: Rash Last Admin: 06/20/22 09:06 Dose: 1 appl Divalproex Sodium (Divalproex Sodium Sprinkles 125 Mg Antwan.) 125 mg PO TID [facility] Last Admin: 06/24/22 14:43 Dose: 125 mg Folic Acid (Folic Acid 1 Mg Tablet) 1 mg PO DAILY [facility] Last Admin: 06/24/22 08:23 Dose: 1 mg Gabapentin (Gabapentin 400 Mg Capsule) 400 mg PO 1400 [facility] Last Admin: 06/24/22 14:44 Dose: 400 mg Gabapentin (Gabapentin 400 Mg Capsule) 400 mg PO BID [facility] Last Admin: 06/24/22 08:24 Dose: 400 mg Hydroxyzine HCl (Hydroxyzine Hcl 25 Mg Tablet) 25 mg PO Q6H PRN PRN Reason: Anxiety Last Admin: 06/22/22 02:35 Dose: 25 mg Lamotrigine (Lamotrigine 100 Mg Tablet) 250 mg PO BEDTIME [facility] Last Admin: 06/23/22 20:27 Dose: 250 mg Levothyroxine Sodium (Levothyroxine Sodium 25 Mcg Tablet) 25 mcg PO DAILY@0630 [facility] Last Admin: 06/24/22 06:08 Dose: 25 mcg Loratadine (Loratadine 10 Mg Tablet) 10 mg PO DAILY [facility] Last Admin: 06/24/22 08:24 Dose: 10 mg Lorazepam (Lorazepam 0.5 Mg Tablet) 0.5 mg PO BID PRN PRN Reason: anxiety, agitation Last Admin: 06/24/22 14:43 Dose: 0.5 mg Lurasidone HCl (Lurasidone Hcl 80 Mg Tablet) 160 mg PO DAILY@1800 [facility] Last Admin: 06/23/22 18:17 Dose: 160 mg Magnesium Hydroxide (Milk Of Magnesia 30 Ml Oral.Susp) 30 ml PO DAILY PRN PRN Reason: Constipation Multivitamins/Vitamin C (Multivitamin Tablet) 1 tab PO BID [facility] Last Admin: 06/24/22 08:24 Dose: 1 tab Omeprazole (Omeprazole 20 Mg Capsule.Dr) 20 mg PO BID [facility] Last Admin: 06/24/22 08:24 Dose: 20 mg Perphenazine (Perphenazine 2 Mg Tablet) 2 mg PO QID PRN PRN Reason: anxiety, dissociations, agitation Last Admin: 06/23/22 11:52 Dose: 2 mg Quetiapine Fumarate (Quetiapine Fumarate 25 Mg Tablet) 12.5 mg PO QID PRN PRN Reason: anxiety Last Admin: 06/24/22 16:44 Dose: 12.5 mg Sumatriptan Succinate (Sumatriptan Succinate 50 Mg Tablet) 50 mg PO DAILY MRX1 PRN PRN Reason: Migraine Headache Last Admin: 06/23/22 16:24 Dose: 50 mg Thiamine HCl (Thiamine Hcl 100 Mg Tablet) 100 mg PO DAILY [facility] Last Admin: 06/24/22 08:24 Dose: 100 mg Trazodone HCl (Trazodone Hcl 50 Mg Tablet) 150 mg PO BEDTIME [facility] Last Admin: 06/23/22 20:26 Dose: 150 mg Trazodone HCl (Trazodone Hcl 50 Mg Tablet) 50 mg PO BEDTIME PRN PRN Reason: insomnia Last Admin: 06/24/22 01:09 Dose: 50 mg Allergies Allergies Allergy/AdvReac Type Severity Reaction Status Date / Time latex [LATEX] Allergy Mild Rash Verified 02/21/22 06:47 leuprolide [From LUPRON] Allergy Unknown HIVES Verified 02/21/22 06:47 Sulfa (Sulfonamide Allergy Unknown RASH Verified 02/21/22 06:48 Antibiotics) [SULFA (SULFONAMIDE ANTIBIOTICS)] ibuprofen AdvReac Intermediate Abdominal Verified 02/21/22 16:53 Pain Assessment & Plan Assessment & Plan (1) Post traumatic stress disorder (PTSD): Status: Acute Code(s): F43.10 - Post-traumatic stress disorder, unspecified (2) Alcohol use disorder: Status: Acute (3) Depression: Status: Acute Code(s): F32.A - Depression, unspecified Plan 52 yo female, hx of PTSD, Depression, Alcohol Use Disorder, recent section 35. Pt returns for admission after a recent discharge where she was restricted in milieu participation due to positive C-Difficile testing. She returns for treatment of PTSD and depression and asks for assistance in admission to a longer term program for addiction, specifically, [facility], recommended by her [facility] director of home care hospice Valentina. Pt reports an 8 year hx of sobriety that she wants to re-establish and move forward with Medication review completed with Sweetie, discussed with team. -Reviewed buspar tapering-will replace and begin -Olanzapine 2. 5mg bid prn anxiety -Lorazepam 0.5 mg tid -MVI 1 tab daily -Folic acid 1 mg daily -Referrals to TSS programs with pt 06/13/22- Increase Lamictal by 50 mg Imitrex prn 06/14/22- no med changes, continue trial on PRN zyprexa 06/15/22- no med changes 06/16/22 continue current treatment plan 06/17/2022 continue current treatment plan Patient considering trial of disulfiram 06/20/22- Increase Perphenazine prn to 2 mg qid. 06/21: continue same. 06/22: continue same. 06/23/22: Finding some sx relief with low dose Depakote. Continue current regime. 06/24/22: Continue current regime I spent minutes with the patient and/or on the patient floor today, greater than?50% of which was spent counseling/coordinating care. Patient educated on: therapeutic strategies Informed Consent: understands Reason for contiued inpatient stay Substantial Risk for: rapid decompensation
[2022-06-24] MEDS: Acetaminophen 325 MG TABLET 650 MG PO (18:57)
[2022-06-24] MEDS: Lurasidone HCl 80 MG TABLET 160 MG PO (18:57)
[2022-06-24 19:20] VITALS: BP 134/82; PULSE 93; RESP 16; TEMP 36.4; O2SAT 97
[2022-06-24] MEDS: traZODone HCL 50 MG TABLET 150 MG PO (21:05)
[2022-06-24] MEDS: lamoTRIgine 100 MG TABLET 250 MG PO (21:05)
[2022-06-25] MEDS: LORazepam 0.5 MG TABLET PO ×4 (02:16→18:40)
[2022-06-25] MEDS: Magnesium Hydrox/Alum Hydrox 30 ML ORAL.SUSP PO (04:15)
[2022-06-25] MEDS: Levothyroxine Sodium 25 MCG TABLET PO (05:24)
[2022-06-25] MEDS: Amphetamine Mixed Salts 20 MG TABLET PO ×2 (05:25→12:19)
[2022-06-25 08:41] LABS: MANUAL DIFF FLAG NO
[2022-06-25 08:45] LABS: Basophils Percent Auto 0.1 % (0-2); Hematocrit 33.7 % (37.0-47.0); Hemoglobin 11.3 g/dl (12.0-16.0); Imm Gran Abs Auto 0.02 X10*3/uL (0.00-0.03); Imm Gran Pct Auto 0.2 % (0.0-0.4); Lymphocytes Absolute Auto 1.7 X10*3/uL (1.2-4.9); Lymphocytes Percent Auto 17.6 % (20-40); Mean Corpuscular HGB Conc 33.5 g/dl (31.0-35.0); Mean Corpuscular Hemoglobin 30.5 pg (27.0-33.0); Mean Corpuscular Volume 91.1 fL (80.0-98.0); Mean Platelet Volume 10.7 fL (9.4-12.3); Monocytes Absolute Auto 0.7 X10*3/uL (0.1-1.2); Monocytes Percent Auto 6.8 % (2-11); Neutrophils Absolute Auto 7.3 x10*3/uL (2.0-8.3); Neutrophils Percent Auto 75.3 % (45-73); Platelet Count 293 X10*3/uL (160-400); Red Cell Distribution Width 12.1 % (11.0-16.0); White Blood Count 9.7 X10*3/uL (4.8-10.8)
[2022-06-25] MEDS: Multivitamin TABLET 1 TAB PO ×2 (09:20→21:21)
[2022-06-25] MEDS: Acamprosate Calcium 333 MG TABLET.DR 666 MG PO ×3 (09:20→21:18)
[2022-06-25] MEDS: amLODIPine Besylate 5 MG TABLET PO (09:20)
[2022-06-25] MEDS: Thiamine HCL 100 MG TABLET PO (09:20)
[2022-06-25] MEDS: Loratadine 10 MG TABLET PO (09:20)
[2022-06-25] MEDS: Baclofen 20 MG TABLET PO ×3 (09:21→21:20)
[2022-06-25] MEDS: Divalproex Sodium Sprinkles 125 MG CAP.DR.SPR PO ×3 (09:21→21:18)
[2022-06-25] MEDS: Omeprazole 20 MG CAPSULE.DR PO ×2 (09:21→21:21)
[2022-06-25] MEDS: Ascorbic Acid 500 MG TABLET PO ×2 (09:21→21:19)
[2022-06-25] MEDS: Calcium + Vitamin D 250 MG TABLET 500 MG PO ×2 (09:21→21:18)
[2022-06-25] MEDS: Gabapentin 400 MG CAPSULE PO ×3 (09:21→21:28)
[2022-06-25] MEDS: Perphenazine 2 MG TABLET PO ×2 (09:21→15:57)
[2022-06-25] MEDS: buPROPion HCl XL 300 MG TAB.ER.24H PO (09:21)
[2022-06-25] MEDS: Folic Acid 1 MG TABLET PO (09:21)
[2022-06-25 09:22] LABS: Alanine Aminotransferase 15 U/L (0-31); Albumin Level 4.1 g/dL (3.5-5.0); Alkaline Phosphatase 91 U/L (39-117); Anion Gap 14 (12-20); Aspartate Amino Transferase 17 U/L (5-31); Bilirubin Total < 0.2 mg/dL (0.0-1.0); Blood Urea Nitrogen 9 mg/dL (9-16); Calcium 9.5 mg/dL (8.4-10.2); Carbon Dioxide 27 mmol/L (22-29); Chloride 97 mmol/L (96-108); Creatinine Clr Calc Pharmacy 92.1; Estimated Glomerular Filt Rate > 60; Glucose Random 98 mg/dL (60-115); Potassium 5.1 mmol/L (3.3-5.1); Sodium 133 mmol/L (135-145); Total Protein 6.6 g/dL (6.5-8.0)
[2022-06-25 09:48] VITALS: BP 128/75; PULSE 73; TEMP 36.9; O2SAT 100
--- NOTE | 2022-06-25 11:16 | HO.PSYCHPN ---
Subjective Subjective Date of Service: 06/25/22 Reason For Visit: Bipolar disorder, PTSD, alcohol use disorder Subjective Notes: Conditional Voluntary Healthcare Proxy: No Guardianship: No Medical Problems Affecting Mental Status: No Interim History: Sweetie thinking about alternative planning if she is not accepted into a program. Discussion of her ideas for structure and management of symptoms. Asks to increase prn Seroquel to 25 mg qid from 12.5 mg qid Medication Compliance: Yes Side effects from medications: No Attending Groups: Intermittent Review of Systems Acute medical concerns: No Medical Review of Systems: unchanged Mental Status Exam Mental Status Exam Patient Appearance: Fatigued Patient Orientation: Person, Place, Time and Situation Level of Consciousness: Alert Patient Behavior: Appropriate, Talkative, Cooperative and Good Eye Contact Mood Description: Depressed Affect Description: Flat Patient Cognition Impaired: No Ability to Follow Directions: Good Speech Pattern: Spontaneous Speech Memory Description: Intact Hallucinations: None Delusions: Not Present Perceptual Disturbances: Depersonalization and Derealization Thought Process: Goal Oriented Thought Content: positive for Circumstantial Depressive Symptoms: Increased Anxiety, Insomnia, Difficulty Sleeping, Changes in Appetite, Loss of Int. in Activity, Feelings of Worthlessness, Hopelessness, Isolating-Friends/Family, Feelings of Guilt, Unhappiness, Increased Fatigue, Loss of Energy and Difficulty Concentrating Abnormal Motor Activity Signs and Symptoms: Restlessness Judgement: Good Diagnostics Vital Signs (24Hr): Vital Signs - 24 hr 06/24/22 19:20 06/25/22 09:48 Temperature 97.6 F 98.5 F Pulse Rate 93 73 Respiratory Rate 16 Blood Pressure 134/82 128/75 Pulse Oximetry 97 100 Oxygen Delivery Method Room Air Room Air BMI result Body Mass Index 38.3 Labs Results: 06/25/22 08:14 06/25/22 08:14 Labs: Laboratory Results - last 48 hr 06/25/22 06/25/22 08:14 08:14 WBC 9.7 RBC 3.70 L Hgb 11.3 L Hct 33.7 L MCV 91.1 MCH 30.5 MCHC 33.5 RDW 12.1 Plt Count 293 MPV 10.7 Immature Gran % (Auto) 0.2 Neut % (Auto) 75.3 H Lymph % (Auto) 17.6 L [place] % (Auto) 6.8 Eos % (Auto) 0.0 Baso % (Auto) 0.1 Lymph # (Auto) 1.7 [place] # (Auto) 0.7 Eos # (Auto) 0.0 Baso # (Auto) 0.0 Abs Immat Gran (auto) 0.02 Absolute Neuts (auto) 7.3 Absolute Nucleated RBC 0.000 Nucleated RBC % (auto) 0.0 Sodium 133 L Potassium 5.1 D Chloride 97 Carbon Dioxide 27 Anion Gap 14 BUN 9 Creatinine 0.75 Estim Creat Clear Calc 92.1 Estimated GFR > 60 Random Glucose 98 Calcium 9.5 D Total Bilirubin < 0.2 AST 17 ALT 15 Alkaline Phosphatase 91 Total Protein 6.6 Albumin 4.1 Valproic Acid 15.0 L Medications Medications Current Medications Acamprosate (Acamprosate Calcium 333 Mg Tablet.) 666 mg PO BID [facility] Last Admin: 06/25/22 09:20 Dose: 666 mg Acamprosate (Acamprosate Calcium 333 Mg Tablet.) 666 mg PO 1400 [facility] Last Admin: 06/24/22 14:44 Dose: 666 mg Acetaminophen (Acetaminophen 325 Mg Tablet) 650 mg PO Q6H PRN PRN Reason: Headache/Pain Mild Scale (1-3) Last Admin: 06/24/22 18:57 Dose: 650 mg Al Hydroxide/Mg Hydroxide (Magnesium Hydrox/Alum Hydrox 30 Ml Oral.Susp) 30 ml PO Q6H PRN PRN Reason: Heartburn/Nausea Last Admin: 06/25/22 04:15 Dose: 30 ml Amlodipine Besylate (Amlodipine Besylate 5 Mg Tablet) 5 mg PO DAILY [facility]; Protocol Last Admin: 06/25/22 09:20 Dose: 5 mg Amphetamine/Dextroamphetamine (Amphetamine Mixed Salts 20 Mg Tablet) 20 mg PO BID@0600,1300 [facility] Last Admin: 06/25/22 05:25 Dose: 20 mg Ascorbic Acid (Ascorbic Acid 500 Mg Tablet) 500 mg PO BID [facility] Last Admin: 06/25/22 09:21 Dose: 500 mg Baclofen (Baclofen 20 Mg Tablet) 20 mg PO BID [facility] Last Admin: 06/25/22 09:21 Dose: 20 mg Baclofen (Baclofen 20 Mg Tablet) 20 mg PO 1400 [facility] Last Admin: 06/24/22 14:43 Dose: 20 mg Bupropion HCl (Bupropion Hcl Xl 300 Mg Tab.Er.24h) 300 mg PO DAILY [facility] Last Admin: 06/25/22 09:21 Dose: 300 mg Calcium Carbonate/Cholecalciferol (Calcium + Vitamin D 250 Mg Tablet) 500 mg PO BID [facility] Last Admin: 06/25/22 09:21 Dose: 500 mg Clotrimazole (Clotrimazole 1 % Cream 15 Gm Tube) 1 appl TOPICAL BID PRN PRN Reason: Rash Last Admin: 06/20/22 09:06 Dose: 1 appl Divalproex Sodium (Divalproex Sodium Sprinkles 125 Mg ) 125 mg PO TID [facility] Last Admin: 06/25/22 09:21 Dose: 125 mg Folic Acid (Folic Acid 1 Mg Tablet) 1 mg PO DAILY [facility] Last Admin: 06/25/22 09:21 Dose: 1 mg Gabapentin (Gabapentin 400 Mg Capsule) 400 mg PO 1400 [facility] Last Admin: 06/24/22 14:44 Dose: 400 mg Gabapentin (Gabapentin 400 Mg Capsule) 400 mg PO BID [facility] Last Admin: 06/25/22 09:21 Dose: 400 mg Hydroxyzine HCl (Hydroxyzine Hcl 25 Mg Tablet) 25 mg PO Q6H PRN PRN Reason: Anxiety Last Admin: 06/22/22 02:35 Dose: 25 mg Lamotrigine (Lamotrigine 100 Mg Tablet) 250 mg PO BEDTIME [facility] Last Admin: 06/24/22 21:05 Dose: 250 mg Levothyroxine Sodium (Levothyroxine Sodium 25 Mcg Tablet) 25 mcg PO DAILY@0630 [facility] Last Admin: 06/25/22 05:24 Dose: 25 mcg Loratadine (Loratadine 10 Mg Tablet) 10 mg PO DAILY [facility] Last Admin: 06/25/22 09:20 Dose: 10 mg Lorazepam (Lorazepam 0.5 Mg Tablet) 0.5 mg PO BID PRN PRN Reason: anxiety, agitation Last Admin: 06/25/22 02:16 Dose: 0.5 mg Lorazepam (Lorazepam 0.5 Mg Tablet) 0.5 mg PO 0900,1400,1830 [facility] Last Admin: 06/25/22 09:20 Dose: 0.5 mg Lurasidone HCl (Lurasidone Hcl 80 Mg Tablet) 160 mg PO DAILY@1800 [facility] Last Admin: 06/24/22 18:57 Dose: 160 mg Magnesium Hydroxide (Milk Of Magnesia 30 Ml Oral.Susp) 30 ml PO DAILY PRN PRN Reason: Constipation Multivitamins/Vitamin C (Multivitamin Tablet) 1 tab PO BID [facility] Last Admin: 06/25/22 09:20 Dose: 1 tab Omeprazole (Omeprazole 20 Mg Capsule.Dr) 20 mg PO BID [facility] Last Admin: 06/25/22 09:21 Dose: 20 mg Perphenazine (Perphenazine 2 Mg Tablet) 2 mg PO QID PRN PRN Reason: anxiety, dissociations, agitation Last Admin: 06/25/22 09:21 Dose: 2 mg Quetiapine Fumarate (Quetiapine Fumarate 25 Mg Tablet) 12.5 mg PO QID PRN PRN Reason: anxiety Last Admin: 06/24/22 16:44 Dose: 12.5 mg Sumatriptan Succinate (Sumatriptan Succinate 50 Mg Tablet) 50 mg PO DAILY MRX1 PRN PRN Reason: Migraine Headache Last Admin: 06/23/22 16:24 Dose: 50 mg Thiamine HCl (Thiamine Hcl 100 Mg Tablet) 100 mg PO DAILY [facility] Last Admin: 06/25/22 09:20 Dose: 100 mg Trazodone HCl (Trazodone Hcl 50 Mg Tablet) 150 mg PO BEDTIME [facility] Last Admin: 06/24/22 21:05 Dose: 150 mg Trazodone HCl (Trazodone Hcl 50 Mg Tablet) 50 mg PO BEDTIME PRN PRN Reason: insomnia Last Admin: 06/24/22 01:09 Dose: 50 mg Allergies Allergies Allergy/AdvReac Type Severity Reaction Status Date / Time latex [LATEX] Allergy Mild Rash Verified 02/21/22 06:47 leuprolide [From LUPRON] Allergy Unknown HIVES Verified 02/21/22 06:47 Sulfa (Sulfonamide Allergy Unknown RASH Verified 02/21/22 06:48 Antibiotics) [SULFA (SULFONAMIDE ANTIBIOTICS)] ibuprofen AdvReac Intermediate Abdominal Verified 02/21/22 16:53 Pain Assessment & Plan Assessment & Plan (1) Post traumatic stress disorder (PTSD): Status: Acute Code(s): F43.10 - Post-traumatic stress disorder, unspecified (2) Alcohol use disorder: Status: Acute (3) Depression: Status: Acute Code(s): F32.A - Depression, unspecified Plan 52 yo female, hx of PTSD, Depression, Alcohol Use Disorder, recent section 35. Pt returns for admission after a recent discharge where she was restricted in milieu participation due to positive C-Difficile testing. She returns for treatment of PTSD and depression and asks for assistance in admission to a longer term program for addiction, specifically, [facility], recommended by her [facility] urgent care technician Valentina. Pt reports an 8 year hx of sobriety that she wants to re-establish and move forward with Medication review completed with Sweetie, discussed with team. -Reviewed buspar tapering-will replace and begin -Olanzapine 2. 5mg bid prn anxiety -Lorazepam 0.5 mg tid -MVI 1 tab daily -Folic acid 1 mg daily -Referrals to TSS programs with pt 06/13/22- Increase Lamictal by 50 mg Imitrex prn 06/14/22- no med changes, continue trial on PRN zyprexa 06/15/22- no med changes 06/16/22 continue current treatment plan 06/17/2022 continue current treatment plan Patient considering trial of disulfiram 06/20/22- Increase Perphenazine prn to 2 mg qid. 06/21: continue same. 06/22: continue same. 06/23/22: Finding some sx relief with low dose Depakote. Continue current regime. 06/24/22: Continue current regime 06/25/22: Increase Seroquel to 25 mg qid prn I spent minutes with the patient and/or on the patient floor today, greater than?50% of which was spent counseling/coordinating care. Patient educated on: therapeutic strategies Informed Consent: understands Reason for contiued inpatient stay Substantial Risk for: harm to self, rapid decompensation and med/psych decompensation
[2022-06-25 18:00] VITALS: BP 124/76; PULSE 72; RESP 18; TEMP 36.6; O2SAT 98
[2022-06-25] MEDS: Lurasidone HCl 80 MG TABLET 160 MG PO (18:40)
[2022-06-25] MEDS: lamoTRIgine 100 MG TABLET 250 MG PO (21:18)
[2022-06-25] MEDS: traZODone HCL 50 MG TABLET 150 MG PO (21:20)
[2022-06-26] MEDS: LORazepam 0.5 MG TABLET PO ×4 (02:27→17:50)
[2022-06-26] MEDS: Levothyroxine Sodium 25 MCG TABLET PO (06:07)
[2022-06-26] MEDS: Amphetamine Mixed Salts 20 MG TABLET PO ×2 (06:07→13:09)
[2022-06-26 07:00] VITALS: BMI 38.5
--- NOTE | 2022-06-26 07:05 | HO.PSYCHPN ---
Subjective Subjective Date of Service: 06/26/22 Reason For Visit: Bipolar disorder, PTSD, alcohol use disorder Subjective Notes: Conditional Voluntary Healthcare Proxy: No Guardianship: No Medical Problems Affecting Mental Status: No Interim History: No specific questions or concerns expressed today. Visable and engaging in milieu and with peers. Planning on discharge early next week, believes she will not be accepted into a program for longer term recovery and will need to return home and plan from there. Medication Compliance: Yes Side effects from medications: No Attending Groups: Intermittent Review of Systems Acute medical concerns: No Medical Review of Systems: unchanged Mental Status Exam Mental Status Exam Patient Appearance: Fatigued Patient Orientation: Person, Place, Time and Situation Level of Consciousness: Alert Patient Behavior: Appropriate, Talkative, Cooperative and Good Eye Contact Mood Description: Depressed Affect Description: Flat Patient Cognition Impaired: No Ability to Follow Directions: Good Speech Pattern: Spontaneous Speech Memory Description: Intact Hallucinations: None Delusions: Not Present Perceptual Disturbances: Depersonalization and Derealization Thought Process: Goal Oriented Thought Content: positive for Circumstantial Depressive Symptoms: Increased Anxiety, Insomnia, Difficulty Sleeping, Changes in Appetite, Loss of Int. in Activity, Feelings of Worthlessness, Hopelessness, Isolating-Friends/Family, Feelings of Guilt, Unhappiness, Increased Fatigue, Loss of Energy and Difficulty Concentrating Abnormal Motor Activity Signs and Symptoms: Restlessness Judgement: Good Diagnostics Vital Signs (24Hr): Vital Signs - 24 hr 06/25/22 09:48 06/25/22 18:00 Temperature 98.5 F 97.8 F Pulse Rate 73 72 Respiratory Rate 18 Blood Pressure 128/75 124/76 Pulse Oximetry 100 98 Oxygen Delivery Method Room Air Room Air BMI result Body Mass Index 38.3 Labs Results: 06/25/22 08:14 06/27/22 08:29 Labs: Laboratory Results - last 48 hr 06/25/22 06/25/22 08:14 08:14 WBC 9.7 RBC 3.70 L Hgb 11.3 L Hct 33.7 L MCV 91.1 MCH 30.5 MCHC 33.5 RDW 12.1 Plt Count 293 MPV 10.7 Immature Gran % (Auto) 0.2 Neut % (Auto) 75.3 H Lymph % (Auto) 17.6 L [place] % (Auto) 6.8 Eos % (Auto) 0.0 Baso % (Auto) 0.1 Lymph # (Auto) 1.7 [place] # (Auto) 0.7 Eos # (Auto) 0.0 Baso # (Auto) 0.0 Abs Immat Gran (auto) 0.02 Absolute Neuts (auto) 7.3 Absolute Nucleated RBC 0.000 Nucleated RBC % (auto) 0.0 Sodium 133 L Potassium 5.1 D Chloride 97 Carbon Dioxide 27 Anion Gap 14 BUN 9 Creatinine 0.75 Estim Creat Clear Calc 92.1 Estimated GFR > 60 Random Glucose 98 Calcium 9.5 D Total Bilirubin < 0.2 AST 17 ALT 15 Alkaline Phosphatase 91 Total Protein 6.6 Albumin 4.1 Valproic Acid 15.0 L Medications Medications Current Medications Acamprosate (Acamprosate Calcium 333 Mg Tablet.) 666 mg PO BID [facility] Last Admin: 06/25/22 21:18 Dose: 666 mg Acamprosate (Acamprosate Calcium 333 Mg Tablet.) 666 mg PO 1400 [facility] Last Admin: 06/25/22 14:42 Dose: 666 mg Acetaminophen (Acetaminophen 325 Mg Tablet) 650 mg PO Q6H PRN PRN Reason: Headache/Pain Mild Scale (1-3) Last Admin: 06/24/22 18:57 Dose: 650 mg Al Hydroxide/Mg Hydroxide (Magnesium Hydrox/Alum Hydrox 30 Ml Oral.Susp) 30 ml PO Q6H PRN PRN Reason: Heartburn/Nausea Last Admin: 06/25/22 04:15 Dose: 30 ml Amlodipine Besylate (Amlodipine Besylate 5 Mg Tablet) 5 mg PO DAILY [facility]; Protocol Last Admin: 06/25/22 09:20 Dose: 5 mg Amphetamine/Dextroamphetamine (Amphetamine Mixed Salts 20 Mg Tablet) 20 mg PO BID@0600,1300 [facility] Last Admin: 06/26/22 06:07 Dose: 20 mg Ascorbic Acid (Ascorbic Acid 500 Mg Tablet) 500 mg PO BID [facility] Last Admin: 06/25/22 21:19 Dose: 500 mg Baclofen (Baclofen 20 Mg Tablet) 20 mg PO BID [facility] Last Admin: 06/25/22 21:20 Dose: 20 mg Baclofen (Baclofen 20 Mg Tablet) 20 mg PO 1400 [facility] Last Admin: 06/25/22 14:41 Dose: 20 mg Bupropion HCl (Bupropion Hcl Xl 300 Mg Tab.Er.24h) 300 mg PO DAILY [facility] Last Admin: 06/25/22 09:21 Dose: 300 mg Calcium Carbonate/Cholecalciferol (Calcium + Vitamin D 250 Mg Tablet) 500 mg PO BID [facility] Last Admin: 06/25/22 21:18 Dose: 500 mg Clotrimazole (Clotrimazole 1 % Cream 15 Gm Tube) 1 appl TOPICAL BID PRN PRN Reason: Rash Last Admin: 06/20/22 09:06 Dose: 1 appl Divalproex Sodium (Divalproex Sodium Sprinkles 125 Mg Cap.) 125 mg PO TID [facility] Last Admin: 06/25/22 21:18 Dose: 125 mg Ferrous Sulfate (Ferrous Sulfate 324 Mg Tablet.) 324 mg PO DAILY [facility] Folic Acid (Folic Acid 1 Mg Tablet) 1 mg PO DAILY [facility] Last Admin: 06/25/22 09:21 Dose: 1 mg Gabapentin (Gabapentin 400 Mg Capsule) 400 mg PO 1400 [facility] Last Admin: 06/25/22 14:41 Dose: 400 mg Gabapentin (Gabapentin 400 Mg Capsule) 400 mg PO BID [facility] Last Admin: 06/25/22 21:28 Dose: 400 mg Hydroxyzine HCl (Hydroxyzine Hcl 25 Mg Tablet) 25 mg PO Q6H PRN PRN Reason: Anxiety Last Admin: 06/22/22 02:35 Dose: 25 mg Lamotrigine (Lamotrigine 100 Mg Tablet) 250 mg PO BEDTIME [facility] Last Admin: 06/25/22 21:18 Dose: 250 mg Levothyroxine Sodium (Levothyroxine Sodium 25 Mcg Tablet) 25 mcg PO DAILY@0630 [facility] Last Admin: 06/26/22 06:07 Dose: 25 mcg Loratadine (Loratadine 10 Mg Tablet) 10 mg PO DAILY [facility] Last Admin: 06/25/22 09:20 Dose: 10 mg Lorazepam (Lorazepam 0.5 Mg Tablet) 0.5 mg PO BID PRN PRN Reason: anxiety, agitation Last Admin: 06/26/22 02:27 Dose: 0.5 mg Lorazepam (Lorazepam 0.5 Mg Tablet) 0.5 mg PO 0900,1400,1830 [facility] Last Admin: 06/25/22 18:40 Dose: 0.5 mg Lurasidone HCl (Lurasidone Hcl 80 Mg Tablet) 160 mg PO DAILY@1800 [facility] Last Admin: 06/25/22 18:40 Dose: 160 mg Magnesium Hydroxide (Milk Of Magnesia 30 Ml Oral.Susp) 30 ml PO DAILY PRN PRN Reason: Constipation Multivitamins/Vitamin C (Multivitamin Tablet) 1 tab PO BID [facility] Last Admin: 06/25/22 21:21 Dose: 1 tab Omeprazole (Omeprazole 20 Mg Capsule.Dr) 20 mg PO BID [facility] Last Admin: 06/25/22 21:21 Dose: 20 mg Perphenazine (Perphenazine 2 Mg Tablet) 2 mg PO QID PRN PRN Reason: anxiety, dissociations, agitation Last Admin: 06/25/22 15:57 Dose: 2 mg Quetiapine Fumarate (Quetiapine Fumarate 25 Mg Tablet) 25 mg PO QID PRN PRN Reason: anxiety Sumatriptan Succinate (Sumatriptan Succinate 50 Mg Tablet) 50 mg PO DAILY MRX1 PRN PRN Reason: Migraine Headache Last Admin: 06/23/22 16:24 Dose: 50 mg Thiamine HCl (Thiamine Hcl 100 Mg Tablet) 100 mg PO DAILY [facility] Last Admin: 06/25/22 09:20 Dose: 100 mg Trazodone HCl (Trazodone Hcl 50 Mg Tablet) 150 mg PO BEDTIME [facility] Last Admin: 06/25/22 21:20 Dose: 150 mg Trazodone HCl (Trazodone Hcl 50 Mg Tablet) 50 mg PO BEDTIME PRN PRN Reason: insomnia Last Admin: 06/24/22 01:09 Dose: 50 mg Allergies Allergies Allergy/AdvReac Type Severity Reaction Status Date / Time latex [LATEX] Allergy Mild Rash Verified 02/21/22 06:47 leuprolide [From LUPRON] Allergy Unknown HIVES Verified 02/21/22 06:47 Sulfa (Sulfonamide Allergy Unknown RASH Verified 02/21/22 06:48 Antibiotics) [SULFA (SULFONAMIDE ANTIBIOTICS)] ibuprofen AdvReac Intermediate Abdominal Verified 02/21/22 16:53 Pain Assessment & Plan Assessment & Plan (1) Post traumatic stress disorder (PTSD): Status: Acute Code(s): F43.10 - Post-traumatic stress disorder, unspecified (2) Alcohol use disorder: Status: Acute (3) Depression: Status: Acute Code(s): F32.A - Depression, unspecified Plan 52 yo female, hx of PTSD, Depression, Alcohol Use Disorder, recent section 35. Pt returns for admission after a recent discharge where she was restricted in milieu participation due to positive C-Difficile testing. She returns for treatment of PTSD and depression and asks for assistance in admission to a longer term program for addiction, specifically, [facility], recommended by her [facility] day care home provider Valentina. Pt reports an 8 year hx of sobriety that she wants to re-establish and move forward with Medication review completed with Sweetie, discussed with team. -Reviewed buspar tapering-will replace and begin -Olanzapine 2. 5mg bid prn anxiety -Lorazepam 0.5 mg tid -MVI 1 tab daily -Folic acid 1 mg daily -Referrals to TSS programs with pt 06/13/22- Increase Lamictal by 50 mg Imitrex prn 06/14/22- no med changes, continue trial on PRN zyprexa 06/15/22- no med changes 06/16/22 continue current treatment plan 06/17/2022 continue current treatment plan Patient considering trial of disulfiram 06/20/22- Increase Perphenazine prn to 2 mg qid. 06/21: continue same. 06/22: continue same. 06/23/22: Finding some sx relief with low dose Depakote. Continue current regime. 06/24/22: Continue current regime 06/25/22: Increase Seroquel to 25 mg qid prn 06/26/22: Continue current plan of care I spent minutes with the patient and/or on the patient floor today, greater than?50% of which was spent counseling/coordinating care. Patient educated on: therapeutic strategies Informed Consent: understands and further education needed Reason for contiued inpatient stay Substantial Risk for: harm to self, inability to function, rapid decompensation and med/psych decompensation
[2022-06-26 08:15] VITALS: BP 147/70; PULSE 65; RESP 16; TEMP 36.1; O2SAT 100
[2022-06-26] MEDS: Multivitamin TABLET 1 TAB PO ×2 (08:54→19:56)
[2022-06-26] MEDS: Calcium + Vitamin D 250 MG TABLET 500 MG PO ×2 (08:54→19:57)
[2022-06-26] MEDS: buPROPion HCl XL 300 MG TAB.ER.24H PO (08:54)
[2022-06-26] MEDS: Omeprazole 20 MG CAPSULE.DR PO ×2 (08:54→19:56)
[2022-06-26] MEDS: Divalproex Sodium Sprinkles 125 MG CAP.DR.SPR PO ×3 (08:54→19:57)
[2022-06-26] MEDS: Gabapentin 400 MG CAPSULE PO ×3 (08:54→19:57)
[2022-06-26] MEDS: Ferrous Sulfate 324 MG TABLET.DR PO (08:55)
[2022-06-26] MEDS: Acamprosate Calcium 333 MG TABLET.DR 666 MG PO ×3 (08:55→19:56)
[2022-06-26] MEDS: Baclofen 20 MG TABLET PO ×3 (08:55→19:53)
[2022-06-26] MEDS: Folic Acid 1 MG TABLET PO (08:55)
[2022-06-26] MEDS: amLODIPine Besylate 5 MG TABLET PO (08:55)
[2022-06-26] MEDS: Ascorbic Acid 500 MG TABLET PO ×2 (08:55→19:57)
[2022-06-26] MEDS: Loratadine 10 MG TABLET PO (08:55)
[2022-06-26] MEDS: Thiamine HCL 100 MG TABLET PO (08:55)
[2022-06-26] MEDS: Perphenazine 2 MG TABLET PO (09:49)
[2022-06-26] MEDS: Lurasidone HCl 80 MG TABLET 160 MG PO (17:51)
[2022-06-26 18:00] VITALS: BP 147/83; PULSE 68; RESP 16; TEMP 35.9; O2SAT 98
[2022-06-26] MEDS: traZODone HCL 50 MG TABLET 150 MG PO (19:53)
[2022-06-26] MEDS: lamoTRIgine 100 MG TABLET 250 MG PO (19:54)
[2022-06-27] MEDS: Acetaminophen 325 MG TABLET 650 MG PO (02:08)
[2022-06-27] MEDS: QUEtiapine Fumarate 25 MG TABLET PO (02:08)
[2022-06-27] MEDS: hydrOXYzine HCL 25 MG TABLET PO (02:08)
[2022-06-27 06:00] VITALS: BP 136/78; PULSE 76; RESP 18
[2022-06-27] MEDS: Levothyroxine Sodium 25 MCG TABLET PO (06:35)
[2022-06-27] MEDS: Amphetamine Mixed Salts 20 MG TABLET PO ×2 (06:35→12:00)
[2022-06-27] MEDS: Calcium + Vitamin D 250 MG TABLET 500 MG PO ×2 (08:38→19:47)
[2022-06-27] MEDS: Omeprazole 20 MG CAPSULE.DR PO ×2 (08:38→19:42)
[2022-06-27] MEDS: Divalproex Sodium Sprinkles 125 MG CAP.DR.SPR PO (08:38)
[2022-06-27] MEDS: Ferrous Sulfate 324 MG TABLET.DR PO (08:38)
[2022-06-27] MEDS: Acamprosate Calcium 333 MG TABLET.DR 666 MG PO ×3 (08:38→19:48)
[2022-06-27] MEDS: Ascorbic Acid 500 MG TABLET PO ×2 (08:39→19:49)
[2022-06-27] MEDS: Loratadine 10 MG TABLET PO (08:39)
[2022-06-27] MEDS: buPROPion HCl XL 300 MG TAB.ER.24H PO (08:39)
[2022-06-27] MEDS: Gabapentin 400 MG CAPSULE PO ×3 (08:39→19:48)
[2022-06-27] MEDS: Folic Acid 1 MG TABLET PO (08:39)
[2022-06-27] MEDS: Thiamine HCL 100 MG TABLET PO (08:39)
[2022-06-27] MEDS: Multivitamin TABLET 1 TAB PO ×2 (08:39→19:43)
[2022-06-27] MEDS: amLODIPine Besylate 5 MG TABLET PO (08:39)
[2022-06-27] MEDS: Baclofen 20 MG TABLET PO ×3 (08:40→19:47)
[2022-06-27] MEDS: LORazepam 0.5 MG TABLET PO ×3 (08:53→18:44)
[2022-06-27 09:19] LABS: Sodium 135 mmol/L (135-145)
[2022-06-27] MEDS: Perphenazine 2 MG TABLET PO (13:25)
[2022-06-27] MEDS: Divalproex Sodium Sprinkles 125 MG CAP.DR.SPR 250 MG PO ×2 (14:23→19:42)
--- NOTE | 2022-06-27 17:01 | HO.PSYCHPN ---
Subjective Subjective Date of Service: 06/27/22 Reason For Visit: Bipolar disorder, PTSD, alcohol use disorder Subjective Notes: Conditional Voluntary Healthcare Proxy: No Guardianship: No Medical Problems Affecting Mental Status: No Interim History: Sweetie reviewing her tentative plans for discharge early next week. Has asked to be considered for respite as a transition to home, is wanting to attend [facility] and has community recovery resources identified to utilize to structure her time and help maintain sobriety. Medication Compliance: Yes Side effects from medications: No Attending Groups: Intermittent Review of Systems Acute medical concerns: No Medical Review of Systems: unchanged Mental Status Exam Mental Status Exam Patient Appearance: Fatigued Patient Orientation: Person, Place, Time and Situation Level of Consciousness: Alert Patient Behavior: Appropriate, Talkative, Cooperative and Good Eye Contact Mood Description: Depressed Affect Description: Flat Patient Cognition Impaired: No Ability to Follow Directions: Good Speech Pattern: Spontaneous Speech Memory Description: Intact Hallucinations: None Delusions: Not Present Perceptual Disturbances: Depersonalization and Derealization Thought Process: Goal Oriented Thought Content: positive for Circumstantial Depressive Symptoms: Increased Anxiety, Insomnia, Difficulty Sleeping, Changes in Appetite, Loss of Int. in Activity, Feelings of Worthlessness, Hopelessness, Isolating-Friends/Family, Feelings of Guilt, Unhappiness, Increased Fatigue, Loss of Energy and Difficulty Concentrating Abnormal Motor Activity Signs and Symptoms: Restlessness Judgement: Good Diagnostics Vital Signs (24Hr): Vital Signs - 24 hr 06/26/22 18:00 06/27/22 06:00 Temperature 96.7 F L Pulse Rate 68 76 Respiratory Rate 16 18 Blood Pressure 147/83 H 136/78 Pulse Oximetry 98 Oxygen Delivery Method Room Air BMI result Body Mass Index 38.5 Labs Results: 06/25/22 08:14 06/27/22 08:29 Labs: Laboratory Results - last 48 hr 06/27/22 08:29 Sodium 135 Medications Medications Current Medications Acamprosate (Acamprosate Calcium 333 Mg Tablet.) 666 mg PO BID [facility] Last Admin: 06/27/22 08:38 Dose: 666 mg Acamprosate (Acamprosate Calcium 333 Mg Tablet.) 666 mg PO 1400 [facility] Last Admin: 06/27/22 14:22 Dose: 666 mg Acetaminophen (Acetaminophen 325 Mg Tablet) 650 mg PO Q6H PRN PRN Reason: Headache/Pain Mild Scale (1-3) Last Admin: 06/27/22 02:08 Dose: 650 mg Al Hydroxide/Mg Hydroxide (Magnesium Hydrox/Alum Hydrox 30 Ml Oral.Susp) 30 ml PO Q6H PRN PRN Reason: Heartburn/Nausea Last Admin: 06/25/22 04:15 Dose: 30 ml Amlodipine Besylate (Amlodipine Besylate 5 Mg Tablet) 5 mg PO DAILY [facility]; Protocol Last Admin: 06/27/22 08:39 Dose: 5 mg Amphetamine/Dextroamphetamine (Amphetamine Mixed Salts 20 Mg Tablet) 20 mg PO BID@0600,1300 [facility] Last Admin: 06/27/22 12:00 Dose: 20 mg Ascorbic Acid (Ascorbic Acid 500 Mg Tablet) 500 mg PO BID [facility] Last Admin: 06/27/22 08:39 Dose: 500 mg Baclofen (Baclofen 20 Mg Tablet) 20 mg PO BID [facility] Last Admin: 06/27/22 08:40 Dose: 20 mg Baclofen (Baclofen 20 Mg Tablet) 20 mg PO 1400 [facility] Last Admin: 06/27/22 14:22 Dose: 20 mg Bupropion HCl (Bupropion Hcl Xl 300 Mg Tab.Er.24h) 300 mg PO DAILY [facility] Last Admin: 06/27/22 08:39 Dose: 300 mg Calcium Carbonate/Cholecalciferol (Calcium + Vitamin D 250 Mg Tablet) 500 mg PO BID [facility] Last Admin: 06/27/22 08:38 Dose: 500 mg Clotrimazole (Clotrimazole 1 % Cream 15 Gm Tube) 1 appl TOPICAL BID PRN PRN Reason: Rash Last Admin: 06/20/22 09:06 Dose: 1 appl Divalproex Sodium (Divalproex Sodium Sprinkles 125 Mg Cap.) 250 mg PO TID [facility] Last Admin: 06/27/22 14:23 Dose: 250 mg Ferrous Sulfate (Ferrous Sulfate 324 Mg Tablet.Dr) 324 mg PO DAILY [facility] Last Admin: 06/27/22 08:38 Dose: 324 mg Folic Acid (Folic Acid 1 Mg Tablet) 1 mg PO DAILY [facility] Last Admin: 06/27/22 08:39 Dose: 1 mg Gabapentin (Gabapentin 400 Mg Capsule) 400 mg PO 1400 [facility] Last Admin: 06/27/22 14:22 Dose: 400 mg Gabapentin (Gabapentin 400 Mg Capsule) 400 mg PO BID [facility] Last Admin: 06/27/22 08:39 Dose: 400 mg Hydroxyzine HCl (Hydroxyzine Hcl 25 Mg Tablet) 25 mg PO Q6H PRN PRN Reason: Anxiety Last Admin: 06/27/22 02:08 Dose: 25 mg Lamotrigine (Lamotrigine 100 Mg Tablet) 250 mg PO BEDTIME [facility] Last Admin: 06/26/22 19:54 Dose: 250 mg Levothyroxine Sodium (Levothyroxine Sodium 25 Mcg Tablet) 25 mcg PO DAILY@0630 [facility] Last Admin: 06/27/22 06:35 Dose: 25 mcg Loratadine (Loratadine 10 Mg Tablet) 10 mg PO DAILY [facility] Last Admin: 06/27/22 08:39 Dose: 10 mg Lorazepam (Lorazepam 0.5 Mg Tablet) 0.5 mg PO BID PRN PRN Reason: anxiety, agitation Last Admin: 06/26/22 02:27 Dose: 0.5 mg Lorazepam (Lorazepam 0.5 Mg Tablet) 0.5 mg PO 0900,1400,1830 [facility] Last Admin: 06/27/22 14:25 Dose: 0.5 mg Lurasidone HCl (Lurasidone Hcl 80 Mg Tablet) 160 mg PO DAILY@1800 [facility] Last Admin: 06/26/22 17:51 Dose: 160 mg Magnesium Hydroxide (Milk Of Magnesia 30 Ml Oral.Susp) 30 ml PO DAILY PRN PRN Reason: Constipation Multivitamins/Vitamin C (Multivitamin Tablet) 1 tab PO BID [facility] Last Admin: 06/27/22 08:39 Dose: 1 tab Omeprazole (Omeprazole 20 Mg Capsule.Dr) 20 mg PO BID [facility] Last Admin: 06/27/22 08:38 Dose: 20 mg Perphenazine (Perphenazine 2 Mg Tablet) 2 mg PO QID PRN PRN Reason: anxiety, dissociations, agitation Last Admin: 06/27/22 13:25 Dose: 2 mg Quetiapine Fumarate (Quetiapine Fumarate 25 Mg Tablet) 25 mg PO QID PRN PRN Reason: anxiety Last Admin: 06/27/22 02:08 Dose: 25 mg Sumatriptan Succinate (Sumatriptan Succinate 50 Mg Tablet) 50 mg PO DAILY MRX1 PRN PRN Reason: Migraine Headache Last Admin: 06/23/22 16:24 Dose: 50 mg Thiamine HCl (Thiamine Hcl 100 Mg Tablet) 100 mg PO DAILY [facility] Last Admin: 06/27/22 08:39 Dose: 100 mg Trazodone HCl (Trazodone Hcl 50 Mg Tablet) 150 mg PO BEDTIME [facility] Last Admin: 06/26/22 19:53 Dose: 150 mg Trazodone HCl (Trazodone Hcl 50 Mg Tablet) 50 mg PO BEDTIME PRN PRN Reason: insomnia Last Admin: 06/24/22 01:09 Dose: 50 mg Allergies Allergies Allergy/AdvReac Type Severity Reaction Status Date / Time latex [LATEX] Allergy Mild Rash Verified 02/21/22 06:47 leuprolide [From LUPRON] Allergy Unknown HIVES Verified 02/21/22 06:47 Sulfa (Sulfonamide Allergy Unknown RASH Verified 02/21/22 06:48 Antibiotics) [SULFA (SULFONAMIDE ANTIBIOTICS)] ibuprofen AdvReac Intermediate Abdominal Verified 02/21/22 16:53 Pain Assessment & Plan Assessment & Plan (1) Post traumatic stress disorder (PTSD): Status: Acute Code(s): F43.10 - Post-traumatic stress disorder, unspecified (2) Alcohol use disorder: Status: Acute (3) Depression: Status: Acute Code(s): F32.A - Depression, unspecified Plan 52 yo female, hx of PTSD, Depression, Alcohol Use Disorder, recent section 35. Pt returns for admission after a recent discharge where she was restricted in milieu participation due to positive C-Difficile testing. She returns for treatment of PTSD and depression and asks for assistance in admission to a longer term program for addiction, specifically, [facility], recommended by her [facility] human services care specialist Valentina. Pt reports an 8 year hx of sobriety that she wants to re-establish and move forward with Medication review completed with Sweetie, discussed with team. -Reviewed buspar tapering-will replace and begin -Olanzapine 2. 5mg bid prn anxiety -Lorazepam 0.5 mg tid -MVI 1 tab daily -Folic acid 1 mg daily -Referrals to TSS programs with pt 06/13/22- Increase Lamictal by 50 mg Imitrex prn 06/14/22- no med changes, continue trial on PRN zyprexa 06/15/22- no med changes 06/16/22 continue current treatment plan 06/17/2022 continue current treatment plan Patient considering trial of disulfiram 06/20/22- Increase Perphenazine prn to 2 mg qid. 06/21: continue same. 06/22: continue same. 06/23/22: Finding some sx relief with low dose Depakote. Continue current regime. 06/24/22: Continue current regime 06/25/22: Increase Seroquel to 25 mg qid prn 06/27/22: Continue current plan of care. I spent minutes with the patient and/or on the patient floor today, greater than?50% of which was spent counseling/coordinating care. Patient educated on: therapeutic strategies Informed Consent: understands and further education needed Reason for contiued inpatient stay Substantial Risk for: harm to self, inability to function and med/psych decompensation
[2022-06-27 18:00] VITALS: BP 135/75; PULSE 85; RESP 16; TEMP 36.6; O2SAT 99
[2022-06-27] MEDS: Lurasidone HCl 80 MG TABLET 160 MG PO (18:44)
[2022-06-27] MEDS: traZODone HCL 50 MG TABLET 150 MG PO (19:43)
[2022-06-27] MEDS: lamoTRIgine 100 MG TABLET 250 MG PO (19:43)
[2022-06-28] MEDS: LORazepam 0.5 MG TABLET PO ×4 (02:25→18:12)
[2022-06-28] MEDS: hydrOXYzine HCL 25 MG TABLET PO (02:25)
[2022-06-28] MEDS: Levothyroxine Sodium 25 MCG TABLET PO (06:09)
[2022-06-28] MEDS: Amphetamine Mixed Salts 20 MG TABLET PO ×2 (06:09→12:53)
[2022-06-28] MEDS: Gabapentin 400 MG CAPSULE PO ×3 (08:32→19:53)
[2022-06-28] MEDS: Ferrous Sulfate 324 MG TABLET.DR PO (08:32)
[2022-06-28] MEDS: Thiamine HCL 100 MG TABLET PO (08:32)
[2022-06-28] MEDS: amLODIPine Besylate 5 MG TABLET PO (08:32)
[2022-06-28] MEDS: Ascorbic Acid 500 MG TABLET PO ×2 (08:32→21:16)
[2022-06-28] MEDS: Divalproex Sodium Sprinkles 125 MG CAP.DR.SPR 250 MG PO ×3 (08:32→21:16)
[2022-06-28] MEDS: Acamprosate Calcium 333 MG TABLET.DR 666 MG PO ×3 (08:33→21:16)
[2022-06-28] MEDS: Multivitamin TABLET 1 TAB PO ×2 (08:33→21:16)
[2022-06-28] MEDS: Omeprazole 20 MG CAPSULE.DR PO ×2 (08:33→21:23)
[2022-06-28] MEDS: Folic Acid 1 MG TABLET PO (08:34)
[2022-06-28] MEDS: Calcium + Vitamin D 250 MG TABLET 500 MG PO ×2 (08:34→21:16)
[2022-06-28] MEDS: Baclofen 20 MG TABLET PO ×3 (08:34→19:53)
[2022-06-28] MEDS: Loratadine 10 MG TABLET PO (08:35)
[2022-06-28] MEDS: buPROPion HCl XL 300 MG TAB.ER.24H PO (08:53)
[2022-06-28 09:00] VITALS: BP 135/79; PULSE 73; RESP 18; TEMP 36.4; O2SAT 100
--- NOTE | 2022-06-28 10:30 | HO.PSYCHPN ---
Subjective Subjective Date of Service: 06/28/22 Reason For Visit: Bipolar disorder, PTSD, alcohol use disorder Interim History: Patient says she is doing fine, today. Denies any SI or HI. Talked about likely discharge next week. Has no complaints and no requests. Mental Status Exam Mental Status Exam Patient Appearance: Appropriate Patient Orientation: Person, Place, Time and Situation Level of Consciousness: Alert Patient Behavior: Appropriate, Talkative, Cooperative and Good Eye Contact Mood Description: Calm Affect Description: Appropriate Patient Cognition Impaired: No Ability to Follow Directions: Good Speech Pattern: Spontaneous Speech Memory Description: Intact Hallucinations: None Delusions: Not Present Perceptual Disturbances: Depersonalization and Derealization Thought Process: Goal Oriented Thought Content: positive for Circumstantial (can be), positive for Goal Oriented, positive for Suicidal Ideation (denies) and positive for Homicidal Ideation (denies) Judgement: Fair Judgement and Insight: fair Diagnostics Vital Signs (24Hr): Vital Signs - 24 hr 06/27/22 18:00 06/28/22 09:00 Temperature 97.8 F 97.5 F Pulse Rate 85 73 Respiratory Rate 16 18 Blood Pressure 135/75 135/79 Pulse Oximetry 99 100 Oxygen Delivery Method Room Air Room Air BMI result Body Mass Index 38.5 Labs Results: 06/25/22 08:14 06/27/22 08:29 Labs: Laboratory Results - last 48 hr 06/27/22 08:29 Sodium 135 Medications Medications Current Medications Acamprosate (Acamprosate Calcium 333 Mg Tablet.) 666 mg PO BID [facility] Last Admin: 06/28/22 08:33 Dose: 666 mg Acamprosate (Acamprosate Calcium 333 Mg Tablet.) 666 mg PO 1400 [facility] Last Admin: 06/27/22 14:22 Dose: 666 mg Acetaminophen (Acetaminophen 325 Mg Tablet) 650 mg PO Q6H PRN PRN Reason: Headache/Pain Mild Scale (1-3) Last Admin: 06/27/22 02:08 Dose: 650 mg Al Hydroxide/Mg Hydroxide (Magnesium Hydrox/Alum Hydrox 30 Ml Oral.Susp) 30 ml PO Q6H PRN PRN Reason: Heartburn/Nausea Last Admin: 06/25/22 04:15 Dose: 30 ml Amlodipine Besylate (Amlodipine Besylate 5 Mg Tablet) 5 mg PO DAILY [facility]; Protocol Last Admin: 06/28/22 08:32 Dose: 5 mg Amphetamine/Dextroamphetamine (Amphetamine Mixed Salts 20 Mg Tablet) 20 mg PO BID@0600,1300 [facility] Last Admin: 06/28/22 06:09 Dose: 20 mg Ascorbic Acid (Ascorbic Acid 500 Mg Tablet) 500 mg PO BID [facility] Last Admin: 06/28/22 08:32 Dose: 500 mg Baclofen (Baclofen 20 Mg Tablet) 20 mg PO BID [facility] Last Admin: 06/28/22 08:34 Dose: 20 mg Baclofen (Baclofen 20 Mg Tablet) 20 mg PO 1400 [facility] Last Admin: 06/27/22 14:22 Dose: 20 mg Bupropion HCl (Bupropion Hcl Xl 300 Mg Tab.Er.24h) 300 mg PO DAILY [facility] Last Admin: 06/28/22 08:53 Dose: 300 mg Calcium Carbonate/Cholecalciferol (Calcium + Vitamin D 250 Mg Tablet) 500 mg PO BID [facility] Last Admin: 06/28/22 08:34 Dose: 500 mg Clotrimazole (Clotrimazole 1 % Cream 15 Gm Tube) 1 appl TOPICAL BID PRN PRN Reason: Rash Last Admin: 06/20/22 09:06 Dose: 1 appl Divalproex Sodium (Divalproex Sodium Sprinkles 125 Mg Cap.) 250 mg PO TID [facility] Last Admin: 06/28/22 08:32 Dose: 250 mg Ferrous Sulfate (Ferrous Sulfate 324 Mg Tablet.) 324 mg PO DAILY [facility] Last Admin: 06/28/22 08:32 Dose: 324 mg Folic Acid (Folic Acid 1 Mg Tablet) 1 mg PO DAILY [facility] Last Admin: 06/28/22 08:34 Dose: 1 mg Gabapentin (Gabapentin 400 Mg Capsule) 400 mg PO 1400 [facility] Last Admin: 06/27/22 14:22 Dose: 400 mg Gabapentin (Gabapentin 400 Mg Capsule) 400 mg PO BID [facility] Last Admin: 06/28/22 08:32 Dose: 400 mg Hydroxyzine HCl (Hydroxyzine Hcl 25 Mg Tablet) 25 mg PO Q6H PRN PRN Reason: Anxiety Last Admin: 06/28/22 02:25 Dose: 25 mg Lamotrigine (Lamotrigine 100 Mg Tablet) 250 mg PO BEDTIME [facility] Last Admin: 06/27/22 19:43 Dose: 250 mg Levothyroxine Sodium (Levothyroxine Sodium 25 Mcg Tablet) 25 mcg PO DAILY@0630 [facility] Last Admin: 06/28/22 06:09 Dose: 25 mcg Loratadine (Loratadine 10 Mg Tablet) 10 mg PO DAILY [facility] Last Admin: 06/28/22 08:35 Dose: 10 mg Lorazepam (Lorazepam 0.5 Mg Tablet) 0.5 mg PO BID PRN PRN Reason: anxiety, agitation Last Admin: 06/28/22 02:25 Dose: 0.5 mg Lorazepam (Lorazepam 0.5 Mg Tablet) 0.5 mg PO 0900,1400,1830 [facility] Last Admin: 06/28/22 08:53 Dose: 0.5 mg Lurasidone HCl (Lurasidone Hcl 80 Mg Tablet) 160 mg PO DAILY@1800 [facility] Last Admin: 06/27/22 18:44 Dose: 160 mg Magnesium Hydroxide (Milk Of Magnesia 30 Ml Oral.Susp) 30 ml PO DAILY PRN PRN Reason: Constipation Multivitamins/Vitamin C (Multivitamin Tablet) 1 tab PO BID [facility] Last Admin: 06/28/22 08:33 Dose: 1 tab Omeprazole (Omeprazole 20 Mg Capsule.Dr) 20 mg PO BID [facility] Last Admin: 06/28/22 08:33 Dose: 20 mg Perphenazine (Perphenazine 2 Mg Tablet) 2 mg PO QID PRN PRN Reason: anxiety, dissociations, agitation Last Admin: 06/27/22 13:25 Dose: 2 mg Quetiapine Fumarate (Quetiapine Fumarate 25 Mg Tablet) 25 mg PO QID PRN PRN Reason: anxiety Last Admin: 06/27/22 02:08 Dose: 25 mg Sumatriptan Succinate (Sumatriptan Succinate 50 Mg Tablet) 50 mg PO DAILY MRX1 PRN PRN Reason: Migraine Headache Last Admin: 06/23/22 16:24 Dose: 50 mg Thiamine HCl (Thiamine Hcl 100 Mg Tablet) 100 mg PO DAILY [facility] Last Admin: 06/28/22 08:32 Dose: 100 mg Trazodone HCl (Trazodone Hcl 50 Mg Tablet) 150 mg PO BEDTIME [facility] Last Admin: 06/27/22 19:43 Dose: 150 mg Trazodone HCl (Trazodone Hcl 50 Mg Tablet) 50 mg PO BEDTIME PRN PRN Reason: insomnia Last Admin: 06/24/22 01:09 Dose: 50 mg Allergies Allergies Allergy/AdvReac Type Severity Reaction Status Date / Time latex [LATEX] Allergy Mild Rash Verified 02/21/22 06:47 leuprolide [From LUPRON] Allergy Unknown HIVES Verified 02/21/22 06:47 Sulfa (Sulfonamide Allergy Unknown RASH Verified 02/21/22 06:48 Antibiotics) [SULFA (SULFONAMIDE ANTIBIOTICS)] ibuprofen AdvReac Intermediate Abdominal Verified 02/21/22 16:53 Pain Assessment & Plan Assessment & Plan (1) Post traumatic stress disorder (PTSD): Status: Acute Code(s): F43.10 - Post-traumatic stress disorder, unspecified (2) Alcohol use disorder: Status: Acute (3) Depression: Status: Acute Code(s): F32.A - Depression, unspecified Plan 52 yo female, hx of PTSD, Depression, Alcohol Use Disorder, recent section 35. Pt returns for admission after a recent discharge where she was restricted in milieu participation due to positive C-Difficile testing. She returns for treatment of PTSD and depression and asks for assistance in admission to a longer term program for addiction, specifically, [facility], recommended by her [facility] critical care technician Valentina. Pt reports an 8 year hx of sobriety that she wants to re-establish and move forward with Medication review completed with Sweetie, discussed with team. -Reviewed buspar tapering-will replace and begin -Olanzapine 2. 5mg bid prn anxiety -Lorazepam 0.5 mg tid -MVI 1 tab daily -Folic acid 1 mg daily -Referrals to TSS programs with pt 06/13/22- Increase Lamictal by 50 mg Imitrex prn 06/14/22- no med changes, continue trial on PRN zyprexa 06/15/22- no med changes 06/16/22 continue current treatment plan 06/17/2022 continue current treatment plan Patient considering trial of disulfiram 06/20/22- Increase Perphenazine prn to 2 mg qid. 06/21: continue same. 06/22: continue same. 06/23/22: Finding some sx relief with low dose Depakote. Continue current regime. 06/24/22: Continue current regime 06/25/22: Increase Seroquel to 25 mg qid prn 06/27/22: Continue current plan of care. 06/28/22: Continue current plan of care. I spent minutes with the patient and/or on the patient floor today, greater than?50% of which was spent counseling/coordinating care. Patient educated on: diagnosis and medication risk/benefits Informed Consent: understands Reason for contiued inpatient stay Substantial Risk for: stable for discharge
[2022-06-28 18:00] VITALS: BP 126/66; PULSE 83; TEMP 36.8; O2SAT 97
[2022-06-28] MEDS: Lurasidone HCl 80 MG TABLET 160 MG PO (18:12)
[2022-06-28] MEDS: lamoTRIgine 100 MG TABLET 250 MG PO (21:17)
[2022-06-28] MEDS: traZODone HCL 50 MG TABLET 150 MG PO (21:23)
[2022-06-29] MEDS: hydrOXYzine HCL 25 MG TABLET PO (01:56)
[2022-06-29] MEDS: LORazepam 0.5 MG TABLET PO ×4 (01:56→18:22)
[2022-06-29] MEDS: Amphetamine Mixed Salts 20 MG TABLET PO ×2 (05:49→12:36)
[2022-06-29] MEDS: Levothyroxine Sodium 25 MCG TABLET PO (05:49)
[2022-06-29 06:00] VITALS: BP 157/77; PULSE 68; RESP 18; TEMP 36.5; O2SAT 100
[2022-06-29] MEDS: Multivitamin TABLET 1 TAB PO ×2 (08:40→20:49)
[2022-06-29] MEDS: amLODIPine Besylate 5 MG TABLET PO (08:40)
[2022-06-29] MEDS: Calcium + Vitamin D 250 MG TABLET 500 MG PO ×2 (08:41→20:49)
[2022-06-29] MEDS: Divalproex Sodium Sprinkles 125 MG CAP.DR.SPR 250 MG PO ×3 (08:41→20:49)
[2022-06-29] MEDS: Ferrous Sulfate 324 MG TABLET.DR PO (08:41)
[2022-06-29] MEDS: Acamprosate Calcium 333 MG TABLET.DR 666 MG PO ×3 (08:41→20:48)
[2022-06-29] MEDS: Baclofen 20 MG TABLET PO ×3 (08:41→20:48)
[2022-06-29] MEDS: Thiamine HCL 100 MG TABLET PO (08:41)
[2022-06-29] MEDS: Folic Acid 1 MG TABLET PO (08:41)
[2022-06-29] MEDS: Gabapentin 400 MG CAPSULE PO ×3 (08:42→20:49)
[2022-06-29] MEDS: Omeprazole 20 MG CAPSULE.DR PO ×2 (08:42→21:20)
[2022-06-29] MEDS: Ascorbic Acid 500 MG TABLET PO ×2 (08:42→20:49)
[2022-06-29] MEDS: Loratadine 10 MG TABLET PO (08:42)
[2022-06-29] MEDS: buPROPion HCl XL 300 MG TAB.ER.24H PO (09:35)
--- NOTE | 2022-06-29 16:39 | HO.PSYCHPN ---
Subjective Subjective Date of Service: 06/29/22 Reason For Visit: Bipolar disorder, PTSD, alcohol use disorder Interim History: Reports being mood is better; disappointed about a program not being available. Discussed Antabuse and patient said she still is interested in getting on it but forgot to mention it to ArielGloJuan. She said she will do so Mental Status Exam Mental Status Exam Patient Appearance: Fatigued Patient Orientation: Person, Place, Time and Situation Level of Consciousness: Alert Patient Behavior: Appropriate, Talkative, Cooperative and Good Eye Contact Mood Description: Depressed (But better) Affect Description: Flat Patient Cognition Impaired: No Ability to Follow Directions: Good Speech Pattern: Spontaneous Speech Memory Description: Intact Hallucinations: None Delusions: Not Present Perceptual Disturbances: Depersonalization and Derealization Thought Process: Goal Oriented Thought Content: positive for Circumstantial Depressive Symptoms: Increased Anxiety, Insomnia, Difficulty Sleeping, Changes in Appetite, Loss of Int. in Activity, Feelings of Worthlessness, Hopelessness, Isolating-Friends/Family, Feelings of Guilt, Unhappiness, Increased Fatigue, Loss of Energy and Difficulty Concentrating Abnormal Motor Activity Signs and Symptoms: Restlessness Judgement: Good Diagnostics Vital Signs (24Hr): Vital Signs - 24 hr 06/28/22 18:00 06/29/22 06:00 Temperature 98.2 F 97.7 F Pulse Rate 83 68 Respiratory Rate 18 Blood Pressure 126/66 157/77 H Pulse Oximetry 97 100 Oxygen Delivery Method Room Air Room Air BMI result Body Mass Index 38.5 Labs Results: 06/25/22 08:14 06/27/22 08:29 Medications Medications Current Medications Acamprosate (Acamprosate Calcium 333 Mg Tablet.) 666 mg PO BID [facility] Last Admin: 06/29/22 08:41 Dose: 666 mg Acamprosate (Acamprosate Calcium 333 Mg Tablet.) 666 mg PO 1400 [facility] Last Admin: 06/29/22 14:20 Dose: 666 mg Acetaminophen (Acetaminophen 325 Mg Tablet) 650 mg PO Q6H PRN PRN Reason: Headache/Pain Mild Scale (1-3) Last Admin: 06/27/22 02:08 Dose: 650 mg Al Hydroxide/Mg Hydroxide (Magnesium Hydrox/Alum Hydrox 30 Ml Oral.Susp) 30 ml PO Q6H PRN PRN Reason: Heartburn/Nausea Last Admin: 06/25/22 04:15 Dose: 30 ml Amlodipine Besylate (Amlodipine Besylate 5 Mg Tablet) 5 mg PO DAILY [facility]; Protocol Last Admin: 06/29/22 08:40 Dose: 5 mg Amphetamine/Dextroamphetamine (Amphetamine Mixed Salts 20 Mg Tablet) 20 mg PO BID@0600,1300 [facility] Last Admin: 06/29/22 12:36 Dose: 20 mg Ascorbic Acid (Ascorbic Acid 500 Mg Tablet) 500 mg PO BID [facility] Last Admin: 06/29/22 08:42 Dose: 500 mg Baclofen (Baclofen 20 Mg Tablet) 20 mg PO BID [facility] Last Admin: 06/29/22 08:41 Dose: 20 mg Baclofen (Baclofen 20 Mg Tablet) 20 mg PO 1400 [facility] Last Admin: 06/29/22 14:20 Dose: 20 mg Bupropion HCl (Bupropion Hcl Xl 300 Mg Tab.Er.24h) 300 mg PO DAILY [facility] Last Admin: 06/29/22 09:35 Dose: 300 mg Calcium Carbonate/Cholecalciferol (Calcium + Vitamin D 250 Mg Tablet) 500 mg PO BID [facility] Last Admin: 06/29/22 08:41 Dose: 500 mg Clotrimazole (Clotrimazole 1 % Cream 15 Gm Tube) 1 appl TOPICAL BID PRN PRN Reason: Rash Last Admin: 06/20/22 09:06 Dose: 1 appl Divalproex Sodium (Divalproex Sodium Sprinkles 125 Mg Cap.) 250 mg PO TID [facility] Last Admin: 06/29/22 14:20 Dose: 250 mg Ferrous Sulfate (Ferrous Sulfate 324 Mg Tablet.) 324 mg PO DAILY [facility] Last Admin: 06/29/22 08:41 Dose: 324 mg Folic Acid (Folic Acid 1 Mg Tablet) 1 mg PO DAILY [facility] Last Admin: 06/29/22 08:41 Dose: 1 mg Gabapentin (Gabapentin 400 Mg Capsule) 400 mg PO 1400 [facility] Last Admin: 06/29/22 14:20 Dose: 400 mg Gabapentin (Gabapentin 400 Mg Capsule) 400 mg PO BID [facility] Last Admin: 06/29/22 08:42 Dose: 400 mg Hydroxyzine HCl (Hydroxyzine Hcl 25 Mg Tablet) 25 mg PO Q6H PRN PRN Reason: Anxiety Last Admin: 06/29/22 01:56 EST Dose: 25 mg Lamotrigine (Lamotrigine 100 Mg Tablet) 250 mg PO BEDTIME [facility] Last Admin: 06/28/22 21:17 Dose: 250 mg Levothyroxine Sodium (Levothyroxine Sodium 25 Mcg Tablet) 25 mcg PO DAILY@0630 [facility] Last Admin: 06/29/22 05:49 Dose: 25 mcg Loratadine (Loratadine 10 Mg Tablet) 10 mg PO DAILY [facility] Last Admin: 06/29/22 08:42 Dose: 10 mg Lorazepam (Lorazepam 0.5 Mg Tablet) 0.5 mg PO BID PRN PRN Reason: anxiety, agitation Last Admin: 06/29/22 01:56 EST Dose: 0.5 mg Lorazepam (Lorazepam 0.5 Mg Tablet) 0.5 mg PO 0900,1400,1830 [facility] Last Admin: 06/29/22 14:23 Dose: 0.5 mg Lurasidone HCl (Lurasidone Hcl 80 Mg Tablet) 160 mg PO DAILY@1800 [facility] Last Admin: 06/28/22 18:12 Dose: 160 mg Magnesium Hydroxide (Milk Of Magnesia 30 Ml Oral.Susp) 30 ml PO DAILY PRN PRN Reason: Constipation Multivitamins/Vitamin C (Multivitamin Tablet) 1 tab PO BID [facility] Last Admin: 06/29/22 08:40 Dose: 1 tab Omeprazole (Omeprazole 20 Mg Capsule.Dr) 20 mg PO BID [facility] Last Admin: 06/29/22 08:42 Dose: 20 mg Perphenazine (Perphenazine 2 Mg Tablet) 2 mg PO QID PRN PRN Reason: anxiety, dissociations, agitation Last Admin: 06/27/22 13:25 Dose: 2 mg Quetiapine Fumarate (Quetiapine Fumarate 25 Mg Tablet) 25 mg PO QID PRN PRN Reason: anxiety Last Admin: 06/27/22 02:08 Dose: 25 mg Sumatriptan Succinate (Sumatriptan Succinate 50 Mg Tablet) 50 mg PO DAILY MRX1 PRN PRN Reason: Migraine Headache Last Admin: 06/23/22 16:24 Dose: 50 mg Thiamine HCl (Thiamine Hcl 100 Mg Tablet) 100 mg PO DAILY [facility] Last Admin: 06/29/22 08:41 Dose: 100 mg Trazodone HCl (Trazodone Hcl 50 Mg Tablet) 150 mg PO BEDTIME [facility] Last Admin: 06/28/22 21:23 Dose: 150 mg Trazodone HCl (Trazodone Hcl 50 Mg Tablet) 50 mg PO BEDTIME PRN PRN Reason: insomnia Last Admin: 06/24/22 01:09 Dose: 50 mg Allergies Allergies Allergy/AdvReac Type Severity Reaction Status Date / Time latex [LATEX] Allergy Mild Rash Verified 02/21/22 06:47 leuprolide [From LUPRON] Allergy Unknown HIVES Verified 02/21/22 06:47 Sulfa (Sulfonamide Allergy Unknown RASH Verified 02/21/22 06:48 Antibiotics) [SULFA (SULFONAMIDE ANTIBIOTICS)] ibuprofen AdvReac Intermediate Abdominal Verified 02/21/22 16:53 Pain Assessment & Plan Assessment & Plan (1) Post traumatic stress disorder (PTSD): Status: Acute Code(s): F43.10 - Post-traumatic stress disorder, unspecified (2) Alcohol use disorder: Status: Acute (3) Depression: Status: Acute Code(s): F32.A - Depression, unspecified Plan 52 yo female, hx of PTSD, Depression, Alcohol Use Disorder, recent section 35. Pt returns for admission after a recent discharge where she was restricted in milieu participation due to positive C-Difficile testing. She returns for treatment of PTSD and depression and asks for assistance in admission to a longer term program for addiction, specifically, [facility], recommended by her [facility] care transition mgr Valentina. Pt reports an 8 year hx of sobriety that she wants to re-establish and move forward with Medication review completed with Sweetie, discussed with team. -Reviewed buspar tapering-will replace and begin -Olanzapine 2. 5mg bid prn anxiety -Lorazepam 0.5 mg tid -MVI 1 tab daily -Folic acid 1 mg daily -Referrals to TSS programs with pt 06/13/22- Increase Lamictal by 50 mg Imitrex prn 06/14/22- no med changes, continue trial on PRN zyprexa 06/15/22- no med changes 06/16/22 continue current treatment plan 06/17/2022 continue current treatment plan Patient considering trial of disulfiram 06/20/22- Increase Perphenazine prn to 2 mg qid. 06/21: continue same. 06/22: continue same. 06/23/22: Finding some sx relief with low dose Depakote. Continue current regime. 06/24/22: Continue current regime 06/25/22: Increase Seroquel to 25 mg qid prn 06/27/22: Continue current plan of care. 06/28/22: Continue current plan of care. 06/29/2022: Continue current treatment plan -patient would like to discuss getting on an abuse with Reji I spent minutes with the patient and/or on the patient floor today, greater than?50% of which was spent counseling/coordinating care. Patient educated on: diagnosis and medication risk/benefits Informed Consent: understands Reason for contiued inpatient stay Substantial Risk for: med/psych decompensation
[2022-06-29 18:00] VITALS: BP 162/91; PULSE 78; TEMP 36.8; O2SAT 98
[2022-06-29] MEDS: Lurasidone HCl 80 MG TABLET 160 MG PO (18:22)
[2022-06-29] MEDS: traZODone HCL 50 MG TABLET 150 MG PO (20:48)
[2022-06-29] MEDS: lamoTRIgine 100 MG TABLET 250 MG PO (20:49)
[2022-06-29] MEDS: Acetaminophen 325 MG TABLET 650 MG PO (23:59)
[2022-06-29] MEDS: traZODone HCL 50 MG TABLET PO (23:59)
[2022-06-30] MEDS: Levothyroxine Sodium 25 MCG TABLET PO (05:37)
[2022-06-30] MEDS: Amphetamine Mixed Salts 20 MG TABLET PO ×2 (05:38→12:34)
[2022-06-30] MEDS: Divalproex Sodium Sprinkles 125 MG CAP.DR.SPR 250 MG PO ×3 (08:08→20:11)
[2022-06-30] MEDS: Omeprazole 20 MG CAPSULE.DR PO ×2 (08:08→20:12)
[2022-06-30] MEDS: Multivitamin TABLET 1 TAB PO ×2 (08:08→20:12)
[2022-06-30] MEDS: Calcium + Vitamin D 250 MG TABLET 500 MG PO ×2 (08:08→20:11)
[2022-06-30] MEDS: Loratadine 10 MG TABLET PO (08:08)
[2022-06-30] MEDS: Acamprosate Calcium 333 MG TABLET.DR 666 MG PO ×3 (08:08→20:12)
[2022-06-30] MEDS: Gabapentin 400 MG CAPSULE PO ×3 (08:08→20:11)
[2022-06-30] MEDS: Baclofen 20 MG TABLET PO ×3 (08:09→20:11)
[2022-06-30] MEDS: Thiamine HCL 100 MG TABLET PO (08:09)
[2022-06-30] MEDS: Ferrous Sulfate 324 MG TABLET.DR PO (08:09)
[2022-06-30] MEDS: buPROPion HCl XL 300 MG TAB.ER.24H PO (08:09)
[2022-06-30] MEDS: Folic Acid 1 MG TABLET PO (08:09)
[2022-06-30] MEDS: Ascorbic Acid 500 MG TABLET PO ×2 (08:09→20:12)
[2022-06-30 08:45] VITALS: BP 118/68; PULSE 75; RESP 16; TEMP 36.4; O2SAT 99
[2022-06-30] MEDS: amLODIPine Besylate 5 MG TABLET PO (08:47)
[2022-06-30] MEDS: LORazepam 0.5 MG TABLET PO ×4 (08:47→18:26)
[2022-06-30] MEDS: SUMAtriptan succinate 50 MG TABLET PO (15:56)
[2022-06-30] MEDS: Acetaminophen 325 MG TABLET 650 MG PO (15:56)
--- NOTE | 2022-06-30 17:56 | P.PNPSI_ITS ---
Subjective Subjective Date of Service: 06/30/22 Reason For Visit: Bipolar disorder, PTSD, alcohol use disorder Subjective Notes: Conditional Voluntary Healthcare Proxy: No Guardianship: No Medical Problems Affecting Mental Status: No Interim History: Review of regime for discharge. Reports some improvement in anxiety, depression. Concerned that she was not accepted to a post hospital program. Has worked out a plan for continued structure- has added several supports. Will attend [facility], states she will begin this week she believes No current questions or concerns. Medication Compliance: Yes Side effects from medications: No Attending Groups: Yes Review of Systems Acute medical concerns: No Medical Review of Systems: unchanged Mental Status Exam Mental Status Exam Patient Appearance: Appropriate Patient Orientation: Person, Place, Time and Situation Level of Consciousness: Alert Patient Behavior: Talkative and Good Eye Contact Mood Description: Flat Affect Description: Flat Patient Cognition Impaired: No Ability to Follow Directions: Good Speech Pattern: Spontaneous Speech Memory Description: Intact Hallucinations: None Delusions: Not Present Perceptual Disturbances: Depersonalization and Derealization Thought Process: Intact and Goal Oriented Thought Content: positive for Intact, positive for Goal Oriented, positive for Suicidal Ideation (denies) and positive for Homicidal Ideation (denies) Depressive Symptoms: Increased Anxiety, Crying Spells and Low Self Esteem Judgement: Good Diagnostics Vital Signs (24Hr): Vital Signs - 24 hr 06/29/22 18:00 06/30/22 08:45 Temperature 98.2 F 97.6 F Pulse Rate 78 75 Respiratory Rate 16 Blood Pressure 162/91 H 118/68 Pulse Oximetry 98 99 Oxygen Delivery Method Room Air Room Air BMI result Body Mass Index 38.5 Labs Results: 06/25/22 08:14 06/27/22 08:29 Medications Medications Current Medications Acamprosate (Acamprosate Calcium 333 Mg Tablet.) 666 mg PO BID [facility] Last Admin: 06/30/22 08:08 Dose: 666 mg Acamprosate (Acamprosate Calcium 333 Mg Tablet.) 666 mg PO 1400 [facility] Last Admin: 06/30/22 14:15 Dose: 666 mg Acetaminophen (Acetaminophen 325 Mg Tablet) 650 mg PO Q6H PRN PRN Reason: Headache/Pain Mild Scale (1-3) Last Admin: 06/30/22 15:56 Dose: 650 mg Al Hydroxide/Mg Hydroxide (Magnesium Hydrox/Alum Hydrox 30 Ml Oral.Susp) 30 ml PO Q6H PRN PRN Reason: Heartburn/Nausea Last Admin: 06/25/22 04:15 Dose: 30 ml Amlodipine Besylate (Amlodipine Besylate 5 Mg Tablet) 5 mg PO DAILY [facility]; P rotocol Last Admin: 06/30/22 08:47 Dose: 5 mg Amphetamine/Dextroamphetamine (Amphetamine Mixed Salts 20 Mg Tablet) 20 mg PO BID@0600,1300 [facility] Last Admin: 06/30/22 12:34 Dose: 20 mg Ascorbic Acid (Ascorbic Acid 500 Mg Tablet) 500 mg PO BID [facility] Last Admin: 06/30/22 08:09 Dose: 500 mg Baclofen (Baclofen 20 Mg Tablet) 20 mg PO BID [facility] Last Admin: 06/30/22 08:09 Dose: 20 mg Baclofen (Baclofen 20 Mg Tablet) 20 mg PO 1400 [facility] Last Admin: 06/30/22 14:15 Dose: 20 mg Bupropion HCl (Bupropion Hcl Xl 300 Mg Tab.Er.24h) 300 mg PO DAILY [facility] Last Admin: 06/30/22 08:09 Dose: 300 mg Calcium Carbonate/Cholecalciferol (Calcium + Vitamin D 250 Mg Tablet) 500 mg PO BID [facility] Last Admin: 06/30/22 08:08 Dose: 500 mg Clotrimazole (Clotrimazole 1 % Cream 15 Gm Tube) 1 appl TOPICAL BID PRN PRN Reason: Rash Last Admin: 06/20/22 09:06 Dose: 1 appl Divalproex Sodium (Divalproex Sodium Sprinkles 125 Mg Cap.) 250 mg PO TID [facility] Last Admin: 06/30/22 14:15 Dose: 250 mg Ferrous Sulfate (Ferrous Sulfate 324 Mg Tablet.) 324 mg PO DAILY [facility] Last Admin: 06/30/22 08:09 Dose: 324 mg Folic Acid (Folic Acid 1 Mg Tablet) 1 mg PO DAILY [facility] Last Admin: 06/30/22 08:09 Dose: 1 mg Gabapentin (Gabapentin 400 Mg Capsule) 400 mg PO 1400 [facility] Last Admin: 06/30/22 14:14 Dose: 400 mg Gabapentin (Gabapentin 400 Mg Capsule) 400 mg PO BID [facility] Last Admin: 06/30/22 08:08 Dose: 400 mg Hydroxyzine HCl (Hydroxyzine Hcl 25 Mg Tablet) 25 mg PO Q6H PRN PRN Reason: Anxiety Last Admin: 06/29/22 01:56 EST Dose: 25 mg Lamotrigine (Lamotrigine 100 Mg Tablet) 250 mg PO BEDTIME [facility] Last Admin: 06/29/22 20:49 Dose: 250 mg Levothyroxine Sodium (Levothyroxine Sodium 25 Mcg Tablet) 25 mcg PO DAILY@0630 [facility] Last Admin: 06/30/22 05:37 Dose: 25 mcg Loratadine (Loratadine 10 Mg Tablet) 10 mg PO DAILY [facility] Last Admin: 06/30/22 08:08 Dose: 10 mg Lorazepam (Lorazepam 0.5 Mg Tablet) 0.5 mg PO BID PRN PRN Reason: anxiety, agitation Last Admin: 06/30/22 16:00 Dose: 0.5 mg Lorazepam (Lorazepam 0.5 Mg Tablet) 0.5 mg PO 0900,1400,1830 [facility] Last Admin: 06/30/22 14:17 Dose: 0.5 mg Lurasidone HCl (Lurasidone Hcl 80 Mg Tablet) 160 mg PO DAILY@1800 [facility] Last Admin: 06/29/22 18:22 Dose: 160 mg Magnesium Hydroxide (Milk Of Magnesia 30 Ml Oral.Susp) 30 ml PO DAILY PRN PRN Reason: Constipation Multivitamins/Vitamin C (Multivitamin Tablet) 1 tab PO BID [facility] Last Admin: 06/30/22 08:08 Dose: 1 tab Omeprazole (Omeprazole 20 Mg Capsule.Dr) 20 mg PO BID [facility] Last Admin: 06/30/22 08:08 Dose: 20 mg Perphenazine (Perphenazine 2 Mg Tablet) 2 mg PO QID PRN PRN Reason: anxiety, dissociations, agitation Last Admin: 06/27/22 13:25 Dose: 2 mg Quetiapine Fumarate (Quetiapine Fumarate 25 Mg Tablet) 25 mg PO QID PRN PRN Reason: anxiety Last Admin: 06/27/22 02:08 Dose: 25 mg Sumatriptan Succinate (Sumatriptan Succinate 50 Mg Tablet) 50 mg PO DAILY MRX1 PRN PRN Reason: Migraine Headache Last Admin: 06/30/22 15:56 Dose: 50 mg Thiamine HCl (Thiamine Hcl 100 Mg Tablet) 100 mg PO DAILY [facility] Last Admin: 06/30/22 08:09 Dose: 100 mg Trazodone HCl (Trazodone Hcl 50 Mg Tablet) 150 mg PO BEDTIME [facility] Last Admin: 06/29/22 20:48 Dose: 150 mg Trazodone HCl (Trazodone Hcl 50 Mg Tablet) 50 mg PO BEDTIME PRN PRN Reason: insomnia Last Admin: 06/29/22 23:59 Dose: 50 mg Allergies Allergies Allergy/AdvReac Type Severity Reaction Status Date / Time latex [LATEX] Allergy Mild Rash Verified 02/21/22 06:47 leuprolide [From LUPRON] Allergy Unknown HIVES Verified 02/21/22 06:47 Sulfa (Sulfonamide Allergy Unknown RASH Verified 02/21/22 06:48 Antibiotics) [SULFA (SULFONAMIDE ANTIBIOTICS)] ibuprofen AdvReac Intermediate Abdominal Verified 02/21/22 16:53 Pain Assessment & Plan Assessment & Plan (1) Post traumatic stress disorder (PTSD): Status: Acute Code(s): F43.10 - Post-traumatic stress disorder, unspecified (2) Alcohol use disorder: Status: Acute (3) Depression: Status: Acute Code(s): F32.A - Depression, unspecified Plan 52 yo female, hx of PTSD, Depression, Alcohol Use Disorder, recent section 35. Pt returns for admission after a recent discharge where she was restricted in milieu participation due to positive C-Difficile testing. She returns for treatment of PTSD and depression and asks for assistance in admission to a longer term program for addiction, specifically, [facility], recommended by her [facility] daytime caregiver Valentina. Pt reports an 8 year hx of sobriety that she wants to re- establish and move forward with Medication review completed with Sweetie, discussed with team. -Reviewed buspar tapering-will replace and begin -Olanzapine 2. 5mg bid prn anxiety -Lorazepam 0.5 mg tid -MVI 1 tab daily -Folic acid 1 mg daily -Referrals to TSS programs with pt 06/13/22- Increase Lamictal by 50 mg Imitrex prn 06/14/22- no med changes, continue trial on PRN zyprexa 06/15/22- no med changes 06/16/22 continue current treatment plan 06/17/2022 continue current treatment plan Patient considering trial of disulfiram 06/20/22- Increase Perphenazine prn to 2 mg qid. 06/21: continue same. 06/22: continue same. 06/23/22: Finding some sx relief with low dose Depakote. Continue current regime. 06/24/22: Continue current regime 06/25/22: Increase Seroquel to 25 mg qid prn 06/27/22: Continue current plan of care. 06/28/22: Continue current plan of care. 06/29/2022: Continue current treatment plan -patient would like to discuss getting on an abuse with Reji 06/30/22 Discharge on 07/01/22. I spent minutes with the patient and/or on the patient floor today, greater than?50% of which was spent counseling/coordinating care. Patient educated on: medication risk/benefits and therapeutic strategies Informed Consent: understands Reason for contiued inpatient stay Substantial Risk for: stable for discharge
[2022-06-30 18:00] VITALS: BP 142/86; PULSE 83; RESP 16; TEMP 36.1
[2022-06-30] MEDS: Lurasidone HCl 80 MG TABLET 160 MG PO (18:25)
[2022-06-30] MEDS: traZODone HCL 50 MG TABLET 150 MG PO (20:11)
[2022-06-30] MEDS: lamoTRIgine 100 MG TABLET 250 MG PO (20:11)
[2022-07-01] MEDS: LORazepam 0.5 MG TABLET PO ×2 (03:02→08:16)
[2022-07-01] MEDS: Amphetamine Mixed Salts 20 MG TABLET PO (06:11)
[2022-07-01] MEDS: Levothyroxine Sodium 25 MCG TABLET PO (06:11)
[2022-07-01] MEDS: Folic Acid 1 MG TABLET PO (08:15)
[2022-07-01] MEDS: amLODIPine Besylate 5 MG TABLET PO (08:15)
[2022-07-01] MEDS: Calcium + Vitamin D 250 MG TABLET 500 MG PO (08:15)
[2022-07-01] MEDS: Baclofen 20 MG TABLET PO (08:15)
[2022-07-01] MEDS: Acamprosate Calcium 333 MG TABLET.DR 666 MG PO (08:15)
[2022-07-01] MEDS: Ascorbic Acid 500 MG TABLET PO (08:15)
[2022-07-01] MEDS: Gabapentin 400 MG CAPSULE PO (08:16)
[2022-07-01] MEDS: Omeprazole 20 MG CAPSULE.DR PO (08:16)
[2022-07-01] MEDS: Thiamine HCL 100 MG TABLET PO (08:16)
[2022-07-01] MEDS: Multivitamin TABLET 1 TAB PO (08:16)
[2022-07-01] MEDS: Ferrous Sulfate 324 MG TABLET.DR PO (08:16)
[2022-07-01] MEDS: Divalproex Sodium Sprinkles 125 MG CAP.DR.SPR 250 MG PO (08:16)
[2022-07-01] MEDS: Loratadine 10 MG TABLET PO (08:16)
[2022-07-01] MEDS: buPROPion HCl XL 300 MG TAB.ER.24H PO (08:16)
[2022-07-01 08:33] VITALS: BP 132/80; RESP 18
--- NOTE | 2022-07-01 08:40 | P.DS_ITS ---
DS: Providers Provider Date of Service: 07/01/22 Date of admission: 06/10/22 14:30 Date of discharge: 07/01/22 Primary care physician: Yuly Fuller MD Admitting clinician: Ann Mazariegos Attending physician on admission: Jonatan Sim Attending physician on discharge: Jonatan Sim Discharging clinician: Ann Mazariegos DS: Diagnosis Discharge Diagnosis (1) Post traumatic stress disorder (PTSD): Status: Acute (2) Alcohol use disorder: Status: Acute (3) Depression: Status: Acute DS: Medications Discharge Medications Home Medications: Home Medications Medication Instructions Recorded Confirmed oxycodone 5 mg tablet 1 tab PO BID PRN Pain 05/09/22 06/07/22 Previous Rx's Medication Instructions Recorded acamprosate 333 mg tablet,delayed 2 tab PO TID #180 tabs 07/01/22 release amlodipine 5 mg tablet 1 tab PO DAILY #30 tabs 07/01/22 ascorbic acid (vitamin C) 500 mg 500 mg PO BID #60 tabs 07/01/22 tablet baclofen 20 mg tablet 1 tab PO TID #90 tabs 07/01/22 bupropion HCl 300 mg 24 hr tablet, 1 tab PO QAM #30 tabs 07/01/22 extended release (Wellbutrin XL) calcium carbonate 600 mg-vitamin 1 tab PO BID #60 tabs 07/01/22 D3 10 mcg (400 unit) tablet dextroamphetamine-amphetamine 20 1 tab PO BID@0600,1300 #60 tabs 07/01/22 mg tablet divalproex 125 mg capsule,delayed 250 mg PO TID #180 caps 07/01/22 release sprinkle ferrous sulfate 324 mg (65 mg 324 mg PO DAILY #30 tabs 07/01/22 iron) tablet,delayed release folic acid 1 mg tablet 1 mg PO DAILY #30 tabs 07/01/22 gabapentin 400 mg capsule 400 mg PO TID 30 days #90 caps 07/01/22 ketoconazole 2 % topical cream 1 applic topical BID PRN Rash #1 07/01/22 applicator lamotrigine 100 mg tablet 250 mg PO BEDTIME #75 tabs 07/01/22 levothyroxine 25 mcg tablet 1 tab PO DAILY #30 tabs 07/01/22 loratadine 10 mg tablet 10 mg PO DAILY #30 tabs 07/01/22 lorazepam 0.5 mg tablet 0.5 mg PO 0900,1400,1830 #21 tabs 07/01/22 lurasidone 80 mg tablet (Latuda) 160 mg PO DAILY@1800 30 days #60 07/01/22 tabs multivitamin 1 tab PO DAILY #30 tabs 07/01/22 pantoprazole 40 mg tablet,delayed 1 tab PO BID #60 tabs 07/01/22 release perphenazine 2 mg tablet 2 mg PO QID PRN anxiety, 07/01/22 dissociations, agitation #60 tabs quetiapine 25 mg tablet 25 mg PO QID PRN anxiety #60 tabs 07/01/22 sumatriptan succinate 50 mg tablet 50 mg PO DAILY MRX1 PRN Migraine 07/01/22 Headache #0 tabs thiamine HCl (vitamin B1) 100 mg 100 mg PO DAILY #30 tabs 07/01/22 tablet trazodone 50 mg tablet 150 mg PO BEDTIME #90 tabs 07/01/22 Mental Status Exam Mental Status Exam Patient Appearance: Appropriate Patient Orientation: Person, Place, Time and Situation Level of Consciousness: Alert Patient Behavior: Talkative and Good Eye Contact Mood Description: Flat Affect Description: Flat Patient Cognition Impaired: No Ability to Follow Directions: Good Speech Pattern: Spontaneous Speech Memory Description: Intact Hallucinations: None Delusions: Not Present Perceptual Disturbances: Depersonalization and Derealization Thought Process: Intact and Goal Oriented Thought Content: positive for Intact, positive for Goal Oriented, positive for Suicidal Ideation (denies) and positive for Homicidal Ideation (denies) Depressive Symptoms: Increased Anxiety, Crying Spells and Low Self Esteem Judgement: Good Data Data Completed and Pending Completed studies during hospitalization [Text1]: 06/25/22 06/25/22 06/27/22 08:14 08:14 08:29 WBC 9.7 RBC 3.70 L Hgb 11.3 L Hct 33.7 L MCV 91.1 MCH 30.5 MCHC 33.5 RDW 12.1 Plt Count 293 MPV 10.7 Immature Gran % (Auto) 0.2 Neut % (Auto) 75.3 H Lymph % (Auto) 17.6 L [place] % (Auto) 6.8 Eos % (Auto) 0.0 Baso % (Auto) 0.1 Lymph # (Auto) 1.7 [place] # (Auto) 0.7 Eos # (Auto) 0.0 Baso # (Auto) 0.0 Abs Immat Gran (auto) 0.02 Absolute Neuts (auto) 7.3 Absolute Nucleated RBC 0.000 Nucleated RBC % (auto) 0.0 Sodium 133 L 135 Potassium 5.1 D Chloride 97 Carbon Dioxide 27 Anion Gap 14 BUN 9 Creatinine 0.75 Estim Creat Clear Calc 92.1 Estimated GFR > 60 Random Glucose 98 Calcium 9.5 D Total Bilirubin < 0.2 AST 17 ALT 15 Alkaline Phosphatase 91 Total Protein 6.6 Albumin 4.1 Valproic Acid 15.0 L DS: Summary Hospital Course Hospital Course: Admission to adult psychiatry for exacerbation of recurrent major depression with active SI, PTSD, and alcohol use disorder. Pt has no community supports and is chronically suicidal. Medication adjustments were made for sx mgt and to prevent further addictive sx. Resources were exhausted for residential care and pt was discharged to home with a plan to attend partial hospital program, a referral for possible respite care when a bed becomes available, out patient therapy and psychopharmacology and recovery coaching along with VNA to assist with medicine mgt. Time spent discussing smoking cessation with patient: 3 to 10 minutes Status at Discharge Functional status at discharge: independent ambulation Overall status at discharge: patient is back to baseline Time Spent with Patient Time attestation: Total time spent providing and/or coordinating discharge services: 40 Time spent: Greater than 30 minutes Discharge Plan Discharge Anticipated Discharge Date/Time: 07/01/22 14:09 Patient Disposition: Home, Self-Care Discharge Diagnosis: PTSD Recurrent Major Depression Alcohol Use Disorder Referrals: Partial Hospitalization Program Intake Appointment [Other] - 07/01/22 11:00 am (Appointment is IN PERSON on July 01 at 11am) Respite Referral: Clinical & Support Options ([facility] [Other] - 1 Week (You have been referred but they are closed to admissions for an undetermined period of time. Call daily to inquire about whether they have opened to admissions. ) Psych Prescriber: Pia Olson ([facility]) [Other] - 07/22/22 3:30 pm (Appointment will be over Zoom (30 minutes) but you have to go to the office for the appointment as you have to see their nursing for them to take vitals. ) Therapist: Suzy Tolliver ([facility]) [Other] - 1 Week Inverted Block Operator: Manuela ([facility]) [Other] - 1 Week (Call for support as needed) Transportation for [facility]: [facility] [Other] - 1 Week (Transportation is set up for Thursday through Monday 07/02-07/23/22 from your apartment to [facility] [place]. supervisor liquefaction is at 8am and return trip is scheduled for 1:45pm. ) Yuly Fuller MD [Primary Care Provider] - 1 Week Discharge Medications: New ferrous sulfate 324 mg (65 mg iron) Tablet,Delayed Release (Dr/Ec) 324 mg PO DAILY Qty: 30 0RF lamotrigine 100 mg Tablet 250 mg PO BEDTIME Qty: 75 0RF quetiapine 25 mg Tablet 25 mg PO QID PRN (Reason: anxiety) Qty: 60 0RF perphenazine 2 mg Tablet 2 mg PO QID PRN (Reason: anxiety, dissociations, agitation) Qty: 60 0RF trazodone 50 mg Tablet 150 mg PO BEDTIME Qty: 90 0RF sumatriptan succinate 50 mg Tablet 50 mg PO DAILY MRX1 PRN (Reason: Migraine Headache) Qty: 0 0RF lorazepam 0.5 mg Tablet 0.5 mg PO 0900,1400,1830 Qty: 21 3RF divalproex 125 mg Capsule, Delayed Rel Sprinkle 250 mg PO TID Qty: 180 0RF folic acid 1 mg Tablet 1 mg PO DAILY Qty: 30 0RF Continued oxycodone 5 mg tablet 5 mg PO BID PRN (Reason: Pain) multivitamin Tablet 1 tab PO DAILY Qty: 30 0RF gabapentin 400 mg Capsule 400 mg PO TID 30 Days Qty: 90 0RF thiamine HCl (vitamin B1) 100 mg tablet 100 mg PO DAILY Qty: 30 0RF ascorbic acid (vitamin C) 500 mg Tablet 500 mg PO BID Qty: 60 0RF ketoconazole 2 % cream 1 applic topical BID PRN (Reason: Rash) Qty: 1 0RF calcium carbonate-vitamin D3 600 mg-10 mcg (400 unit) tablet 1 tab PO BID Qty: 60 0RF Latuda 80 mg Tablet 160 mg PO DAILY@1800 30 Days Qty: 60 0RF Changed loratadine 10 mg tablet 10 mg PO DAILY Qty: 30 0RF Discontinued lamotrigine 200 mg tablet 1 tab PO BEDTIME levothyroxine 25 mcg tablet 1 tab PO DAILY baclofen 20 mg tablet 1 tab PO TID pantoprazole 40 mg tablet,delayed release (DR/EC) 1 tab PO BID acamprosate 333 mg tablet,delayed release (DR/EC) 2 tab PO TID trazodone 100 mg Tablet 100 mg PO BEDTIME 30 Days Qty: 30 0RF lorazepam 0.5 mg Tablet 0.5 mg PO DAILY PRN (Reason: mild anixety) 30 Days Qty: 30 0RF buspirone 10 mg Tablet 20 mg PO TID 30 Days Qty: 180 0RF dextroamphetamine-amphetamine 20 mg tablet 1 tab PO BID@0600,1300 amlodipine 5 mg tablet 1 tab PO DAILY bupropion HCl [Wellbutrin XL] 300 mg tablet extended release 24 hr 1 tab PO QAM vancomycin 125 mg Capsule 125 mg PO Q6H Qty: 26 0RF No Action amlodipine 5 mg tablet 5 mg PO DAILY acamprosate 333 mg tablet,delayed release (DR/EC) 666 mg PO TID bupropion HCl [Wellbutrin XL] 300 mg tablet extended release 24 hr 300 mg PO QAM levothyroxine 25 mcg tablet 25 mcg PO DAILY pantoprazole 40 mg tablet,delayed release (DR/EC) 40 tab PO BID loratadine 10 mg Tablet 10 mg PO DAILY Qty: 30 0RF baclofen 20 mg Tablet 20 mg PO TID Qty: 90 0RF ferrous sulfate 324 mg (65 mg iron) Tablet,Delayed Release (Dr/Ec) 324 mg PO DAILY Qty: 30 0RF amlodipine 5 mg Tablet 5 mg PO DAILY Qty: 30 0RF Protocol: Hold for SBP< HOLD for SBP < : 90 bupropion HCl 150 mg Tablet Extended Release 24 Hr 450 mg PO DAILY Qty: 90 0RF acamprosate 333 mg Tablet,Delayed Release (Dr/Ec) 666 mg PO TID Qty: 90 0RF gabapentin 400 mg Capsule 400 mg PO TID Qty: 90 0RF lamotrigine 100 mg Tablet 250 mg PO BEDTIME Qty: 75 0RF lurasidone 120 mg tablet 120 mg PO DAILY Qty: 30 0RF Rx Instructions: must administer with food (at least 350 calories) divalproex 250 mg Tablet,Delayed Release (Dr/Ec) 250 mg PO DAILY Qty: 30 0RF sumatriptan succinate 50 mg Tablet 50 mg PO DAILY MRX1 PRN (Reason: for migraines) Qty: 30 0RF divalproex 500 mg Tablet,Delayed Release (Dr/Ec) 500 mg PO BEDTIME Qty: 30 0RF lorazepam 0.5 mg Tablet 0.5 mg PO TID@0900,1330,1830 Qty: 45 0RF trazodone 100 mg Tablet 200 mg PO BEDTIME Qty: 60 0RF dextroamphetamine-amphetamine 20 mg Tablet 20 mg PO BID@0600,1330 Qty: 30 0RF Rx Instructions: Partial Fill upon patient request. hydroxyzine HCl 25 mg Tablet 25 mg PO Q6H PRN (Reason: Anxiety) Qty: 90 0RF calcium carbonate-vitamin D3 250 mg-3.125 mcg (125 unit) Tablet 500 mg PO BID Qty: 30 0RF levothyroxine 25 mcg Tablet 25 mcg PO DAILY@0600 Qty: 30 0RF omeprazole 20 mg Capsule,Delayed Release(Dr/Ec) 20 mg PO BID@0900,1700 Qty: 60 0RF ascorbic acid (vitamin C) [Vitamin C] 500 mg Tablet 500 mg PO BID Qty: 60 0RF folic acid 1 mg Tablet 1 mg PO DAILY Qty: 30 0RF multivitamin [Daily-Ayleen] Tablet 1 tab PO DAILY Qty: 30 0RF thiamine mononitrate (vit B1) 100 mg Tablet 100 mg PO DAILY Qty: 30 0RF Ure-Na 15 gram powder in packet 1 packet PO BID Qty: 8 2RF baclofen 20 mg tablet 20 tab PO TID Qty: 90 0RF Discharge Orders: Discharge Order (Routine); Ordered 07/01/22 Ordered By: Ann Mazariegos Diet: Advance to usual diet Activity on Discharge: As tolerated Stand Alone Forms: Patient Portal Discharge page, Community Support Care Plan Goals: Maintain mood and safe behaviors Take medications as directed Practice coping skills Utilize your recovery resources Continue with out patient providers and connect as needed with them. Health Concerns: Stable mood and behaviors Sobriety Plan of Treatment: Follow up with out patient providers and resources Take medications as directed Call with medication questions if needed before your first medicine appointment [phone] Assessment: Pt interviewed prior to discharge and found to be fully oriented and without any SI or HI. Pt has insight and demonstrates good judgment in terms of wanting to pursue treatment. Pt is not in imminent risk of harm to self or others and has a safety plan which includes presenting to the closest ER or calling 911 if feeling unsafe. Pt has been observed closely by nursing and unit staff throughout admission. Pt has not engaged in any behaviors which suggest dangerousness to self or others and has demonstrated appropriate behaviors and impulse control. Discharge Date/Time: 07/01/22 10:55
[2022-07-01] MEDS: Acetaminophen 325 MG TABLET 650 MG PO (10:15)
[2022-07-01] MEDS: SUMAtriptan succinate 50 MG TABLET PO (10:15)
== END 2022-07-01 10:55 | disposition home or self-care (01) | DRG 885 ==
LOC: HO.ED 06-10 11:33 → HO.PM5 06-10 14:35
PROVIDERS: Physician Assistant; Registered Nurse; Student in an Organized Health Care Education/Training Program; Admitting Provider Psychiatry & Neurology Psychiatry; Emergency Provider Emergency Medicine Emergency Medical Services; PCP Family Medicine; Visit Provider Clinical Nurse Specialist Psychiatric/Mental Health, Adult
DX: F33.9 Major depressive disorder, recurrent, unspecified (principal); R45.851 Suicidal ideations; F43.10 Post-traumatic stress disorder, unspecified; F10.20 Alcohol dependence, uncomplicated; Z20.822 Contact with and (suspected) exposure to COVID-19; Z91.040 Latex allergy status; Z23 Encounter for immunization; Z88.2 Allergy status to sulfonamides; Z88.6 Allergy status to analgesic agent; Z88.8 Allergy status to other drugs, medicaments and biological substances; Z79.890 Hormone replacement therapy; Z79.899 Other long term (current) drug therapy
CPT/HCPCS: 36415; 80053; 80061; 80164; 80307; 81001; 82077; 82248; 82607; 82746; 83036; 83690; 83735; 84295; 84439; 84443; 85025; 87324; 87493; 87635; 90686; 90792; 93005; 99285

== ENCOUNTER 2022-07-02 11:00 | Outpatient (RCR) | payer OTHER, SELFPAY ==
[2022-07-02 12:30] VITALS: BP 132/70; PULSE 100; TEMP 37.2
[2022-07-02 15:10] VITALS: BMI 37.4
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
--- NOTE | 2022-07-03 15:11 | HO.PHPIOP ---
Pt called out sick this morning. I called her to check in and make sure she's okay at 3pm. She was tearful and said she continues to have a migraine (started yesterday while in treatment) and it has gotten progressively worse. She said she is struggling immensely with alcohol cravings and the package store is right across the street. She has called her acid recovery operator and her [facility] WRAP worker, and has called her med provider, Tierney Mazariegos APRN (in case the migraine is from a new med). She emphatically said she will not drink and said she is safe. She said she made herself eat and is keeping hydrated. She hopes to be back in treatment tomorrow.
--- NOTE | 2022-07-03 15:54 | HO.PHPIOP ---
Case opened in treatment team.
--- NOTE | 2022-07-04 10:19 | HO.PHPIOP ---
I called and left a message for pt after she didn't show up for community meeting this morning. I let her know that we call emergency contact if we don't hear back, expressed concern, and asked her to pls call as soon as possible. After 20 minutes, I called pt again and left another message asking her to pls call and let her know we will contact Valentina, her emergency contact, if we don't hear back. After several minutes I called and spoke to Valentina. Valentina said she also has been reaching out to pt and has not heard back, and said she believes we should call the police because she is concerned. Valentina is pt's [facility] WRAP provider. She said today is her last day working with pt, and that this cannot change because she has already extended her services. Valentina said she has worked very closely with pt, and considers her a friend. I called the [place] police. They said they will send over an officer and a community service officer coordinator from [facility], who can section pt is needed.
--- NOTE | 2022-07-04 12:05 | HO.PHPIOP ---
At 11:45, I called the [place] police to follow-up on wellness check for pt this morning. Dispatch said, she was sleeping and did not want to seek services at this time. She was told to call her therapist .
--- NOTE | 2022-07-04 12:36 | HO.PHPIOP ---
After talking with the team, I called [facility] [facility] crisis and put pt on alert with them.
--- NOTE | 2022-07-04 14:08 | HO.PHPIOP ---
I received a call from Valentina pt's [facility] worker, who is supposed to end with pt today. She said she is at pt's apartment, and that the door is locked. She believes pt is there and she has called the police for another wellness check. She believes pt is there and believes she has been drinking. She is awaiting the police. She also told me that pt is on a wait list for a 90 day program in [place], called [facility]. She said pt is supposed to be calling weekly to check the status of this.
--- NOTE | 2022-07-04 14:32 | HO.PHPIOP ---
After talking with the program nurse, Sera, I called Valentina back to ask if pt has a visiting nurse or if someone is dispersing her medications. She said no, pt does her own medications. Valentina also said she has now been able to enter pt's apartment and is sitting with pt. She said pt has agreed to go to [facility], and that she will go with her. It was unclear if the police had arrived yet. Valentina also said that there are plates of crushed Adderall around pt's apartment, and said, so it appears she has been crushing and snorting her Adderall again . I then called the CARE team and spoke to Seamus, updating him about this and letting him know to expect the pt.
--- NOTE | 2022-07-07 11:10 | HO.PHPIOP ---
Pt has been admitted to and will be discharged from [facility].
== END 2022-07-02 23:59 | disposition home or self-care (01) ==
LOC: HO.PHPA 11:00
PROVIDERS: Visit Provider Psychiatry & Neurology Psychiatry
DX: F32.9 Major depressive disorder, single episode, unspecified (principal); F43.10 Post-traumatic stress disorder, unspecified; F10.10 Alcohol abuse, uncomplicated; Z79.899 Other long term (current) drug therapy; Z91.51 Personal history of suicidal behavior
CPT/HCPCS: 90853

== ENCOUNTER 2022-07-04 15:07 | Inpatient (IN) | payer OTHER, SELFPAY ==
--- NOTE | ~2022-07-04 | XR_ITS ---
EXAMINATION: XR CHEST CLINICAL INFORMATION: Question aspiration COMPARISON: 05/29/2022 TECHNIQUE: Frontal view of the chest was obtained. FINDINGS: Cervical fusion changes again noted. Mild elevation right hemidiaphragm similar. No significant abnormality is noted involving the heart, lungs, mediastinum, bony thorax or soft tissues. XR/XR chest 1V IMPRESSION: Unremarkable examination.
[2022-07-04 15:22] VITALS: BP 115/70; BP 116/43; PULSE 102; RESP 20; TEMP 36.1; O2SAT 97; O2SAT 98; BMI 37.0
--- OUTSIDE RECORDS SUMMARY | 2022-07-04 15:53 | XMS_ITS ---
:1970 Author Organization [facility] Location Address [address] [place] [id number] Care Team Providers Name Role Phone Nick APPLICATIONS TESTER-DoryLinsey Unavailable Unavailable PROBLEMS Type Condition ICD9-CM Code [id number] Code Onset Condition SNO MED Code Dates Status Problem Arm R20.2 Active [id number] paresthesia, left ALLERGIES Substance Reaction Event Type Date Status Sulfa Antibiotics Unknown Drug Allergy Oct, Active ENCOUNTERS Encounter Location Date Diagnosis [facility] [address] [facility], Oct, Ce rvicalgia M54.2 ; [place] [address] arm pa in M79.602 and Arm paresthesia, [...] Results REASON FOR VISIT Consult Insurance Providers [facility] Health Member Patient Patient Patient Patient Patient Subscriber Subscriber Subscriber Group Insurance Plan Plan Plan Plan ID Relationship Address Phone Name Date of ID Name Date of No Type Insurance Insurance Insurance Coverage to Subscriber Address Phone Name Dates [place] [address] [facility] [phone] [place] self Sweetie 1 [id number] th Care [facility] [address] th Care [facility] [address] [place] [address] self Sweetie [id number] [address] [address] Medicare [address] Medicare self Sweetie [id number] of [id number] [facility] [place] [phone]
--- NOTE | 2022-07-04 16:14 | ECG_ITS ---
Test Reason : etoh Blood Pressure : / mmHG Vent. Rate : 098 BPM Atrial Rate : 098 BPM P-R Int : 162 ms QRS Dur : 104 ms QT Int : 376 ms P-R-T Axes : 069 -11 -54 degrees QTc Int : 480 ms Normal sinus rhythm Minimal voltage criteria for LVH, may be normal variant ( Alex product ) Septal infarct (cited on or before 13-FEB-2022) Nonspecific T wave abnormality Inferior leads Lateral leads Abnormal ECG When compared with ECG of 07-JUN-2022 18:58, Questionable change in initial forces of Septal leads Nonspecific T wave abnormality, worse in Inferior leads Referred By: Araseli Barron Electronically Signed By:YAAKOV CULLEN MD
--- NOTE | 2022-07-04 16:15 | ED.GENADULT ---
HPI - General Adult General Chief complaint: ETOH/Substance Use <DELORES Black - Last Filed: 07/05/22 01:46> Stated complaint: etoh <DELORES Black - Last Filed: 07/05/22 01:46> Time Seen by Provider: 07/04/22 16:03 <DELORES Black - Last Filed: 07/05/22 01:46> Source: EMS and other ([facility] worker ) <DELORES Black - Last Filed: 07/05/22 01:46> Mode of arrival: EMS <DELORES Black - Last Filed: 07/05/22 01:46> Limitations: altered mental status <DELORES Black - Last Filed: 07/05/22 01:46> History of Present Illness HPI narrative: This is a 52-year-old female past medical history significant for suicide attempts, alcohol use disorder, depression, PTSD presenting to the emergency department via ambulance for suspected alcohol intoxication and Adderall overdose. According to [facility] worker patient did not show up to partial program today so DM worker went to her house to check in on her at around 14:00. She noted that patient was not opening the door therefore she called 911, they found patient's side minimally responsive with Adderall bottles that were empty around her it appears as though she was sniffing Adderall, there was a lot of pills crushed on a plate as well as empty vodka bottle she tells me there is a gal and a L bottle that was completely empty. Patient has met like alcohol. Reports patient was recently discharged from [facility] 2 days ago, suggesting patient be evaluated for possible Section 35. Tells me that she has had similar presentations in the past which were suicide attempts. Patient unable to answer any questions, somnolent however with stable vital signs, breathing on labored, patent airway controlling secretions. At this time unable to obtain accurate review of systems or history from patient. <DELORES Black - Last Filed: 07/05/22 01:46> Related Data Home medications: Home Medications Medication Instructions Recorded Confirmed oxycodone 5 mg tablet 5 mg PO BID PRN Pain 05/09/22 07/04/22 acamprosate 333 mg tablet,delayed 666 mg PO TID 07/04/22 07/04/22 release amlodipine 5 mg tablet 5 mg PO DAILY 07/04/22 07/04/22 baclofen 20 mg tablet 20 tab PO TID 07/04/22 07/04/22 bupropion HCl 300 mg 24 hr tablet, 300 mg PO QAM 07/04/22 07/04/22 extended release (Wellbutrin XL) dextroamphetamine-amphetamine 20 20 mg PO BID 07/04/22 07/04/22 mg tablet levothyroxine 25 mcg tablet 25 mcg PO DAILY 07/04/22 07/04/22 pantoprazole 40 mg tablet,delayed 40 tab PO BID 07/04/22 07/04/22 release Previous Rx's Medication Instructions Recorded ascorbic acid (vitamin C) 500 mg 500 mg PO BID #60 tabs 07/01/22 tablet calcium carbonate 600 mg-vitamin 1 tab PO BID #60 tabs 07/01/22 D3 10 mcg (400 unit) tablet divalproex 125 mg capsule,delayed 250 mg PO TID #180 caps 07/01/22 release sprinkle ferrous sulfate 324 mg (65 mg 324 mg PO DAILY #30 tabs 07/01/22 iron) tablet,delayed release folic acid 1 mg tablet 1 mg PO DAILY #30 tabs 07/01/22 gabapentin 400 mg capsule 400 mg PO TID 30 days #90 caps 07/01/22 ketoconazole 2 % topical cream 1 applic topical BID PRN Rash #1 07/01/22 applicator lamotrigine 100 mg tablet 250 mg PO BEDTIME #75 tabs 07/01/22 loratadine 10 mg tablet 10 mg PO DAILY #30 tabs 07/01/22 lorazepam 0.5 mg tablet 0.5 mg PO 0900,1400,1830 #21 tabs 07/01/22 lurasidone 80 mg tablet (Latuda) 160 mg PO DAILY@1800 30 days #60 07/01/22 tabs multivitamin 1 tab PO DAILY #30 tabs 07/01/22 perphenazine 2 mg tablet 2 mg PO QID PRN anxiety, 07/01/22 dissociations, agitation #60 tabs quetiapine 25 mg tablet 25 mg PO QID PRN anxiety #60 tabs 07/01/22 sumatriptan succinate 50 mg tablet 50 mg PO DAILY MRX1 PRN Migraine 07/01/22 Headache #0 tabs thiamine HCl (vitamin B1) 100 mg 100 mg PO DAILY #30 tabs 07/01/22 tablet trazodone 50 mg tablet 150 mg PO BEDTIME #90 tabs 07/01/22 <DELORES Black - Last Filed: 07/05/22 01:46> Allergies/adverse reactions: Allergies Allergy/AdvReac Type Severity Reaction Status Date / Time latex [LATEX] Allergy Mild Rash Verified 02/21/22 06:47 leuprolide [From LUPRON] Allergy Unknown HIVES Verified 02/21/22 06:47 Sulfa (Sulfonamide Allergy Unknown RASH Verified 02/21/22 06:48 Antibiotics) [SULFA (SULFONAMIDE ANTIBIOTICS)] ibuprofen AdvReac Intermediate Abdominal Verified 02/21/22 16:53 Pain <DELORES Black - Last Filed: 07/05/22 01:46> Review of Systems Review of Systems: Yes Unobtainable due to mental status <DELORES Black - Last Filed: 07/05/22 01:46> FOR[facility]LY [facility] Past Medical History Attestation statement: The following information was validated with the patient. <DELORES Black - Last Filed: 07/05/22 01:46> Source: old records reviewed and nursing notes reviewed <DELORES Black - Last Filed: 07/05/22 01:46> Medical History: Medical History Alcohol abuse Alcohol abuse Alcohol intoxication Alcohol use disorder, severe, dependence Alcohol withdrawal Arm paresthesia, left Bipolar I disorder with depression Depression Depression GERD (gastroesophageal reflux disease) HTN (hypertension) Hypothyroidism Migraines <DELORES Black - Last Filed: 07/05/22 01:46> Family History Family History: Family History Mother Narcissism Father Lung cancer COPD (chronic obstructive pulmonary disease) Alcoholism Brother Alcoholism <DELORES Black - Last Filed: 07/05/22 01:46> Social History Social History: Social History Household Members: None Housing: Apartment Do you presently have visiting nurse or other home services: No Alcohol intake: current Alcohol intake frequency: 3 or more drinks per day Alcohol type: hard liquor Patient Tobacco Use Status: Former Tobacco user Advance Directives: No Advance Directives Information Provided: Yes service: No Sexual orientation: Straight/Heterosexual <DELORES Black - Last Filed: 07/05/22 01:46> Physical Exam ED Vital Signs: Vital Signs - 24 hr 07/04/22 15:22 07/04/22 17:49 07/04/22 19:32 Temperature 96.9 F 98.3 F 98.2 F Pulse Rate 102 H 107 H 93 Respiratory Rate 20 12 14 Blood Pressure 116/43 L 117/63 Pulse Oximetry 98 96 96 Oxygen Delivery Method Nasal Cannula Nasal Cannula Room Air Oxygen Flow Rate 2 07/04/22 21:58 07/05/22 00:00 07/05/22 02:00 Temperature 98.3 F 97.9 F 98.3 F Pulse Rate 106 H 94 77 Respiratory Rate 12 12 13 Blood Pressure 137/81 111/56 L 127/71 Pulse Oximetry 96 94 98 Oxygen Delivery Method Nasal Cannula Room Air Nasal Cannula Oxygen Flow Rate 2 3 07/05/22 03:53 07/05/22 05:03 07/05/22 06:00 Temperature 98.9 F 98.2 F Pulse Rate 97 105 H 102 H Respiratory Rate 17 18 11 L Blood Pressure 130/73 138/80 145/79 H Pulse Oximetry 97 98 97 Oxygen Delivery Method Room Air Nasal Cannula Nasal Cannula Oxygen Flow Rate 2 3 07/05/22 07:12 Temperature Pulse Rate 93 Respiratory Rate 14 Blood Pressure 134/73 Pulse Oximetry 94 Oxygen Delivery Method Room Air Oxygen Flow Rate BMI result Body Mass Index 37.0 vss <DELORES Black - Last Filed: 07/05/22 01:46> Vital Signs - 24 hr 07/04/22 15:22 07/04/22 17:49 07/04/22 19:32 Temperature 96.9 F 98.3 F 98.2 F Pulse Rate 102 H 107 H 93 Respiratory Rate 20 12 14 Blood Pressure 116/43 L 117/63 Pulse Oximetry 98 96 96 Oxygen Delivery Method Nasal Cannula Nasal Cannula Room Air Oxygen Flow Rate 2 07/04/22 21:58 07/05/22 00:00 07/05/22 02:00 Temperature 98.3 F 97.9 F 98.3 F Pulse Rate 106 H 94 77 Respiratory Rate 12 12 13 Blood Pressure 137/81 111/56 L 127/71 Pulse Oximetry 96 94 98 Oxygen Delivery Method Nasal Cannula Room Air Nasal Cannula Oxygen Flow Rate 2 3 07/05/22 03:53 07/05/22 05:03 07/05/22 06:00 Temperature 98.9 F 98.2 F Pulse Rate 97 105 H 102 H Respiratory Rate 17 18 11 L Blood Pressure 130/73 138/80 145/79 H Pulse Oximetry 97 98 97 Oxygen Delivery Method Room Air Nasal Cannula Nasal Cannula Oxygen Flow Rate 2 3 07/05/22 07:12 Temperature Pulse Rate 93 Respiratory Rate 14 Blood Pressure 134/73 Pulse Oximetry 94 Oxygen Delivery Method Room Air Oxygen Flow Rate BMI result Body Mass Index 37.0 <Zaki Jones MD - Last Filed: 07/05/22 08:43> Appearance: Awake. Appears to be in no acute distress. Not responding to questions however responding to painful stimuli. Head: Normocephalic, atraumatic, no step-offs or deformities Eyes: Pupils equal, round and reactive to light.? ENT: Pharynx normal.? Neck: Normal inspection.? Neck supple.? CVS: Normal heart rate and rhythm.? Pulses normal.? Respiratory: No respiratory distress.? Breath sounds normal.? Abdomen: Soft and nontender.? Skin: Skin warm and dry.? Normal skin color.? Normal skin turgor.? Extremities: No lower extremity edema.? No calf ttp. 5/5 strength to bilateral upper and lower extremities Back: No midline tenderness, no C-spine tenderness, full range of motion, no CVA tenderness bilaterally Neuro: Patient not participating in neurological exam. Awake. Appears to be in no acute distress. Not responding to questions however responding to painful stimuli. <DELORES Black - Last Filed: 07/05/22 01:46> Course Reevaluation(s) Reevaluation #1: CBC appears to be around patient's baseline however noted to have elevated platelet count, it has been higher in the past however. Chemistry with low sodium 131, chloride also low, noted to have an elevated anion gap likely secondary to alcohol. Troponin negative, EKG nonischemic unlikely ACS. Salicylates, acetaminophen negative. Ethanol level for 406 again consistent patient's physical examination. Chest x-ray is pending at this time. <DELORES Black - Last Filed: 07/05/22 01:46> Time: 18:35 <DELORES lBack - Last Filed: 07/05/22 01:46> Reevaluation #2: CXR unremarkable. <DELORES Black - Last Filed: 07/05/22 01:46> Time: 00:57 <DELORES Black - Last Filed: 07/05/22 01:46> Reevaluation #3: Spoke to poison control recommended labs to be repeated to ensure gap is improving which it is. If it is no further intervention. If not tachy, hypertensive or agitated sx likley secondary to alcohol use. Recommend adding lactic acid. Reports to monitor until sober. To note patient was complaining of a headache was given sumatriptan which she takes for her typical headaches/migraines, tells me it feels like her typical, no vision changes, dizziness, neuro nonfocal, ambulating with steady gait normal coordination. Unlikely stroke or posterior stroke. <DELORES Black - Last Filed: 07/05/22 01:46> Time: 01:01 <DELORES Black - Last Filed: 07/05/22 01:46> Additional Reevaluation(s): At this time patient will be placed into physician observation to allow for further monitoring, observation and to be evaluated by the behavioral health team. At time observation was started patient common cooperative no acute distress. Will continue to monitor. Report given to Dr. Flores <DELORES Black - Last Filed: 07/05/22 01:46> Consultations Consultation #1: Patient emergency department sustaining alcohol withdrawal symptoms, CIWA score is 17 with severe tremors and tongue fasciculation nausea feeling very anxious require phenobarb will start the patient on phenobarb protocol and admit medically. Will continue one-to-one observation for suicidal ideation. <Zaki Jones MD - Last Filed: 07/05/22 08:43> Time: 08:42 <Zaki Jones MD - Last Filed: 07/05/22 08:43> Medications Administered Discontinued Medications Generic Name Dose Route Start Last Admin Trade Name Freq PRN Reason Stop Dose Admin Chlordiazepoxide HCl 25 mg 07/04/22 22:29 07/04/22 22:36 Chlordiazepoxide Hcl 25 Mg Capsule PO 07/04/22 22:30 25 mg ONCE ONE Administration Sodium Chloride 1,000 mls @ 999 mls/hr 07/04/22 18:45 07/04/22 22:28 Ns IV 07/04/22 19:45 Infused .Q1H1M BETTY Infusion Sodium Chloride 1,000 mls @ 999 mls/hr 07/04/22 18:45 07/05/22 01:17 Ns IV 07/04/22 19:45 Infused .Q1H1M BETTY Infusion Sodium Chloride 1,000 mls @ 999 mls/hr 07/04/22 18:45 07/04/22 22:24 Ns IV 07/04/22 19:45 Not Given .Q1H1M BETTY Sodium Chloride 1,000 mls @ 999 mls/hr 07/04/22 18:45 07/04/22 22:23 Ns IV 07/04/22 19:45 Not Given .Q1H1M BETTY Sodium Chloride 1,000 mls @ 999 mls/hr 07/05/22 02:00 07/05/22 06:58 Ns IV 07/05/22 03:00 Infused .Q1H1M BETTY Infusion Ketorolac Tromethamine 30 mg 07/04/22 22:05 07/04/22 22:20 Ketorolac Tromethamine 15 Mg/Ml Vial IVPUSH 07/04/22 22:06 30 mg ONCE ONE Administration Lorazepam 2 mg 07/05/22 04:02 07/05/22 04:07 Lorazepam 1 Mg Tablet PO 07/05/22 04:03 2 mg ONCE ONE Administration Sumatriptan Succinate 6 mg 07/05/22 00:50 07/05/22 00:54 Sumatriptan Succinate 6 Mg/0.5 Ml Vial SUBCUT 07/05/22 00:51 6 mg ONCE ONE Administration <DELORES Black - Last Filed: 07/05/22 01:46> Medications Administered Discontinued Medications Generic Name Dose Route Start Last Admin Trade Name Freq PRN Reason Stop Dose Admin Chlordiazepoxide HCl 25 mg 07/04/22 22:29 07/04/22 22:36 Chlordiazepoxide Hcl 25 Mg Capsule PO 07/04/22 22:30 25 mg ONCE ONE Administration Sodium Chloride 1,000 mls @ 999 mls/hr 07/04/22 18:45 07/04/22 22:28 Ns IV 07/04/22 19:45 Infused .Q1H1M BETTY Infusion Sodium Chloride 1,000 mls @ 999 mls/hr 07/04/22 18:45 07/05/22 01:17 Ns IV 07/04/22 19:45 Infused .Q1H1M BETTY Infusion Sodium Chloride 1,000 mls @ 999 mls/hr 07/04/22 18:45 07/04/22 22:24 Ns IV 07/04/22 19:45 Not Given .Q1H1M BETTY Sodium Chloride 1,000 mls @ 999 mls/hr 07/04/22 18:45 07/04/22 22:23 Ns IV 07/04/22 19:45 Not Given .Q1H1M BETTY Sodium Chloride 1,000 mls @ 999 mls/hr 07/05/22 02:00 07/05/22 06:58 Ns IV 07/05/22 03:00 Infused .Q1H1M BETTY Infusion Ketorolac Tromethamine 30 mg 07/04/22 22:05 07/04/22 22:20 Ketorolac Tromethamine 15 Mg/Ml Vial IVPUSH 07/04/22 22:06 30 mg ONCE ONE Administration Lorazepam 2 mg 07/05/22 04:02 07/05/22 04:07 Lorazepam 1 Mg Tablet PO 07/05/22 04:03 2 mg ONCE ONE Administration Sumatriptan Succinate 6 mg 07/05/22 00:50 07/05/22 00:54 Sumatriptan Succinate 6 Mg/0.5 Ml Vial SUBCUT 07/05/22 00:51 6 mg ONCE ONE Administration <Zaki Jones MD - Last Filed: 07/05/22 08:43> Medical Decision Making [facility] Narrative Medical decision making narrative: 1622 52-year-old female presents with acute alcohol intoxication and Adderall abuse. Patient is somnolent upon arrival. However stable vitals controlling airway. Will place patient on a Section 12. Regular rate and rhythm. Lungs clear. Abdomen soft nontender nondistended. Unable to obtain an accurate neurological examination is patient is not participating in exam she is responding to painful and verbal stimuli. Not following commands or speaking to me. Plan at this time medical clearance evaluation by the behavioral health team. Will place patient on the cardiac rehabilitation specialist will obtain an EKG, troponin, basic labs, ethanol level, salicylate, acetaminophen. Will medically clear and then have patient evaluated by the behavioral health team. <DELORES Black - Last Filed: 07/05/22 01:46> Medical Records Medical records reviewed: Yes I reviewed the patient's medical records. <DELORES Black - Last Filed: 07/05/22 01:46> Lab Data Lab results reviewed: Yes I reviewed the patient's lab results. <DELORES Black - Last Filed: 07/05/22 01:46> Result diagrams: : 07/04/22 22:38 07/04/22 22:38 <DELORES Black - Last Filed: 07/05/22 01:46> Labs: Lab Results 07/04/22 07/04/22 07/04/22 Range/Units 17:36 17:36 17:36 WBC 8.8 (4.8-10.8) X10*3/uL RBC 4.64 D (4.20-5.50) X10*6/uL Hgb 14.2 D (12.0-16.0) g/dl Hct 40.6 D (37.0-47.0) % MCV 87.5 (80.0-98.0) fL MCH 30.6 (27.0-33.0) pg MCHC 35.0 (31.0-35.0) g/dl RDW 12.3 (11.0-16.0) % Plt Count 405 H D (160-400) X10*3/uL MPV 10.0 (9.4-12.3) fL Immature Gran % (Auto) 1.1 H (0.0-0.4) % Neut % (Auto) 82.5 H (45-73) % Lymph % (Auto) 15.3 L (20-40) % Barren % (Auto) 0.9 L (2-11) % Eos % (Auto) 0.1 (0-4) % Baso % (Auto) 0.1 (0-2) % Lymph # (Auto) 1.4 (1.2-4.9) X10*3/uL Barren # (Auto) 0.1 (0.1-1.2) X10*3/uL Eos # (Auto) 0.0 (0.0-0.4) X10*3/uL Baso # (Auto) 0.0 (0.0-0.2) X10*3/uL Abs Immat Gran (auto) 0.10 H (0.00-0.03) X10*3/uL Absolute Neuts (auto) 7.3 (2.0-8.3) x10*3/uL Absolute Nucleated RBC 0.000 (0.0-0.012) X10*3/uL Nucleated RBC % (auto) 0.0 (0.0-0.2) /100WBC Sodium 131 L (135-145) mmol/L Potassium 4.5 (3.3-5.1) mmol/L Chloride 93 L (96-108) mmol/L Carbon Dioxide 17 L (22-29) mmol/L Anion Gap 26 H (12-20) BUN 5 L (9-16) mg/dL Creatinine 0.61 (0.5-1.4) mg/dL Estim Creat Clear Calc 102.8 Estimated GFR > 60 Random Glucose 93 (60-115) mg/dL Lactic Acid (0.5-2.0) mmol/L Lactic Acid F/U @ 2Hr (0.5-2.0) mmol/L Lactic Acid F/U @ 4Hr (0.5-2.0) mmol/L Calcium 8.9 D (8.4-10.2) mg/dL Magnesium 1.8 (1.6-2.6) mg/dL Total Bilirubin 0.2 (0.0-1.0) mg/dL AST 34 H D (5-31) U/L ALT 24 (0-31) U/L Alkaline Phosphatase 116 D (39-117) U/L Total Creatine Kinase (26-140) U/L Troponin I High Sens (<3.5-17.0) ng/L Total Protein 8.0 D (6.5-8.0) g/dL Albumin 4.8 (3.5-5.0) g/dL Urine Color Urine Appearance Urine pH (5.0-9.0) Ur Specific [place] (1.005-1.025) Urine Protein (Neg-Trace) mg/dL Urine Glucose (UA) (Negative) mg/dL Urine Ketones (Negative) mg/dL Urine Blood (Negative) Urine Nitrite (Negative) Ur Leukocyte Esterase (Negative) Salicylates < 5.0 L (15-30) mg/dL Urine Opiates Screen (Not Detect) Urine Fentanyl Screen (Not Detect) Acetaminophen < 1 (<30) mcg/mL Ur Barbiturates Screen (Not Detect) Ur Phencyclidine Scrn (Not Detect) Ur Amphetamines Screen (Not Detect) U Benzodiazepines Scrn (Not Detect) Urine Cocaine Screen (Not Detect) U Marijuana (THC) Screen (Not Detect) Ethyl Alcohol 406 H* mg/dL COVID-19 ([facility]) Negative (Negative) COVID-19 Clin Com See Note 07/04/22 07/04/22 07/04/22 Range/Units 17:36 17:36 22:38 WBC 7.7 (4.8-10.8) X10*3/uL RBC 3.90 L (4.20-5.50) X10*6/uL Hgb 11.8 L (12.0-16.0) g/dl Hct 33.9 L (37.0-47.0) % MCV 86.9 (80.0-98.0) fL MCH 30.3 (27.0-33.0) pg MCHC 34.8 (31.0-35.0) g/dl RDW 12.3 (11.0-16.0) % Plt Count 366 (160-400) X10*3/uL MPV 9.5 (9.4-12.3) fL Immature Gran % (Auto) 0.3 (0.0-0.4) % Neut % (Auto) 52.2 (45-73) % Lymph % (Auto) 44.0 H (20-40) % Barren % (Auto) 3.1 (2-11) % Eos % (Auto) 0.3 (0-4) % Baso % (Auto) 0.1 (0-2) % Lymph # (Auto) 3.4 (1.2-4.9) X10*3/uL Barren # (Auto) 0.2 (0.1-1.2) X10*3/uL Eos # (Auto) 0.0 (0.0-0.4) X10*3/uL Baso # (Auto) 0.0 (0.0-0.2) X10*3/uL Abs Immat Gran (auto) 0.02 (0.00-0.03) X10*3/uL Absolute Neuts (auto) 4.0 (2.0-8.3) x10*3/uL Absolute Nucleated RBC 0.000 (0.0-0.012) X10*3/uL Nucleated RBC % (auto) 0.0 (0.0-0.2) /100WBC Sodium (135-145) mmol/L Potassium (3.3-5.1) mmol/L Chloride (96-108) mmol/L Carbon Dioxide (22-29) mmol/L Anion Gap (12-20) BUN (9-16) mg/dL Creatinine (0.5-1.4) mg/dL Estim Creat Clear Calc Estimated GFR Random Glucose (60-115) mg/dL Lactic Acid (0.5-2.0) mmol/L Lactic Acid F/U @ 2Hr (0.5-2.0) mmol/L Lactic Acid F/U @ 4Hr (0.5-2.0) mmol/L Calcium (8.4-10.2) mg/dL Magnesium (1.6-2.6) mg/dL Total Bilirubin (0.0-1.0) mg/dL AST (5-31) U/L ALT (0-31) U/L Alkaline Phosphatase (39-117) U/L Total Creatine Kinase (26-140) U/L Troponin I High Sens < 3.5 D (<3.5-17.0) ng/L Total Protein (6.5-8.0) g/dL Albumin (3.5-5.0) g/dL Urine Color Urine Appearance Urine pH (5.0-9.0) Ur Specific [place] (1.005-1.025) Urine Protein (Neg-Trace) mg/dL Urine Glucose (UA) (Negative) mg/dL Urine Ketones (Negative) mg/dL Urine Blood (Negative) Urine Nitrite (Negative) Ur Leukocyte Esterase (Negative) Salicylates (15-30) mg/dL Urine Opiates Screen (Not Detect) Urine Fentanyl Screen (Not Detect) Acetaminophen (<30) mcg/mL Ur Barbiturates Screen (Not Detect) Ur Phencyclidine Scrn (Not Detect) Ur Amphetamines Screen (Not Detect) U Benzodiazepines Scrn (Not Detect) Urine Cocaine Screen (Not Detect) U Marijuana (THC) Screen (Not Detect) Ethyl Alcohol Cancelled mg/dL COVID-19 ([facility]) (Negative) COVID-19 Clin Com 07/04/22 07/05/22 07/05/22 Range/Units 22:38 01:30 01:30 WBC (4.8-10.8) X10*3/uL RBC (4.20-5.50) X10*6/uL Hgb (12.0-16.0) g/dl Hct (37.0-47.0) % MCV (80.0-98.0) fL MCH (27.0-33.0) pg MCHC (31.0-35.0) g/dl RDW (11.0-16.0) % Plt Count (160-400) X10*3/uL MPV (9.4-12.3) fL Immature Gran % (Auto) (0.0-0.4) % Neut % (Auto) (45-73) % Lymph % (Auto) (20-40) % Barren % (Auto) (2-11) % Eos % (Auto) (0-4) % Baso % (Auto) (0-2) % Lymph # (Auto) (1.2-4.9) X10*3/uL Barren # (Auto) (0.1-1.2) X10*3/uL Eos # (Auto) (0.0-0.4) X10*3/uL Baso # (Auto) (0.0-0.2) X10*3/uL Abs Immat Gran (auto) (0.00-0.03) X10*3/uL Absolute Neuts (auto) (2.0-8.3) x10*3/uL Absolute Nucleated RBC (0.0-0.012) X10*3/uL Nucleated RBC % (auto) (0.0-0.2) /100WBC Sodium 135 (135-145) mmol/L Potassium 4.1 (3.3-5.1) mmol/L Chloride 97 (96-108) mmol/L Carbon Dioxide 21 L (22-29) mmol/L Anion Gap 21 H (12-20) BUN 4 L (9-16) mg/dL Creatinine 0.54 (0.5-1.4) mg/dL Estim Creat Clear Calc 116.1 Estimated GFR > 60 Random Glucose 81 (60-115) mg/dL Lactic Acid 3.0 H* (0.5-2.0) mmol/L Lactic Acid F/U @ 2Hr (0.5-2.0) mmol/L Lactic Acid F/U @ 4Hr (0.5-2.0) mmol/L Calcium 8.4 (8.4-10.2) mg/dL Magnesium 1.6 (1.6-2.6) mg/dL Total Bilirubin 0.2 (0.0-1.0) mg/dL AST 26 (5-31) U/L ALT 21 (0-31) U/L Alkaline Phosphatase 91 D (39-117) U/L Total Creatine Kinase 129 (26-140) U/L Troponin I High Sens (<3.5-17.0) ng/L Total Protein 6.4 L (6.5-8.0) g/dL Albumin 4.1 (3.5-5.0) g/dL Urine Color Yellow Urine Appearance Clear Urine pH 6.5 (5.0-9.0) Ur Specific [place] 1.015 (1.005-1.025) Urine Protein Trace (Neg-Trace) mg/dL Urine Glucose (UA) Negative (Negative) mg/dL Urine Ketones 40 (Negative) mg/dL Urine Blood Negative (Negative) Urine Nitrite Negative (Negative) Ur Leukocyte Esterase Negative (Negative) Salicylates (15-30) mg/dL Urine Opiates Screen (Not Detect) Urine Fentanyl Screen (Not Detect) Acetaminophen (<30) mcg/mL Ur Barbiturates Screen (Not Detect) Ur Phencyclidine Scrn (Not Detect) Ur Amphetamines Screen (Not Detect) U Benzodiazepines Scrn (Not Detect) Urine Cocaine Screen (Not Detect) U Marijuana (THC) Screen (Not Detect) Ethyl Alcohol mg/dL COVID-19 ([facility]) (Negative) COVID-19 Clin Com 07/05/22 07/05/22 07/05/22 Range/Units 01:30 04:46 07:34 WBC (4.8-10.8) X10*3/uL RBC (4.20-5.50) X10*6/uL Hgb (12.0-16.0) g/dl Hct (37.0-47.0) % MCV (80.0-98.0) fL MCH (27.0-33.0) pg MCHC (31.0-35.0) g/dl RDW (11.0-16.0) % Plt Count (160-400) X10*3/uL MPV (9.4-12.3) fL Immature Gran % (Auto) (0.0-0.4) % Neut % (Auto) (45-73) % Lymph % (Auto) (20-40) % Barren % (Auto) (2-11) % Eos % (Auto) (0-4) % Baso % (Auto) (0-2) % Lymph # (Auto) (1.2-4.9) X10*3/uL Barren # (Auto) (0.1-1.2) X10*3/uL Eos # (Auto) (0.0-0.4) X10*3/uL Baso # (Auto) (0.0-0.2) X10*3/uL Abs Immat Gran (auto) (0.00-0.03) X10*3/uL Absolute Neuts (auto) (2.0-8.3) x10*3/uL Absolute Nucleated RBC (0.0-0.012) X10*3/uL Nucleated RBC % (auto) (0.0-0.2) /100WBC Sodium (135-145) mmol/L Potassium (3.3-5.1) mmol/L Chloride (96-108) mmol/L Carbon Dioxide (22-29) mmol/L Anion Gap (12-20) BUN (9-16) mg/dL Creatinine (0.5-1.4) mg/dL Estim Creat Clear Calc Estimated GFR Random Glucose (60-115) mg/dL Lactic Acid (0.5-2.0) mmol/L Lactic Acid F/U @ 2Hr 2.5 H* (0.5-2.0) mmol/L Lactic Acid F/U @ 4Hr 2.5 H* (0.5-2.0) mmol/L Calcium (8.4-10.2) mg/dL Magnesium (1.6-2.6) mg/dL Total Bilirubin (0.0-1.0) mg/dL AST (5-31) U/L ALT (0-31) U/L Alkaline Phosphatase (39-117) U/L Total Creatine Kinase (26-140) U/L Troponin I High Sens (<3.5-17.0) ng/L Total Protein (6.5-8.0) g/dL Albumin (3.5-5.0) g/dL Urine Color Urine Appearance Urine pH (5.0-9.0) Ur Specific [place] (1.005-1.025) Urine Protein (Neg-Trace) mg/dL Urine Glucose (UA) (Negative) mg/dL Urine Ketones (Negative) mg/dL Urine Blood (Negative) Urine Nitrite (Negative) Ur Leukocyte Esterase (Negative) Salicylates (15-30) mg/dL Urine Opiates Screen Not Detected (Not Detect) Urine Fentanyl Screen Not Detected (Not Detect) Acetaminophen (<30) mcg/mL Ur Barbiturates Screen Not Detected (Not Detect) Ur Phencyclidine Scrn Not Detected (Not Detect) Ur Amphetamines Screen POSITIVE H (Not Detect) U Benzodiazepines Scrn Not Detected (Not Detect) Urine Cocaine Screen Not Detected (Not Detect) U Marijuana (THC) Screen Not Detected (Not Detect) Ethyl Alcohol mg/dL COVID-19 ([facility]) (Negative) COVID-19 Clin Com <DELORES Black - Last Filed: 07/05/22 01:46> Lab Results 07/04/22 07/04/22 07/04/22 Range/Units 17:36 17:36 17:36 WBC 8.8 (4.8-10.8) X10*3/uL RBC 4.64 D (4.20-5.50) X10*6/uL Hgb 14.2 D (12.0-16.0) g/dl Hct 40.6 D (37.0-47.0) % MCV 87.5 (80.0-98.0) fL MCH 30.6 (27.0-33.0) pg MCHC 35.0 (31.0-35.0) g/dl RDW 12.3 (11.0-16.0) % Plt Count 405 H D (160-400) X10*3/uL MPV 10.0 (9.4-12.3) fL Immature Gran % (Auto) 1.1 H (0.0-0.4) % Neut % (Auto) 82.5 H (45-73) % Lymph % (Auto) 15.3 L (20-40) % Barren % (Auto) 0.9 L (2-11) % Eos % (Auto) 0.1 (0-4) % Baso % (Auto) 0.1 (0-2) % Lymph # (Auto) 1.4 (1.2-4.9) X10*3/uL Barren # (Auto) 0.1 (0.1-1.2) X10*3/uL Eos # (Auto) 0.0 (0.0-0.4) X10*3/uL Baso # (Auto) 0.0 (0.0-0.2) X10*3/uL Abs Immat Gran (auto) 0.10 H (0.00-0.03) X10*3/uL Absolute Neuts (auto) 7.3 (2.0-8.3) x10*3/uL Absolute Nucleated RBC 0.000 (0.0-0.012) X10*3/uL Nucleated RBC % (auto) 0.0 (0.0-0.2) /100WBC Sodium 131 L (135-145) mmol/L Potassium 4.5 (3.3-5.1) mmol/L Chloride 93 L (96-108) mmol/L Carbon Dioxide 17 L (22-29) mmol/L Anion Gap 26 H (12-20) BUN 5 L (9-16) mg/dL Creatinine 0.61 (0.5-1.4) mg/dL Estim Creat Clear Calc 102.8 Estimated GFR > 60 Random Glucose 93 (60-115) mg/dL Lactic Acid (0.5-2.0) mmol/L Lactic Acid F/U @ 2Hr (0.5-2.0) mmol/L Lactic Acid F/U @ 4Hr (0.5-2.0) mmol/L Calcium 8.9 D (8.4-10.2) mg/dL Magnesium 1.8 (1.6-2.6) mg/dL Total Bilirubin 0.2 (0.0-1.0) mg/dL AST 34 H D (5-31) U/L ALT 24 (0-31) U/L Alkaline Phosphatase 116 D (39-117) U/L Total Creatine Kinase (26-140) U/L Troponin I High Sens (<3.5-17.0) ng/L Total Protein 8.0 D (6.5-8.0) g/dL Albumin 4.8 (3.5-5.0) g/dL Urine Color Urine Appearance Urine pH (5.0-9.0) Ur Specific [place] (1.005-1.025) Urine Protein (Neg-Trace) mg/dL Urine Glucose (UA) (Negative) mg/dL Urine Ketones (Negative) mg/dL Urine Blood (Negative) Urine Nitrite (Negative) Ur Leukocyte Esterase (Negative) Salicylates < 5.0 L (15-30) mg/dL Urine Opiates Screen (Not Detect) Urine Fentanyl Screen (Not Detect) Acetaminophen < 1 (<30) mcg/mL Ur Barbiturates Screen (Not Detect) Ur Phencyclidine Scrn (Not Detect) Ur Amphetamines Screen (Not Detect) U Benzodiazepines Scrn (Not Detect) Urine Cocaine Screen (Not Detect) U Marijuana (THC) Screen (Not Detect) Ethyl Alcohol 406 H* mg/dL COVID-19 ([facility]) Negative (Negative) COVID-19 Clin Com See Note 07/04/22 07/04/22 07/04/22 Range/Units 17:36 17:36 22:38 WBC 7.7 (4.8-10.8) X10*3/uL RBC 3.90 L (4.20-5.50) X10*6/uL Hgb 11.8 L (12.0-16.0) g/dl Hct 33.9 L (37.0-47.0) % MCV 86.9 (80.0-98.0) fL MCH 30.3 (27.0-33.0) pg MCHC 34.8 (31.0-35.0) g/dl RDW 12.3 (11.0-16.0) % Plt Count 366 (160-400) X10*3/uL MPV 9.5 (9.4-12.3) fL Immature Gran % (Auto) 0.3 (0.0-0.4) % Neut % (Auto) 52.2 (45-73) % Lymph % (Auto) 44.0 H (20-40) % Barren % (Auto) 3.1 (2-11) % Eos % (Auto) 0.3 (0-4) % Baso % (Auto) 0.1 (0-2) % Lymph # (Auto) 3.4 (1.2-4.9) X10*3/uL Barren # (Auto) 0.2 (0.1-1.2) X10*3/uL Eos # (Auto) 0.0 (0.0-0.4) X10*3/uL Baso # (Auto) 0.0 (0.0-0.2) X10*3/uL Abs Immat Gran (auto) 0.02 (0.00-0.03) X10*3/uL Absolute Neuts (auto) 4.0 (2.0-8.3) x10*3/uL Absolute Nucleated RBC 0.000 (0.0-0.012) X10*3/uL Nucleated RBC % (auto) 0.0 (0.0-0.2) /100WBC Sodium (135-145) mmol/L Potassium (3.3-5.1) mmol/L Chloride (96-108) mmol/L Carbon Dioxide (22-29) mmol/L Anion Gap (12-20) BUN (9-16) mg/dL Creatinine (0.5-1.4) mg/dL Estim Creat Clear Calc Estimated GFR Random Glucose (60-115) mg/dL Lactic Acid (0.5-2.0) mmol/L Lactic Acid F/U @ 2Hr (0.5-2.0) mmol/L Lactic Acid F/U @ 4Hr (0.5-2.0) mmol/L Calcium (8.4-10.2) mg/dL Magnesium (1.6-2.6) mg/dL Total Bilirubin (0.0-1.0) mg/dL AST (5-31) U/L ALT (0-31) U/L Alkaline Phosphatase (39-117) U/L Total Creatine Kinase (26-140) U/L Troponin I High Sens < 3.5 D (<3.5-17.0) ng/L Total Protein (6.5-8.0) g/dL Albumin (3.5-5.0) g/dL Urine Color Urine Appearance Urine pH (5.0-9.0) Ur Specific [place] (1.005-1.025) Urine Protein (Neg-Trace) mg/dL Urine Glucose (UA) (Negative) mg/dL Urine Ketones (Negative) mg/dL Urine Blood (Negative) Urine Nitrite (Negative) Ur Leukocyte Esterase (Negative) Salicylates (15-30) mg/dL Urine Opiates Screen (Not Detect) Urine Fentanyl Screen (Not Detect) Acetaminophen (<30) mcg/mL Ur Barbiturates Screen (Not Detect) Ur Phencyclidine Scrn (Not Detect) Ur Amphetamines Screen (Not Detect) U Benzodiazepines Scrn (Not Detect) Urine Cocaine Screen (Not Detect) U Marijuana (THC) Screen (Not Detect) Ethyl Alcohol Cancelled mg/dL COVID-19 ([facility]) (Negative) COVID-19 Clin Com 07/04/22 07/05/22 07/05/22 Range/Units 22:38 01:30 01:30 WBC (4.8-10.8) X10*3/uL RBC (4.20-5.50) X10*6/uL Hgb (12.0-16.0) g/dl Hct (37.0-47.0) % MCV (80.0-98.0) fL MCH (27.0-33.0) pg MCHC (31.0-35.0) g/dl RDW (11.0-16.0) % Plt Count (160-400) X10*3/uL MPV (9.4-12.3) fL Immature Gran % (Auto) (0.0-0.4) % Neut % (Auto) (45-73) % Lymph % (Auto) (20-40) % Barren % (Auto) (2-11) % Eos % (Auto) (0-4) % Baso % (Auto) (0-2) % Lymph # (Auto) (1.2-4.9) X10*3/uL Barren # (Auto) (0.1-1.2) X10*3/uL Eos # (Auto) (0.0-0.4) X10*3/uL Baso # (Auto) (0.0-0.2) X10*3/uL Abs Immat Gran (auto) (0.00-0.03) X10*3/uL Absolute Neuts (auto) (2.0-8.3) x10*3/uL Absolute Nucleated RBC (0.0-0.012) X10*3/uL Nucleated RBC % (auto) (0.0-0.2) /100WBC Sodium 135 (135-145) mmol/L Potassium 4.1 (3.3-5.1) mmol/L Chloride 97 (96-108) mmol/L Carbon Dioxide 21 L (22-29) mmol/L Anion Gap 21 H (12-20) BUN 4 L (9-16) mg/dL Creatinine 0.54 (0.5-1.4) mg/dL Estim Creat Clear Calc 116.1 Estimated GFR > 60 Random Glucose 81 (60-115) mg/dL Lactic Acid 3.0 H* (0.5-2.0) mmol/L Lactic Acid F/U @ 2Hr (0.5-2.0) mmol/L Lactic Acid F/U @ 4Hr (0.5-2.0) mmol/L Calcium 8.4 (8.4-10.2) mg/dL Magnesium 1.6 (1.6-2.6) mg/dL Total Bilirubin 0.2 (0.0-1.0) mg/dL AST 26 (5-31) U/L ALT 21 (0-31) U/L Alkaline Phosphatase 91 D (39-117) U/L Total Creatine Kinase 129 (26-140) U/L Troponin I High Sens (<3.5-17.0) ng/L Total Protein 6.4 L (6.5-8.0) g/dL Albumin 4.1 (3.5-5.0) g/dL Urine Color Yellow Urine Appearance Clear Urine pH 6.5 (5.0-9.0) Ur Specific [place] 1.015 (1.005-1.025) Urine Protein Trace (Neg-Trace) mg/dL Urine Glucose (UA) Negative (Negative) mg/dL Urine Ketones 40 (Negative) mg/dL Urine Blood Negative (Negative) Urine Nitrite Negative (Negative) Ur Leukocyte Esterase Negative (Negative) Salicylates (15-30) mg/dL Urine Opiates Screen (Not Detect) Urine Fentanyl Screen (Not Detect) Acetaminophen (<30) mcg/mL Ur Barbiturates Screen (Not Detect) Ur Phencyclidine Scrn (Not Detect) Ur Amphetamines Screen (Not Detect) U Benzodiazepines Scrn (Not Detect) Urine Cocaine Screen (Not Detect) U Marijuana (THC) Screen (Not Detect) Ethyl Alcohol mg/dL COVID-19 ([facility]) (Negative) COVID-19 Clin Com 07/05/22 07/05/22 07/05/22 Range/Units 01:30 04:46 07:34 WBC (4.8-10.8) X10*3/uL RBC (4.20-5.50) X10*6/uL Hgb (12.0-16.0) g/dl Hct (37.0-47.0) % MCV (80.0-98.0) fL MCH (27.0-33.0) pg MCHC (31.0-35.0) g/dl RDW (11.0-16.0) % Plt Count (160-400) X10*3/uL MPV (9.4-12.3) fL Immature Gran % (Auto) (0.0-0.4) % Neut % (Auto) (45-73) % Lymph % (Auto) (20-40) % [place] % (Auto) (2-11) % Eos % (Auto) (0-4) % Baso % (Auto) (0-2) % Lymph # (Auto) (1.2-4.9) X10*3/uL [place] # (Auto) (0.1-1.2) X10*3/uL Eos # (Auto) (0.0-0.4) X10*3/uL Baso # (Auto) (0.0-0.2) X10*3/uL Abs Immat Gran (auto) (0.00-0.03) X10*3/uL Absolute Neuts (auto) (2.0-8.3) x10*3/uL Absolute Nucleated RBC (0.0-0.012) X10*3/uL Nucleated RBC % (auto) (0.0-0.2) /100WBC Sodium (135-145) mmol/L Potassium (3.3-5.1) mmol/L Chloride (96-108) mmol/L Carbon Dioxide (22-29) mmol/L Anion Gap (12-20) BUN (9-16) mg/dL Creatinine (0.5-1.4) mg/dL Estim Creat Clear Calc Estimated GFR Random Glucose (60-115) mg/dL Lactic Acid (0.5-2.0) mmol/L Lactic Acid F/U @ 2Hr 2.5 H* (0.5-2.0) mmol/L Lactic Acid F/U @ 4Hr 2.5 H* (0.5-2.0) mmol/L Calcium (8.4-10.2) mg/dL Magnesium (1.6-2.6) mg/dL Total Bilirubin (0.0-1.0) mg/dL AST (5-31) U/L ALT (0-31) U/L Alkaline Phosphatase (39-117) U/L Total Creatine Kinase (26-140) U/L Troponin I High Sens (<3.5-17.0) ng/L Total Protein (6.5-8.0) g/dL Albumin (3.5-5.0) g/dL Urine Color Urine Appearance Urine pH (5.0-9.0) Ur Specific [place] (1.005-1.025) Urine Protein (Neg-Trace) mg/dL Urine Glucose (UA) (Negative) mg/dL Urine Ketones (Negative) mg/dL Urine Blood (Negative) Urine Nitrite (Negative) Ur Leukocyte Esterase (Negative) Salicylates (15-30) mg/dL Urine Opiates Screen Not Detected (Not Detect) Urine Fentanyl Screen Not Detected (Not Detect) Acetaminophen (<30) mcg/mL Ur Barbiturates Screen Not Detected (Not Detect) Ur Phencyclidine Scrn Not Detected (Not Detect) Ur Amphetamines Screen POSITIVE H (Not Detect) U Benzodiazepines Scrn Not Detected (Not Detect) Urine Cocaine Screen Not Detected (Not Detect) U Marijuana (THC) Screen Not Detected (Not Detect) Ethyl Alcohol mg/dL COVID-19 ([facility]) (Negative) COVID-19 Clin Com <Zaki Jones MD - Last Filed: 07/05/22 08:43> ECG Data Attestation: I personally reviewed and interpreted this ECG as follows: <DELORES Black - Last Filed: 07/05/22 01:46> Prior ECG tracings: available for review <DELORES Black - Last Filed: 07/05/22 01:46> Interpretation: Ventricular rate of 98, IN normal, QRS normal, QT/QTC normal. EKG with normal sinus rhythm, no ST elevations or inversions concerning for ischemia. <DELORES Black - Last Filed: 07/05/22 01:46> Critical Care Time Critical Care Time Critical Care Time: Yes <DELORES Black - Last Filed: 07/05/22 01:46> Total Critical Care Time: 60 <DELORES Black - Last Filed: 07/05/22 01:46> Attestation: I attest to this time spent taking care of the patient, obtaining history, physical, reviewing labs, imaging, speaking to my attending, speaking to specialist. <DELORES Black - Last Filed: 07/05/22 01:46> Discharge Plan Discharge Clinical Impression: Suicidal ideation, Alcohol use disorder, Alcoholic intoxication, Acute drug overdose <DELORES Black - Last Filed: 07/05/22 01:46> Patient Disposition: Still a Patient <DELORES Black - Last Filed: 07/05/22 01:46> Prescriptions: No Action oxycodone 5 mg tablet 5 mg PO BID PRN (Reason: Pain) dextroamphetamine-amphetamine 20 mg tablet 20 mg PO BID amlodipine 5 mg tablet 5 mg PO DAILY acamprosate 333 mg tablet,delayed release (DR/EC) 666 mg PO TID baclofen 20 mg tablet 20 tab PO TID bupropion HCl [Wellbutrin XL] 300 mg tablet extended release 24 hr 300 mg PO QAM levothyroxine 25 mcg tablet 25 mcg PO DAILY pantoprazole 40 mg tablet,delayed release (DR/EC) 40 tab PO BID ferrous sulfate 324 mg (65 mg iron) Tablet,Delayed Release (Dr/Ec) 324 mg PO DAILY Qty: 30 0RF lamotrigine 100 mg Tablet 250 mg PO BEDTIME Qty: 75 0RF quetiapine 25 mg Tablet 25 mg PO QID PRN (Reason: anxiety) Qty: 60 0RF perphenazine 2 mg Tablet 2 mg PO QID PRN (Reason: anxiety, dissociations, agitation) Qty: 60 0RF trazodone 50 mg Tablet 150 mg PO BEDTIME Qty: 90 0RF sumatriptan succinate 50 mg Tablet 50 mg PO DAILY MRX1 PRN (Reason: Migraine Headache) Qty: 0 0RF lorazepam 0.5 mg Tablet 0.5 mg PO 0900,1400,1830 Qty: 21 3RF divalproex 125 mg Capsule, Delayed Rel Sprinkle 250 mg PO TID Qty: 180 0RF folic acid 1 mg Tablet 1 mg PO DAILY Qty: 30 0RF multivitamin Tablet 1 tab PO DAILY Qty: 30 0RF gabapentin 400 mg Capsule 400 mg PO TID 30 Days Qty: 90 0RF thiamine HCl (vitamin B1) 100 mg tablet 100 mg PO DAILY Qty: 30 0RF ascorbic acid (vitamin C) 500 mg Tablet 500 mg PO BID Qty: 60 0RF ketoconazole 2 % cream 1 applic topical BID PRN (Reason: Rash) Qty: 1 0RF loratadine 10 mg tablet 10 mg PO DAILY Qty: 30 0RF calcium carbonate-vitamin D3 600 mg-10 mcg (400 unit) tablet 1 tab PO BID Qty: 60 0RF Latuda 80 mg Tablet 160 mg PO DAILY@1800 30 Days Qty: 60 0RF <DELORES Black - Last Filed: 07/05/22 01:46>
--- NOTE | 2022-07-04 17:02 | PC.NURSE ---
Addendum entered by Lissette Casas 07/04/22 18:37: Angelita Subramanian [facility] aftercare Rap pragram number Original Note: PT somnolent. Sat 96% on 2L via NC. PT placed on monitor. Changed over by staff.
--- NOTE | 2022-07-04 17:13 | PHA.MEDREC ---
Pharmacy Consult ? Medication Reconciliation Pharmacy has completed the medication reconciliation. Spoke to patient and she says nothing has changed since her discharge on 07/02. She seems sleepy but was responding to questions and states she took all of her morning doses of medications today. She was unclear if she took her afternoon dose of medications that would have been taken later in the day.
[2022-07-04 17:48] LABS: MANUAL DIFF FLAG NO
[2022-07-04 17:49] VITALS: BP 117/63; PULSE 107; RESP 12; TEMP 36.8; O2SAT 96
[2022-07-04 18:04] LABS: COVID-19 Test Negative (Negative)
[2022-07-04 18:14] LABS: Basophils Percent Auto 0.1 % (0-2); Eosinophils Percent Auto 0.1 % (0-4); Hematocrit 40.6 % (37.0-47.0); Hemoglobin 14.2 g/dl (12.0-16.0); Imm Gran Pct Auto 1.1 % (0.0-0.4); Lymphocytes Absolute Auto 1.4 X10*3/uL (1.2-4.9); Lymphocytes Percent Auto 15.3 % (20-40); Mean Corpuscular Hemoglobin 30.6 pg (27.0-33.0); Mean Corpuscular Volume 87.5 fL (80.0-98.0); Monocytes Absolute Auto 0.1 X10*3/uL (0.1-1.2); Monocytes Percent Auto 0.9 % (2-11); Neutrophils Absolute Auto 7.3 x10*3/uL (2.0-8.3); Neutrophils Percent Auto 82.5 % (45-73); Platelet Count 405 X10*3/uL (160-400); Red Blood Count 4.64 X10*6/uL (4.20-5.50); Red Cell Distribution Width 12.3 % (11.0-16.0); White Blood Count 8.8 X10*3/uL (4.8-10.8)
[2022-07-04 18:19] LABS: Acetaminophen LAB < 1 mcg/mL (<30); Alanine Aminotransferase 24 U/L (0-31); Albumin Level 4.8 g/dL (3.5-5.0); Alkaline Phosphatase 116 U/L (39-117); Anion Gap 26 (12-20); Aspartate Amino Transferase 34 U/L (5-31); Bilirubin Total 0.2 mg/dL (0.0-1.0); Blood Urea Nitrogen 5 mg/dL (9-16); Calcium 8.9 mg/dL (8.4-10.2); Carbon Dioxide 17 mmol/L (22-29); Chloride 93 mmol/L (96-108); Creatinine Clr Calc Pharmacy 102.8; Estimated Glomerular Filt Rate > 60; Ethanol 406 mg/dL; Glucose Random 93 mg/dL (60-115); Magnesium 1.8 mg/dL (1.6-2.6); Potassium 4.5 mmol/L (3.3-5.1); Salicylate < 5.0 mg/dL (15-30); Sodium 131 mmol/L (135-145)
[2022-07-04 19:32] VITALS: PULSE 93; RESP 14; TEMP 36.8; O2SAT 96
[2022-07-04] MEDS: 0.9 % Sodium Chloride 1,000 ML 999 ML IV ×2 (20:59→22:23)
[2022-07-04 21:04] LABS: Troponin-I High Sensitivity < 3.5 ng/L (<3.5-17.0)
--- NOTE | 2022-07-04 21:07 | PC.NURSE ---
Per MAR NS given
[2022-07-04 21:58] VITALS: BP 137/81; PULSE 106; RESP 12; TEMP 36.8; O2SAT 96
[2022-07-04] MEDS: Ketorolac Tromethamine 15 MG/ML VIAL 30 MG IVPUSH (22:20)
--- NOTE | 2022-07-04 22:21 | ECG_ITS ---
Test Reason : GENERAL MEDICAL Blood Pressure : / mmHG Vent. Rate : 102 BPM Atrial Rate : 102 BPM P-R Int : 166 ms QRS Dur : 102 ms QT Int : 346 ms P-R-T Axes : 066 -27 131 degrees QTc Int : 450 ms Sinus tachycardia Moderate voltage criteria for LVH, may be normal variant ( R in aVL , Alex product ) Nonspecific T wave abnormality Inferior leads Lateral leads Abnormal ECG When compared with ECG of 04-JUL-2022 16:50, No significant change was found Referred By: Araseli Barron Electronically Signed By:YAAKOV CULLEN MD
[2022-07-04] MEDS: chlordiazePOXIDE HCl 25 MG CAPSULE PO (22:36)
[2022-07-04 22:42] LABS: MANUAL DIFF FLAG NO
[2022-07-04 22:43] LABS: Basophils Percent Auto 0.1 % (0-2); Eosinophils Percent Auto 0.3 % (0-4); Hematocrit 33.9 % (37.0-47.0); Hemoglobin 11.8 g/dl (12.0-16.0); Imm Gran Abs Auto 0.02 X10*3/uL (0.00-0.03); Imm Gran Pct Auto 0.3 % (0.0-0.4); Lymphocytes Absolute Auto 3.4 X10*3/uL (1.2-4.9); Mean Corpuscular HGB Conc 34.8 g/dl (31.0-35.0); Mean Corpuscular Hemoglobin 30.3 pg (27.0-33.0); Mean Corpuscular Volume 86.9 fL (80.0-98.0); Mean Platelet Volume 9.5 fL (9.4-12.3); Monocytes Absolute Auto 0.2 X10*3/uL (0.1-1.2); Monocytes Percent Auto 3.1 % (2-11); Neutrophils Percent Auto 52.2 % (45-73); Platelet Count 366 X10*3/uL (160-400); Red Cell Distribution Width 12.3 % (11.0-16.0); White Blood Count 7.7 X10*3/uL (4.8-10.8)
[2022-07-04 23:07] LABS: Alanine Aminotransferase 21 U/L (0-31); Albumin Level 4.1 g/dL (3.5-5.0); Alkaline Phosphatase 91 U/L (39-117); Anion Gap 21 (12-20); Aspartate Amino Transferase 26 U/L (5-31); Bilirubin Total 0.2 mg/dL (0.0-1.0); Blood Urea Nitrogen 4 mg/dL (9-16); Calcium 8.4 mg/dL (8.4-10.2); Carbon Dioxide 21 mmol/L (22-29); Chloride 97 mmol/L (96-108); Creatinine Clr Calc Pharmacy 116.1; Estimated Glomerular Filt Rate > 60; Glucose Random 81 mg/dL (60-115); Magnesium 1.6 mg/dL (1.6-2.6); Potassium 4.1 mmol/L (3.3-5.1); Sodium 135 mmol/L (135-145); Total Protein 6.4 g/dL (6.5-8.0)
[2022-07-05] VITALS (11 sets, daily range): BP systolic 111–167; BP diastolic 56–91; PULSE 61–121; RESP 11–18; TEMP 36.2–37.2; O2SAT 94–100
[2022-07-05] MEDS: SUMAtriptan succinate 6 MG/0.5 ML VIAL SUBCUT ×2 (00:54→17:51)
[2022-07-05 01:38] LABS: Appearance Urine Clear; Color Urine Yellow; Glucose Urine UA Negative (Negative); Leukocyte Esterase Urine Negative (Negative); Nitrite Urine Negative (Negative); PH 6.5 (5.0-9.0); Specific Gravity - Urine 1.015 (1.005-1.025); Urine Blood Negative (Negative); Urine Ketones 40 mg/dL (Negative); Urine Protein Trace mg/dL (Neg-Trace)
[2022-07-05] MEDS: 0.9 % Sodium Chloride 1,000 ML 999 ML IV (02:05)
[2022-07-05 03:35] LABS: Reflex Lactate? Lactic Acid Added
[2022-07-05 03:41] LABS: Amphetamine Screen Urine POSITIVE (Not Detect); Barbiturates, Urine Not Detected (Not Detect); Benzodiazepines Screen Urine Not Detected (Not Detect); Cannabinoid Screen Urine Not Detected (Not Detect); Cocaine Screen Urine Not Detected (Not Detect); Fentanyl, urine Not Detected (Not Detect); Opiate Screen Urine Not Detected (Not Detect); Phencyclidine Screen Urine Not Detected (Not Detect)
[2022-07-05] MEDS: LORazepam 1 MG TABLET 2 MG PO (04:07)
[2022-07-05 05:15] LABS: ~Lactic Acid-LAB USE ONLY 2.5 mmol/L (0.5-2.0)
[2022-07-05 06:49] LABS: Reflex Lactate? 2 Y
--- NOTE | 2022-07-05 07:08 | MHC.CARE ---
Smart sheet submitted
--- NOTE | 2022-07-05 07:15 | PC.NURSE ---
This RN spoke to MD Emolgy about pt showing signs of ETOH withdrawls. This RN recommended treatment for ETOH withdraws.
[2022-07-05 07:53] LABS: ~Lactic Acid-LAB USE ONLY 2.5 mmol/L (0.5-2.0)
--- NOTE | 2022-07-05 08:32 | PC.NURSE ---
Angelita ([facility] worker) [phone]
[2022-07-05] MEDS: PHENobarbitaL 100 MG, PHENobarbitaL 30 MG, PHENobarbitaL 15 MG 145 MG PO (08:51)
[2022-07-05] MEDS: PHENobarbitaL sodium 130 MG/ML VIAL IM (09:10)
--- NOTE | 2022-07-05 09:10 | PC.NURSE ---
dr oakes down to admit pt. pt CIWA a 12. PO phenobarbital protocol ordered. changed to IM for a one time 130mg dose. will continue to monitor., O2 and suction set up at bedside in precautions. seizure pads on
--- NOTE | 2022-07-05 09:33 | MHC.CARE ---
CARE Team is available to assess when pt is medically cleared.
[2022-07-05] MEDS: ondansetron HCL 4 MG/2 ML VIAL IVPUSH ×2 (11:05→15:17)
--- NOTE | 2022-07-05 11:20 | P.HPHOSP_ITS ---
History of Present Illness Date of Service: 07/05/22 Chief Complaint: Alcohol withdrawal ?52-year-old female past medical history significant for suicide attempts, alcohol use disorder, depression, PTSD presenting to the emergency department via ambulance for suspected alcohol intoxication and Adderall overdose.? According to [facility] worker patient did not show up to partial program today so DM worker went to her house to check in on her at around 14:00.? She noted that patient was not opening the door therefore she called 911, they found patient's side minimally responsive with Adderall bottles that were empty around her it appears as though she was sniffing Adderall, there was a lot of pills crushed on a plate as well as empty vodka bottle she tells me there is a gal and a L bottle that was completely empty.? Patient has met like alcohol.? Reports patient was recently discharged from [facility] 2 days ago, suggesting patient be evaluated for possible Section 35.? Tells me that she has had similar presentations in the past which were suicide attempts.?. Patient was seen in the ER on 04/01 by PHN and was deemed appropriate for partial hospitalization program. While awaiting patient began to experience symptoms of alcohol withdrawal. .. CIWA scale 17 prompted initiation of phenobarb protocol. At this point in time she will be admitted for same. Review of Systems Review of Systems: Unable to obtain [facility] Medical History (Updated 07/05/22 @ 11:25 by Brendon Ruvalcaba DO) Alcohol abuse Alcohol abuse Alcohol intoxication Alcohol use disorder, severe, dependence Alcohol withdrawal Arm paresthesia, left Bipolar I disorder with depression Depression Depression GERD (gastroesophageal reflux disease) HTN (hypertension) Hypothyroidism Migraines Family History Mother Narcissism Father Lung cancer COPD (chronic obstructive pulmonary disease) Alcoholism Brother Alcoholism Social History Household Members: None Housing: Apartment Do you presently have visiting nurse or other home services: No Alcohol intake: current Alcohol intake frequency: 3 or more drinks per day Alcohol type: hard liquor Patient Tobacco Use Status: Former Tobacco user Advance Directives: No Advance Directives Information Provided: Yes service: No Sexual orientation: Straight/Heterosexual Meds Allergies Allergy/AdvReac Type Severity Reaction Status Date / Time latex [LATEX] Allergy Mild Rash Verified 02/21/22 06:47 leuprolide [From LUPRON] Allergy Unknown HIVES Verified 02/21/22 06:47 Sulfa (Sulfonamide Allergy Unknown RASH Verified 02/21/22 06:48 Antibiotics) [SULFA (SULFONAMIDE ANTIBIOTICS)] ibuprofen AdvReac Intermediate Abdominal Verified 02/21/22 16:53 Pain Active Medications: Current Medications Acamprosate (Acamprosate Calcium 333 Mg Tablet.) 666 mg PO TID [facility] Acetaminophen (Acetaminophen 325 Mg Tablet) 650 mg PO Q6H PRN PRN Reason: Pain, Mild (Pain Scale 1-3) Amlodipine Besylate (Amlodipine Besylate 5 Mg Tablet) 5 mg PO DAILY [facility]; Protocol Ascorbic Acid (Ascorbic Acid 500 Mg Tablet) 500 mg PO BID [facility] Baclofen (Baclofen 20 Mg Tablet) 400 mg PO TID [facility] Bupropion HCl (Bupropion Hcl Xl 300 Mg Tab.Er.24h) 300 mg PO QAM [facility] Divalproex Sodium (Divalproex Sodium Sprinkles 125 Mg Cap.) 250 mg PO TID [facility] Enoxaparin Sodium (Enoxaparin Sodium 40 Mg/0.4 Ml Syringe) 40 mg SUBCUT Q24H [facility] Ferrous Sulfate (Ferrous Sulfate 324 Mg Tablet.) 324 mg PO DAILY [facility] Folic Acid (Folic Acid 1 Mg Tablet) 1 mg PO DAILY [facility] Gabapentin (Gabapentin 400 Mg Capsule) 400 mg PO TID [facility] Sodium Chloride (Sodium Chloride 0.45 %) 1,000 mls @ 100 mls/hr IVCONT .Q10H [facility] Lamotrigine (Lamotrigine 25 Mg Tablet) 250 mg PO BEDTIME [facility] Levothyroxine Sodium (Levothyroxine Sodium 25 Mcg Tablet) 25 mcg PO DAILY [facility] Loratadine (Loratadine 10 Mg Tablet) 10 mg PO DAILY [facility] Lurasidone HCl (Lurasidone Hcl 80 Mg Tablet) 160 mg PO DAILY@1800 [facility] Multivitamins/Vitamin C (Multivitamin Tablet) 1 tab PO DAILY [facility] Non-Formulary Medication (Calcium Carbonate-Vitamin D3) 1 tab PO BID [facility] Non-Formulary Medication (Pantoprazole) 40 tab PO BID [facility] Ondansetron HCl (Ondansetron Hcl 4 Mg/2 Ml Vial) 4 mg IVPUSH Q4H PRN PRN Reason: nausea Last Admin: 07/05/22 11:05 Dose: 4 mg Pharmacy Consult (Consult Rx Perform Med Rec) 1 each MISCELLANE ONCE PRN PRN Reason: Consult order Pharmacy Consult (Consult Rx Etoh Phenob Po Only) 1 each MISCELLANE ONCE PRN; Protocol PRN Reason: Consult order Phenobarbital (Phenobarbital 30 Mg Tablet) 30 mg PO BID [facility]; Protocol Stop: 07/07/22 09:01 Phenobarbital (Phenobarbital 15 Mg Tablet) 15 mg PO BID [facility]; Protocol Stop: 07/09/22 09:01 Phenobarbital (Phenobarbital 15 Mg Tablet) 15 mg PO DAILY [facility]; Protocol Stop: 07/11/22 09:01 Sodium Chloride (0.9 % Sodium Chloride Flush 3 Ml Syringe) 3 ml IVFLUSH QSHIFT [facility] Thiamine HCl (Thiamine Hcl 100 Mg Tablet) 100 mg PO DAILY [facility] Home Medications Medication Instructions Recorded Confirmed Last Taken Type oxycodone 5 mg tablet 5 mg PO BID PRN Pain 05/09/22 07/04/22 07/04/22 History acamprosate 333 mg tablet,delayed 666 mg PO TID 07/04/22 07/04/22 07/04/22 08:00 History release amlodipine 5 mg tablet 5 mg PO DAILY 07/04/22 07/04/22 07/04/22 History 0800 baclofen 20 mg tablet 20 tab PO TID 07/04/22 07/04/22 07/04/22 08:00 History bupropion HCl 300 mg 24 hr tablet, 300 mg PO QAM 07/04/22 07/04/22 07/04/22 08:00 History extended release (Wellbutrin XL) dextroamphetamine-amphetamine 20 20 mg PO BID 07/04/22 07/04/22 07/04/22 History mg tablet levothyroxine 25 mcg tablet 25 mcg PO DAILY 07/04/22 07/04/22 07/04/22 08:00 History pantoprazole 40 mg tablet,delayed 40 tab PO BID 07/04/22 07/04/22 07/04/22 08:00 History release Physical Exam Vital Signs and Narrative: Vital Signs: Last Vital Signs Temp 98.2 F 07/05/22 06:00 Pulse 102 H 07/05/22 09:09 Resp 11 L 07/05/22 09:09 BP 165/78 H 07/05/22 09:09 Pulse Ox 94 07/05/22 07:12 O2 Del Method 07/05/22 07:12 O2 Flow Rate 3 07/05/22 06:00 Oxygen Flow Rate 2 07/04/22 15:22 BMI result Body Mass Index 37.0 Const: Other: Visibly tremulous; speaking short sentences Resp: Other: Clear to auscultation bilaterally no rales rhonchi wheezes Cardio: Other: Tachycardic; no S4; positive S1-S2; no S3 murmurs rubs gallops GI: Other: Soft nondistended with normoactive bowel sounds x4 quadrants Extrem: Other: No edema bilaterally Results Labs CBC and Chem 7: 07/04/22 22:38 07/04/22 22:38 Labs: Laboratory Results - last 24 hr 07/04/22 07/04/22 07/04/22 17:36 17:36 17:36 MCV 87.5 MCH 30.6 MCHC 35.0 RDW 12.3 Plt Count 405 H D MPV 10.0 Immature Gran % (Auto) 1.1 H Neut % (Auto) 82.5 H Lymph % (Auto) 15.3 L [place] % (Auto) 0.9 L Eos % (Auto) 0.1 Baso % (Auto) 0.1 Lymph # (Auto) 1.4 [place] # (Auto) 0.1 Eos # (Auto) 0.0 Baso # (Auto) 0.0 Abs Immat Gran (auto) 0.10 H Absolute Neuts (auto) 7.3 Absolute Nucleated RBC 0.000 Nucleated RBC % (auto) 0.0 Anion Gap 26 H Estim Creat Clear Calc 102.8 Estimated GFR > 60 Random Glucose 93 Lactic Acid Lactic Acid F/U @ 2Hr Lactic Acid F/U @ 4Hr Calcium 8.9 D Magnesium 1.8 Total Bilirubin 0.2 AST 34 H D ALT 24 Alkaline Phosphatase 116 D Total Creatine Kinase Troponin I High Sens Total Protein 8.0 D Albumin 4.8 Urine Color Urine Appearance Urine pH Ur Specific [place] Urine Protein Urine Glucose (UA) Urine Ketones Urine Blood Urine Nitrite Ur Leukocyte Esterase Salicylates < 5.0 L Urine Opiates Screen Urine Fentanyl Screen Acetaminophen < 1 Ur Barbiturates Screen Ur Phencyclidine Scrn Ur Amphetamines Screen U Benzodiazepines Scrn Urine Cocaine Screen U Marijuana (THC) Screen Ethyl Alcohol 406 H* COVID-19 ([facility]) Negative COVID-19 Clin Com See Note 07/04/22 07/04/22 07/04/22 17:36 17:36 22:38 MCV 86.9 MCH 30.3 MCHC 34.8 RDW 12.3 Plt Count 366 MPV 9.5 Immature Gran % (Auto) 0.3 Neut % (Auto) 52.2 Lymph % (Auto) 44.0 H [place] % (Auto) 3.1 Eos % (Auto) 0.3 Baso % (Auto) 0.1 Lymph # (Auto) 3.4 [place] # (Auto) 0.2 Eos # (Auto) 0.0 Baso # (Auto) 0.0 Abs Immat Gran (auto) 0.02 Absolute Neuts (auto) 4.0 Absolute Nucleated RBC 0.000 Nucleated RBC % (auto) 0.0 Anion Gap Estim Creat Clear Calc Estimated GFR Random Glucose Lactic Acid Lactic Acid F/U @ 2Hr Lactic Acid F/U @ 4Hr Calcium Magnesium Total Bilirubin AST ALT Alkaline Phosphatase Total Creatine Kinase Troponin I High Sens < 3.5 D Total Protein Albumin Urine Color Urine Appearance Urine pH Ur Specific [place] Urine Protein Urine Glucose (UA) Urine Ketones Urine Blood Urine Nitrite Ur Leukocyte Esterase Salicylates Urine Opiates Screen Urine Fentanyl Screen Acetaminophen Ur Barbiturates Screen Ur Phencyclidine Scrn Ur Amphetamines Screen U Benzodiazepines Scrn Urine Cocaine Screen U Marijuana (THC) Screen Ethyl Alcohol Cancelled COVID-19 ([facility]) COVID-19 Clin Com 07/04/22 07/05/22 07/05/22 22:38 01:30 01:30 MCV MCH MCHC RDW Plt Count MPV Immature Gran % (Auto) Neut % (Auto) Lymph % (Auto) [place] % (Auto) Eos % (Auto) Baso % (Auto) Lymph # (Auto) [place] # (Auto) Eos # (Auto) Baso # (Auto) Abs Immat Gran (auto) Absolute Neuts (auto) Absolute Nucleated RBC Nucleated RBC % (auto) Anion Gap 21 H Estim Creat Clear Calc 116.1 Estimated GFR > 60 Random Glucose 81 Lactic Acid 3.0 H* Lactic Acid F/U @ 2Hr Lactic Acid F/U @ 4Hr Calcium 8.4 Magnesium 1.6 Total Bilirubin 0.2 AST 26 ALT 21 Alkaline Phosphatase 91 D Total Creatine Kinase 129 Troponin I High Sens Total Protein 6.4 L Albumin 4.1 Urine Color Yellow Urine Appearance Clear Urine pH 6.5 Ur Specific [place] 1.015 Urine Protein Trace Urine Glucose (UA) Negative Urine Ketones 40 Urine Blood Negative Urine Nitrite Negative Ur Leukocyte Esterase Negative Salicylates Urine Opiates Screen Urine Fentanyl Screen Acetaminophen Ur Barbiturates Screen Ur Phencyclidine Scrn Ur Amphetamines Screen U Benzodiazepines Scrn Urine Cocaine Screen U Marijuana (THC) Screen Ethyl Alcohol COVID-19 ([facility]) COVID-19 Clin Com 07/05/22 07/05/22 07/05/22 01:30 04:46 07:34 MCV MCH MCHC RDW Plt Count MPV Immature Gran % (Auto) Neut % (Auto) Lymph % (Auto) [place] % (Auto) Eos % (Auto) Baso % (Auto) Lymph # (Auto) [place] # (Auto) Eos # (Auto) Baso # (Auto) Abs Immat Gran (auto) Absolute Neuts (auto) Absolute Nucleated RBC Nucleated RBC % (auto) Anion Gap Estim Creat Clear Calc Estimated GFR Random Glucose Lactic Acid Lactic Acid F/U @ 2Hr 2.5 H* Lactic Acid F/U @ 4Hr 2.5 H* Calcium Magnesium Total Bilirubin AST ALT Alkaline Phosphatase Total Creatine Kinase Troponin I High Sens Total Protein Albumin Urine Color Urine Appearance Urine pH Ur Specific [place] Urine Protein Urine Glucose (UA) Urine Ketones Urine Blood Urine Nitrite Ur Leukocyte Esterase Salicylates Urine Opiates Screen Not Detected Urine Fentanyl Screen Not Detected Acetaminophen Ur Barbiturates Screen Not Detected Ur Phencyclidine Scrn Not Detected Ur Amphetamines Screen POSITIVE H U Benzodiazepines Scrn Not Detected Urine Cocaine Screen Not Detected U Marijuana (THC) Screen Not Detected Ethyl Alcohol COVID-19 ([facility]) COVID-19 Clin Com Imaging Radiologist's Impressions: Impressions Chest X-Ray 07/04/22 18:25 IMPRESSION: Unremarkable examination. Assessment and Plan (1) Post traumatic stress disorder (PTSD): Status: Acute Plan 52-year-old female recently admitted to psych unit x3 weeks presented back to ER after a well-being check. Was seen by psych and accepted into the partial hospi talization program. While awaiting discharge patient began to withdrawal from alcohol with the initial CIWA scale being 17. She was initiated on phenobarb protocol and will continue same. 1. Acute alcohol withdrawal -will switch CIWA scale to IM start-up followed by p.o. incomplete as ordered -Zofran for nausea/beta-mireille as needed for tachycardia -fall clinically on telemetry with sitter 2. PTSD -will continue all outpatient therapies -will need care consult prior to discharge Full code Lovenox Patient will require inpatient stay of add minimal 2 midnights going forward to treat alcohol withdrawal Quality Stroke Does the patient have a stroke diagnosis?: No VTE Prior VTE?: No VTE Risk Level:: Medical - moderate - high VTE Device Contraindication: Treatment Not Indicated VTE Drug Contraindication: N/A - Med Ordered
--- OUTSIDE RECORDS SUMMARY | 2022-07-05 11:22 | XMS_ITS ---
:1970 Author Organization [facility] [address] [facility] Location Address [address] [place] [id number] Care Team Providers Name Role Phone Nick LABEL OPERATOR-DoryLinsey Unavailable Unavailable PROBLEMS Type Condition ICD9-CM Code [id number] Code Onset Condition SNO MED Code Dates Status Problem Arm R20.2 Active 90003285 paresthesia, left ALLERGIES Substance Reaction Event Type Date Status Sulfa Antibiotics Unknown Drug Allergy Oct, Active ENCOUNTERS Encounter Location Date Diagnosis [facility] [address] [facility], Oct, Ce rvicalgia M54.2 ; [place] [address] arm pa in M79.602 and Arm paresthesia, [...] Results REASON FOR VISIT Consult Insurance Providers [facility] Member Patient Patient Patient Patient Patient Subscriber Subscriber Subscriber Group Insurance Plan Plan Plan Plan ID Relationship Address Phone Name Date of ID Name Date of No Type Insurance Insurance Insurance Coverage to Subscriber Address Phone Name Dates Medicare [address] Medicare self Sweetie [id number] [facility] [place] [phone] [place] [address] [facility] [phone] [place] self [place] 1 [id number] th Care [facility] [address] [facility] [address] [place] [address] [place] self [place] [id number] [address] [address]
[2022-07-05] MEDS: Enoxaparin Sodium 40 MG/0.4 ML SYRINGE SUBCUT (12:13)
[2022-07-05] MEDS: PHENobarbitaL sodium 130 MG/ML VIAL 115 MG IM ×2 (12:13→15:18)
[2022-07-05] MEDS: Sodium Chloride 0.45 % 1,000 ML 100 ML IVCONT ×2 (12:28→20:10)
[2022-07-05] MEDS: Baclofen 20 MG TABLET PO ×2 (15:18→20:13)
[2022-07-05] MEDS: Divalproex Sodium Sprinkles 125 MG CAP.DR.SPR 250 MG PO ×2 (15:18→20:14)
[2022-07-05] MEDS: Gabapentin 400 MG CAPSULE PO ×2 (15:18→20:14)
[2022-07-05] MEDS: Omeprazole 20 MG CAPSULE.DR PO (16:30)
[2022-07-05] MEDS: Acamprosate Calcium 333 MG TABLET.DR 666 MG PO ×2 (16:30→20:14)
[2022-07-05] MEDS: Lurasidone HCl 80 MG TABLET 160 MG PO (17:51)
--- NOTE | 2022-07-05 18:44 | PC.NURSE ---
pt refused high fall risk bracelet and bed alarm. this nurse educated pt on why the bed alarm and red bracelet are implimented and understood but still refuses both. camera in room. 1:1 sitter. pt taught to use call barrios.
[2022-07-05] MEDS: PHENobarbitaL 30 MG TABLET PO (20:13)
[2022-07-05] MEDS: 0.9 % Sodium Chloride Flush 3 ML SYRINGE IVFLUSH (20:13)
[2022-07-05] MEDS: lamoTRIgine 100 MG TABLET 250 MG PO (20:13)
[2022-07-05] MEDS: Calcium + Vitamin D 250 MG TABLET 500 MG PO (20:14)
[2022-07-05] MEDS: Ascorbic Acid 500 MG TABLET PO (20:14)
[2022-07-06 04:53] VITALS: BP 137/80; PULSE 79; RESP 17; TEMP 36.7; O2SAT 94
[2022-07-06] MEDS: Levothyroxine Sodium 25 MCG TABLET PO (05:49)
[2022-07-06] MEDS: Omeprazole 20 MG CAPSULE.DR PO ×2 (05:49→16:49)
[2022-07-06] MEDS: Sodium Chloride 0.45 % 1,000 ML 100 ML IVCONT (05:50)
[2022-07-06 06:52] LABS: MANUAL DIFF FLAG NO
[2022-07-06 06:59] LABS: Eosinophils Percent Auto 0.4 % (0-4); Hemoglobin 11.9 g/dl (12.0-16.0); Imm Gran Abs Auto 0.02 X10*3/uL (0.00-0.03); Imm Gran Pct Auto 0.4 % (0.0-0.4); Lymphocytes Absolute Auto 1.3 X10*3/uL (1.2-4.9); Lymphocytes Percent Auto 26.3 % (20-40); Mean Corpuscular HGB Conc 33.1 g/dl (31.0-35.0); Mean Corpuscular Hemoglobin 29.9 pg (27.0-33.0); Mean Corpuscular Volume 90.5 fL (80.0-98.0); Mean Platelet Volume 9.9 fL (9.4-12.3); Monocytes Absolute Auto 0.5 X10*3/uL (0.1-1.2); Monocytes Percent Auto 11.3 % (2-11); Neutrophils Absolute Auto 2.9 x10*3/uL (2.0-8.3); Neutrophils Percent Auto 61.6 % (45-73); Platelet Count 278 X10*3/uL (160-400); Red Blood Count 3.98 X10*6/uL (4.20-5.50); Red Cell Distribution Width 12.4 % (11.0-16.0); White Blood Count 4.8 X10*3/uL (4.8-10.8)
[2022-07-06 07:26] LABS: Alanine Aminotransferase 32 U/L (0-31); Albumin Level 4.2 g/dL (3.5-5.0); Alkaline Phosphatase 90 U/L (39-117); Anion Gap 17 (12-20); Aspartate Amino Transferase 32 U/L (5-31); Bilirubin Total 0.6 mg/dL (0.0-1.0); Blood Urea Nitrogen 4 mg/dL (9-16); Calcium 9.3 mg/dL (8.4-10.2); Carbon Dioxide 27 mmol/L (22-29); Chloride 98 mmol/L (96-108); Creatinine Clr Calc Pharmacy 90.9; Estimated Glomerular Filt Rate > 60; Glucose Fasting 143 mg/dL (60-99); Potassium 3.7 mmol/L (3.3-5.1); Sodium 138 mmol/L (135-145); Total Protein 6.6 g/dL (6.5-8.0)
[2022-07-06 07:31] VITALS: BP 163/75; PULSE 70; RESP 18; TEMP 36.1; O2SAT 98
[2022-07-06] MEDS: 0.9 % Sodium Chloride Flush 3 ML SYRINGE IVFLUSH ×2 (08:43→22:24)
[2022-07-06] MEDS: Acamprosate Calcium 333 MG TABLET.DR 666 MG PO ×3 (08:45→22:24)
[2022-07-06] MEDS: PHENobarbitaL 30 MG TABLET PO ×2 (08:45→22:23)
[2022-07-06] MEDS: Thiamine HCL 100 MG TABLET PO (08:45)
[2022-07-06] MEDS: Folic Acid 1 MG TABLET PO (08:45)
[2022-07-06] MEDS: Divalproex Sodium Sprinkles 125 MG CAP.DR.SPR 250 MG PO ×3 (08:46→22:23)
[2022-07-06] MEDS: Gabapentin 400 MG CAPSULE PO ×3 (08:46→22:24)
[2022-07-06] MEDS: Baclofen 20 MG TABLET PO ×3 (08:46→22:24)
[2022-07-06] MEDS: buPROPion HCl XL 300 MG TAB.ER.24H PO (08:46)
[2022-07-06] MEDS: Ascorbic Acid 500 MG TABLET PO ×2 (08:46→22:23)
[2022-07-06] MEDS: Ferrous Sulfate 324 MG TABLET.DR PO (08:46)
[2022-07-06] MEDS: amLODIPine Besylate 5 MG TABLET PO (08:46)
[2022-07-06] MEDS: Calcium + Vitamin D 250 MG TABLET 500 MG PO ×2 (08:46→22:23)
[2022-07-06] MEDS: Loratadine 10 MG TABLET PO (08:46)
[2022-07-06] MEDS: Multivitamin TABLET 1 TAB PO (08:46)
[2022-07-06 08:52] LABS: Magnesium 1.9 mg/dL (1.6-2.6)
--- NOTE | 2022-07-06 10:58 | MHC.CM.PN ---
[facility] DELIVERED PT WITH 1:1 SITTER PT LIVES IN AN APARTMENT ALONE, DOES NOT LIKE WHERE SHE LIVES, DOES NOT FEEL SAFE BUT DECLINES TO ELABORATE. NO DME OR SERVICES PER PT. NO HCP, DECLINES TO COMPLETE ONE AT THIS TIME. COVID VAX X 4. PCP MARIE WALKER DP: TO BE EVALUATED BY CARE TEAM, CM WILL CONTINUE TO FOLLOW FOR PLAN. NO RIDE AT DC, WILL NEED TRANSPORTATION.
[2022-07-06 11:22] VITALS: BP 144/82; PULSE 73; RESP 18; TEMP 36.6; O2SAT 98
--- NOTE | 2022-07-06 12:45 | PC.NURSE ---
upon hourly rounding pt was tearful/sobbing in the room. this nurse asked pt what is upsetting her. pt stated I didn't tell the doctor the truth . this nursed asked what were you untruthful about in which the pt stated I told him that I didn't want to but I actually do want to - i try to drink myself to . MD notified at 10:31am, state care team consult is ordered.
--- NOTE | 2022-07-06 13:51 | P.PNIM_ITS ---
Subjective Subjective Date of Service: 07/06/22 Interval History: endorses SI denies Adderall overdose Review of Systems Review of Systems: Yes all other systems are reviewed and are negative Physical Exam Vital Signs: Vital Signs: Last Vital Signs Temp 97.8 F 07/06/22 11:22 Pulse 73 07/06/22 11:22 Resp 18 07/06/22 11:22 BP 144/82 H 07/06/22 11:22 Pulse Ox 98 07/06/22 11:22 O2 Del Method 07/06/22 11:22 O2 Flow Rate 3 07/06/22 07:31 Oxygen Flow Rate 2 07/04/22 15:22 BMI result Body Mass Index 37.0 Gen: in no acute distress HEENT: sclera anicteric, moist mucus membranes Neck: supple Lungs: clear to auscultation bilaterally Heart: regular rate and rhythm, no murmurs Abd: soft, non-tender, non-distended Ext: no edema Skin: warm/well-perfused Neuro: alert and oriented x3, no focal findings Psych: restricted affect Objective Data Active Medications Acamprosate (Acamprosate Calcium 333 Mg Tablet.) 666 mg PO TID [facility] Last Admin: 07/06/22 08:45 Dose: 666 mg Documented By: LINO Acetaminophen (Acetaminophen 325 Mg Tablet) 650 mg PO Q6H PRN PRN Reason: Pain, Mild (Pain Scale 1-3) Amlodipine Besylate (Amlodipine Besylate 5 Mg Tablet) 5 mg PO DAILY [facility]; Protocol Last Admin: 07/06/22 08:46 Dose: 5 mg Documented By: LINO Ascorbic Acid (Ascorbic Acid 500 Mg Tablet) 500 mg PO BID [facility] Last Admin: 07/06/22 08:46 Dose: 500 mg Documented By: LINO Baclofen (Baclofen 20 Mg Tablet) 20 mg PO TID [facility] Last Admin: 07/06/22 08:46 Dose: 20 mg Documented By: LINO Bupropion HCl (Bupropion Hcl Xl 300 Mg Tab.Er.24h) 300 mg PO DAILY [facility] Last Admin: 07/06/22 08:46 Dose: 300 mg Documented By: LINO Calcium Carbonate/Cholecalciferol (Calcium + Vitamin D 250 Mg Tablet) 500 mg PO BID [facility] Last Admin: 07/06/22 08:46 Dose: 500 mg Documented By: LINO Divalproex Sodium (Divalproex Sodium Sprinkles 125 Mg Cap.) 250 mg PO TID [facility] Last Admin: 07/06/22 08:46 Dose: 250 mg Documented By: LINO Enoxaparin Sodium (Enoxaparin Sodium 40 Mg/0.4 Ml Syringe) 40 mg SUBCUT Q24H [facility] Last Admin: 07/06/22 12:09 Dose: Not Given Documented By: LINO Non-Admin Reason: Patient Refused Ferrous Sulfate (Ferrous Sulfate 324 Mg Tablet.) 324 mg PO DAILY [facility] Last Admin: 07/06/22 08:46 Dose: 324 mg Documented By: LINO Folic Acid (Folic Acid 1 Mg Tablet) 1 mg PO DAILY [facility] Last Admin: 07/06/22 08:45 Dose: 1 mg Documented By: LINO Gabapentin (Gabapentin 400 Mg Capsule) 400 mg PO TID [facility] Last Admin: 07/06/22 08:46 Dose: 400 mg Documented By: LINO Sodium Chloride (Sodium Chloride 0.45 %) 1,000 mls @ 100 mls/hr IVCONT .Q10H [facility] Last Admin: 07/06/22 05:50 Dose: 100 mls/hr Documented By: ALE Lamotrigine (Lamotrigine 100 Mg Tablet) 250 mg PO BEDTIME [facility] Last Admin: 07/05/22 20:13 Dose: 250 mg Documented By: ALE Levothyroxine Sodium (Levothyroxine Sodium 25 Mcg Tablet) 25 mcg PO DAILY@0600 [facility] Last Admin: 07/06/22 05:49 Dose: 25 mcg Documented By: ALE Loratadine (Loratadine 10 Mg Tablet) 10 mg PO DAILY [facility] Last Admin: 07/06/22 08:46 Dose: 10 mg Documented By: LINO Lurasidone HCl (Lurasidone Hcl 80 Mg Tablet) 160 mg PO DAILY@1800 [facility] Last Admin: 07/05/22 17:51 Dose: 160 mg Documented By: LINO Multivitamins/Vitamin C (Multivitamin Tablet) 1 tab PO DAILY [facility] Last Admin: 07/06/22 08:46 Dose: 1 tab Documented By: LINO Omeprazole (Omeprazole 20 Mg Capsule.) 20 mg PO BID@6030,8570 [facility] Last Admin: 07/06/22 05:49 Dose: 20 mg Documented By: ALE Ondansetron HCl (Ondansetron Hcl 4 Mg/2 Ml Vial) 4 mg IVPUSH Q4H PRN PRN Reason: nausea Last Admin: 07/05/22 15:17 Dose: 4 mg Documented By: PETRONA Pharmacy Consult (Consult Rx Perform Med Rec) 1 each MISCELLANE ONCE PRN PRN Reason: Consult order Pharmacy Consult (Consult Rx Etoh Phenob Po Only) 1 each MISCELLANE ONCE PRN; Protocol PRN Reason: Consult order Phenobarbital (Phenobarbital 30 Mg Tablet) 30 mg PO BID [facility]; Protocol Stop: 07/07/22 09:01 Last Admin: 07/06/22 08:45 Dose: 30 mg Documented By: LINO Phenobarbital (Phenobarbital 15 Mg Tablet) 15 mg PO BID [facility]; Protocol Stop: 07/09/22 09:01 Phenobarbital (Phenobarbital 15 Mg Tablet) 15 mg PO DAILY [facility]; Protocol Stop: 07/11/22 09:01 Sodium Chloride (0.9 % Sodium Chloride Flush 3 Ml Syringe) [facility] Last Admin: 07/06/22 08:43 Dose: 3 ml Documented By: LINO Thiamine HCl (Thiamine Hcl 100 Mg Tablet) 100 mg PO DAILY [facility] Last Admin: 07/06/22 08:45 Dose: 100 mg Documented By: LINO Labs CBC & Chem 7: 07/06/22 06:35 07/06/22 06:35 Labs: Laboratory Results - last 24 hr 07/06/22 07/06/22 06:35 06:35 MCV 90.5 MCH 29.9 MCHC 33.1 RDW 12.4 Plt Count 278 MPV 9.9 Immature Gran % (Auto) 0.4 Neut % (Auto) 61.6 Lymph % (Auto) 26.3 [place] % (Auto) 11.3 H Eos % (Auto) 0.4 Baso % (Auto) 0.0 Lymph # (Auto) 1.3 [place] # (Auto) 0.5 Eos # (Auto) 0.0 Baso # (Auto) 0.0 Abs Immat Gran (auto) 0.02 Absolute Neuts (auto) 2.9 Absolute Nucleated RBC 0.000 Nucleated RBC % (auto) 0.0 Anion Gap 17 Estim Creat Clear Calc 90.9 Estimated GFR > 60 Fasting Glucose 143 H Calcium 9.3 D Magnesium 1.9 Total Bilirubin 0.6 AST 32 H ALT 32 H Alkaline Phosphatase 90 Total Protein 6.6 Albumin 4.2 Assessment and Plan (1) Alcohol withdrawal: Status: Acute (2) Suicidal ideation: Status: Acute (3) Alcohol use disorder, severe, dependence: Status: Inactive (4) Bipolar I disorder with depression: Status: Inactive Plan d#2 52-year-old female past medical history significant for suicide attempts, alcohol use disorder, depression, PTSD presenting to the emergency department via ambulance for suspected alcohol intoxication and Adderall overdose.? According to [facility] worker patient did not show up to partial program today so DM worker went to her house to check in on her at around 14:00.? She noted that patient was not opening the door therefore she called 911, they found patient's side minimally responsive with Adderall bottles that were empty around her it appears as though she was sniffing Adderall, there was a lot of pills crushed on a plate as well as empty vodka bottle she tells me there is a gal and a L bottle that was completely empty.? Patient has met like alcohol.? Reports patient was recently discharged from [facility] 2 days ago, suggesting patient be evaluated for possible Section 35.? Tells me that she has had similar presentations in the p ast which were suicide attempts.?.? Patient was seen in the ER on 04/01 by PHN and was deemed appropriate for partial hospitalization program.? While awaiting patient began to experience symptoms of alcohol withdrawal. CIWA scale 17 prompted initiation of phenobarb protocol.? # acute EtOH withdrawal - phenobarbital taper - folic acid, thiamine # mood disorder - continue bupropion, divalproex, gabapentin, lamotrigine, lurasidone # SI - sitter - medically cleared for transfer to psychiatr # AUD - acamprosate # HTN - amlodipine # hypothyroidism - LT4 # VTE ppx: LMWH In my clinical judgment, the patient requires continued inpatient hospitalization for the following reasons: inpatient psychiatry, awaiting placement Quality Stroke Does the patient have a stroke diagnosis?: No VTE Prior VTE?: No VTE Risk Level:: Medical - moderate - high VTE Device Contraindication: Treatment Not Indicated VTE Drug Contraindication: N/A - Med Ordered
[2022-07-06 16:00] VITALS: BP 169/82; PULSE 68; RESP 18; TEMP 36.6; O2SAT 97
--- NOTE | 2022-07-06 16:21 | P.DS_ITS ---
DS: Providers Provider Date of Service: 07/07/22 Date of admission: 07/05/22 11:15 Date of discharge: 07/07/22 Primary care physician: FATOU WALKER ORGAN GRINDER Consults: 07/05/22 11:27 Consult for Sitter Routine Reason for consultation: Past history of suicidal ideation 07/06/22 10:51 Consult to Care Team Stat Comment: Reason for consultation: EtOH withdrawal on taper. SI. Medically cleared for psychiatry 07/06/22 10:52 Consult to Crisis Stat Reason for consultation: medically cleared for psych. SI/Etoh od DS: Diagnosis Discharge Diagnosis (1) Alcohol withdrawal: Status: Acute (2) Suicidal ideation: Status: Acute (3) Alcohol use disorder, severe, dependence: Status: Inactive (4) Bipolar I disorder with depression: Status: Inactive DS: Summary Hospital Course Hospital Course: from admission H+P by hospitalist Brendon Ruvalcaba DO, 07/05/22: 52-year-old female past medical history significant for suicide attempts, alcohol use disorder, depression, PTSD presenting to the emergency department via ambulance for suspected alcohol intoxication and Adderall overdose.? According to [facility] worker patient did not show up to partial program today so DM worker went to her house to check in on her at around 14:00.? She noted that patient was not opening the door therefore she called 911, they found patient's side minimally responsive with Adderall bottles that were empty around her it appears as though she was sniffing Adderall, there was a lot of pills crushed on a plate as well as empty vodka bottle she tells me there is a gal and a L bottle that was completely empty.? Patient has met like alcohol.? Reports patient was recently discharged from [facility] 2 days ago, suggesting patient be evaluated for possible Section 35.? Tells me that she has had similar presentations in the past which were suicide attempts.?.? Patient was seen in the ER on 04/01 by PHN and was deemed appropriate for partial hospitalization program.? While awaiting patient began to experience symptoms of alcohol withdrawal. ..? CIWA scale 17 prompted initiation of phenobarb protocol.? At this point in time she will be admitted for same. She was admitted to the [facility] and given phenobarbital taper for alcohol withdrawal with good control of symptoms. Sitter was placed due to SI. She was medically cleared for transfer to inpatient psychiatry for ongoing management of her mood disorder with suicidality. Time Spent with Patient Time attestation: Total time spent providing and/or coordinating discharge services: 35 Discharge coordination time: Greater than 30 minutes Quality: Safe Use of Opioids Does Pt have an Active Cancer Diagnosis on the Problem List?: No Quality: Stroke Does the patient have a stroke diagnosis?: No Physical Exam Vital Signs: Vital Signs: Temp Pulse Resp BP Pulse Ox O2 Del Method O2 Flow Rate 97.5 F 69 20 144/78 H 97 3 07/07/22 07:45 07/07/22 07:45 07/07/22 07:45 07/07/22 07:45 07/07/22 07:45 07/07/22 07:45 07/06/22 07:31 Gen: in no acute distress HEENT: sclera anicteric, moist mucus membranes Neck: supple Lungs: clear to auscultation bilaterally Heart: regular rate and rhythm, no murmurs Abd: soft, non-tender, non-distended Ext: no edema Skin: warm/well-perfused Neuro: alert and oriented x3, no focal findings Psych: restricted affect DS: Data Data Completed and Pending Completed studies during hospitalization [Text1]: Laboratory Results WBC 4.8 X10*3/uL (4.8-10.8) 07/06/22 06:35 RBC 3.98 X10*6/uL (4.20-5.50) L 07/06/22 06:35 Hgb 11.9 g/dl (12.0-16.0) L 07/06/22 06:35 Hct 36.0 % (37.0-47.0) L 07/06/22 06:35 MCV 90.5 fL (80.0-98.0) 07/06/22 06:35 MCH 29.9 pg (27.0-33.0) 07/06/22 06:35 MCHC 33.1 g/dl (31.0-35.0) 07/06/22 06:35 RDW 12.4 % (11.0-16.0) 07/06/22 06:35 Plt Count 278 X10*3/uL (160-400) 07/06/22 06:35 MPV 9.9 fL (9.4-12.3) 07/06/22 06:35 Immature Gran % (Auto) 0.4 % (0.0-0.4) 07/06/22 06:35 Neut % (Auto) 61.6 % (45-73) 07/06/22 06:35 Lymph % (Auto) 26.3 % (20-40) 07/06/22 06:35 [place] % (Auto) 11.3 % (2-11) H 07/06/22 06:35 Eos % (Auto) 0.4 % (0-4) 07/06/22 06:35 Baso % (Auto) 0.0 % (0-2) 07/06/22 06:35 Lymph # (Auto) 1.3 X10*3/uL (1.2-4.9) 07/06/22 06:35 [place] # (Auto) 0.5 X10*3/uL (0.1-1.2) 07/06/22 06:35 Eos # (Auto) 0.0 X10*3/uL (0.0-0.4) 07/06/22 06:35 Baso # (Auto) 0.0 X10*3/uL (0.0-0.2) 07/06/22 06:35 Abs Immat Gran (auto) 0.02 X10*3/uL (0.00-0.03) 07/06/22 06:35 Absolute Neuts (auto) 2.9 x10*3/uL (2.0-8.3) 07/06/22 06:35 Absolute Nucleated RBC 0.000 X10*3/uL (0.0-0.012) 07/06/22 06:35 Nucleated RBC % (auto) 0.0 /100WBC (0.0-0.2) 07/06/22 06:35 Sodium 138 mmol/L (135-145) 07/06/22 06:35 Potassium 3.7 mmol/L (3.3-5.1) 07/06/22 06:35 Chloride 98 mmol/L (96-108) 07/06/22 06:35 Carbon Dioxide 27 mmol/L (22-29) 07/06/22 06:35 Anion Gap 17 (12-20) 07/06/22 06:35 BUN 4 mg/dL (9-16) L 07/06/22 06:35 Creatinine 0.69 mg/dL (0.5-1.4) 07/06/22 06:35 Estim Creat Clear Calc 90.9 07/06/22 06:35 Estimated GFR > 60 07/06/22 06:35 Random Glucose 81 mg/dL (60-115) 07/04/22 22:38 Fasting Glucose 143 mg/dL (60-99) H 07/06/22 06:35 Lactic Acid 3.0 mmol/L (0.5-2.0) H* 07/05/22 01:30 Lactic Acid F/U @ 2Hr 2.5 mmol/L (0.5-2.0) H* 07/05/22 04:46 Lactic Acid F/U @ 4Hr 2.5 mmol/L (0.5-2.0) H* 07/05/22 07:34 Calcium 9.3 mg/dL (8.4-10.2) D 07/06/22 06:35 Magnesium 1.9 mg/dL (1.6-2.6) 07/06/22 06:35 Total Bilirubin 0.6 mg/dL (0.0-1.0) 07/06/22 06:35 AST 32 U/L (5-31) H 07/06/22 06:35 ALT 32 U/L (0-31) H 07/06/22 06:35 Alkaline Phosphatase 90 U/L (39-117) 07/06/22 06:35 Total Creatine Kinase 129 U/L (26-140) 07/04/22 22:38 Troponin I High Sens < 3.5 ng/L (<3.5-17.0) D 07/04/22 17:36 Total Protein 6.6 g/dL (6.5-8.0) 07/06/22 06:35 Albumin 4.2 g/dL (3.5-5.0) 07/06/22 06:35 Urine Color Yellow 07/05/22 01:30 Urine Appearance Clear 07/05/22 01:30 Urine pH 6.5 (5.0-9.0) 07/05/22 01:30 Ur Specific [place] 1.015 (1.005-1.025) 07/05/22 01:30 Urine Protein Trace mg/dL (Neg-Trace) 07/05/22 01:30 Urine Glucose (UA) Negative mg/dL (Negative) 07/05/22 01:30 Urine Ketones 40 mg/dL (Negative) 07/05/22 01:30 Urine Blood Negative (Negative) 07/05/22 01:30 Urine Nitrite Negative (Negative) 07/05/22 01:30 Ur Leukocyte Esterase Negative (Negative) 07/05/22 01:30 Salicylates < 5.0 mg/dL (15-30) L 07/04/22 17:36 Urine Opiates Screen Not Detected (Not Detect) 07/05/22 01:30 Urine Fentanyl Screen Not Detected (Not Detect) 07/05/22 01:30 Acetaminophen < 1 mcg/mL (<30) 07/04/22 17:36 Ur Barbiturates Screen Not Detected (Not Detect) 07/05/22 01:30 Ur Phencyclidine Scrn Not Detected (Not Detect) 07/05/22 01:30 Ur Amphetamines Screen POSITIVE (Not Detect) H 07/05/22 01:30 U Benzodiazepines Scrn Not Detected (Not Detect) 07/05/22 01:30 Urine Cocaine Screen Not Detected (Not Detect) 07/05/22 01:30 U Marijuana (THC) Screen Not Detected (Not Detect) 07/05/22 01:30 Ethyl Alcohol 406 mg/dL H* 07/04/22 17:36 Ethyl Alcohol Cancelled 07/04/22 17:36 COVID-19 ([facility]AD) Negative (Negative) 07/04/22 17:36 COVID-19 Clin Com See Note 07/04/22 17:36 Impressions Chest X-Ray 07/04/22 18:25 IMPRESSION: Unremarkable examination. Discharge Plan Discharge Patient Disposition: Xfer Psychiatric Hosp Discharge Diagnosis: suicidal ideation, alcohol withdrawal Referrals: Fatou Walker NP [Primary Care Provider] - 1 Week Discharge Medications: New phenobarbital 15 mg Tablet 15 mg PO DAILY Qty: 1 0RF phenobarbital 15 mg Tablet 15 mg PO BID Qty: 1 0RF phenobarbital 30 mg Tablet 30 mg PO BID Qty: 1 0RF Continued oxycodone 5 mg tablet 5 mg PO BID PRN (Reason: Pain) amlodipine 5 mg tablet 5 mg PO DAILY acamprosate 333 mg tablet,delayed release (DR/EC) 666 mg PO TID baclofen 20 mg tablet 20 tab PO TID bupropion HCl [Wellbutrin XL] 300 mg tablet extended release 24 hr 300 mg PO QAM levothyroxine 25 mcg tablet 25 mcg PO DAILY pantoprazole 40 mg tablet,delayed release (DR/EC) 40 tab PO BID ferrous sulfate 324 mg (65 mg iron) Tablet,Delayed Release (Dr/Ec) 324 mg PO DAILY Qty: 30 0RF lamotrigine 100 mg Tablet 250 mg PO BEDTIME Qty: 75 0RF quetiapine 25 mg Tablet 25 mg PO QID PRN (Reason: anxiety) Qty: 60 0RF perphenazine 2 mg Tablet 2 mg PO QID PRN (Reason: anxiety, dissociations, agitation) Qty: 60 0RF trazodone 50 mg Tablet 150 mg PO BEDTIME Qty: 90 0RF sumatriptan succinate 50 mg Tablet 50 mg PO DAILY MRX1 PRN (Reason: Migraine Headache) Qty: 0 0RF lorazepam 0.5 mg Tablet 0.5 mg PO 0900,1400,1830 Qty: 21 3RF divalproex 125 mg Capsule, Delayed Rel Sprinkle 250 mg PO TID Qty: 180 0RF folic acid 1 mg Tablet 1 mg PO DAILY Qty: 30 0RF multivitamin Tablet 1 tab PO DAILY Qty: 30 0RF gabapentin 400 mg Capsule 400 mg PO TID 30 Days Qty: 90 0RF thiamine HCl (vitamin B1) 100 mg tablet 100 mg PO DAILY Qty: 30 0RF ascorbic acid (vitamin C) 500 mg Tablet 500 mg PO BID Qty: 60 0RF ketoconazole 2 % cream 1 applic topical BID PRN (Reason: Rash) Qty: 1 0RF loratadine 10 mg tablet 10 mg PO DAILY Qty: 30 0RF calcium carbonate-vitamin D3 600 mg-10 mcg (400 unit) tablet 1 tab PO BID Qty: 60 0RF Latuda 80 mg Tablet 160 mg PO DAILY@1800 30 Days Qty: 60 0RF Discontinued dextroamphetamine-amphetamine 20 mg tablet 20 mg PO BID Diet: Advance to usual diet Activity on Discharge: As tolerated Stand Alone Forms: Patient Portal Discharge page Care Plan Goals: mental well being and sobriety Health Concerns: suicidal ideation, alcohol withdrawal Plan of Treatment: transfer to psychiatry for ongoing care alcohol withdrawal phenobarbital taper Assessment: See Discharge Summary.
--- NOTE | 2022-07-06 16:24 | MHC.CARE ---
CARE team consult received for pt who was medically admitted for alcohol withdrawal and suspected adderall overdose. Pt has been intermittently endorsing and retracting statements of suicidal ideation. Per hospitalist- pt is medically cleared and considered stable for discharge vs inpatient psych. Smartsheet has been submitted to [facility] CARE team will follow up shortly re: ETA.
--- NOTE | 2022-07-06 17:03 | MHC.CARE ---
[facility] clinician en route to evaluate patient.
[2022-07-06] MEDS: Lurasidone HCl 80 MG TABLET 160 MG PO (18:19)
[2022-07-06 20:00] VITALS: BP 110/58; PULSE 69; RESP 18; TEMP 36.4; O2SAT 96
[2022-07-06] MEDS: lamoTRIgine 100 MG TABLET 250 MG PO (22:23)
[2022-07-07 03:15] VITALS: BP 153/81; PULSE 88; RESP 18; TEMP 36.6; O2SAT 97
[2022-07-07] MEDS: Omeprazole 20 MG CAPSULE.DR PO (06:28)
[2022-07-07] MEDS: Levothyroxine Sodium 25 MCG TABLET PO (06:28)
[2022-07-07 07:45] VITALS: BP 144/78; PULSE 69; RESP 20; TEMP 36.4; O2SAT 97
[2022-07-07] MEDS: amLODIPine Besylate 5 MG TABLET PO (10:04)
[2022-07-07] MEDS: PHENobarbitaL 30 MG TABLET PO (10:04)
[2022-07-07] MEDS: Divalproex Sodium Sprinkles 125 MG CAP.DR.SPR 250 MG PO (10:04)
[2022-07-07] MEDS: Thiamine HCL 100 MG TABLET PO (10:04)
[2022-07-07] MEDS: Baclofen 20 MG TABLET PO (10:05)
[2022-07-07] MEDS: Acamprosate Calcium 333 MG TABLET.DR 666 MG PO (10:05)
[2022-07-07] MEDS: Ascorbic Acid 500 MG TABLET PO (10:05)
[2022-07-07] MEDS: Gabapentin 400 MG CAPSULE PO (10:05)
[2022-07-07] MEDS: Folic Acid 1 MG TABLET PO (10:05)
[2022-07-07] MEDS: Loratadine 10 MG TABLET PO (10:05)
[2022-07-07] MEDS: Ferrous Sulfate 324 MG TABLET.DR PO (10:05)
[2022-07-07] MEDS: buPROPion HCl XL 300 MG TAB.ER.24H PO (10:06)
[2022-07-07] MEDS: Multivitamin TABLET 1 TAB PO (10:06)
[2022-07-07] MEDS: Calcium + Vitamin D 250 MG TABLET 500 MG PO (10:06)
[2022-07-07] MEDS: polyethylene glycoL 3350 17 GM POWD.PACK PO (10:47)
[2022-07-07 12:00] VITALS: BP 139/79; PULSE 86; RESP 20; TEMP 37.3; O2SAT 98
--- NOTE | 2022-07-07 12:08 | MHC.CM.PN ---
Per ROUNDS discussion, Patient is medically cleared for dc and appropriate for IPLOC r/t SI. CM will follow.
--- NOTE | 2022-07-07 13:36 | MHC.CM.PN ---
Patient has been medically cleared for dc today to [facility] [place] [facility].Last IMM addressed yesterday.
--- NOTE | 2022-07-07 15:05 | PC.NURSE ---
pt medically cleared to be tranfered to M3. IV out, monitor off. pt will be escorted by staff and security per protocol.
== END 2022-07-07 15:06 | DRG 918 ==
LOC: HO.ED 07-05 01:46 → HO.EDOVER 07-05 11:21 → HO.IMC 07-05 14:18
PROVIDERS: Physician Assistant; Admitting Provider Hospitalist; Emergency Provider Student in an Organized Health Care Education/Training Program; PCP Nurse Practitioner Family; Visit Provider Family Medicine
DX: T43.621A Poisoning by amphetamines, accidental (unintentional), initial encounter (principal); F10.239 Alcohol dependence with withdrawal, unspecified; F31.30 Bipolar disorder, current episode depressed, mild or moderate severity, unspecified; F43.10 Post-traumatic stress disorder, unspecified; E03.9 Hypothyroidism, unspecified; I10 Essential (primary) hypertension; F10.229 Alcohol dependence with intoxication, unspecified; Y90.8 Blood alcohol level of 240 mg/100 ml or more; G43.909 Migraine, unspecified, not intractable, without status migrainosus; Z20.822 Contact with and (suspected) exposure to COVID-19; Z87.891 Personal history of nicotine dependence; Z91.040 Latex allergy status; Z91.51 Personal history of suicidal behavior; Z88.2 Allergy status to sulfonamides; Z88.6 Allergy status to analgesic agent; Z88.8 Allergy status to other drugs, medicaments and biological substances; Z79.899 Other long term (current) drug therapy
CPT/HCPCS: 0241U; 36415; 71045; 80048; 80053; 80061; 80143; 80164; 80179; 80307; 81003; 82077; 82550; 82607; 82746; 82947; 83036; 83605; 83735; 83930; 83935; 84300; 84443; 84484; 84550; 85025; 87635; 93005; 99285; J1650; J1885; J2405; J2560; J3030

== ENCOUNTER 2022-07-07 15:12 | Inpatient (IN) | payer OTHER, SELFPAY ==
--- OUTSIDE RECORDS SUMMARY | 2022-07-07 15:15 | XMS_ITS ---
:1970 Author Organization [facility] [address] [facility] Location Address [address] [place] [id number] Care Team Providers Name Role Phone Nick OAKES MACHINE OPERATOR-DoryLinsey Unavailable Unavailable PROBLEMS Type Condition ICD9-CM Code [id number] Code Onset Condition SNO MED Code Dates Status Problem Arm R20.2 Active 22605220 paresthesia, left ALLERGIES Substance Reaction Event Type Date Status Sulfa Antibiotics Unknown Drug Allergy Oct, Active ENCOUNTERS Encounter Location Date Diagnosis [facility] [address] [facility], Oct, Ce rvicalgia M54.2 ; [place] [address] arm pa in M79.602 and Arm paresthesia, [...] Results REASON FOR VISIT Consult Insurance Providers [facility] Health Member Patient Patient Patient Patient Patient Subscriber Subscriber Subscriber Group Insurance Plan Plan Plan Plan ID Relationship Address Phone Name Date of ID Name Date of No Type Insurance Insurance Insurance Coverage to Subscriber Address Phone Name Dates [place] [address] [place] self Sweetie [id number] [address] [address] [employer] [address] [place] [address] [phone] [employer] self Sweetie 1 [id number] Care [facility] [address] [place] [address] Medicare [address] Medicare self Sweetie [id number] of [id number] [facility] [place] [phone]
[2022-07-07 16:15] VITALS: BP 151/72; PULSE 73; RESP 16; TEMP 36.8; O2SAT 98
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
--- NOTE | 2022-07-07 18:17 | PHA.MEDREC ---
Pharmacy Consult ? Medication Reconciliation Pharmacy has completed the medication reconciliation. Patient transfer from medical floor to psych unit. Med rec complete by [facility] on admission to medical floor. Denise Parham, PablitoD
[2022-07-07] MEDS: Gabapentin 400 MG CAPSULE PO ×2 (18:19→21:47)
[2022-07-07] MEDS: Lurasidone HCl 80 MG TABLET 160 MG PO (18:20)
[2022-07-07] MEDS: Baclofen 20 MG TABLET PO ×2 (18:20→21:47)
[2022-07-07 19:05] VITALS: BP 143/73; PULSE 86; RESP 16; TEMP 36.6; O2SAT 97
[2022-07-07] MEDS: Acetaminophen 325 MG TABLET 650 MG PO (20:34)
[2022-07-07] MEDS: Calcium + Vitamin D 250 MG TABLET 500 MG PO (20:34)
[2022-07-07] MEDS: LORazepam 0.5 MG TABLET PO (20:35)
[2022-07-07] MEDS: lamoTRIgine 100 MG TABLET 250 MG PO (20:35)
[2022-07-07] MEDS: Ascorbic Acid 500 MG TABLET PO (21:47)
[2022-07-07] MEDS: Divalproex Sodium Sprinkles 125 MG CAP.DR.SPR 250 MG PO (21:47)
[2022-07-07] MEDS: Acamprosate Calcium 333 MG TABLET.DR 666 MG PO (21:47)
[2022-07-07] MEDS: traZODone HCL 50 MG TABLET 150 MG PO (21:48)
[2022-07-08] MEDS: Omeprazole 20 MG CAPSULE.DR PO ×2 (05:59→17:39)
[2022-07-08] MEDS: Levothyroxine Sodium 25 MCG TABLET PO (05:59)
[2022-07-08] MEDS: Amphetamine Mixed Salts 20 MG TABLET PO ×2 (05:59→13:43)
[2022-07-08 08:08] VITALS: BP 141/75; PULSE 91; RESP 16; TEMP 36.4; O2SAT 96
[2022-07-08] MEDS: Gabapentin 400 MG CAPSULE PO ×3 (08:09→22:14)
[2022-07-08] MEDS: Acamprosate Calcium 333 MG TABLET.DR 666 MG PO ×3 (08:10→22:13)
[2022-07-08] MEDS: Baclofen 20 MG TABLET PO ×3 (08:10→22:11)
[2022-07-08] MEDS: Divalproex Sodium Sprinkles 125 MG CAP.DR.SPR 250 MG PO ×3 (08:10→22:11)
[2022-07-08] MEDS: buPROPion HCl XL 300 MG TAB.ER.24H PO (08:11)
[2022-07-08] MEDS: Thiamine HCL 100 MG TABLET PO (08:11)
[2022-07-08] MEDS: Multivitamin TABLET 1 TAB PO (08:11)
[2022-07-08] MEDS: Ferrous Sulfate 324 MG TABLET.DR PO (08:11)
[2022-07-08] MEDS: amLODIPine Besylate 5 MG TABLET PO (08:12)
[2022-07-08] MEDS: Folic Acid 1 MG TABLET PO (08:12)
[2022-07-08] MEDS: Ascorbic Acid 500 MG TABLET PO ×2 (08:12→22:14)
[2022-07-08] MEDS: Calcium + Vitamin D 250 MG TABLET 500 MG PO ×2 (08:13→22:11)
[2022-07-08] MEDS: Loratadine 10 MG TABLET PO (08:13)
[2022-07-08] MEDS: LORazepam 0.5 MG TABLET PO ×4 (08:27→20:15)
--- NOTE | 2022-07-08 09:08 | MHC.CLN ---
RE: CONSULT CONSULT CAN'T METABOLIZE CARBS SEE PREVIOUS CONSULT DATED 06/18/22 PT IS FAMILIAR FROM PREVIOUS ADMISSION PT WITH HX GASTRIC BYPASS 10 YEARS AGO PT STATED THAT SHE LOST 100#, BUT HAS GAINED BACK THE WEIGHT PREFERS DIET WITH HIGH PROTEIN, MORE VEGETABLES, FEWER CARBS PREFERENCES RECORDED AND SENT TO KITCHEN: PT LIKED TO ORDER FOODS SUCH SWEET POTATOES, GREEN BEANS, FISH, VEGETABLE OMELET, BREAKFAST MEAT, CHILI WOULD LIKE CHOICES OTHER THAN THINGS WITH BREAD FOR EXAMPLE PREFERS NOT TO EAT PIZZA, BURGERS, MACARONI AND CHEESE. [facility] AWARE AND WILL ALLOW FOR ADDITIONAL FOOD CHOICES
[2022-07-08 09:31] LABS: Estimated Average Glucose 103 mg/dL; Hemoglobin A1c % 5.2 %
[2022-07-08 10:24] LABS: Alanine Aminotransferase 24 U/L (0-31); Albumin Level 4.2 g/dL (3.5-5.0); Alkaline Phosphatase 97 U/L (39-117); Anion Gap 18 (12-20); Aspartate Amino Transferase 19 U/L (5-31); Bilirubin Total 0.3 mg/dL (0.0-1.0); Blood Urea Nitrogen 9 mg/dL (9-16); Calcium 9.1 mg/dL (8.4-10.2); Carbon Dioxide 25 mmol/L (22-29); Chloride 95 mmol/L (96-108); Cholesterol 192 mg/dL; Estimated Glomerular Filt Rate > 60; Glucose Fasting 96 mg/dL (60-99); HDL Cholesterol 101 mg/dL; LDL Cholesterol Calculated 83 mg/dl; Potassium 4.6 mmol/L (3.3-5.1); Sodium 133 mmol/L (135-145); Total Protein 6.7 g/dL (6.5-8.0); Triglycerides 42 mg/dL
[2022-07-08 11:11] LABS: Folate > 20.0 ng/mL (> or = 4.0); Vitamin B12 867 pg/mL (200-900)
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
[2022-07-08] MEDS: Acetaminophen 325 MG TABLET 650 MG PO (15:26)
[2022-07-08] MEDS: SUMAtriptan succinate 50 MG TABLET PO ×2 (17:39→20:15)
[2022-07-08] MEDS: Lurasidone HCl 80 MG TABLET 160 MG PO (18:39)
[2022-07-08 20:50] VITALS: BP 151/72; PULSE 78; TEMP 36.6; O2SAT 96
[2022-07-08] MEDS: traZODone HCL 50 MG TABLET 150 MG PO (22:12)
[2022-07-08] MEDS: lamoTRIgine 100 MG TABLET 250 MG PO (22:13)
[2022-07-09] MEDS: Omeprazole 20 MG CAPSULE.DR PO ×2 (05:46→17:35)
[2022-07-09] MEDS: Levothyroxine Sodium 25 MCG TABLET PO (05:46)
[2022-07-09] MEDS: Amphetamine Mixed Salts 20 MG TABLET PO ×2 (05:46→13:22)
[2022-07-09 08:27] VITALS: BP 136/77; PULSE 84; RESP 17; TEMP 36.7; O2SAT 99
[2022-07-09] MEDS: buPROPion HCl XL 300 MG TAB.ER.24H PO (08:27)
[2022-07-09] MEDS: Gabapentin 400 MG CAPSULE PO ×3 (08:27→21:43)
[2022-07-09] MEDS: Acamprosate Calcium 333 MG TABLET.DR 666 MG PO ×3 (08:27→21:44)
[2022-07-09] MEDS: Divalproex Sodium Sprinkles 125 MG CAP.DR.SPR 250 MG PO ×2 (08:28→15:40)
[2022-07-09] MEDS: Thiamine HCL 100 MG TABLET PO (08:28)
[2022-07-09] MEDS: Calcium + Vitamin D 250 MG TABLET 500 MG PO ×2 (08:28→21:43)
[2022-07-09] MEDS: Ferrous Sulfate 324 MG TABLET.DR PO (08:29)
[2022-07-09] MEDS: Folic Acid 1 MG TABLET PO (08:29)
[2022-07-09] MEDS: amLODIPine Besylate 5 MG TABLET PO (08:29)
[2022-07-09] MEDS: Multivitamin TABLET 1 TAB PO (08:30)
[2022-07-09] MEDS: Ascorbic Acid 500 MG TABLET PO ×2 (08:30→21:43)
[2022-07-09] MEDS: Baclofen 20 MG TABLET PO ×3 (08:30→21:44)
[2022-07-09] MEDS: LORazepam 0.5 MG TABLET PO ×3 (08:31→18:22)
[2022-07-09] MEDS: Loratadine 10 MG TABLET PO (08:31)
[2022-07-09] MEDS: Acetaminophen 325 MG TABLET 650 MG PO ×2 (08:31→21:50)
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
[2022-07-09] MEDS: Lurasidone HCl 80 MG TABLET 160 MG PO (18:22)
[2022-07-09 21:40] VITALS: BP 119/58; PULSE 88; RESP 16; O2SAT 98
[2022-07-09] MEDS: lamoTRIgine 100 MG TABLET 250 MG PO (21:43)
[2022-07-09] MEDS: Divalproex Sodium ER 250 MG TAB.ER.24H 750 MG PO (21:44)
[2022-07-09] MEDS: traZODone HCL 50 MG TABLET 150 MG PO (21:44)
[2022-07-10] MEDS: Acetaminophen 325 MG TABLET 650 MG PO ×2 (04:30→10:37)
[2022-07-10] MEDS: Amphetamine Mixed Salts 20 MG TABLET PO ×2 (06:28→13:05)
[2022-07-10] MEDS: Levothyroxine Sodium 25 MCG TABLET PO (06:29)
[2022-07-10 07:19] LABS: Influenza A PCR NEGATIVE (Negative); Influenza B PCR NEGATIVE (Negative); Resp Syncy Virus RNA Qual PCR NEGATIVE (Negative); SARS COV2 PCR INHOUSE NEGATIVE (Negative)
[2022-07-10 08:15] VITALS: BP 120/76; PULSE 98; TEMP 36.4; O2SAT 99
[2022-07-10] MEDS: Acamprosate Calcium 333 MG TABLET.DR 666 MG PO ×3 (08:18→21:48)
[2022-07-10] MEDS: Calcium + Vitamin D 250 MG TABLET 500 MG PO ×2 (08:18→21:49)
[2022-07-10] MEDS: Gabapentin 400 MG CAPSULE PO ×3 (08:19→21:47)
[2022-07-10] MEDS: Multivitamin TABLET 1 TAB PO (08:19)
[2022-07-10] MEDS: Ascorbic Acid 500 MG TABLET PO ×2 (08:19→21:48)
[2022-07-10] MEDS: Folic Acid 1 MG TABLET PO (08:20)
[2022-07-10] MEDS: Baclofen 20 MG TABLET PO ×3 (08:20→21:48)
[2022-07-10] MEDS: buPROPion HCl XL 300 MG TAB.ER.24H PO (08:21)
[2022-07-10] MEDS: amLODIPine Besylate 5 MG TABLET PO (08:21)
[2022-07-10] MEDS: Thiamine HCL 100 MG TABLET PO (08:21)
[2022-07-10] MEDS: Ferrous Sulfate 324 MG TABLET.DR PO (08:21)
[2022-07-10] MEDS: Loratadine 10 MG TABLET PO (08:22)
[2022-07-10] MEDS: Omeprazole 20 MG CAPSULE.DR PO ×2 (08:22→18:25)
[2022-07-10] MEDS: LORazepam 0.5 MG TABLET PO ×4 (10:30→18:24)
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
[2022-07-10] MEDS: Lurasidone HCl 80 MG TABLET 160 MG PO (18:24)
[2022-07-10 21:46] VITALS: BP 128/70; PULSE 89; RESP 16; TEMP 36.2; O2SAT 97
[2022-07-10] MEDS: Divalproex Sodium ER 500 MG TAB.ER.24H 1000 MG PO (21:48)
[2022-07-10] MEDS: traZODone HCL 50 MG TABLET 150 MG PO (21:48)
[2022-07-10] MEDS: guaiFENesin DM 600/30 1 TAB TAB.ER.12H 2 TAB PO (21:48)
[2022-07-10] MEDS: lamoTRIgine 100 MG TABLET 250 MG PO (21:48)
[2022-07-11] MEDS: Amphetamine Mixed Salts 20 MG TABLET PO ×2 (05:47→13:12)
[2022-07-11] MEDS: Levothyroxine Sodium 25 MCG TABLET PO (05:47)
[2022-07-11 08:30] VITALS: BP 139/72; PULSE 80; TEMP 36.6; O2SAT 98
[2022-07-11] MEDS: Acamprosate Calcium 333 MG TABLET.DR 666 MG PO ×3 (08:47→22:21)
[2022-07-11] MEDS: Calcium + Vitamin D 250 MG TABLET 500 MG PO ×2 (08:48→22:21)
[2022-07-11] MEDS: guaiFENesin DM 600/30 1 TAB TAB.ER.12H 2 TAB PO ×2 (08:48→22:20)
[2022-07-11] MEDS: Folic Acid 1 MG TABLET PO (08:49)
[2022-07-11] MEDS: Multivitamin TABLET 1 TAB PO (08:49)
[2022-07-11] MEDS: Ascorbic Acid 500 MG TABLET PO ×2 (08:49→22:22)
[2022-07-11] MEDS: LORazepam 0.5 MG TABLET PO ×3 (08:50→18:23)
[2022-07-11] MEDS: Baclofen 20 MG TABLET PO ×3 (08:50→22:19)
[2022-07-11] MEDS: Thiamine HCL 100 MG TABLET PO (08:50)
[2022-07-11] MEDS: amLODIPine Besylate 5 MG TABLET PO (08:50)
[2022-07-11] MEDS: Gabapentin 400 MG CAPSULE PO ×3 (08:50→22:21)
[2022-07-11] MEDS: Ferrous Sulfate 324 MG TABLET.DR PO (08:51)
[2022-07-11] MEDS: Omeprazole 20 MG CAPSULE.DR PO ×2 (08:51→18:19)
[2022-07-11] MEDS: buPROPion HCl XL 300 MG TAB.ER.24H PO (08:51)
[2022-07-11] MEDS: Loratadine 10 MG TABLET PO (08:52)
[2022-07-11] MEDS: hydrOXYzine HCL 25 MG TABLET PO (09:57)
[2022-07-11] MEDS: Hydrocortisone 1 % Cream 28.35 GM TUBE 1 APPL TOPICAL (14:24)
[2022-07-11] MEDS: Lurasidone HCl 80 MG TABLET 160 MG PO (18:19)
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
[2022-07-11] MEDS: Divalproex Sodium ER 500 MG TAB.ER.24H 1000 MG PO (22:19)
[2022-07-11] MEDS: lamoTRIgine 100 MG TABLET 250 MG PO (22:20)
[2022-07-11] MEDS: traZODone HCL 50 MG TABLET 150 MG PO (22:29)
[2022-07-11 22:33] VITALS: BP 116/63; PULSE 78; TEMP 36.4; O2SAT 97
[2022-07-12] MEDS: Amphetamine Mixed Salts 20 MG TABLET PO ×2 (05:46→13:29)
[2022-07-12] MEDS: Levothyroxine Sodium 25 MCG TABLET PO (05:46)
[2022-07-12] MEDS: Omeprazole 20 MG CAPSULE.DR PO ×2 (05:46→18:29)
[2022-07-12] MEDS: amLODIPine Besylate 5 MG TABLET PO (09:07)
[2022-07-12] MEDS: Loratadine 10 MG TABLET PO (09:07)
[2022-07-12] MEDS: Gabapentin 400 MG CAPSULE PO ×3 (09:08→20:57)
[2022-07-12] MEDS: Thiamine HCL 100 MG TABLET PO (09:08)
[2022-07-12] MEDS: Baclofen 20 MG TABLET PO ×3 (09:08→20:57)
[2022-07-12] MEDS: Folic Acid 1 MG TABLET PO (09:08)
[2022-07-12] MEDS: Ascorbic Acid 500 MG TABLET PO ×2 (09:08→20:57)
[2022-07-12] MEDS: buPROPion HCl XL 300 MG TAB.ER.24H PO (09:08)
[2022-07-12] MEDS: Multivitamin TABLET 1 TAB PO (09:08)
[2022-07-12] MEDS: guaiFENesin DM 600/30 1 TAB TAB.ER.12H 2 TAB PO ×2 (09:08→20:56)
[2022-07-12] MEDS: Calcium + Vitamin D 250 MG TABLET 500 MG PO ×2 (09:08→20:57)
[2022-07-12] MEDS: Acamprosate Calcium 333 MG TABLET.DR 666 MG PO ×3 (09:08→20:56)
[2022-07-12] MEDS: Ferrous Sulfate 324 MG TABLET.DR PO (09:13)
[2022-07-12] MEDS: LORazepam 0.5 MG TABLET PO ×3 (09:23→18:29)
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
[2022-07-12 10:07] VITALS: BP 136/81; PULSE 76; RESP 15; TEMP 36.3; O2SAT 100
[2022-07-12] MEDS: Hydrocortisone 1 % Cream 28.35 GM TUBE 1 APPL TOPICAL (12:26)
[2022-07-12] MEDS: Mineral Oil/Petrolatum,White 106 GM Tube 1 APPL TOPICAL (13:17)
[2022-07-12] MEDS: Lurasidone HCl 80 MG TABLET 160 MG PO (18:29)
[2022-07-12] MEDS: lamoTRIgine 100 MG TABLET 250 MG PO (20:56)
[2022-07-12] MEDS: Divalproex Sodium ER 500 MG TAB.ER.24H 1000 MG PO (20:56)
[2022-07-12] MEDS: traZODone HCL 50 MG TABLET 150 MG PO (20:56)
[2022-07-12] MEDS: Acetaminophen 325 MG TABLET 650 MG PO (20:57)
[2022-07-12 21:05] VITALS: BP 112/67; PULSE 84; TEMP 36.3; O2SAT 100
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
[2022-07-13] MEDS: Amphetamine Mixed Salts 20 MG TABLET PO ×2 (06:03→13:56)
[2022-07-13] MEDS: Levothyroxine Sodium 25 MCG TABLET PO (06:03)
[2022-07-13 07:57] VITALS: BP 135/85; PULSE 72; TEMP 36.4; O2SAT 100
[2022-07-13] MEDS: guaiFENesin DM 600/30 1 TAB TAB.ER.12H 2 TAB PO ×2 (08:23→21:04)
[2022-07-13] MEDS: Calcium + Vitamin D 250 MG TABLET 500 MG PO ×2 (08:24→21:04)
[2022-07-13] MEDS: Baclofen 20 MG TABLET PO ×3 (08:25→21:05)
[2022-07-13] MEDS: Ascorbic Acid 500 MG TABLET PO ×2 (08:25→21:05)
[2022-07-13] MEDS: Gabapentin 400 MG CAPSULE PO ×3 (08:25→21:05)
[2022-07-13] MEDS: Multivitamin TABLET 1 TAB PO (08:25)
[2022-07-13] MEDS: Folic Acid 1 MG TABLET PO (08:26)
[2022-07-13] MEDS: Acamprosate Calcium 333 MG TABLET.DR 666 MG PO ×3 (08:26→21:04)
[2022-07-13] MEDS: LORazepam 0.5 MG TABLET PO ×4 (08:26→18:44)
[2022-07-13] MEDS: Thiamine HCL 100 MG TABLET PO (08:26)
[2022-07-13] MEDS: buPROPion HCl XL 300 MG TAB.ER.24H PO (08:27)
[2022-07-13] MEDS: Ferrous Sulfate 324 MG TABLET.DR PO (08:27)
[2022-07-13] MEDS: amLODIPine Besylate 5 MG TABLET PO (08:28)
[2022-07-13] MEDS: Omeprazole 20 MG CAPSULE.DR PO ×2 (08:28→18:44)
[2022-07-13] MEDS: Loratadine 10 MG TABLET PO (08:29)
[2022-07-13] MEDS: Lurasidone HCl 80 MG TABLET 160 MG PO (18:43)
[2022-07-13 21:00] VITALS: BP 120/63; PULSE 70; RESP 16; TEMP 36.4; O2SAT 96
[2022-07-13] MEDS: lamoTRIgine 100 MG TABLET 250 MG PO (21:04)
[2022-07-13] MEDS: traZODone HCL 50 MG TABLET 150 MG PO (21:05)
[2022-07-13] MEDS: Divalproex Sodium ER 250 MG TAB.ER.24H 750 MG PO (21:05)
[2022-07-14] MEDS: LORazepam 0.5 MG TABLET PO ×4 (04:45→18:50)
[2022-07-14] MEDS: Hydrocortisone 1 % Cream 28.35 GM TUBE 1 APPL TOPICAL (04:47)
[2022-07-14] MEDS: Amphetamine Mixed Salts 20 MG TABLET PO ×2 (05:39→12:55)
[2022-07-14] MEDS: Levothyroxine Sodium 25 MCG TABLET PO (05:40)
[2022-07-14 08:00] VITALS: BP 152/73; PULSE 78; TEMP 36.7; O2SAT 100
[2022-07-14] MEDS: Multivitamin TABLET 1 TAB PO (09:03)
[2022-07-14] MEDS: Gabapentin 400 MG CAPSULE PO ×3 (09:03→21:18)
[2022-07-14] MEDS: Calcium + Vitamin D 250 MG TABLET 500 MG PO ×2 (09:03→21:17)
[2022-07-14] MEDS: Baclofen 20 MG TABLET PO ×3 (09:04→21:18)
[2022-07-14] MEDS: Acamprosate Calcium 333 MG TABLET.DR 666 MG PO ×3 (09:04→21:17)
[2022-07-14] MEDS: Ascorbic Acid 500 MG TABLET PO ×2 (09:04→21:18)
[2022-07-14] MEDS: Folic Acid 1 MG TABLET PO (09:05)
[2022-07-14] MEDS: Thiamine HCL 100 MG TABLET PO (09:05)
[2022-07-14] MEDS: guaiFENesin DM 600/30 1 TAB TAB.ER.12H 2 TAB PO ×2 (09:05→21:17)
[2022-07-14] MEDS: Omeprazole 20 MG CAPSULE.DR PO ×2 (09:06→18:50)
[2022-07-14] MEDS: buPROPion HCl XL 300 MG TAB.ER.24H PO (09:06)
[2022-07-14] MEDS: amLODIPine Besylate 5 MG TABLET PO (09:06)
[2022-07-14] MEDS: Ferrous Sulfate 324 MG TABLET.DR PO (09:06)
[2022-07-14] MEDS: Loratadine 10 MG TABLET PO (09:07)
[2022-07-14] MEDS: Acetaminophen 325 MG TABLET 650 MG PO (15:50)
[2022-07-14] MEDS: Lurasidone HCl 80 MG TABLET 160 MG PO (18:49)
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
[2022-07-14 21:05] VITALS: BP 108/59; PULSE 75; RESP 16; TEMP 36.6; O2SAT 95
[2022-07-14] MEDS: Divalproex Sodium ER 250 MG TAB.ER.24H 750 MG PO (21:17)
[2022-07-14] MEDS: lamoTRIgine 100 MG TABLET 250 MG PO (21:17)
[2022-07-14] MEDS: traZODone HCL 50 MG TABLET 150 MG PO (21:17)
[2022-07-15] MEDS: traZODone HCL 50 MG TABLET PO (00:57)
[2022-07-15] MEDS: Omeprazole 20 MG CAPSULE.DR PO ×2 (05:32→18:22)
[2022-07-15] MEDS: Amphetamine Mixed Salts 20 MG TABLET PO ×2 (05:32→13:48)
[2022-07-15] MEDS: Levothyroxine Sodium 25 MCG TABLET PO (05:32)
[2022-07-15 08:00] VITALS: BP 156/89; PULSE 72; RESP 16; TEMP 36.7; O2SAT 98
[2022-07-15] MEDS: Loratadine 10 MG TABLET PO (08:16)
[2022-07-15] MEDS: LORazepam 0.5 MG TABLET PO ×4 (08:16→18:22)
[2022-07-15] MEDS: Acamprosate Calcium 333 MG TABLET.DR 666 MG PO ×3 (08:16→20:38)
[2022-07-15] MEDS: buPROPion HCl XL 300 MG TAB.ER.24H PO (08:17)
[2022-07-15] MEDS: Folic Acid 1 MG TABLET PO (08:17)
[2022-07-15] MEDS: guaiFENesin DM 600/30 1 TAB TAB.ER.12H 2 TAB PO ×2 (08:17→20:39)
[2022-07-15] MEDS: Thiamine HCL 100 MG TABLET PO (08:17)
[2022-07-15] MEDS: Acetaminophen 325 MG TABLET 650 MG PO (08:17)
[2022-07-15] MEDS: Multivitamin TABLET 1 TAB PO (08:17)
[2022-07-15] MEDS: Baclofen 20 MG TABLET PO ×3 (08:17→20:37)
[2022-07-15] MEDS: Ferrous Sulfate 324 MG TABLET.DR PO (08:17)
[2022-07-15] MEDS: Calcium + Vitamin D 250 MG TABLET 500 MG PO ×2 (08:17→20:37)
[2022-07-15] MEDS: amLODIPine Besylate 5 MG TABLET PO (08:17)
[2022-07-15] MEDS: Ascorbic Acid 500 MG TABLET PO ×2 (08:17→20:37)
[2022-07-15] MEDS: Gabapentin 400 MG CAPSULE PO ×3 (08:17→20:37)
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
[2022-07-15] MEDS: Lurasidone HCl 80 MG TABLET 160 MG PO (18:22)
[2022-07-15 20:15] VITALS: BP 92/47; PULSE 79; RESP 16; TEMP 36.6; O2SAT 95
[2022-07-15] MEDS: lamoTRIgine 100 MG TABLET 250 MG PO (20:36)
[2022-07-15] MEDS: Divalproex Sodium ER 250 MG TAB.ER.24H 750 MG PO (20:39)
[2022-07-15] MEDS: traZODone HCL 50 MG TABLET 150 MG PO (20:39)
[2022-07-16] MEDS: Levothyroxine Sodium 25 MCG TABLET PO (05:37)
[2022-07-16] MEDS: Amphetamine Mixed Salts 20 MG TABLET PO ×2 (05:37→13:42)
--- NOTE | 2022-07-16 05:47 | PC.NURSE ---
Sweetie requested to take her omeprazole with her other am medications at 0900.
[2022-07-16 08:20] VITALS: BP 108/59; PULSE 73; RESP 18; TEMP 36.2; O2SAT 97
[2022-07-16] MEDS: Loratadine 10 MG TABLET PO (08:25)
[2022-07-16] MEDS: Thiamine HCL 100 MG TABLET PO (08:25)
[2022-07-16] MEDS: Folic Acid 1 MG TABLET PO (08:25)
[2022-07-16] MEDS: Acamprosate Calcium 333 MG TABLET.DR 666 MG PO ×3 (08:25→21:01)
[2022-07-16] MEDS: Omeprazole 20 MG CAPSULE.DR PO ×2 (08:25→18:21)
[2022-07-16] MEDS: buPROPion HCl XL 150 MG TAB.ER.24H 450 MG PO (08:26)
[2022-07-16] MEDS: Calcium + Vitamin D 250 MG TABLET 500 MG PO ×2 (08:26→20:59)
[2022-07-16] MEDS: Gabapentin 400 MG CAPSULE PO ×3 (08:26→21:01)
[2022-07-16] MEDS: amLODIPine Besylate 5 MG TABLET PO (08:26)
[2022-07-16] MEDS: Ferrous Sulfate 324 MG TABLET.DR PO (08:26)
[2022-07-16] MEDS: Ascorbic Acid 500 MG TABLET PO ×2 (08:27→21:00)
[2022-07-16] MEDS: Multivitamin TABLET 1 TAB PO (08:27)
[2022-07-16] MEDS: Baclofen 20 MG TABLET PO ×3 (08:27→20:59)
[2022-07-16] MEDS: guaiFENesin DM 600/30 1 TAB TAB.ER.12H 2 TAB PO ×2 (08:27→20:59)
[2022-07-16] MEDS: LORazepam 0.5 MG TABLET PO ×4 (08:29→18:32)
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
[2022-07-16] MEDS: Lurasidone HCl 80 MG TABLET 160 MG PO (18:21)
[2022-07-16] MEDS: lamoTRIgine 100 MG TABLET 250 MG PO (21:00)
[2022-07-16] MEDS: traZODone HCL 50 MG TABLET 150 MG PO (21:00)
[2022-07-16] MEDS: Divalproex Sodium ER 250 MG TAB.ER.24H 750 MG PO (21:00)
[2022-07-16 21:06] VITALS: BP 124/71; PULSE 68; TEMP 36.5; O2SAT 99
[2022-07-17] MEDS: LORazepam 0.5 MG TABLET PO ×4 (03:28→17:58)
[2022-07-17] MEDS: Levothyroxine Sodium 25 MCG TABLET PO (05:57)
[2022-07-17] MEDS: Omeprazole 20 MG CAPSULE.DR PO ×2 (05:57→17:58)
[2022-07-17] MEDS: Amphetamine Mixed Salts 20 MG TABLET PO ×2 (05:57→13:14)
[2022-07-17] MEDS: Acetaminophen 325 MG TABLET 650 MG PO ×2 (06:24→20:55)
[2022-07-17] MEDS: SUMAtriptan succinate 50 MG TABLET PO (06:24)
[2022-07-17] MEDS: Ondansetron ODT 4 MG TAB.RAPDIS TRANSLINGU (06:30)
[2022-07-17 08:00] VITALS: BP 147/78; PULSE 72; RESP 16; TEMP 36.7; O2SAT 97
[2022-07-17] MEDS: Calcium + Vitamin D 250 MG TABLET 500 MG PO ×2 (08:43→20:52)
[2022-07-17] MEDS: buPROPion HCl XL 150 MG TAB.ER.24H 450 MG PO (08:43)
[2022-07-17] MEDS: Acamprosate Calcium 333 MG TABLET.DR 666 MG PO ×3 (08:44→20:54)
[2022-07-17] MEDS: Multivitamin TABLET 1 TAB PO (08:44)
[2022-07-17] MEDS: Baclofen 20 MG TABLET PO ×3 (08:44→20:55)
[2022-07-17] MEDS: guaiFENesin DM 600/30 1 TAB TAB.ER.12H 2 TAB PO ×2 (08:44→20:54)
[2022-07-17] MEDS: Ascorbic Acid 500 MG TABLET PO ×2 (08:44→20:52)
[2022-07-17] MEDS: Gabapentin 400 MG CAPSULE PO ×3 (08:44→20:55)
[2022-07-17] MEDS: Thiamine HCL 100 MG TABLET PO (08:44)
[2022-07-17] MEDS: Folic Acid 1 MG TABLET PO (08:44)
[2022-07-17] MEDS: amLODIPine Besylate 5 MG TABLET PO (08:45)
[2022-07-17] MEDS: Loratadine 10 MG TABLET PO (08:45)
[2022-07-17] MEDS: Ferrous Sulfate 324 MG TABLET.DR PO (08:45)
[2022-07-17 08:57] LABS: Anion Gap 13 (12-20); Blood Urea Nitrogen 6 mg/dL (9-16); Calcium 9.3 mg/dL (8.4-10.2); Carbon Dioxide 26 mmol/L (22-29); Chloride 97 mmol/L (96-108); Estimated Glomerular Filt Rate > 60; Glucose Random 56 mg/dL (60-115); Potassium 5.1 mmol/L (3.3-5.1); Sodium 131 mmol/L (135-145)
[2022-07-17 09:09] LABS: Valproate 19.5 mcg/mL (50.0-100.0)
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
[2022-07-17 10:03] LABS: Glucose, Whole Blood 88 mg/dL (60-115)
[2022-07-17] MEDS: Lurasidone HCl 80 MG TABLET 160 MG PO (17:58)
[2022-07-17 20:27] LABS: Glucose, Whole Blood 89 mg/dL (60-115)
[2022-07-17 20:30] VITALS: BP 136/79; PULSE 75; TEMP 36.4; O2SAT 98
[2022-07-17] MEDS: lamoTRIgine 100 MG TABLET 250 MG PO (20:52)
[2022-07-17] MEDS: Divalproex Sodium ER 250 MG TAB.ER.24H 750 MG PO (20:53)
[2022-07-17] MEDS: traZODone HCL 100 MG TABLET 200 MG PO (20:55)
[2022-07-17] MEDS: Mineral Oil/Petrolatum,White 106 GM Tube 1 APPL TOPICAL (22:13)
[2022-07-18] MEDS: Levothyroxine Sodium 25 MCG TABLET PO (06:02)
[2022-07-18] MEDS: Amphetamine Mixed Salts 20 MG TABLET PO ×2 (06:02→13:49)
[2022-07-18] MEDS: Omeprazole 20 MG CAPSULE.DR PO ×2 (06:02→18:03)
[2022-07-18 07:59] VITALS: BP 142/75; PULSE 73; RESP 16; TEMP 36.2; O2SAT 93
[2022-07-18] MEDS: Calcium + Vitamin D 250 MG TABLET 500 MG PO ×2 (08:00→20:45)
[2022-07-18] MEDS: guaiFENesin DM 600/30 1 TAB TAB.ER.12H 2 TAB PO ×2 (08:01→20:45)
[2022-07-18] MEDS: Acamprosate Calcium 333 MG TABLET.DR 666 MG PO ×3 (08:01→20:46)
[2022-07-18] MEDS: Thiamine HCL 100 MG TABLET PO (08:02)
[2022-07-18] MEDS: buPROPion HCl XL 150 MG TAB.ER.24H 450 MG PO (08:02)
[2022-07-18] MEDS: Baclofen 20 MG TABLET PO ×3 (08:02→20:45)
[2022-07-18] MEDS: Folic Acid 1 MG TABLET PO (08:03)
[2022-07-18] MEDS: LORazepam 0.5 MG TABLET PO ×4 (08:03→18:03)
[2022-07-18] MEDS: amLODIPine Besylate 5 MG TABLET PO (08:03)
[2022-07-18] MEDS: Gabapentin 400 MG CAPSULE PO ×3 (08:03→20:45)
[2022-07-18] MEDS: Ferrous Sulfate 324 MG TABLET.DR PO (08:04)
[2022-07-18] MEDS: Ascorbic Acid 500 MG TABLET PO ×2 (08:04→20:45)
[2022-07-18] MEDS: Loratadine 10 MG TABLET PO (08:04)
[2022-07-18] MEDS: Multivitamin TABLET 1 TAB PO (08:04)
[2022-07-18] MEDS: Acetaminophen 325 MG TABLET 650 MG PO (10:39)
[2022-07-18 10:42] LABS: Creatinine Urine 19.39 mg/dL
[2022-07-18 10:57] LABS: Osmolality Urine 208 mosm/kg (373-1093)
[2022-07-18 10:58] LABS: TSH reflex Free T4 1.34 uIU/mL (0.32-4.0)
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
[2022-07-18] MEDS: Magnesium Hydrox/Alum Hydrox 30 ML ORAL.SUSP PO (14:51)
[2022-07-18 17:01] LABS: Anion Gap 14 (12-20); Blood Urea Nitrogen 7 mg/dL (9-16); Calcium 9.5 mg/dL (8.4-10.2); Carbon Dioxide 28 mmol/L (22-29); Chloride 95 mmol/L (96-108); Estimated Glomerular Filt Rate > 60; Glucose Random 122 mg/dL (60-115); Osmolality, Serum 277 mosm/kg (281-305); Potassium 4.7 mmol/L (3.3-5.1); Sodium 132 mmol/L (135-145)
[2022-07-18] MEDS: Lurasidone HCl 80 MG TABLET 160 MG PO (18:03)
[2022-07-18 20:40] VITALS: BP 127/66; PULSE 80; RESP 18; TEMP 36.2; O2SAT 98
[2022-07-18] MEDS: Divalproex Sodium ER 250 MG TAB.ER.24H 750 MG PO (20:44)
[2022-07-18] MEDS: traZODone HCL 100 MG TABLET 200 MG PO (20:44)
[2022-07-18] MEDS: lamoTRIgine 100 MG TABLET 250 MG PO (20:46)
[2022-07-18] MEDS: Mineral Oil/Petrolatum,White 106 GM Tube 1 APPL TOPICAL (20:54)
[2022-07-19] MEDS: Levothyroxine Sodium 25 MCG TABLET PO (05:47)
[2022-07-19] MEDS: Amphetamine Mixed Salts 20 MG TABLET PO ×2 (05:47→13:43)
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
[2022-07-19 08:10] VITALS: BP 128/81; PULSE 72; RESP 18; TEMP 36.8
[2022-07-19] MEDS: Multivitamin TABLET 1 TAB PO (08:36)
[2022-07-19] MEDS: Ascorbic Acid 500 MG TABLET PO ×2 (08:36→21:01)
[2022-07-19] MEDS: Thiamine HCL 100 MG TABLET PO (08:36)
[2022-07-19] MEDS: buPROPion HCl XL 150 MG TAB.ER.24H 450 MG PO (08:36)
[2022-07-19] MEDS: amLODIPine Besylate 5 MG TABLET PO (08:36)
[2022-07-19] MEDS: Folic Acid 1 MG TABLET PO (08:36)
[2022-07-19] MEDS: LORazepam 0.5 MG TABLET PO ×4 (08:37→19:52)
[2022-07-19] MEDS: Gabapentin 400 MG CAPSULE PO ×3 (08:37→21:01)
[2022-07-19] MEDS: Acamprosate Calcium 333 MG TABLET.DR 666 MG PO ×3 (08:37→21:00)
[2022-07-19] MEDS: Omeprazole 20 MG CAPSULE.DR PO ×2 (08:37→18:02)
[2022-07-19] MEDS: Baclofen 20 MG TABLET PO ×3 (08:37→21:01)
[2022-07-19] MEDS: Loratadine 10 MG TABLET PO (08:38)
[2022-07-19] MEDS: Calcium + Vitamin D 250 MG TABLET 500 MG PO ×2 (08:38→21:01)
[2022-07-19] MEDS: Ferrous Sulfate 324 MG TABLET.DR PO (08:38)
[2022-07-19] MEDS: Divalproex Sodium 250 MG TABLET.DR PO (10:08)
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
[2022-07-19] MEDS: SUMAtriptan succinate 50 MG TABLET PO ×2 (10:52→12:28)
[2022-07-19] MEDS: Acetaminophen 325 MG TABLET 650 MG PO ×2 (10:52→19:52)
[2022-07-19] MEDS: Lurasidone HCl 80 MG TABLET 160 MG PO (18:05)
[2022-07-19 20:56] VITALS: BP 122/64; PULSE 77; RESP 18; TEMP 36.2; O2SAT 97
[2022-07-19] MEDS: lamoTRIgine 100 MG TABLET 250 MG PO (21:00)
[2022-07-19] MEDS: traZODone HCL 100 MG TABLET 200 MG PO (21:01)
[2022-07-20] MEDS: QUEtiapine Fumarate 25 MG TABLET PO (01:19)
[2022-07-20] MEDS: Levothyroxine Sodium 25 MCG TABLET PO (06:32)
[2022-07-20] MEDS: Amphetamine Mixed Salts 20 MG TABLET PO ×2 (06:32→13:28)
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
[2022-07-20 09:00] VITALS: BP 148/77; PULSE 73; RESP 18; TEMP 36.8; O2SAT 99
[2022-07-20] MEDS: Baclofen 20 MG TABLET PO ×3 (09:07→21:05)
[2022-07-20] MEDS: Calcium + Vitamin D 250 MG TABLET 500 MG PO ×2 (09:08→21:05)
[2022-07-20] MEDS: Ascorbic Acid 500 MG TABLET PO ×2 (09:08→21:05)
[2022-07-20] MEDS: Divalproex Sodium 250 MG TABLET.DR PO (09:08)
[2022-07-20] MEDS: buPROPion HCl XL 150 MG TAB.ER.24H 450 MG PO (09:09)
[2022-07-20] MEDS: Multivitamin TABLET 1 TAB PO (09:11)
[2022-07-20] MEDS: Folic Acid 1 MG TABLET PO (09:12)
[2022-07-20] MEDS: Gabapentin 400 MG CAPSULE PO ×3 (09:12→21:04)
[2022-07-20] MEDS: Thiamine HCL 100 MG TABLET PO (09:12)
[2022-07-20] MEDS: Ferrous Sulfate 324 MG TABLET.DR PO (09:13)
[2022-07-20] MEDS: Acamprosate Calcium 333 MG TABLET.DR 666 MG PO ×3 (09:13→21:05)
[2022-07-20] MEDS: Omeprazole 20 MG CAPSULE.DR PO ×2 (09:13→18:56)
[2022-07-20] MEDS: amLODIPine Besylate 5 MG TABLET PO (09:14)
[2022-07-20] MEDS: Loratadine 10 MG TABLET PO (09:14)
[2022-07-20] MEDS: LORazepam 0.5 MG TABLET PO ×3 (09:34→18:56)
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
[2022-07-20] MEDS: Lurasidone HCl 80 MG TABLET 160 MG PO (18:56)
[2022-07-20 20:07] VITALS: BP 116/58; PULSE 77; RESP 16; TEMP 36.6; O2SAT 98
[2022-07-20] MEDS: lamoTRIgine 100 MG TABLET 250 MG PO (21:03)
[2022-07-20] MEDS: Sodium Chloride Tab 1 GM TABLET 0.5 GM PO (21:03)
[2022-07-20] MEDS: guaiFENesin DM 600/30 1 TAB TAB.ER.12H 2 TAB PO (21:04)
[2022-07-20] MEDS: traZODone HCL 100 MG TABLET 200 MG PO (21:06)
[2022-07-20] MEDS: Mineral Oil/Petrolatum,White 106 GM Tube 1 APPL TOPICAL (21:09)
[2022-07-21] MEDS: LORazepam 0.5 MG TABLET PO ×5 (01:26→17:51)
[2022-07-21] MEDS: Acetaminophen 325 MG TABLET 650 MG PO (01:27)
[2022-07-21] MEDS: Levothyroxine Sodium 25 MCG TABLET PO (05:40)
[2022-07-21] MEDS: Amphetamine Mixed Salts 20 MG TABLET PO ×2 (05:40→13:37)
[2022-07-21 07:59] VITALS: BP 136/84; PULSE 79; RESP 18; TEMP 36.7; O2SAT 98
[2022-07-21] MEDS: Sodium Chloride Tab 1 GM TABLET 0.5 GM PO ×3 (08:01→20:54)
[2022-07-21] MEDS: Gabapentin 400 MG CAPSULE PO ×3 (08:02→20:53)
[2022-07-21] MEDS: Acamprosate Calcium 333 MG TABLET.DR 666 MG PO ×3 (08:02→20:53)
[2022-07-21] MEDS: buPROPion HCl XL 150 MG TAB.ER.24H 450 MG PO (08:02)
[2022-07-21] MEDS: Calcium + Vitamin D 250 MG TABLET 500 MG PO ×2 (08:03→20:54)
[2022-07-21] MEDS: Divalproex Sodium 250 MG TABLET.DR PO (08:04)
[2022-07-21] MEDS: Baclofen 20 MG TABLET PO ×3 (08:04→20:54)
[2022-07-21] MEDS: Multivitamin TABLET 1 TAB PO (08:04)
[2022-07-21] MEDS: Ascorbic Acid 500 MG TABLET PO ×2 (08:04→20:54)
[2022-07-21] MEDS: Thiamine HCL 100 MG TABLET PO (08:05)
[2022-07-21] MEDS: Folic Acid 1 MG TABLET PO (08:05)
[2022-07-21] MEDS: amLODIPine Besylate 5 MG TABLET PO (08:05)
[2022-07-21] MEDS: Furosemide 20 MG TABLET 10 MG PO (08:06)
[2022-07-21] MEDS: Omeprazole 20 MG CAPSULE.DR PO ×2 (08:07→17:51)
[2022-07-21] MEDS: Loratadine 10 MG TABLET PO (08:07)
[2022-07-21] MEDS: Ferrous Sulfate 324 MG TABLET.DR PO (08:07)
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
[2022-07-21] MEDS: Mineral Oil/Petrolatum,White 106 GM Tube 1 APPL TOPICAL (16:06)
[2022-07-21] MEDS: Lurasidone HCl 80 MG TABLET 160 MG PO (18:46)
[2022-07-21 20:25] VITALS: BP 116/56; PULSE 73; RESP 16; TEMP 36.6; O2SAT 97
[2022-07-21] MEDS: traZODone HCL 100 MG TABLET 200 MG PO (20:53)
[2022-07-21] MEDS: lamoTRIgine 100 MG TABLET 250 MG PO (20:55)
[2022-07-22 01:25] LABS: Glucose, Whole Blood 94 mg/dL (60-115)
[2022-07-22] MEDS: Acetaminophen 325 MG TABLET 650 MG PO ×3 (02:39→20:46)
[2022-07-22] MEDS: Levothyroxine Sodium 25 MCG TABLET PO (05:38)
[2022-07-22] MEDS: Amphetamine Mixed Salts 20 MG TABLET PO ×2 (05:38→13:35)
[2022-07-22] MEDS: Gabapentin 400 MG CAPSULE PO ×3 (08:30→20:43)
[2022-07-22] MEDS: Baclofen 20 MG TABLET PO ×3 (08:31→20:44)
[2022-07-22] MEDS: Calcium + Vitamin D 250 MG TABLET 500 MG PO ×2 (08:31→20:43)
[2022-07-22] MEDS: Ascorbic Acid 500 MG TABLET PO ×2 (08:31→20:44)
[2022-07-22] MEDS: buPROPion HCl XL 150 MG TAB.ER.24H 450 MG PO (08:32)
[2022-07-22] MEDS: Divalproex Sodium 250 MG TABLET.DR PO (08:34)
[2022-07-22] MEDS: Thiamine HCL 100 MG TABLET PO (08:34)
[2022-07-22] MEDS: Acamprosate Calcium 333 MG TABLET.DR 666 MG PO ×3 (08:34→20:42)
[2022-07-22] MEDS: Multivitamin TABLET 1 TAB PO (08:34)
[2022-07-22] MEDS: Omeprazole 20 MG CAPSULE.DR PO ×2 (08:35→18:44)
[2022-07-22] MEDS: Folic Acid 1 MG TABLET PO (08:35)
[2022-07-22] MEDS: Ferrous Sulfate 324 MG TABLET.DR PO (08:35)
[2022-07-22] MEDS: amLODIPine Besylate 5 MG TABLET PO (08:35)
[2022-07-22] MEDS: Loratadine 10 MG TABLET PO (08:36)
[2022-07-22] MEDS: LORazepam 0.5 MG TABLET PO ×4 (08:56→18:44)
[2022-07-22 09:00] VITALS: BP 150/79; PULSE 69; TEMP 36.4; O2SAT 100
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
[2022-07-22] MEDS: Lurasidone HCl 80 MG TABLET 160 MG PO (18:43)
[2022-07-22 20:00] VITALS: BP 135/65; PULSE 87; RESP 18; TEMP 36.3; O2SAT 99
[2022-07-22] MEDS: lamoTRIgine 100 MG TABLET 250 MG PO (20:43)
[2022-07-22] MEDS: traZODone HCL 100 MG TABLET 200 MG PO (20:43)
[2022-07-23] MEDS: LORazepam 0.5 MG TABLET PO ×5 (03:20→18:39)
[2022-07-23] MEDS: Levothyroxine Sodium 25 MCG TABLET PO (05:45)
[2022-07-23] MEDS: Amphetamine Mixed Salts 20 MG TABLET PO ×2 (05:45→13:38)
[2022-07-23 08:29] VITALS: BP 151/83; PULSE 77; RESP 18; TEMP 36.6; O2SAT 77
[2022-07-23] MEDS: Loratadine 10 MG TABLET PO (08:31)
[2022-07-23] MEDS: Ferrous Sulfate 324 MG TABLET.DR PO (08:31)
[2022-07-23] MEDS: Omeprazole 20 MG CAPSULE.DR PO ×2 (08:31→17:27)
[2022-07-23] MEDS: amLODIPine Besylate 5 MG TABLET PO (08:31)
[2022-07-23] MEDS: Folic Acid 1 MG TABLET PO (08:31)
[2022-07-23] MEDS: Thiamine HCL 100 MG TABLET PO (08:32)
[2022-07-23] MEDS: Acamprosate Calcium 333 MG TABLET.DR 666 MG PO ×3 (08:32→21:17)
[2022-07-23] MEDS: buPROPion HCl XL 150 MG TAB.ER.24H 450 MG PO (08:32)
[2022-07-23] MEDS: Gabapentin 400 MG CAPSULE PO ×3 (08:32→21:18)
[2022-07-23] MEDS: Divalproex Sodium 250 MG TABLET.DR PO (08:33)
[2022-07-23] MEDS: Baclofen 20 MG TABLET PO ×3 (08:33→21:18)
[2022-07-23] MEDS: Ascorbic Acid 500 MG TABLET PO ×2 (08:33→21:17)
[2022-07-23] MEDS: Acetaminophen 325 MG TABLET 650 MG PO ×2 (08:34→18:48)
[2022-07-23] MEDS: Calcium + Vitamin D 250 MG TABLET 500 MG PO ×2 (08:34→21:18)
[2022-07-23] MEDS: Urea 15 GM POWDER PO (08:35)
[2022-07-23] MEDS: Multivitamin TABLET 1 TAB PO (09:00)
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
[2022-07-23] MEDS: Mineral Oil/Petrolatum,White 106 GM Tube 1 APPL TOPICAL (16:51)
[2022-07-23] MEDS: Lurasidone HCl 80 MG TABLET 160 MG PO (18:39)
[2022-07-23 21:15] VITALS: BP 130/86; PULSE 81; RESP 18; TEMP 36.2; O2SAT 99
[2022-07-23] MEDS: lamoTRIgine 100 MG TABLET 250 MG PO (21:18)
[2022-07-23] MEDS: Divalproex Sodium 500 MG TABLET.DR PO (21:18)
[2022-07-23] MEDS: traZODone HCL 100 MG TABLET 200 MG PO (21:18)
[2022-07-24] MEDS: Acetaminophen 325 MG TABLET 650 MG PO ×2 (01:00→15:25)
[2022-07-24] MEDS: Amphetamine Mixed Salts 20 MG TABLET PO ×2 (05:48→13:27)
[2022-07-24] MEDS: Levothyroxine Sodium 25 MCG TABLET PO (05:48)
[2022-07-24 08:57] VITALS: BP 145/85; PULSE 78; RESP 18; TEMP 36.4; O2SAT 99
[2022-07-24] MEDS: Urea 15 GM POWDER PO (08:58)
[2022-07-24] MEDS: Gabapentin 400 MG CAPSULE PO ×3 (08:59→21:28)
[2022-07-24] MEDS: Ascorbic Acid 500 MG TABLET PO ×2 (08:59→21:28)
[2022-07-24] MEDS: Multivitamin TABLET 1 TAB PO (09:00)
[2022-07-24] MEDS: Divalproex Sodium 250 MG TABLET.DR PO (09:00)
[2022-07-24] MEDS: Calcium + Vitamin D 250 MG TABLET 500 MG PO ×2 (09:00→21:28)
[2022-07-24] MEDS: Loratadine 10 MG TABLET PO (09:00)
[2022-07-24] MEDS: LORazepam 0.5 MG TABLET PO ×4 (09:00→18:26)
[2022-07-24] MEDS: Baclofen 20 MG TABLET PO ×3 (09:00→21:28)
[2022-07-24] MEDS: buPROPion HCl XL 150 MG TAB.ER.24H 450 MG PO (09:00)
[2022-07-24] MEDS: Thiamine HCL 100 MG TABLET PO (09:00)
[2022-07-24] MEDS: Ferrous Sulfate 324 MG TABLET.DR PO (09:00)
[2022-07-24] MEDS: Acamprosate Calcium 333 MG TABLET.DR 666 MG PO ×3 (09:01→21:28)
[2022-07-24] MEDS: Omeprazole 20 MG CAPSULE.DR PO ×2 (09:01→17:02)
[2022-07-24] MEDS: Folic Acid 1 MG TABLET PO (09:01)
[2022-07-24] MEDS: amLODIPine Besylate 5 MG TABLET PO (09:01)
[2022-07-24] MEDS: Mineral Oil/Petrolatum,White 106 GM Tube 1 APPL TOPICAL ×2 (09:18→15:43)
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
[2022-07-24 15:55] VITALS: BP 129/73; PULSE 81; RESP 18; TEMP 36.4; O2SAT 97
[2022-07-24] MEDS: SUMAtriptan succinate 50 MG TABLET PO ×2 (15:57→18:05)
[2022-07-24] MEDS: Ondansetron ODT 4 MG TAB.RAPDIS TRANSLINGU (17:02)
[2022-07-24] MEDS: Lurasidone HCl 80 MG TABLET 160 MG PO (18:24)
[2022-07-24 21:26] VITALS: BP 110/54; PULSE 83; RESP 18; TEMP 36.2; O2SAT 95
[2022-07-24] MEDS: lamoTRIgine 100 MG TABLET 250 MG PO (21:28)
[2022-07-24] MEDS: Divalproex Sodium 500 MG TABLET.DR PO (21:28)
[2022-07-24] MEDS: traZODone HCL 100 MG TABLET 200 MG PO (21:28)
[2022-07-24] MEDS: Magnesium Hydrox/Alum Hydrox 30 ML ORAL.SUSP PO (21:31)
[2022-07-25] MEDS: hydrOXYzine HCL 25 MG TABLET PO (02:20)
[2022-07-25] MEDS: Acetaminophen 325 MG TABLET 650 MG PO ×3 (02:20→15:20)
[2022-07-25] MEDS: Amphetamine Mixed Salts 20 MG TABLET PO ×2 (05:57→13:57)
[2022-07-25] MEDS: Levothyroxine Sodium 25 MCG TABLET PO (05:57)
[2022-07-25] MEDS: Urea 15 GM POWDER PO (08:34)
[2022-07-25] MEDS: Baclofen 20 MG TABLET PO ×3 (08:35→21:10)
[2022-07-25] MEDS: Calcium + Vitamin D 250 MG TABLET 500 MG PO ×2 (08:35→21:10)
[2022-07-25] MEDS: Acamprosate Calcium 333 MG TABLET.DR 666 MG PO ×3 (08:35→21:10)
[2022-07-25] MEDS: buPROPion HCl XL 150 MG TAB.ER.24H 450 MG PO (08:35)
[2022-07-25] MEDS: Multivitamin TABLET 1 TAB PO (08:35)
[2022-07-25] MEDS: Folic Acid 1 MG TABLET PO (08:35)
[2022-07-25] MEDS: Ascorbic Acid 500 MG TABLET PO ×2 (08:35→21:10)
[2022-07-25] MEDS: Gabapentin 400 MG CAPSULE PO ×3 (08:35→21:10)
[2022-07-25] MEDS: Thiamine HCL 100 MG TABLET PO (08:35)
[2022-07-25] MEDS: Divalproex Sodium 250 MG TABLET.DR PO (08:35)
[2022-07-25] MEDS: Loratadine 10 MG TABLET PO (08:36)
[2022-07-25] MEDS: amLODIPine Besylate 5 MG TABLET PO (08:36)
[2022-07-25] MEDS: Ferrous Sulfate 324 MG TABLET.DR PO (08:36)
[2022-07-25] MEDS: Omeprazole 20 MG CAPSULE.DR PO ×2 (08:36→18:57)
[2022-07-25] MEDS: LORazepam 0.5 MG TABLET PO ×3 (08:41→19:04)
[2022-07-25 08:50] VITALS: BP 135/65; PULSE 72; RESP 18; TEMP 36.7; O2SAT 100
[2022-07-25] MEDS: SUMAtriptan succinate 50 MG TABLET PO (15:23)
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
[2022-07-25] MEDS: Lurasidone HCl 80 MG TABLET 160 MG PO (18:57)
[2022-07-25] MEDS: lamoTRIgine 100 MG TABLET 250 MG PO (21:09)
[2022-07-25] MEDS: Divalproex Sodium 500 MG TABLET.DR PO (21:10)
[2022-07-25] MEDS: traZODone HCL 100 MG TABLET 200 MG PO (21:10)
[2022-07-25 21:15] VITALS: BP 139/76; PULSE 71; TEMP 36.6; O2SAT 97
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
[2022-07-26] MEDS: Amphetamine Mixed Salts 20 MG TABLET PO ×2 (05:53→13:19)
[2022-07-26] MEDS: Levothyroxine Sodium 25 MCG TABLET PO (05:53)
[2022-07-26 08:00] VITALS: BP 169/88; PULSE 75; TEMP 36.7; O2SAT 100
[2022-07-26] MEDS: Urea 15 GM POWDER PO (08:12)
[2022-07-26] MEDS: Acetaminophen 325 MG TABLET 650 MG PO ×2 (08:13→17:07)
[2022-07-26] MEDS: buPROPion HCl XL 150 MG TAB.ER.24H 450 MG PO (08:13)
[2022-07-26] MEDS: Gabapentin 400 MG CAPSULE PO ×3 (08:14→20:50)
[2022-07-26] MEDS: Thiamine HCL 100 MG TABLET PO (08:14)
[2022-07-26] MEDS: Multivitamin TABLET 1 TAB PO (08:14)
[2022-07-26] MEDS: Ascorbic Acid 500 MG TABLET PO ×2 (08:14→20:49)
[2022-07-26] MEDS: LORazepam 0.5 MG TABLET PO ×4 (08:15→18:11)
[2022-07-26] MEDS: Calcium + Vitamin D 250 MG TABLET 500 MG PO ×2 (08:15→20:50)
[2022-07-26] MEDS: Acamprosate Calcium 333 MG TABLET.DR 666 MG PO ×3 (08:15→20:49)
[2022-07-26] MEDS: Ferrous Sulfate 324 MG TABLET.DR PO (08:16)
[2022-07-26] MEDS: Baclofen 20 MG TABLET PO ×3 (08:16→20:50)
[2022-07-26] MEDS: Folic Acid 1 MG TABLET PO (08:16)
[2022-07-26] MEDS: Divalproex Sodium 250 MG TABLET.DR PO (08:16)
[2022-07-26] MEDS: Omeprazole 20 MG CAPSULE.DR PO ×2 (08:16→18:12)
[2022-07-26] MEDS: amLODIPine Besylate 5 MG TABLET PO (08:17)
[2022-07-26] MEDS: Loratadine 10 MG TABLET PO (08:17)
[2022-07-26] MEDS: SUMAtriptan succinate 50 MG TABLET PO (17:07)
[2022-07-26] MEDS: Lurasidone HCl 80 MG TABLET 160 MG PO (18:11)
[2022-07-26] MEDS: lamoTRIgine 100 MG TABLET 250 MG PO (20:49)
[2022-07-26] MEDS: traZODone HCL 100 MG TABLET 200 MG PO (20:49)
[2022-07-26] MEDS: Divalproex Sodium 500 MG TABLET.DR PO (20:49)
[2022-07-26 20:58] VITALS: BP 160/84; PULSE 92; TEMP 36.6; O2SAT 95
[2022-07-27] MEDS: Levothyroxine Sodium 25 MCG TABLET PO (05:53)
[2022-07-27] MEDS: Amphetamine Mixed Salts 20 MG TABLET PO ×2 (05:53→13:35)
[2022-07-27 08:20] VITALS: BP 160/78; PULSE 72; RESP 18; TEMP 36.8; O2SAT 99
[2022-07-27 08:23] LABS: Alanine Aminotransferase 12 U/L (0-31); Albumin Level 3.9 g/dL (3.5-5.0); Alkaline Phosphatase 80 U/L (39-117); Anion Gap 5 (12-20); Aspartate Amino Transferase 13 U/L (5-31); Bilirubin Total 0.3 mg/dL (0.0-1.0); Blood Urea Nitrogen 8 mg/dL (9-16); Carbon Dioxide 27 mmol/L (22-29); Chloride 93 mmol/L (96-108); Creatinine Clr Calc Pharmacy 143.1; Estimated Glomerular Filt Rate > 60; Glucose Random 102 mg/dL (60-115); Sodium 120 mmol/L (135-145); Total Protein 6.1 g/dL (6.5-8.0)
--- NOTE | 2022-07-27 08:23 | PC.NURSE ---
Got a call from the lab about NA value of 120. Reported to nurse.
--- NOTE | 2022-07-27 08:25 | PC.NURSE ---
Penelope Huertas SAFETY AND HEALTH MANAGER notified via tiger text of critical NA+ value. Waiting response.
--- NOTE | 2022-07-27 08:49 | PC.NURSE ---
Per Penelope Huertas APRN do not administer AM meds at this time.
[2022-07-27] MEDS: LORazepam 0.5 MG TABLET PO ×3 (10:00→18:28)
[2022-07-27] MEDS: amLODIPine Besylate 5 MG TABLET PO (10:06)
--- NOTE | 2022-07-27 10:20 | PC.NURSE ---
Patient seen on consult by . Authorized anministrationof Norvasc. Spoke to Penelope Huertas APRN authorized administration of all medications.
[2022-07-27] MEDS: Multivitamin TABLET 1 TAB PO (10:22)
[2022-07-27] MEDS: Baclofen 20 MG TABLET PO ×3 (10:22→21:05)
[2022-07-27] MEDS: buPROPion HCl XL 150 MG TAB.ER.24H 450 MG PO (10:22)
[2022-07-27] MEDS: Ferrous Sulfate 324 MG TABLET.DR PO (10:22)
[2022-07-27] MEDS: Omeprazole 20 MG CAPSULE.DR PO ×2 (10:23→17:10)
[2022-07-27] MEDS: Loratadine 10 MG TABLET PO (10:23)
[2022-07-27] MEDS: Ascorbic Acid 500 MG TABLET PO ×2 (10:23→21:05)
[2022-07-27] MEDS: Calcium + Vitamin D 250 MG TABLET 500 MG PO ×2 (10:23→21:05)
[2022-07-27] MEDS: Gabapentin 400 MG CAPSULE PO ×3 (10:23→21:05)
[2022-07-27] MEDS: Acamprosate Calcium 333 MG TABLET.DR 666 MG PO ×3 (10:23→21:05)
[2022-07-27] MEDS: Divalproex Sodium 250 MG TABLET.DR PO (10:24)
[2022-07-27] MEDS: Thiamine HCL 100 MG TABLET PO (10:24)
[2022-07-27] MEDS: Folic Acid 1 MG TABLET PO (10:29)
[2022-07-27] MEDS: Sodium Chloride Tab 1 GM TABLET PO (10:30)
[2022-07-27] MEDS: Urea 15 GM POWDER PO (10:48)
--- NOTE | 2022-07-27 10:48 | P.PNIM_ITS ---
Subjective Subjective Date of Service: 07/27/22 Interval History: consulted on low sodium of 120 patient seen in her room, patient is sitting comfortably on chair offers no acute complaints of lightheadedness dizziness, no nausea, no vomiting, no abdominal pain, has been ambulating without difficulty has been tolerating diet denies diarrhea, denies urinary symptoms of urgency frequency , patient she has been and drinking pitchers of water, as well as coffee, she has already drank 7 cups of coffee in last few hours and drinks 2 cups of coffee with each meal, since she feels she does not have any other work to do, she has been taking urea 15 g daily Review of Systems General no headache no dizziness no fever chills. CVS no chest pain, no palpitation. Respiratory no cough ,no sob Gastrointestinal no nausea, no vomiting, no abdominal pain Review of Systems: Yes all other systems are reviewed and are negative Physical Exam Vital Signs: Vital Signs: Last Vital Signs Temp 98.2 F 07/27/22 08:20 Pulse 72 07/27/22 08:20 Resp 18 07/27/22 08:20 BP 160/78 H 07/27/22 08:20 Pulse Ox 99 07/27/22 08:20 O2 Del Method 07/27/22 08:20 Const: Other: General awake alert x3, resting comfortably in no acute distress. Neck supple no JVD. CVS regular rate rhythm, Respiratory lungs clear to auscultation, no respiratory distress, no wheeze, no rhonchi. Gastrointestinal abdomen soft, nontender, bowel sounds audible, no guarding , no rigidity. Extremities no edema. Neuro nonfocal , speech clear. Skin no rash Objective Data Active Medications Acamprosate (Acamprosate Calcium 333 Mg Tablet.) 666 mg PO TID [facility] Last Admin: 07/27/22 10:23 Dose: 666 mg Documented By: DOSTALLeland Acetaminophen (Acetaminophen 325 Mg Tablet) 650 mg PO Q6H PRN PRN Reason: Headache/Pain Mild Scale (1-3) Last Admin: 07/26/22 17:07 Dose: 650 mg Documented By: TOMAS Al Hydroxide/Mg Hydroxide (Magnesium Hydrox/Alum Hydrox 30 Ml Oral.Susp) 30 ml PO Q6H PRN PRN Reason: Heartburn/Nausea Last Admin: 07/24/22 21:31 Dose: 30 ml Documented By: CODY Amlodipine Besylate (Amlodipine Besylate 5 Mg Tablet) 5 mg PO DAILY [facility]; Protocol Last Admin: 07/27/22 10:06 Dose: 5 mg Documented By: DOSTALD Amphetamine/Dextroamphetamine (Amphetamine Mixed Salts 20 Mg Tablet) 20 mg PO BID@0600,1330 [facility] Last Admin: 07/27/22 05:53 Dose: 20 mg Documented By: FLEMINM Ascorbic Acid (Ascorbic Acid 500 Mg Tablet) 500 mg PO BID [facility] Last Admin: 07/27/22 10:23 Dose: 500 mg Documented By: DOSTALD Baclofen (Baclofen 20 Mg Tablet) 20 mg PO TID [facility] Last Admin: 07/27/22 10:22 Dose: 20 mg Documented By: KELLYTALLeland Benzocaine (Throat Lozenge, Medicated Lozenge) 1 lozenge MUCOUS MEM Q2H PRN PRN Reason: Sore Throat Bupropion HCl (Bupropion Hcl Xl 150 Mg Tab.Er.24h) 450 mg PO DAILY [facility] Last Admin: 07/27/22 10:22 Dose: 450 mg Documented By: DOSTALD Calcium Carbonate/Cholecalciferol (Calcium + Vitamin D 250 Mg Tablet) 500 mg PO BID [facility] Last Admin: 07/27/22 10:23 Dose: 500 mg Documented By: KELLYTALD Divalproex Sodium (Divalproex Sodium 250 Mg Tablet.) 250 mg PO DAILY [facility] Last Admin: 07/27/22 10:24 Dose: 250 mg Documented By: KELLYTALD Divalproex Sodium (Divalproex Sodium 500 Mg Tablet.) 500 mg PO BEDTIME [facility] Last Admin: 07/26/22 20:49 Dose: 500 mg Documented By: ABRAHAM Ferrous Sulfate (Ferrous Sulfate 324 Mg Tablet.) 324 mg PO DAILY [facility] Last Admin: 07/27/22 10:22 Dose: 324 mg Documented By: DOSTALD Folic Acid (Folic Acid 1 Mg Tablet) 1 mg PO DAILY [facility] Last Admin: 07/27/22 10:29 Dose: 1 mg Documented By: DOSTALD Gabapentin (Gabapentin 400 Mg Capsule) 400 mg PO TID [facility] Last Admin: 07/27/22 10:23 Dose: 400 mg Documented By: DOSTALD Hydrocortisone (Hydrocortisone 1 % Cream 28.35 Gm Tube) 1 appl TOPICAL BID PRN; Protocol PRN Reason: Itching Hydroxyzine HCl (Hydroxyzine Hcl 25 Mg Tablet) 25 mg PO Q6H PRN PRN Reason: Anxiety Last Admin: 07/25/22 02:20 Dose: 25 mg Documented By: LAMRDIP Lamotrigine (Lamotrigine 100 Mg Tablet) 250 mg PO BEDTIME [facility] Last Admin: 07/26/22 20:49 Dose: 250 mg Documented By: ABRAHAM Levothyroxine Sodium (Levothyroxine Sodium 25 Mcg Tablet) 25 mcg PO DAILY@0600 [facility] Last Admin: 07/27/22 05:53 Dose: 25 mcg Documented By: FLEMINM Loratadine (Loratadine 10 Mg Tablet) 10 mg PO DAILY [facility] Last Admin: 07/27/22 10:23 Dose: 10 mg Documented By: JIGAR Lurasidone HCl (Lurasidone Hcl 80 Mg Tablet) 160 mg PO DAILY@1800 [facility] Last Admin: 07/26/22 18:11 Dose: 160 mg Documented By: TOMAS Magnesium Hydroxide (Milk Of Magnesia 30 Ml Oral.Susp) 30 ml PO DAILY PRN PRN Reason: Constipation Multi-Ingred Cream/Lotion/Oil/Oint (Mineral Oil/Petrolatum,White 106 Gm Tube) 1 appl TOPICAL TID [facility] Last Admin: 07/26/22 21:23 Dose: Not Given Documented By: ABRAHAM Non-Admin Reason: Patient Refused Multivitamins/Vitamin C (Multivitamin Tablet) 1 tab PO DAILY [facility] Last Admin: 07/27/22 10:22 Dose: 1 tab Documented By: JIGAR Nicotine (Nicotine 21 Mg Patch.Td24) 21 mg TRANSDERMA DAILY PRN PRN Reason: nicotine cravings Omeprazole (Omeprazole 20 Mg Capsule.Dr) 20 mg PO BID@0900,1700 [facility] Last Admin: 07/27/22 10:23 Dose: 20 mg Documented By: JIGAR Ondansetron HCl (Ondansetron Odt 4 Mg Tab.Rapdis) 4 mg TRANSLINGU Q8H PRN PRN Reason: nausea Last Admin: 07/24/22 17:02 Dose: 4 mg Documented By: MEG Quetiapine Fumarate (Quetiapine Fumarate 25 Mg Tablet) 25 mg PO Q6H PRN PRN Reason: anxiety, insomnia Last Admin: 07/20/22 01:19 Dose: 25 mg Documented By: CODY Sumatriptan Succinate (Sumatriptan Succinate 50 Mg Tablet) 50 mg PO DAILY MRX1 PRN PRN Reason: for migraines Last Admin: 07/26/22 17:07 Dose: 50 mg Documented By: TOMAS Thiamine HCl (Thiamine Hcl 100 Mg Tablet) 100 mg PO DAILY [facility] Last Admin: 07/27/22 10:24 Dose: 100 mg Documented By: KELLYTALLeland Trazodone HCl (Trazodone Hcl 50 Mg Tablet) 50 mg PO BEDTIME PRN PRN Reason: Insomnia Last Admin: 07/15/22 00:57 Dose: 50 mg Documented By: IZAIAH Trazodone HCl (Trazodone Hcl 100 Mg Tablet) 200 mg PO BEDTIME [facility] Last Admin: 07/26/22 20:49 Dose: 200 mg Documented By: ABRAHAM Urea (Urea 15 Gm Powder) 15 gm PO DAILY [facility] Last Admin: 07/26/22 08:12 Dose: 15 gm Documented By: TOMAS Labs CBC & Chem 7: 07/27/22 06:36 Labs: Laboratory Results - last 24 hr 07/27/22 07/27/22 06:36 06:36 Anion Gap 5 L Estim Creat Clear Calc 143.1 Estimated GFR > 60 Random Glucose 102 Calcium 9.0 Total Bilirubin 0.3 AST 13 ALT 12 Alkaline Phosphatase 80 Total Protein 6.1 L Albumin 3.9 Valproic Acid 27.0 L Assessment and Plan (1) Hyponatremia: Status: Acute (2) HTN (hypertension): Status: Acute Plan 52-year-old female patient with past medical history significant for posttraumatic disorder, history of alcohol use disorder, major depression disorder, being treated at [facility] for depression, suicidal ideation, was noted to have hyponatremia with serum sodium of 131 and was evaluated by Nephrology 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 and Na improved, treatment was subsequently changed to urea 15 g daily and 1800 mL fluid restriction per day, however patient has been taking urea but not following fluid restriction and has been drinking large amount of water and coffee today patient's sodium noted to be 120, patient's sodium was 132 on 07/18, Profound hyponatremia sodium 120 patient asymptomatic with no lightheadedness dizziness nausea, patient is declining transferred to medical floor will check serum osmolality, urine osmolality and urine sodium level, check uric acid level, patient with normal TSH will restrict fluid intake to 1 L, will give 1 g of sodium chloride repeat BMP q.4 hours x2 and again at a.m. goal of NA correction 8 mEq in next 24 hours strongly recommend patient follow fluid restriction informed psych provider about treatment plan case discussed with Nephrology, Nephrology consult obtained. major depressive disorder / PTSD treatment plan as per psych DVT prophylaxis recommend ambulation daily tid Quality Stroke Does the patient have a stroke diagnosis?: No VTE Prior VTE?: No VTE Risk Level:: Medical - moderate - high VTE Device Contraindication: Treatment Not Indicated VTE Drug Contraindication: N/A - Med Ordered
[2022-07-27 11:11] LABS: Uric Acid 3.6 mg/dL (2.4-5.7)
[2022-07-27 11:42] LABS: Osmolality, Serum 260 mosm/kg (281-305)
[2022-07-27 12:35] LABS: Sodium Urine Random < 20.0 mmol/L
[2022-07-27 13:30] LABS: Osmolality Urine 149 mosm/kg (373-1093)
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
[2022-07-27 15:36] LABS: Anion Gap 8 (12-20); Blood Urea Nitrogen 15 mg/dL (9-16); Calcium 10.2 mg/dL (8.4-10.2); Carbon Dioxide 27 mmol/L (22-29); Chloride 95 mmol/L (96-108); Creatinine Clr Calc Pharmacy 133.3; Estimated Glomerular Filt Rate > 60; Glucose Random 120 mg/dL (60-115); Potassium 4.2 mmol/L (3.3-5.1); Sodium 126 mmol/L (135-145)
--- NOTE | 2022-07-27 16:19 | PM.PNNEP ---
Subjective Subjective Date of Service: 07/27/22 Interval history: Asked to evaluate pt as her Na was low No labs for a week and labs today was abnormal- NA 120 very anxious ?patient asymptomatic with no lightheadedness dizziness nausea, patient is declining transferred to medical floor ?Drinking sig amount . Physical Exam Vital Signs: Vital Signs: Last Vital Signs Temp 98.2 F 07/27/22 08:20 Pulse 72 07/27/22 08:20 Resp 18 07/27/22 08:20 BP 160/78 H 07/27/22 08:20 Pulse Ox 99 07/27/22 08:20 O2 Del Method 07/27/22 08:20 Const: Other: General awake alert x3, resting comfortably in no acute distress. Neck supple no JVD. CVS regular rate rhythm, Respiratory lungs clear to auscultation, no respiratory distress, no wheeze, no rhonchi. Gastrointestinal abdomen soft, nontender, bowel sounds audible, no guarding , no rigidity. Extremities no edema. Neuro nonfocal , speech clear. Skin no rash Objective Data Labs CBC & Chem 7: 07/27/22 14:43 Labs: Laboratory Results - last 24 hr 07/27/22 07/27/22 07/27/22 06:36 06:36 06:36 Sodium 120 L* Potassium 5.0 Chloride 93 L Carbon Dioxide 27 Anion Gap 5 L BUN 8 L Creatinine 0.68 Estim Creat Clear Calc 143.1 Estimated GFR > 60 Random Glucose 102 Osmolality 260 L Uric Acid 3.6 Calcium 9.0 Total Bilirubin 0.3 AST 13 ALT 12 Alkaline Phosphatase 80 Total Protein 6.1 L Albumin 3.9 Urine Osmolality Ur Random Sodium Valproic Acid 27.0 L 07/27/22 07/27/22 07/27/22 12:00 12:00 14:43 Sodium 126 L Potassium 4.2 Chloride 95 L Carbon Dioxide 27 Anion Gap 8 L BUN 15 Creatinine 0.73 Estim Creat Clear Calc 133.3 Estimated GFR > 60 Random Glucose 120 H Osmolality Uric Acid Calcium 10.2 D Total Bilirubin AST ALT Alkaline Phosphatase Total Protein Albumin Urine Osmolality 149 L Ur Random Sodium < 20.0 Valproic Acid Procedures Date of Service Date of Service: 07/27/22 Assessment & Plan Assessment and plan (1) Hyponatremia: Status: Acute (2) Post traumatic stress disorder (PTSD): Status: Acute (3) Borderline personality disorder: Status: Acute (4) MDD (major depressive disorder), recurrent severe, without psychosis: Status: Acute (5) Alcohol use disorder, severe, dependence: Status: Resolved (6) HTN (hypertension): Status: Acute (7) Depression: Status: Acute (8) Alcohol use disorder: Status: Acute Dee Pitt is a 52 yo female who carries a dx of PTSD, Alcohol use disorder, dependence, and major depressive disorder, severe, recurrent. She presented to [facility] on 07/04/22 s/p alcohol intoxication (denies Adderall overdose, although admits she may not remember due to blacking out as pills had been crushed on a plate nearby her), required [facility] admission for detox with phenobarb taper. She was transferred from [facility] to psych due to SI, worsening depression. Pt recently discharged from psych admission on M5 Now with Severe Hyponatremia Pt looks euvolemic No Sig Neuro symptoms S- Osm _ Hypoosmolar Urine Studies with low U Na and U Osm c/w Psycogenic polydipsis ? Dry mouth duse to psych meds On Meds which can cause low Na Fluid restriction 1. 2 liters / day She should self Aquaressis CAn continue same dose of Urea NA checks Q 4 x 2 and in Am Avoid correction > 6-8 meq in 24 hrs D/ w Medical team and Psych floor nurses D/w Pt in detail we discussed about ways to avoid dry mouth - Ice chips / Biotin / Hard candies Time Spent With Patient Time: Total time spent is greater than 50% in coordination of care (as documented) at patient's floor/unit and/or counseling patient: Progress Note: Quality Stroke Does the patient have a stroke diagnosis?: No
[2022-07-27] MEDS: Lurasidone HCl 40 MG TABLET 120 MG PO (18:28)
[2022-07-27 19:40] LABS: Anion Gap 9 (12-20); Blood Urea Nitrogen 12 mg/dL (9-16); Calcium 9.7 mg/dL (8.4-10.2); Carbon Dioxide 26 mmol/L (22-29); Chloride 92 mmol/L (96-108); Creatinine Clr Calc Pharmacy 133.3; Estimated Glomerular Filt Rate > 60; Glucose Random 154 mg/dL (60-115); Potassium 4.1 mmol/L (3.3-5.1); Sodium 123 mmol/L (135-145)
[2022-07-27 21:03] VITALS: BP 128/65; PULSE 94; RESP 18; TEMP 35.9; O2SAT 100
[2022-07-27] MEDS: Divalproex Sodium 500 MG TABLET.DR PO (21:05)
[2022-07-27] MEDS: traZODone HCL 100 MG TABLET 200 MG PO (21:05)
[2022-07-27] MEDS: lamoTRIgine 100 MG TABLET 250 MG PO (21:05)
[2022-07-28] MEDS: Acetaminophen 325 MG TABLET 650 MG PO (03:43)
[2022-07-28] MEDS: Amphetamine Mixed Salts 20 MG TABLET PO (06:46)
[2022-07-28] MEDS: Levothyroxine Sodium 25 MCG TABLET PO (06:46)
[2022-07-28 08:38] LABS: Anion Gap 13 (12-20); Blood Urea Nitrogen 7 mg/dL (9-16); Calcium 9.2 mg/dL (8.4-10.2); Carbon Dioxide 27 mmol/L (22-29); Chloride 92 mmol/L (96-108); Creatinine Clr Calc Pharmacy 154.5; Estimated Glomerular Filt Rate > 60; Glucose Random 32 mg/dL (60-115); Potassium 4.5 mmol/L (3.3-5.1); Sodium 127 mmol/L (135-145)
[2022-07-28 08:40] VITALS: BP 132/73; PULSE 81; RESP 18; TEMP 36.4; O2SAT 99
[2022-07-28] MEDS: buPROPion HCl XL 150 MG TAB.ER.24H 450 MG PO (08:47)
[2022-07-28] MEDS: Divalproex Sodium 250 MG TABLET.DR PO (08:49)
[2022-07-28] MEDS: Calcium + Vitamin D 250 MG TABLET 500 MG PO (08:49)
[2022-07-28] MEDS: Gabapentin 400 MG CAPSULE PO (08:50)
[2022-07-28] MEDS: Baclofen 20 MG TABLET PO (08:50)
[2022-07-28] MEDS: Acamprosate Calcium 333 MG TABLET.DR 666 MG PO (08:50)
[2022-07-28] MEDS: Thiamine HCL 100 MG TABLET PO (08:51)
[2022-07-28] MEDS: Folic Acid 1 MG TABLET PO (08:51)
[2022-07-28] MEDS: Ascorbic Acid 500 MG TABLET PO (08:51)
[2022-07-28] MEDS: Ferrous Sulfate 324 MG TABLET.DR PO (08:51)
[2022-07-28] MEDS: Multivitamin TABLET 1 TAB PO (08:51)
[2022-07-28] MEDS: amLODIPine Besylate 5 MG TABLET PO (08:52)
[2022-07-28] MEDS: Omeprazole 20 MG CAPSULE.DR PO (08:52)
[2022-07-28] MEDS: Loratadine 10 MG TABLET PO (08:53)
[2022-07-28] MEDS: Urea 15 GM POWDER PO (08:54)
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
[2022-07-28] MEDS: LORazepam 0.5 MG TABLET PO (09:00)
[2022-07-28 09:39] LABS: Glucose, Whole Blood 100 mg/dL (60-115)
--- NOTE | 2022-07-28 09:53 | PC.NURSE ---
Late entry: MIA Bal received notice of critical glucose and notified provider Loree Miller NP. Patient given 2 OJ, which she accepted, but declined peanut butter or crackers. Patient's breakfast up shortly after. Repeat POC obtained: 100. Patient very angry, tearful re: discharge and declined a full evaluation but declined to commit to safety, and declined to respond to questions re: SI/HI or AH/VH. Provider and SW aware patient declined to answer these questions. Reviewed discharge instructions with patient, no concerns or questions reported at that time. Patient aware that she will be transferring to [facility] for follow up and continued treatment. Patient escorted to [facility], where she was picked up for transportation to [facility].
--- NOTE | 2022-07-28 12:08 | PM.EVENT ---
Event Note Date of Service: 07/28/22 Event Note: follow-up for hyponatremia sodium improved from 120-127 in last 24 hours Dose of urea increased from 15 mg daily to 15 mg b.i.d. recommend to discharge patient on urea 15 g b.i.d. and continue fluid restriction 1 L per day, recommend outpatient follow-up with Nephrology, case discussed with Dr. Valenzuela, can follow-up with his service as needed.
== END 2022-07-28 09:50 | disposition home or self-care (01) | DRG 885 ==
PROVIDERS: Hospitalist; Registered Nurse; Admitting Provider Family Medicine; Visit Provider Social Worker
DX: F33.2 Major depressive disorder, recurrent severe without psychotic features (principal); R45.851 Suicidal ideations; E87.1 Hypo-osmolality and hyponatremia; F60.3 Borderline personality disorder; E66.9 Obesity, unspecified; I10 Essential (primary) hypertension; F43.10 Post-traumatic stress disorder, unspecified; F10.20 Alcohol dependence, uncomplicated; Z20.822 Contact with and (suspected) exposure to COVID-19; Z91.51 Personal history of suicidal behavior; Z91.040 Latex allergy status; Z88.0 Allergy status to penicillin; Z88.2 Allergy status to sulfonamides; Z88.6 Allergy status to analgesic agent; Z88.8 Allergy status to other drugs, medicaments and biological substances; Z79.890 Hormone replacement therapy; Z79.899 Other long term (current) drug therapy
CPT/HCPCS: 0241U; 36415; 80048; 80053; 80061; 80164; 82607; 82746; 82947; 83036; 83930; 83935; 84300; 84443; 84550